=== PATIENT | female | born 1955 | race Caucasian/White ===

== ENCOUNTER 2016-04-06 07:33 | Inpatient (IN) | payer OTHER ==
[~2016-04-06] VITALS: Ht 162.6 cm; Wt 82.1 kg
[~2016-04-06 07:33] MED LIST: ALBUAER2 INH; BENZ100C7 PO; HYCUDL5 PO; PRD10 PO; ZNTT/150 PO; ZTHM250 PO; [UNRECOGNIZED DRUG - CODE] PO
--- NOTE | 2016-04-06 08:04 | EMERGENCY ROOM VISIT NOTE ---
History First contact with patient: 07:54 Chief Complaint: SHORTNESS OF BREATH Stated Complaint: SHORTNESS OF BREATH Nursing Triage Summary: Pt arrives via ALS litter from home for eval of worsening sob that began today and prod cough of brown sputum worse over the past couple weeks. 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 Pt given 125mg Solumedrol and Albuterol neb en route. Per medic, pt was sat 91% RA on their arrival. Pt sat 98% upon arrival to the ED. Pt denies pain. Hx of COPD. History of Present Illness The patient is a 60 year old female who presents to the Emergency Room with complaints of difficulty breathing. She has a history of lung disease, she was not a smoker but reports she has COPD which has been difficult to control over the last year. She reports over the last week she has had a cough, productive of brown sputum. She reports it got acutely worse tonight and she felt she couldn't breathe at all this morning. She was brought by ALS and had received an Albuterol nebulizer and 125mg IV Solumedrol. Her saturations on arrival were 91% and currently are 94% on room air. She reports chest tightness but no pain. She reports she has taken Clindamycin TID the last 3-4 days for sinusitis diagnosed by Dr Vidales. Review of Systems See HPI for pertinent positives & negatives. A total of 10 systems reviewed and were otherwise negative. Past Medical/Surgical History Medical Problems: (1) Age related osteoporosis (2) Asthma (3) Asthma exacerbation (4) Depression (5) Elevated troponin (6) Epilepsy (7) EDWIN (generalized anxiety disorder) (8) GERD (gastroesophageal reflux disease) (9) IBS (irritable bowel syndrome) Surgical Problems: (1) H/O colonoscopy (2) H/O esophagogastroduodenoscopy (3) H/O sinus surgery (4) H/O: hysterectomy (5) History of ear surgery (6) Hx of breast biopsy Family History Diabetes mellitus MOTHER FH: lung cancer AUNT Hypertension FATHER Social History Smoking Status: Never Smoker Alcohol Use: none Marital Status: single Housing Status: lives alone Occupation Status: unemployed Current/Historical Medications Scheduled Aspirin (Aspirin EC Low Dose), 1 TAB PO QAM Budesonide/Formoterol Fumarate (Symbicort 160/4.5 Inhaler ), 2 PUFFS INH BID Citalopram (Citalopram Hydrobromide), 40 MG PO QAM Cyanocobalamin (Vitamin B-12 1000 Mcg), 1 TAB PO QAM Fluticasone Propionate (Nasal) (Flonase Allergy Relief), 1 SPRAY JOSE CARLOS DAILY AFTERNOON Folic Acid (Folvite), 1 MG PO QAM Levothyroxine Sodium (Levothyroxine Sodium), 100 MCG PO QPM Montelukast Sodium (Singulair), 10 MG PO QPM Pantoprazole (Protonix), 40 MG PO QAM Phenobarbital (Phenobarbital), 97.2 MG PO HS Phenytoin Sodium (Dilantin), 200 MG PO BID Ranitidine (Zantac), 150 MG PO HS Scheduled PRN Albuterol Hfa (Ventolin Hfa), 2 PUFFS INH Q4H PRN for SOB/Wheezing Hydrocodone/Homatropine (Hydromet 5-1.5 mg/5Ml), 5 ML PO Q4 PRN for Cough Ipratropium-Albuterol (Duoneb), 1 TREATMENT INH Q4H PRN for SOB/Wheezing Allergies Coded Allergies: Clemastine (Verified Allergy, Unknown, ITCHING, 04/06/16) Sulfa Antibiotics (Verified Allergy, Unknown, RASH AND ITCHY, 04/06/16) [place] (Verified Allergy, Unknown, UKRAINIAN WALNUT ALLERGY, + ALLERGY TEST , 04/06/16) Physical Exam Vital Signs Date Time Temp Pulse Resp B/P Pulse Ox O2 Delivery O2 Flow Rate FiO2 04/06/16 08:59 73 18 127/66 99 Nebulizer 04/06/16 07:55 98 Room Air 04/06/16 07:50 37.2 90 22 128/95 98 Room Air 04/06/16 07:44 78 04/06/16 07:40 98 Room Air Physical Exam GENERAL: Awake, alert, well-appearing, in mild distress HENT: Normocephalic, atraumatic. Oropharynx unremarkable. EYES: Normal conjunctiva. Sclera non-icteric. NECK: Supple. No nuchal rigidity. FROM. No JVD. RESPIRATORY: Expiratory wheeze in Right base. Clear to auscultation in other nicolas. CARDIAC: Regular rate, normal rhythm. Extremities warm and well perfused. Pulses equal. ABDOMEN: Soft, non-distended. No tenderness to palpation. No rebound or guarding. No masses. RECTAL: Deferred. MUSCULOSKELETAL: Chest examination reveals no tenderness. The back is symmetrical on inspection without obvious abnormality. There is no CVA tenderness to palpation. No joint edema. LOWER EXTREMITIES: Calves are equal size bilaterally and non-tender. No edema. No discoloration. NEURO: Normal sensorium. No sensory or motor deficits noted. SKIN: No rash or jaundice noted. Medical Decision & Procedures Laboratory Results 04/06/16 06:58 Red Blood Count 4.63, Mean Corpuscular Volume 92.9, Mean Corpuscular Hemoglobin 32.4, Mean Corpuscular Hemoglobin Concent 34.9, Mean Platelet Volume 9.5, Neutrophils (%) (Auto) 28.8, Lymphocytes (%) (Auto) 41.7, Monocytes (%) (Auto) 13.1, Eosinophils (%) (Auto) 15.1, Basophils (%) (Auto) 1.1, Neutrophils # (Auto ) 1.57, Lymphocytes # (Auto) 2.27, Monocytes # (Auto) 0.71, Eosinophils # (Auto ) 0.82, Basophils # (Auto) 0.06 04/06/16 06:58 Test 04/06/16 06:58 04/06/16 09:10 04/06/16 10:10 White Blood Count 5.44 K/uL (4.8-10.8) Red Blood Count 4.63 M/uL (4.2-5.4) Hemoglobin 15.0 g/dL (12.0-16.0) Hematocrit 43.0 % (37-47) Mean Corpuscular Volume 92.9 fL (80-100) Mean Corpuscular Hemoglobin 32.4 pg (25-34) Mean Corpuscular Hemoglobin Concent 34.9 g/dl (32-36) Platelet Count 272 K/uL (130-400) Mean Platelet Volume 9.5 fL (7.4-10.4) Neutrophils (%) (Auto) 28.8 % Lymphocytes (%) (Auto) 41.7 % Monocytes (%) (Auto) 13.1 % Eosinophils (%) (Auto) 15.1 % Basophils (%) (Auto) 1.1 % Neutrophils # (Auto) 1.57 K/uL (1.4-6.5) Lymphocytes # (Auto) 2.27 K/uL (1.2-3.4) Monocytes # (Auto) 0.71 K/uL (0.11-0.59) Eosinophils # (Auto) 0.82 K/uL (0-0.5) Basophils # (Auto) 0.06 K/uL (0-0.2) RDW Standard Deviation 46.0 fL (36.4-46.3) RDW Coefficient of Variation 13.6 % (11.5-14.5) Immature Granulocyte % (Auto) 0.2 % Immature Granulocyte # (Auto) 0.01 K/uL (0.00-0.02) Anion Gap 10.0 mmol/L (3-11) Est Creatinine Clear Calc Drug Dose 90.1 ml/min Estimated GFR () 109.7 Estimated GFR (Non- 94.7 BUN/Creatinine Ratio 12.0 (10-20) Calcium Level 8.9 mg/dl (8.5-10.1) Total Bilirubin 0.3 mg/dl (0.2-1) Aspartate Amino Transf (AST/SGOT) 18 U/L (15-37) Alanine Aminotransferase (ALT/SGPT) 25 U/L (12-78) Alkaline Phosphatase 123 U/L (45-117) Total Creatine Kinase 149 U/L (26-192) Creatine Kinase MB 4.1 ng/ml (0.5-3.6) Creatine Kinase MB Ratio 2.8 (0-3.0) Troponin I < 0.015 ng/ml (0-0.045) Total Protein 7.7 gm/dl (6.4-8.2) Albumin 4.1 gm/dl (3.4-5.0) Globulin 3.6 gm/dl (2.5-4.0) Albumin/Globulin Ratio 1.1 (0.9-2) Arterial Blood pH 7.53 (7.35-7.45) Arterial Blood Partial Pressure CO2 31 mmHg (35-46) Arterial Blood Partial Pressure O2 74 mm/Hg (80-95) Arterial Blood HCO3 25 mmol/L (19-24) Arterial Blood Oxygen Saturation 95.8 % (90-95) Arterial Blood Base Excess 3.0 mEq/L (-9-1.8) Arterial Blood Gas Delivery ROOM AIR Agustín Test POS (POS) Medications Administered Medications (Trade) Dose Ordered Sig/Matt Route Start Time Stop Time Status Last Admin Dose Admin Albuterol/ Ipratropium (Duoneb) 3 ml QIDR ONCE INH 04/06/16 08:15 04/06/16 08:16 DC 04/06/16 08:58 3 ML ECG Indication: SOB/dyspnea Rhythm: normal sinus Findings: LBBB (Similar to 10/08/15 EKG) ED Course 8:00: The patient was evaluated in room B7. A complete history and physical were performed. I ordered a CBC, CMP, 2 view CXR, and Duoneb. She had already received a dose of steroids so this was not repeated. 9:30: I spoke with Dr. Zapata about the patient. He recommended getting cardiac enzymes and an ABG. 1000: I followed up with the patient. She feels her breathing has improved. 10:15: I could hear her coughing from the hallway, I went to check on her and she was tachycardic. 10:30: I discussed the case with Liz Lu of the [facility]. They will accept the patient to the hospital. Medical Decision 60 yo F with mixed lung disease (COPD/Asthma/Chronic aspiration) who had recent exacerbation with symptoms worsening after prednisone taper ended - differential includes pneumonia, influenza, other viral URI, NSTEMI, iatrogenic. She had an IV placed and labs drawn. She was given an albuterol nebulizer which helped her symptoms intermittently. Her CXR showed a linear clip in her esophagus and she reports this is from her recent EGD with a TOLBERT placement. She was continuously coughing and felt her breathing get better then worse while in the ED. After discussing her case with Dr Zapata, who is in the hospital this week, I ordered an ABG, which showed respiratory alkalosis, which was concerning. She is also intermittently tachycardic, and her saturations continued to drop during and after coughing spells. She will be admitted to the hospital for further evaluation. Impression Primary Impression: Shortness of breath Additional Impression: Tachycardia Departure Information Dispostion Being Evaluated By Hospitalist Referrals Asa Villavicencio D.O. (PCP) Patient Instructions My [facility] Resident Tracking Resident Involvement: Resident Care Provided Care Provided: Adult ED Problem Qualifiers
[2016-04-06 08:09] LABS: BASO % 1.1 %; BASO ABS # 0.06 K/uL (0-0.2); COMPLETE YES; EOS % 15.1 %; IG% 0.2 %; LYMPH % 41.7 %; LYMPH ABS # 2.27 K/uL (1.2-3.4); MEAN CELL VOLUME 92.9 fL (80-100); MEAN CORPUSCULAR HEMOGLOBIN 32.4 pg (25-34); MEAN CORPUSCULAR HGB CONC 34.9 g/dl (32-36); MEAN PLATELET VOLUME 9.5 fL (7.4-10.4); MONO % 13.1 %; NEUT % 28.8 %; PLATELET COUNT 272 K/uL (130-400); RED BLOOD COUNT 4.63 M/uL (4.2-5.4); WHITE BLOOD COUNT 5.44 K/uL (4.8-10.8)
[2016-04-06] MEDS ORDERED: ALBUT/IPRATROP 3MG/0.5MG NEB 3 ML VIAL INH ONE (08:15)
[2016-04-06 08:34] LABS: CALCIUM 8.9 mg/dl (8.5-10.1); CREATININE 0.66 mg/dl (0.60-1.20); POTASSIUM 3.7 mmol/L (3.5-5.1)
[2016-04-06 08:36] LABS: ALB/GLOB RATIO 1.1 (0.9-2)
--- NOTE | 2016-04-06 08:42 | DIAGNOSTIC IMAGING REPORT ---
CHEST 2 VIEWS ROUTINE CLINICAL HISTORY: Productive cough. COMPARISON STUDY: Chest radiograph February 28, 2016. FINDINGS: The patient is rotated. No pneumothorax or pleural effusion is present. The lung volumes are normal. No consolidation is identified. There is no evidence of pulmonary edema. Cardiomediastinal silhouette is normal. A subtle linear radiodensity projecting over the mid mediastinum may reflect an endoscopic clip. Mild bibasilar opacities favor atelectasis. IMPRESSION: 1. No acute cardiopulmonary findings. 2. Mild bibasilar opacities suggestive of atelectasis. Electronically signed by: Brenton Urrutia M.D. 04/06/2016 8:41 AM Dictated Date/Time: 04/06/2016 8:39 AM
--- NOTE | 2016-04-06 09:48 | EMERGENCY ROOM VISIT NOTE ---
ED Visit Note First contact with patient: 07:54 Resident Physician Supervision Note: I interviewed and examined the patient. Discussed with Dr. Lynne and agree with findings and plan as documented in the note. Any exceptions or clarifications are listed here: [None] Documented By: Jimi Malone
[2016-04-06 10:10] LABS: CKMB/CK RATIO 2.8 (0-3.0)
[2016-04-06 10:19] LABS: ALLEN TEST POS (POS); ARTERIAL BLD GAS O2 SATURATION 95.8 % (90-95); ARTERIAL BLOOD GAS HCO3 25 mmol/L (19-24); ARTERIAL BLOOD GAS PO2 74 mm/Hg (80-95); O2 ADMINISTRATION ROOM AIR
[2016-04-06 10:24] LABS: ARTERIAL BLOOD GAS pH 7.53 (7.35-7.45)
[2016-04-06] MEDS ORDERED: ONDANSETRON INJ 2 MG/ML 2 ML VIAL IV PRN (11:30)
[2016-04-06] MEDS ORDERED: ACETAMINOPHEN 325 MG TAB PO PRN (11:30)
[2016-04-06] MEDS ORDERED: CLIN150C15 PO (11:31)
[2016-04-06] MEDS ORDERED: SALI0.6510 NAE (11:33)
[2016-04-06 12:24] LABS: INR 1.1 (0.9-1.1); PROTHROMBIN TIME (PATIENT) 11.8 SECONDS (9.0-12.0)
[2016-04-06] MEDS ORDERED: ALBUT/IPRATROP 3MG/0.5MG NEB 3 ML VIAL INH PRN (13:00)
[2016-04-06 13:35] LABS: INFLUENZA A PCR Neg for Influ A (NEG); INFLUENZA B PCR Neg for Influ B (NEG)
[2016-04-06] MEDS ORDERED: LEVOFLOXACIN / D5W 500 MG in PREMIXED IN D5W 100 ML IV SCH (14:00)
[2016-04-06 14:10] VITALS: BP 127/74; PULSE 77; TEMP 36.9; O2SAT 93
--- NOTE | 2016-04-06 14:25 | History and Physical ---
History & Physical Date & Time of Service: Apr 06, 2016 at 11:34 Chief Complaint: Shortness Of Breath Primary Care Physician: Asa Villavicencio D.O. History of Present Illness Source: patient, clinic records, hospital records This is a 60 y/o female with PMH of asthma, GERD, seizures, hypothyroidism, who presents to the ED with productive cough and SOB. Pt follows with Dr. Zapata for pulmonology. She was recently hospitalized at [facility] from Feb 27- for asthmatic bronchitis exacerbation. She was treated with ceftriaxone and steroids and discharged with azithromycin and prednisone taper. Pt states after going home she felt better but her breathing never returned to baseline. Then over past 2 weeks she has cough productive of brown sputum. She reports worsening SOB and wheezing over past few days with constant chest tightness similar to prior asthma exacerbations. She is MACHUCA walking across a room and occasionally SOB at rest. She chronically sleeps upright in a recliner. She was using Duoneb at home which relieved symptoms for less than 4 hours. She was brought to ER by ambulance today and received 125 mg IV Solu-Medrol and albuterol neb en route. She states breathing is improved currently. She has associated fatigue and frontal QUICK which she attributes to coughing. She reports feeling hot and cold, but did not measure her temperature. She reports chronic post nasal drip. She recently had sinus endoscopy by Dr. Vidales. Culture grew MSSA and strep pseudopneumoniae. Pt was prescribed clindamycin for which she was taking for approx 5 days. Pt reports chronic occasional swallowing difficulty which she states is unchanged from time of speech therapy evaluation in 06/2015. Regular diet with aspiration precautions was recommended. She had upper endoscopy which showed small hiatal hernia on 12/04/2015. She reports a lot of burping but not experiencing reflux. She also reports burning in back of her mouth. She has chronic cramping of the legs. Denies rhinorrhea, increased nasal congestion, palpitations, abdominal pain, reflux, nausea, vomiting, diarrhea, urinary changes. Denies sick contacts. Past Medical/Surgical History Medical Problems: (1) Age related osteoporosis Status: Chronic (2) Asthma Status: Chronic (3) Depression Status: Chronic (4) Epilepsy Permanent Comment: General, convulsive Status: Chronic (5) EDWIN (generalized anxiety disorder) Status: Chronic (6) GERD (gastroesophageal reflux disease) Status: Chronic (7) IBS (irritable bowel syndrome) Status: Chronic Surgical Problems: (1) H/O colonoscopy Status: Chronic (2) H/O esophagogastroduodenoscopy Status: Chronic (3) H/O sinus surgery Status: Chronic (4) H/O: hysterectomy Status: Chronic (5) History of ear surgery Status: Chronic (6) Hx of breast biopsy Status: Chronic Family History Diabetes mellitus MOTHER FH: lung cancer AUNT Hypertension FATHER Social History Smoking Status: Never Smoker Marital Status: single Housing status: other (lives with her elderly mother) Occupational Status: unemployed Immunizations History of Influenza Vaccine: No History of Tetanus Vaccine?: UTD History of Pneumococcal: No History of Hepatitis B Vaccine: Unknown Multi-Drug Resistant Organisms History of MDRO: No Allergies Coded Allergies: Clemastine (Verified Allergy, Unknown, ITCHING, 04/06/16) Sulfa Antibiotics (Verified Allergy, Unknown, RASH AND ITCHY, 04/06/16) [place] (Verified Allergy, Unknown, GAMBIAN WALNUT ALLERGY, + ALLERGY TEST , 04/06/16) Home Medications Scheduled Aspirin (Aspirin EC Low Dose), 1 TAB PO QAM Budesonide/Formoterol Fumarate (Symbicort 160/4.5 Inhaler ), 2 PUFFS INH BID Citalopram (Citalopram Hydrobromide), 40 MG PO QAM Clindamycin Hcl (Clindamycin Hcl), 150 MG PO TID Cyanocobalamin (Vitamin B-12 1000 Mcg), 1 TAB PO QAM Fluticasone Propionate (Nasal) (Flonase Allergy Relief), 1 SPRAY JOSE CARLOS BID Folic Acid (Folvite), 1 MG PO QAM Levothyroxine Sodium (Levothyroxine Sodium), 100 MCG PO DAILY Montelukast Sodium (Singulair), 10 MG PO QPM Pantoprazole (Protonix), 40 MG PO QAM Phenobarbital (Phenobarbital), 97.2 MG PO HS Phenytoin Sodium (Dilantin), 200 MG PO BID Ranitidine (Zantac), 150 MG PO DAILY Saline (Nambe Nasal [place]), 1 SPRAY JOSE CARLOS DAILY Scheduled PRN Albuterol Hfa (Ventolin Hfa), 2 PUFFS INH Q4H PRN for SOB/Wheezing Ipratropium-Albuterol (Duoneb), 1 TREATMENT INH Q4H PRN for SOB/Wheezing Review of Systems Ten point review of systems performed with pertinent positives and negatives noted in HPI. Physical Exam Vital Signs Date Time Temp Pulse Resp B/P Pulse Ox O2 Delivery O2 Flow Rate FiO2 04/06/16 11:17 103 24 157/76 95 Room Air 04/06/16 08:59 73 18 127/66 99 Nebulizer 04/06/16 07:55 98 Room Air 04/06/16 07:50 37.2 90 22 128/95 98 Room Air 04/06/16 07:44 78 04/06/16 07:40 98 Room Air General Appearance: WD/WN, no apparent distress, + pertinent finding (alert 60 year old female, sitting up in bed, no distress) Head: normocephalic, atraumatic Eyes: normal inspection, PERRL, EOMI ENT: hearing grossly normal, TMs normal (no erythema or bulging), + pertinent finding (white patches on tongue and oropharynx. no sinus tenderness to palpation. ) Neck: supple, no JVD Respiratory/Chest: no respiratory distress, no accessory muscle use, + pertinent finding (expiratory wheezing heard throughout) Cardiovascular: regular rate, rhythm, no murmur Abdomen/GI: normal bowel sounds, non tender, soft Extremities/Musculoskelatal: no calf tenderness, normal capillary refill, + pertinent finding (trace edema bilateral ankles) Neurologic/Psych: alert, normal mood/affect, oriented x 3 Skin: normal color, warm/dry Diagnostics Laboratory Results Results Past 24 Hours Test 04/06/16 06:58 04/06/16 09:10 04/06/16 10:10 04/06/16 11:26 Range/Units White Blood Count 5.44 4.8-10.8 K/uL Red Blood Count 4.63 4.2-5.4 M/uL Hemoglobin 15.0 12.0-16.0 g/dL Hematocrit 43.0 37-47 % Mean Corpuscular Volume 92.9 80-100 fL Mean Corpuscular Hemoglobin 32.4 25-34 pg Mean Corpuscular Hemoglobin Concent 34.9 32-36 g/dl Platelet Count 272 130-400 K/uL Mean Platelet Volume 9.5 7.4-10.4 fL Neutrophils (%) (Auto) 28.8 % Lymphocytes (%) (Auto) 41.7 % Monocytes (%) (Auto) 13.1 % Eosinophils (%) (Auto) 15.1 % Basophils (%) (Auto) 1.1 % Neutrophils # (Auto) 1.57 1.4-6.5 K/uL Lymphocytes # (Auto) 2.27 1.2-3.4 K/uL Monocytes # (Auto) 0.71 0.11-0.59 K/uL Eosinophils # (Auto) 0.82 0-0.5 K/uL Basophils # (Auto) 0.06 0-0.2 K/uL RDW Standard Deviation 46.0 36.4-46.3 fL RDW Coefficient of Variation 13.6 11.5-14.5 % Immature Granulocyte % (Auto) 0.2 % Immature Granulocyte # (Auto) 0.01 0.00-0.02 K/uL Sodium Level 141 136-145 mmol/L Potassium Level 3.7 3.5-5.1 mmol/L Chloride Level 104 98-107 mmol/L Carbon Dioxide Level 27 21-32 mmol/L Anion Gap 10.0 3-11 mmol/L Blood Urea Nitrogen 8 7-18 mg/dl Creatinine 0.66 0.60-1.20 mg/dl Est Creatinine Clear Calc Drug Dose 90.1 ml/min Estimated GFR () 109.7 Estimated GFR (Non- 94.7 BUN/Creatinine Ratio 12.0 10-20 Random Glucose 84 70-99 mg/dl Calcium Level 8.9 8.5-10.1 mg/dl Total Bilirubin 0.3 0.2-1 mg/dl Aspartate Amino Transf (AST/SGOT) 18 15-37 U/L Alanine Aminotransferase (ALT/SGPT) 25 12-78 U/L Alkaline Phosphatase 123 45-117 U/L Total Creatine Kinase 149 26-192 U/L Creatine Kinase MB 4.1 0.5-3.6 ng/ml Creatine Kinase MB Ratio 2.8 0-3.0 Troponin I < 0.015 0-0.045 ng/ml Total Protein 7.7 6.4-8.2 gm/dl Albumin 4.1 3.4-5.0 gm/dl Globulin 3.6 2.5-4.0 gm/dl Albumin/Globulin Ratio 1.1 0.9-2 Influenza Type A Antigen Neg for Influ A NEG Influenza Type B Antigen Neg for Influ B NEG Arterial Blood pH 7.53 7.35-7.45 Arterial Blood Partial Pressure CO2 31 35-46 mmHg Arterial Blood Partial Pressure O2 74 80-95 mm/Hg Arterial Blood HCO3 25 19-24 mmol/L Arterial Blood Oxygen Saturation 95.8 90-95 % Arterial Blood Base Excess 3.0 -9-1.8 mEq/L Arterial Blood Gas Delivery ROOM AIR Agustín Test POS POS Diagnostic Radiology CHEST 2 VIEWS ROUTINE CLINICAL HISTORY: Productive cough. COMPARISON STUDY: Chest radiograph February 28, 2016. FINDINGS: The patient is rotated. No pneumothorax or pleural effusion is present. The lung volumes are normal. No consolidation is identified. There is no evidence of pulmonary edema. Cardiomediastinal silhouette is normal. A subtle linear radiodensity projecting over the mid mediastinum may reflect an endoscopic clip. Mild bibasilar opacities favor atelectasis. IMPRESSION: 1. No acute cardiopulmonary findings. 2. Mild bibasilar opacities suggestive of atelectasis. EKG NSR, 73 bpm, LBBB- also present on previous EKG October 08 2015 Impression Assessment and Plan SHORTNESS OF BREATH Likely due to asthma exacerbation from acute bronchitis CXR- Mild bibasilar opacities suggestive of atelectasis Influenza antigen and PCR negative Received IV Solu-Medrol 125 mg en route Solu-Medrol 40 mg TID Duoneb q6h and PRN Empiric antibiotic coverage with Levaquin Check sputum culture Contiue inhaled steroid and Singulair Incentive spirometry Supplemental oxygen per protocol Consult pulmonology- Dr. Zapata CHRONIC SINUSITIS S/p recent sinus endoscopy by Dr. Vidales 03/25/16- cx grew few MSSA and few strep pseudopneumoniae; was started on 10 day course of clindamycin (took approx 5 days?) Will continue the 10 day course of clindamycin through 04/10/16 SWALLOWING DIFFICULTY Reports occasional swallowing difficulty unchanged from time of speech evaluation in 06/2015. Regular diet with aspiration precautions was recommended. EGD 12/04/15 showed small hiatal hernia on 12/04/2015 Continue aspiration precautions GERD Controlled as per patient Continue Protonix and ranitidine THRUSH Started on Mycelex troches SEIZURE DISORDER Stable; no recent seizure Continue phenobarbital and Dilantin HYPOTHYROIDISM Continue levothyroxine DEPRESSION/ ANXIETY Continue citalopram DVT PROPHYLAXIS Lovenox SQ CODE STATUS Full code per my discussion with the patient. Patient seen in collaboration with Dr. Bradley. Please see his addendum. Agree with above h and P. Briefly 60Y F with hx of asthma presents with worsemning sob and cough with browinsh sputum. denies fevers. Also has sinus infection for which she is on clindamycin. Says her chest feels tight whlile she is ob. SOb comes and goes. Having recurrent flares. Always coughing since last few months. 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 a/p Asthma exacerbation recurrent iv steroids, nebs and abx and oxygen pulmonary consult. Sinus infection complete clindamycin course VTE Prophylaxis VTE Risk Assessment Done? Y/N: Yes Risk Level: Moderate
[2016-04-06 14:30] VITALS: O2SAT 96; Ht 162.6 cm; Wt 82.1 kg
[2016-04-06] MEDS: METHYLPREDNISOLONE IV 40 MG in SYRINGE 0 ML IV SCH ×2 (14:51→20:01)
[2016-04-06] MEDS: CLINDAMYCIN HCL 150 MG CAP PO SCH ×2 (14:54→20:02)
[2016-04-06] MEDS ORDERED: NURSING VERBAL MED ORDER ONE (15:00)
[2016-04-06] MEDS: CLOTRIMAZOLE 10 MG TROCHE MT SCH ×4 (15:00→23:27)
[2016-04-06] MEDS ORDERED: COUGH DROP (SUGAR FREE) LOZ 24 LOZ/1 BOX ONE (15:01)
[2016-04-06] MEDS ORDERED: PNEUMOCOCCAL ADMINISTRATION CHARGE ONE (15:15)
[2016-04-06] MEDS ORDERED: PNEUMOCOCCAL POLYSACCHARIDES 25 MCG/0.5 ML VIAL/SYR IM. ONE (15:15)
[2016-04-06] MEDS: COUGH DROP (SUGAR FREE) LOZ 24 LOZ/1 BOX PO PRN (15:17)
[2016-04-06 15:25] VITALS: BP 129/72; PULSE 77; TEMP 37; O2SAT 94
[2016-04-06 16:11] LABS: INFLUENZA A PCR Neg for Influ A (NEG); INFLUENZA B PCR Neg for Influ B (NEG)
[2016-04-06] MEDS: ENOXAPARIN 40 MG/0.4 ML SYR SC SCH (16:37)
--- NOTE | 2016-04-06 18:01 | Pulmonary Consultation ---
History General Date of Service: Apr 06, 2016. Stated Complaint: Asthma Exacerbation, Sob HPI The patient is a 60 year old female who presents to [facility] with complaints of Asthma Exacerbation, Sob. The patient's primary care provider is Asa Villavicencio D.O.. 60-year-old female being admitted for chronic cough with acute on chronic shortness of breath. Patient is well-known to me and has a past medical history significant for: Asthmatic bronchitis, chronic sinusitis, severe GERD and coronary artery disease with non-STEMI. She was recently hospitalized at the [facility] from February 17 to the for asthmatic bronchitis and at that time treated with antibiotics and prednisone with minimal relief. She recently underwent endoscopy by Dr. Patricio Calvillo of the ENT department and culture grew out MSSA and strep pseudopneumoniae which she received clindamycin for 5 days. Patient has had continued brown sputum production the last 1-2 months and progressive dyspnea on exertion and paroxysmal coughing with associated sore throat over that period of time. This time she denies: Pleurisy, cardiac chest pain, fever, chills Workup: WBC: 5.4 (mildly elevated total eosinophil count of 0.82) AB.53/31/74/25--room air-------- AA gradient: 14 INR: 1.1 Troponin I: <0.015 CK-MB: 4.1 Alkaline phosphatase 1.23 Influenza A+B antigen/PCR: Negative Chest x-ray 02/03/2017: Lateral film suggesting basilar atelectasis, esophageal Endo Clip Treatment: #1 ranitidine 150 mg by mouth daily #2 Symbicort 160/4.52 puffs twice a day #3 Singulair 10 mg daily #4 DuoNeb 4 times per day #5 clindamycin 150 mg by mouth 3 times a day #6 Chlortrimazole troches 5 times per day #7 Solu-Medrol 40 mg IV every 8 hours #8 levofloxacin 500 mg IV daily Previous WorK-Up: Gastroenterology: Dr. [facility] GI: unremarkable EGD 11/20/2015: EGD with TOLBERT capsule placement Complications: Retained Endo-clip 12/04/2015 EGD o Small Endoclip was found in the esophagus o Small hiatus hernia Attempted 24 pH monitor but patient could not tolerate ENT: chronic otitis and mastoiditis, quinolone resistant Pseudomonas Cardiac: Echocardiogram: 11/07/2015 LV: 60-64% RV: Function within normal limits TAPSE >1.7cm Reduce left ventricular dysfunction stress-induced Pulmonary: Bronchoscopy 09/12/2015 consistent with chronic aspiration/no significant growth off BAL Pulmonary function test 06/05/2015: Spirometry FEV1/FVC: 61 FEV1: 1.73/72 % ( significant reversibility) FVC 2.86/94 % CVID: 03/23/2016 Ig-WNL IgA: 136-WNL IgM: 50-WNL Radiology: Barium swallow 11/20/2015: No extraluminal contrast indicated full thickness esophageal tear, pH probe endoscopic clips within the esophagus Chest x-ray 09/12/2015: No noted abnormalities Bronchoscopy 06/28/15 MSSA Bronchoscopy 09/04/15 no notable growth Right ear drainage 02/05/2013: Pseudomonas, coag-negative staph, Propionibacterium Review of Systems Constitutional: reports: weakness Eyes: reports: no symptoms ENT: reports: no symptoms Cardiovascular: reports: chest tightness Respiratory: reports: MACHUCA, cough, shortness of breath Gastrointestinal: reports: no symptoms Genitourinary - Female: reports: no symptoms Musculoskeletal: reports: myalgias Integumentary: reports: no symptoms Neurologic: reports: no symptoms Psychiatric: reports: anxiety Endocrine: no symptoms Hematologic / Lymphatic: no symptoms Allergic / Immunologic: no symptoms Past Medical History Past Medical History: 1. Acute bronchitis 2. Acute sinusitis 3. Allergic rhinitis 4. Asthma 5. Blurry vision 6. Bronchiectasis 7. Carpal tunnel syndrome 8. Chronic laryngitis 9. Chronic otitis media / pseudomonal 10. Chronic sinusitis 11. Cough 12. Depression 13. Earache 14. Esophageal pain 15. Gastric reflux 16. Generalized anxiety disorder 17. Generalized convulsive seizure 18. Hearing loss 19. Hiatal hernia 20. Hypothyroidism 21. Jaw pain 22. Laryngopharyngeal reflux 23. [facility] current use of systemic steroids 24. Mastoiditis, chronic 25. 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 Mucoid impaction of bronchi 28. Oral thrush 29. Oral thrush 30. Osteoporosis 31. Shortness of breath at rest 32. Staphylococcus aureus infection 33. Tympanic membrane perforation 34. Vertigo 35. Vitamin D deficiency 36. NSTEMI Past Surgical History: 1. History of Colonoscopy (Fiberoptic) 2. History of Ear Surgery 3. History of Endoscopic Ultrasound Upper Gastrointestinal Esophageal 4. History of Sinus Surgery 5. History of Total Abdominal Hysterectomy 6. History of Tympanoplasty 7. History of Tympanoplasty Revision Family History Diabetes mellitus MOTHER FH: lung cancer AUNT Hypertension FATHER Thyroid disease Social History Tobacco: Never smoker Occupation: Retired Alcohol: Social use no history of abuse Hx Tobacco Use In Past Year?: No Smoking Status: Never Smoker Marital status: single Housing status: other (lives with her elderly mother) Occupational Status: unemployed Immunizations History of Influenza Vaccine: No History of Tetanus Vaccine?: UTD History of Pneumococcal: No History of Hepatitis B Vaccine: Unknown History of MDRO History of MDRO: No Allergies Coded Allergies: Clemastine (Verified Allergy, Unknown, ITCHING, 04/06/16) Sulfa Antibiotics (Verified Allergy, Unknown, RASH AND ITCHY, 04/06/16) [place] (Verified Allergy, Unknown, W[place] ALLERGY, + ALLERGY TEST , 04/06/16) Current Medications Reported Home Medications Medications Dose Route/Sig Max Daily Dose Days Date Category [place] Nasal [place] (Saline) 0.65 % Spr 1 [place] JOSE CARLOS DAILY 04/06/16 Reported Clindamycin Hcl 150 Mg Cap 150 Mg PO TID 04/06/16 Reported Ventolin Hfa (Albuterol) 200 Puffs/02733 Mcg Aers 2 Puffs INH Q4H PRN 04/06/16 Reported Symbicort 160/4.5 Inhaler (Budesonide/Formoterol Fumarate) Aero 2 Puffs INH BID 12/03/15 Reported Aspirin EC Low Dose (Aspirin) 81 Mg Ectab 1 Tab PO QAM 10/08/15 Reported Singulair (Montelukast Sodium) 10 Mg Tab 10 Mg PO QPM 10/08/15 Reported Vitamin B-12 1000 Mcg (Cyanocobalamin) 1,000 Mcg Tab 1 Tab PO QAM 10/08/15 Reported Duoneb (Ipratropium-Albuterol) 3 Ml Nebu 1 Treatment INH Q4H PRN 10/08/15 Reported Zantac (Ranitidine HCl) 150 Mg Tab 150 Mg PO DAILY 10/08/15 Reported Flonase Allergy Relief (Fluticasone Propionate (Nasal)) 50 Mcg/Act Spr 1 [place] JOSE CARLOS BID 09/17/15 Reported Folvite (Folic Acid) 1 Mg Tab 1 Mg PO QAM 09/17/15 Reported Citalopram Hydrobromide (Citalopram) 40 Mg Tab 40 Mg PO QAM 09/17/15 Reported Levothyroxine Sodium 100 Mcg Tab 100 Mcg PO DAILY 09/17/15 Reported Protonix (Pantoprazole Sodium) 40 Mg Tab 40 Mg PO QAM 09/17/15 Reported Dilantin (Phenytoin Sodium) 100 Mg Cap 200 Mg PO BID 09/17/15 Reported Phenobarbital 100 Mg Tab 97.2 Mg PO HS 09/17/15 Reported Physical Physical Exam Vital Signs: Date Time Temp Pulse Resp B/P Pulse Ox O2 Delivery O2 Flow Rate FiO2 04/06/16 15:25 37.0 77 20 129/72 94 04/06/16 14:30 96 Room Air 04/06/16 14:10 36.9 77 18 127/74 93 Room Air 04/06/16 13:25 82 20 128/70 96 04/06/16 11:17 103 24 157/76 95 Room Air 04/06/16 08:59 73 18 127/66 99 Nebulizer 04/06/16 07:55 98 Room Air 04/06/16 07:50 37.2 90 22 128/95 98 Room Air 04/06/16 07:44 78 04/06/16 07:40 98 Room Air General Appearance: mild distress Head: NORMOCEPHALIC, ATRAUMATIC Eyes: EOMI, SCLERAE NORMAL ENT: NORMAL EAR EXAM, NORMAL NASAL EXAM, NORMAL MOUTH EXAM, NORMAL THROAT EXAM Neck: NORMAL RANGE OF MOTION, NO TENDERNESS, TRACHEA MIDLINE, NO STRIDOR Respiratory: wheezing Cardiovasular: REGULAR RATE/RHYTHM, NORMAL S1S2, NO M/G/R, NO MURMUR, NO GALLOP Abdomen: NON TENDER, NORMAL BOWEL SOUNDS, NO REBOUND, NO MASSES, NO GUARDING, NO ORGANOMEGALY Genitourinary - Female: EXTERNAL GENITALIA NORMAL Back: NORMAL INSPECTION, NO MIDLINE TENDERNESS, NO CVA TENDERNESS, NO PARAVERTEBRAL TTP Upper Extremities: NO EDEMA, NO DEFORMITY, NORMAL ROM Lower Extremities: NO EDEMA, NO DEFORMITY, NORMAL ROM Pulses: carotid (R) (2+), carotid (L) (2+), dorsalis pedis (R) (2+), dorsalis pedis (L) (2+) Neuro: ALERT, ORIENTED x 3, NORMAL MOTOR EXAM, NORMAL SENSATION, NORMAL CEREBELLAR EXAM, NORMAL SPEECH, NORMAL GAIT Reflexes: biceps (R) (2+), bicpes (L) (2+), patellar (R) (2+), patellar (L) (2+ ) Babinski Testing: right (downgoing), left (downgoing) Psychiatric: NORMAL AFFECT, NO SUICIDAL IDEATION Diagnostics Labs Results Past 24 Hours Test 04/06/16 00:00 04/06/16 06:58 04/06/16 09:10 04/06/16 10:10 Range/Units Influenza Type A (RT-PCR) Neg for Influ A Neg for Influ A NEG Influenza Type B (RT-PCR) Neg for Influ B Neg for Influ B NEG White Blood Count 5.44 4.8-10.8 K/uL Red Blood Count 4.63 4.2-5.4 M/uL Hemoglobin 15.0 12.0-16.0 g/dL Hematocrit 43.0 37-47 % Mean Corpuscular Volume 92.9 80-100 fL Mean Corpuscular Hemoglobin 32.4 25-34 pg Mean Corpuscular Hemoglobin Concent 34.9 32-36 g/dl Platelet Count 272 130-400 K/uL Mean Platelet Volume 9.5 7.4-10.4 fL Neutrophils (%) (Auto) 28.8 % Lymphocytes (%) (Auto) 41.7 % Monocytes (%) (Auto) 13.1 % Eosinophils (%) (Auto) 15.1 % Basophils (%) (Auto) 1.1 % Neutrophils # (Auto) 1.57 1.4-6.5 K/uL Lymphocytes # (Auto) 2.27 1.2-3.4 K/uL Monocytes # (Auto) 0.71 0.11-0.59 K/uL Eosinophils # (Auto) 0.82 0-0.5 K/uL Basophils # (Auto) 0.06 0-0.2 K/uL RDW Standard Deviation 46.0 36.4-46.3 fL RDW Coefficient of Variation 13.6 11.5-14.5 % Immature Granulocyte % (Auto) 0.2 % Immature Granulocyte # (Auto) 0.01 0.00-0.02 K/uL Sodium Level 141 136-145 mmol/L Potassium Level 3.7 3.5-5.1 mmol/L Chloride Level 104 98-107 mmol/L Carbon Dioxide Level 27 21-32 mmol/L Anion Gap 10.0 3-11 mmol/L Blood Urea Nitrogen 8 7-18 mg/dl Creatinine 0.66 0.60-1.20 mg/dl Est Creatinine Clear Calc Drug Dose 90.1 ml/min Estimated GFR () 109.7 Estimated GFR (Non- 94.7 BUN/Creatinine Ratio 12.0 10-20 Random Glucose 84 70-99 mg/dl Calcium Level 8.9 8.5-10.1 mg/dl Total Bilirubin 0.3 0.2-1 mg/dl Aspartate Amino Transf (AST/SGOT) 18 15-37 U/L Alanine Aminotransferase (ALT/SGPT) 25 12-78 U/L Alkaline Phosphatase 123 45-117 U/L Total Creatine Kinase 149 26-192 U/L Creatine Kinase MB 4.1 0.5-3.6 ng/ml Creatine Kinase MB Ratio 2.8 0-3.0 Troponin I < 0.015 0-0.045 ng/ml Total Protein 7.7 6.4-8.2 gm/dl Albumin 4.1 3.4-5.0 gm/dl Globulin 3.6 2.5-4.0 gm/dl Albumin/Globulin Ratio 1.1 0.9-2 Influenza Type A Antigen Neg for Influ A NEG Influenza Type B Antigen Neg for Influ B NEG Arterial Blood pH 7.53 7.35-7.45 Arterial Blood Partial Pressure CO2 31 35-46 mmHg Arterial Blood Partial Pressure O2 74 80-95 mm/Hg Arterial Blood HCO3 25 19-24 mmol/L Arterial Blood Oxygen Saturation 95.8 90-95 % Arterial Blood Base Excess 3.0 -9-1.8 mEq/L Arterial Blood Gas Delivery ROOM AIR Agustín Test POS POS Test 04/06/16 12:00 Range/Units Prothrombin Time 11.8 9.0-12.0 SECONDS Prothromb Time International Ratio 1.1 0.9-1.1 Activated Partial Thromboplast Time 26.7 21.0-31.0 SECONDS Partial Thromboplastin Ratio 1.0 Diagnostic Radiology Chest x-ray 02/03/2017: Lateral film suggesting basilar atelectasis, esophageal Endo Clip EKG Normal sinus rhythm with left bundle branch block notable change from February in which there is no signs of left bundle branch block at that time. Impression Assessment and Plan 60-year-old female with acute on chronic shortness of breath and paroxysmal cough: #1 Cough/acute care: Etiology of chronic cough most likely multifactorial with chronic sinus/ear infections, severe GERD and ACOS. At this time I agree with current medical regimen but will increase her ranitidine to 150 mg twice daily as well as increase her levofloxacin to 750 mg IV daily for better atypical coverage chest is mycobacterial and/or pertussis. We'll also initiate patient on guaifenesin/before meals at this time for symptomatic relief. #2 chronic cough/workup: This patient is never been worked up for pulmonary emboli/chronic pulmonary emboli for etiology of chronic cough. This time we'll perform CT angiogram if negative will follow-up with V/Q scan for possible CTEPH.
[2016-04-06] MEDS ORDERED: OPTIRAY 320 IV PRN (18:45)
[2016-04-06] MEDS ORDERED: GUAIFENESIN/CODEINE 100MG/10MG 5ML UDC PO PRN (19:00)
[2016-04-06 19:04] VITALS: BP 134/76; PULSE 80; TEMP 36.9; O2SAT 96
--- NOTE | 2016-04-06 19:13 | DIAGNOSTIC IMAGING REPORT ---
CHEST CTA for PULMONARY ARTERIES CT DOSE: 248.57 mGy.cm HISTORY: Chest pain rule out pulmonary embolism TECHNIQUE: Multiaxial CT images of the chest were performed following the intravenous administration of contrast to evaluate the pulmonary arteries. Maximal intensity projection images were also obtained. COMPARISON STUDY: 10/08/2015 FINDINGS: The thoracic aorta is normal in course and caliber. No evidence for aneurysm or dissection. Pulmonary vasculature enhances appropriately. Lungs in general are clear. There is slight peribronchial prominence. There is mild mucous plugging of the lower lobe peripheral bronchial tree bilaterally. IMPRESSION: 1. Study is negative for pulmonary embolus. 2. Mild bibasilar mucous plugging of the bronchi. 3. Mild bibasilar plate like atelectasis. 4. Mild peribronchial thickening throughout both hemithoraces Electronically signed by: Haider Frankel M.D. 04/06/2016 7:11 PM Dictated Date/Time: 04/06/2016 7:02 PM
[2016-04-06] MEDS: RANITIDINE HCL 150 MG TAB PO SCH (20:01)
[2016-04-06] MEDS: FLUTICASONE PROPIONATE NA SPR 16 GM BTL NAE SCH (20:01)
[2016-04-06] MEDS: BUDESONIDE/FORMOTEROL FUMARATE 160/4.5 60 PUFFS/INHALER INH SCH (20:02)
[2016-04-06] MEDS: MONTELUKAST SOD 10 MG TAB PO SCH (20:03)
[2016-04-06] MEDS: PHENYTOIN SODIUM ER 100 MG CAP PO SCH (20:03)
[2016-04-06] MEDS: BENZONATATE 100MG CAP PO PRN (20:08)
[2016-04-06] MEDS: PHENOBARBITAL 32.4 MG TAB PO SCH (20:13)
[2016-04-06 23:50] VITALS: BP 123/65; PULSE 80; TEMP 36.5; O2SAT 92
[2016-04-07] VITALS (10 sets, daily range): BP systolic 104–128; BP diastolic 56–68; PULSE 74–99; TEMP 36.5–36.7; O2SAT 92–98
[2016-04-07] MEDS: METHYLPREDNISOLONE IV 40 MG in SYRINGE 0 ML IV SCH ×3 (06:09→21:49)
[2016-04-07] MEDS: LEVOTHYROXINE 100 MCG TAB PO SCH (06:09)
[2016-04-07] MEDS: CLOTRIMAZOLE 10 MG TROCHE MT SCH ×5 (06:10→22:54)
[2016-04-07 06:48] LABS: HEMATOCRIT 39.1 % (37-47); MEAN CELL VOLUME 93.1 fL (80-100); MEAN CORPUSCULAR HEMOGLOBIN 31.9 pg (25-34); MEAN CORPUSCULAR HGB CONC 34.3 g/dl (32-36); MEAN PLATELET VOLUME 9.3 fL (7.4-10.4); PLATELET COUNT 262 K/uL (130-400)
[2016-04-07 07:25] LABS: BUN/CREATININE RATIO 12.5 (10-20); CALCIUM 8.6 mg/dl (8.5-10.1); CREATININE 0.76 mg/dl (0.60-1.20); MAGNESIUM 2.1 mg/dl (1.8-2.4); POTASSIUM 3.3 mmol/L (3.5-5.1)
[2016-04-07] MEDS: ALBUT/IPRATROP 3MG/0.5MG NEB 3 ML VIAL INH SCH ×4 (08:00→19:07)
[2016-04-07] MEDS: PANTOprazole SOD 40 MG TAB PO SCH (08:06)
[2016-04-07] MEDS: RANITIDINE HCL 150 MG TAB PO SCH ×2 (08:07→19:25)
[2016-04-07] MEDS: CLINDAMYCIN HCL 150 MG CAP PO SCH ×3 (08:08→19:27)
[2016-04-07] MEDS: LACTOBACILLUS ACIDOPHILUS (FLORANEX) TAB PO SCH ×3 (08:09→16:43)
[2016-04-07] MEDS: FLUTICASONE PROPIONATE NA SPR 16 GM BTL NAE SCH ×3 (08:10→19:28)
[2016-04-07] MEDS: BUDESONIDE/FORMOTEROL FUMARATE 160/4.5 60 PUFFS/INHALER INH SCH ×2 (08:10→19:28)
[2016-04-07] MEDS: ASPIRIN 81 MG ECTAB PO SCH (08:11)
[2016-04-07] MEDS: CITALOPRAM 40 MG TAB PO SCH (08:11)
[2016-04-07] MEDS: CYANOCOBALAMIN 500 MCG TAB (VIT B-12) PO SCH (08:11)
[2016-04-07] MEDS: PHENYTOIN SODIUM ER 100 MG CAP PO SCH ×2 (08:12→19:27)
[2016-04-07] MEDS ORDERED: RANITIDINE HCL 150 MG TAB PO SCH (09:00)
[2016-04-07] MEDS ORDERED: POTASSIUM CHLORIDE 20 MEQ TABCR PO ONE (09:00)
--- NOTE | 2016-04-07 11:25 | Progress Note ---
Internal Med Progress Note Date of Service: Apr 07, 2016. Provider Documentation: SUBJECTIVE: Patient c/o cough with intermittent sputum production, SOB with activity, post nasal drip. Has had these symptoms for years with few hospitalizations for asthmatic bronchitis. No fever, chills, chest pain, leg swelling, nausea, vomiting, abdominal pain. Not on oxygen OBJECTIVE: Vital Signs-as noted below EXAM : General Appearance: WD/WN, no apparent distress, + pertinent finding (alert 60 year old female, sitting up in bed, no distress) ENT: Hard of hearing; TMs normal (no erythema or bulging), + pertinent finding (white patches on tongue and oropharynx. no sinus tenderness to palpation. ) Neck: supple, no JVD Respiratory/Chest: no respiratory distress, no accessory muscle use, + pertinent finding (expiratory wheezing heard throughout) Cardiovascular: regular rate, rhythm, no murmur Extremities/Musculoskelatal: no calf tenderness, + pertinent finding (trace edema bilateral ankles) Lab data as noted below. Diagnostic Radiology CHEST 2 VIEWS ROUTINE CLINICAL HISTORY: Productive cough. COMPARISON STUDY: Chest radiograph February 28, 2016. FINDINGS: The patient is rotated. No pneumothorax or pleural effusion is present. The lung volumes are normal. No consolidation is identified. There is no evidence of pulmonary edema. Cardiomediastinal silhouette is normal. A subtle linear radiodensity projecting over the mid mediastinum may reflect an endoscopic clip. Mild bibasilar opacities favor atelectasis. IMPRESSION: 1. No acute cardiopulmonary findings. 2. Mild bibasilar opacities suggestive of atelectasis. EKG NSR, 73 bpm, LBBB- also present on previous EKG October 08 2015 ASSESSMENT & PLAN: Assessment and Plan : 60-year-old female with acute on chronic shortness of breath and paroxysmal cough, recent hospitalization mid February for asthmatic bronchitis. ACUTE ON CHRONIC COUGH/SOB: Has had issues with chronic cough/SOB on exertion for years, progressively worsening, follows up with Dr Zapata outpatient, Dr Vidales (ENT) PAST WORK UP: ENT- Sinus endoscopy recent- MSSA/Strep pseudopneumonia (rxed with clindamycin x 5 days), Chronic Sinus/Ear infections- mastoiditis with quinolone resistant pseudomonas. GI- EGD 11/2015- Normal but endo clip retained , removed on after a week, Barium swallow 11/20/2015: No extraluminal contrast indicated full thickness esophageal tear, pH probe endoscopic clips within the esophagus; PULMONARY- Bronchoscopy 06/28/15 MSSA; Bronchoscopy 09/04/15 no notable growth/chronic aspiration; Right ear drainage 02/05/2013: Pseudomonas, coag-negative staph, Propionibacterium; IG levels 03/23/16- normal; CARDIAC- Echo- 10/31 no sig abnormalities -Likely Multifactorial : Chronic sinus/Ear infections, severe GERD, ACOS per pulmonary. Being rxed with prednisone, not sure if it is true asthma bronchitis as symptoms started around age of 56 years -Per pulmonary, increase ranitidine to 150 mg BID -Continue with tapering steroids, Increase levofloxacin to 750 mg for better atypical coverage, guaifenesin before meals for symptomatic relief -Work up- CXR- Atelectasis, no acute finds, CTA- no PE, atelectasis, no acute findings. VQ scan ordered to rule out chronic thromboembolic disease per pulm recommendations, PCR- negative for flu -Appreciate pulmonary inputs. Discussed case with Dr Zapata CHRONIC SINUSITIS -S/p recent sinus endoscopy by Dr. Vidales 03/25/16- cx grew few MSSA and few strep pseudopneumoniae; was started on 10 day course of clindamycin (took approx 5 days?) -Will continue the 10 day course of clindamycin through 04/10/16 SWALLOWING DIFFICULTY -Reports occasional swallowing difficulty unchanged from time of speech evaluation in 06/2015. Regular diet with aspiration precautions was recommended. -EGD 12/04/15 showed small hiatal hernia on 12/04/2015 -Continue aspiration precautions GERD -Controlled as per patient -Continue Protonix and ranitidine (increased to 150 mg BID today per pulm recommendations) THRUSH -Started on Mycelex troches SEIZURE DISORDER Stable; no recent seizure -Continue phenobarbital and Dilantin HYPOTHYROIDISM -Continue levothyroxine DEPRESSION/ ANXIETY -Continue citalopram DVT PROPHYLAXIS -Lovenox SQ CODE STATUS -Full code per my discussion with the patient. DISPOSITION Medical mx in progress Vital Signs: Date Time Temp Pulse Resp B/P Pulse Ox O2 Delivery O2 Flow Rate FiO2 04/07/16 11:00 36.5 82 18 112/63 96 Room Air 04/07/16 08:44 88 20 94 Room Air 04/07/16 08:00 Room Air 04/07/16 07:26 36.7 75 18 104/68 96 Room Air 04/07/16 04:00 Room Air 04/07/16 03:38 36.6 82 18 127/64 92 Room Air 04/07/16 00:01 Room Air 04/06/16 23:50 36.5 80 18 123/65 92 Room Air 04/06/16 20:03 Room Air 04/06/16 19:04 36.9 80 20 134/76 96 Room Air 04/06/16 15:25 37.0 77 20 129/72 94 04/06/16 14:30 96 Room Air 04/06/16 14:10 36.9 77 18 127/74 93 Room Air 04/06/16 13:25 82 20 128/70 96 04/06/16 11:17 103 24 157/76 95 Room Air Lab Results: Results Past 24 Hours Test 04/06/16 12:00 04/06/16 19:06 04/07/16 06:25 Range/Units Prothrombin Time 11.8 9.0-12.0 SECONDS Prothromb Time International Ratio 1.1 0.9-1.1 Activated Partial Thromboplast Time 26.7 21.0-31.0 SECONDS Partial Thromboplastin Ratio 1.0 Procalcitonin < 0.05 0-0.5 ng/mL White Blood Count 6.60 4.8-10.8 K/uL Red Blood Count 4.20 4.2-5.4 M/uL Hemoglobin 13.4 12.0-16.0 g/dL Hematocrit 39.1 37-47 % Mean Corpuscular Volume 93.1 80-100 fL Mean Corpuscular Hemoglobin 31.9 25-34 pg Mean Corpuscular Hemoglobin Concent 34.3 32-36 g/dl RDW Standard Deviation 46.5 36.4-46.3 fL RDW Coefficient of Variation 13.6 11.5-14.5 % Platelet Count 262 130-400 K/uL Mean Platelet Volume 9.3 7.4-10.4 fL Sodium Level 139 136-145 mmol/L Potassium Level 3.3 3.5-5.1 mmol/L Chloride Level 104 98-107 mmol/L Carbon Dioxide Level 25 21-32 mmol/L Anion Gap 10.0 3-11 mmol/L Blood Urea Nitrogen 9 7-18 mg/dl Creatinine 0.76 0.60-1.20 mg/dl Est Creatinine Clear Calc Drug Dose 79.8 ml/min Estimated GFR () 97.4 Estimated GFR (Non- 84.1 BUN/Creatinine Ratio 12.5 10-20 Random Glucose 92 70-99 mg/dl Calcium Level 8.6 8.5-10.1 mg/dl Magnesium Level 2.1 1.8-2.4 mg/dl
[2016-04-07] MEDS: SODIUM CHLORIDE 0.65% NA SOLN 45 ML (OCEAN) NAE SCH (11:43)
[2016-04-07] MEDS: LEVOFLOXACIN / D5W 750 MG in PREMIXED IN D5W 150 ML IV SCH (12:43)
--- NOTE | 2016-04-07 13:51 | DIAGNOSTIC IMAGING REPORT ---
NUCLEAR MEDICINE VENTILATION/PERFUSION SCAN CLINICAL HISTORY: Shortness of breath. Asthma exacerbation. COMPARISON: Chest radiograph and chest CT April 06, 2016. TECHNIQUE: For the ventilation portion of this exam, 33 mCi of DTPA was inhaled at 11:30 AM on April 07, 2016. Immediately following inhalation, imaging of the chest was carried out in the anterior, posterior, left lateral, right lateral, LPO, RPO, BRAZILIAN and ARSHAD projections. For the perfusion portion of exam, 5.6 mCi of technetium 99m MAA was injected IV at 12:20 PM on April 07, 2016. Immediately following injection, imaging of the chest was carried out in the same projections. FINDINGS: No mismatched defects are identified on this examination. There is minimal central radiotracer deposition on the ventilation portion of this exam. This study is considered low probability for pulmonary embolus. IMPRESSION: Low probability for pulmonary embolus. Electronically signed by: Brenton Urrutia M.D. 04/07/2016 1:49 PM Dictated Date/Time: 04/07/2016 1:47 PM
--- NOTE | 2016-04-07 16:36 | Pulmonology Progress Note ---
Pulmonary Progress Note Date of Service Apr 07, 2016. Subjective Continues to report cough productive of sputum. Symptoms alleviated with nebulizer but relief is short-lived lasting only 1-2 hours before cough returns. Repots bilateral rib soreness associated with cough. No pleuritic pain. No chest pain or peripheral edema. Some mild dyspnea with ambulation throughout the room. Good spirits. Reports dysphagia with solid foods such as broccoli. Objective 60-yo female admitted to [facility] 04/06/16 with symptoms of dyspnea and cough productive of brown sputum. She is well known to the pulmonary practice followed for h/o bronchitic asthma and recent admission 02/28/16-03/01/16 with exacerbation of bronchitic asthma. W/U has been notable for h/o aspiration addressed by speech therapy 06/2015, severe reflux disease (has seen GI with EGD 11/2015 x 2 with endoclip retention noted), bronchoscopy 09/12/15 with lavage of bilateral mucous plug, ENT/sinusitis (recent endoscopy 03/25/16: + MSSA and strept pseudom on clindamycin - and h/o pseudomonas culture from ear - Dr. Vidales). Allergy skin testing: negative. She is a life-long non-smoker. Patient presented through the [facility] ER 04/06/16 with cough productive of brown sputum and dyspnea. ABG consistent with partially compensated respiratory alkalosis (7.53/31/25. CXR noted bibasilar opacities likely atelectatic. CTA: no pulmonary emboli but did not bibasilar mucous plugging. CBC was without leukocytosis but notable for mild elevation in peripheral eosinophils. VQ scan : negative. She was treated with IV steroid, 750mg levaquin, continued clindamycin (for ENT pathology), escalated anti-reflux regimen, and bronchodilators. Today: - O2: 93-98% RA, hemodynamically stable - Day #2 Levofloxacin Physical Exam: Constitutional: Well developed, well nourished elderly female sitting upright with legs at bedside. No acute distress Head: + facial symmetry Eyes: EOMi, PERRLA, no injection Respiratory: Bibasilar rales and wheeze. Non-labored respirations. Intermittent cough on exam. No conversational dyspnea CV: RRR, no MRG. Warm and perfused peripherally MSK/Extremities: moving and developed symmetrically. Trace non-pitting peripheral edema. Neurologic: Alert, oriented. Appropriate affect with excellent data recall. Assessment & Plan 1. H/O dysphagia worse with solid foods with h/o retained clip: barium swallow 2. Asthma with continued wheeze and mucous plugging - Continue antibiotic Levaquin and clindamycin - Continue bronchodilators and IV steroid through today - Escalate pulmonary toilet: Flutter, VEST, ambulation, expectorant and trial x 1 of % saline with albuterol prior to VEST treatment tomorrow - Check IgE once off steroid as outpatient Patient discussed and agree with plan above Data Medications: Current Inpatient Medications Medications (Trade) Dose Ordered Sig/Matt Route Start Time Stop Time Status Last Admin Dose Admin Enoxaparin Sodium (Lovenox Inj) 40 mg Q24H SC 04/06/16 16:00 05/06/16 15:59 04/06/16 16:37 40 MG Acetaminophen (Tylenol Tab) 650 mg Q4H PRN PO 04/06/16 11:30 05/06/16 11:29 04/06/16 20:07 650 MG Ondansetron HCl 4 mg 4 mg Q6H PRN IV 04/06/16 11:30 05/06/16 11:29 Methylprednisolone Sodium Succinate/ Syringe (Solu-Medrol IV/ Syringe) 0.64 ml @ 1.5 mls/min Q8H IV 04/06/16 14:00 05/06/16 13:59 04/07/16 14:40 1.5 MLS/MIN Albuterol/ Ipratropium (Duoneb) 3 ml QIDR INH 04/06/16 16:00 05/06/16 15:59 04/07/16 15:27 3 ML Clotrimazole (Mycelex 10MG Zohaib) 1 zohaib 5XDQ4H MT 04/06/16 15:00 04/13/16 14:59 04/07/16 12:46 1 ZOHAIB Aspirin (Ecotrin Tab) 81 mg QAM PO 04/07/16 09:00 05/07/16 08:59 04/07/16 08:11 81 MG Budesonide/ Formoterol Fumarate (Symbicort 160/ 4.5 Inh) 2 puffs BID INH 04/06/16 21:00 05/06/16 20:59 04/07/16 08:10 2 PUFFS Citalopram Hydrobromide (celeXA TAB) 40 mg QAM PO 04/07/16 09:00 05/07/16 08:59 04/07/16 08:11 40 MG Cyanocobalamin (Vitamin B-12 Tab) 1,000 mcg QAM PO 04/07/16 09:00 05/07/16 08:59 04/07/16 08:11 1,000 MCG Fluticasone Propionate (Flonase Nasal [place]) 1 sprays BID JOSE CARLOS 04/06/16 21:00 05/06/16 20:59 Folic Acid (Folvite Tab) 1 mg QAM PO 04/07/16 09:00 05/07/16 08:59 04/07/16 08:08 1 MG Levothyroxine Sodium (Synthroid Tab) 100 mcg DAILYBB PO 04/07/16 06:00 05/07/16 05:59 04/07/16 06:09 100 MCG Montelukast Sodium (Singulair Tab) 10 mg QPM PO 04/06/16 21:00 05/06/16 20:59 04/06/16 20:03 10 MG Pantoprazole Sodium (Protonix Tab) 40 mg QAM PO 04/07/16 09:00 05/07/16 08:59 04/07/16 08:06 40 MG Phenytoin Sodium (Dilantin Er Cap) 200 mg BID PO 04/06/16 21:00 05/06/16 20:59 04/07/16 08:12 200 MG Sodium Chloride ([place] Nasal [place]) 1 sprays DAILY JOSE CARLOS 04/07/16 09:00 05/07/16 08:59 04/07/16 11:43 1 SPRAYS Phenobarbital (Phenobarbital Tab) 97.2 mg HS PO 04/06/16 21:00 05/06/16 20:59 04/06/16 20:13 97.2 MG Albuterol/ Ipratropium (Duoneb) 3 ml Q4R PRN INH 04/06/16 13:00 05/06/16 12:59 Clindamycin HCl (Cleocin Cap) 150 mg TID PO 04/06/16 15:00 04/16/16 14:59 04/07/16 14:40 150 MG Benzonatate (Tessalon Perles Cap) 100 mg TID PRN PO 04/06/16 15:00 05/06/16 14:59 04/06/16 20:08 100 MG Menthol 1 casey 1 casey PRN PRN PO 04/06/16 15:15 05/06/16 15:14 04/06/16 15:17 1 CASEY Levofloxacin/Prmx (Levaquin / D5W/ Premixed D5W) 150 ml @ 100 mls/hr Q24H IV 04/07/16 14:00 04/14/16 13:59 04/07/16 12:43 100 MLS/HR Ranitidine HCl (zANTac TAB) 150 mg BID PO 04/06/16 21:00 05/06/16 20:59 04/06/16 20:01 150 MG Ioversol (Optiray 320) 111 ml UD PRN IV 04/06/16 18:45 04/10/16 18:44 Codeine Phosphate/ Guaifenesin (Robitussin-AC Sugar Free Syrup) 5 ml Q6H PRN PO 04/06/16 19:00 05/06/16 18:59 04/06/16 20:07 5 ML Lactobacillus Acidophilus (Floranex Tab) 4 tab TIDM PO 04/07/16 07:30 05/07/16 07:29 04/07/16 12:45 4 TAB I & O: 24-Hour Column 04/07/16 07:59 Intake Total 611 ml Balance 611 ml Vital Signs: Date Time Temp Pulse Resp B/P Pulse Ox O2 Delivery O2 Flow Rate FiO2 04/07/16 15:27 79 20 98 Room Air 04/07/16 15:26 36.6 80 18 116/62 93 Room Air 04/07/16 12:00 Room Air 04/07/16 11:00 36.5 82 18 112/63 96 Room Air 04/07/16 10:50 99 20 98 Room Air 04/07/16 08:44 88 20 94 Room Air 04/07/16 08:00 Room Air 04/07/16 07:26 36.7 75 18 104/68 96 Room Air 04/07/16 04:00 Room Air 04/07/16 03:38 36.6 82 18 127/64 92 Room Air 04/07/16 00:01 Room Air 04/06/16 23:50 36.5 80 18 123/65 92 Room Air 04/06/16 20:03 Room Air 04/06/16 19:04 36.9 80 20 134/76 96 Room Air Laboratory Results: Last 24 Hours Test 04/06/16 19:06 04/07/16 06:25 Procalcitonin < 0.05 ng/mL White Blood Count 6.60 K/uL Red Blood Count 4.20 M/uL Hemoglobin 13.4 g/dL Hematocrit 39.1 % Mean Corpuscular Volume 93.1 fL Mean Corpuscular Hemoglobin 31.9 pg Mean Corpuscular Hemoglobin Concent 34.3 g/dl RDW Standard Deviation 46.5 fL RDW Coefficient of Variation 13.6 % Platelet Count 262 K/uL Mean Platelet Volume 9.3 fL Sodium Level 139 mmol/L Potassium Level 3.3 mmol/L Chloride Level 104 mmol/L Carbon Dioxide Level 25 mmol/L Anion Gap 10.0 mmol/L Blood Urea Nitrogen 9 mg/dl Creatinine 0.76 mg/dl Est Creatinine Clear Calc Drug Dose 79.8 ml/min Estimated GFR () 97.4 Estimated GFR (Non- 84.1 BUN/Creatinine Ratio 12.5 Random Glucose 92 mg/dl Calcium Level 8.6 mg/dl Magnesium Level 2.1 mg/dl
[2016-04-07] MEDS: ENOXAPARIN 40 MG/0.4 ML SYR SC SCH (16:43)
[2016-04-07] MEDS: MONTELUKAST SOD 10 MG TAB PO SCH (19:25)
[2016-04-07] MEDS: BENZONATATE 100MG CAP PO PRN (19:27)
[2016-04-07] MEDS: PHENOBARBITAL 32.4 MG TAB PO SCH (21:48)
[2016-04-07] MEDS: GUAIFENESIN 600 MG TABCR PO SCH (21:48)
[2016-04-08] VITALS (10 sets, daily range): BP systolic 109–129; BP diastolic 60–73; PULSE 71–102; TEMP 36.5–36.8; O2SAT 92–98
[2016-04-08] MEDS: COUGH DROP (SUGAR FREE) LOZ 24 LOZ/1 BOX PO PRN (03:58)
[2016-04-08] MEDS: BENZONATATE 100MG CAP PO PRN ×2 (04:08→12:55)
[2016-04-08] MEDS: ALBUT/IPRATROP 3MG/0.5MG NEB 3 ML VIAL INH SCH ×3 (05:42→15:43)
[2016-04-08] MEDS: LEVOTHYROXINE 100 MCG TAB PO SCH (06:00)
[2016-04-08] MEDS: METHYLPREDNISOLONE IV 40 MG in SYRINGE 0 ML IV SCH (06:32)
[2016-04-08 07:22] LABS: MEAN CELL VOLUME 91.4 fL (80-100); MEAN CORPUSCULAR HEMOGLOBIN 31.7 pg (25-34); MEAN CORPUSCULAR HGB CONC 34.7 g/dl (32-36); MEAN PLATELET VOLUME 9.3 fL (7.4-10.4); PLATELET COUNT 242 K/uL (130-400); RED BLOOD COUNT 3.94 M/uL (4.2-5.4); WHITE BLOOD COUNT 5.71 K/uL (4.8-10.8)
[2016-04-08] MEDS: CLOTRIMAZOLE 10 MG TROCHE MT SCH ×3 (07:22→14:04)
[2016-04-08 07:54] LABS: BUN/CREATININE RATIO 14.8 (10-20); CALCIUM 8.5 mg/dl (8.5-10.1); CREATININE 0.63 mg/dl (0.60-1.20); POTASSIUM 3.6 mmol/L (3.5-5.1)
--- NOTE | 2016-04-08 08:24 | DIAGNOSTIC IMAGING REPORT ---
(BARIUM SWALLOW) ESOPHAGUS CLINICAL HISTORY: Dysphagia COMPARISON STUDY: Barium swallow November 20, 2015. FLUOROSCOPY TIME: 1.6 minutes. FINDINGS: 26 fluoroscopic images were obtained. There was mild esophageal dysmotility. No esophageal mass or stricture was identified. No hiatal hernia was identified. An endoscopic clip within the distal esophagus was again noted. This is unchanged in position. Moderate reflux was noted. No contrast extravasation was identified. A 13 mm barium tablet passed into the stomach. IMPRESSION: 1. Mild esophageal dysmotility and moderate gastroesophageal reflux. 2. No esophageal mass or stricture. Electronically signed by: Brenton Urrutia M.D. 04/08/2016 8:22 AM Dictated Date/Time: 04/08/2016 8:21 AM
[2016-04-08] MEDS: SODIUM CHLORIDE 0.65% NA SOLN 45 ML (OCEAN) NAE SCH (09:00)
[2016-04-08] MEDS: CYANOCOBALAMIN 500 MCG TAB (VIT B-12) PO SCH (09:41)
[2016-04-08] MEDS: CITALOPRAM 40 MG TAB PO SCH (09:41)
[2016-04-08] MEDS: GUAIFENESIN 600 MG TABCR PO SCH (09:41)
[2016-04-08] MEDS: RANITIDINE HCL 150 MG TAB PO SCH (09:41)
[2016-04-08] MEDS: LACTOBACILLUS ACIDOPHILUS (FLORANEX) TAB PO SCH ×2 (09:41→11:42)
[2016-04-08] MEDS: ASPIRIN 81 MG ECTAB PO SCH (09:42)
[2016-04-08] MEDS: CLINDAMYCIN HCL 150 MG CAP PO SCH ×2 (09:42→14:03)
[2016-04-08] MEDS: PANTOprazole SOD 40 MG TAB PO SCH (09:42)
[2016-04-08] MEDS: PHENYTOIN SODIUM ER 100 MG CAP PO SCH (09:43)
[2016-04-08] MEDS: FLUTICASONE PROPIONATE NA SPR 16 GM BTL NAE SCH (09:44)
[2016-04-08] MEDS: BUDESONIDE/FORMOTEROL FUMARATE 160/4.5 60 PUFFS/INHALER INH SCH (09:44)
[2016-04-08] MEDS ORDERED: SODIUM CHLORIDE 7% 4 ML NEB INH ONE (10:00)
--- NOTE | 2016-04-08 10:00 | Pulmonology Progress Note ---
Pulmonary Progress Note Date of Service Apr 08, 2016. Attending Dr. Zapata Subjective Continues to report cough today - unchanged. Mild dyspnea on exertion. Hungry post barium swallow evaluation this AM. Objective 60-yo female hospital day #3 admitted with dyspnea and cough of brown sputum. History notable for severe esophageal reflux disease, aspiration, bronchial mucous plugging and acute sinusitis. W/U consistent with partially compensated respiratory alkalosis and bibasilar mucous plugging. Influenza and Pct: negative. CTA/VQ scan negative for thromboembolic disease. Barium swallow continues to be suggestive of reflux disease with mild esophageal dysmotility. She was treated with IV steroid, anit -reflux regimen, continued clindamycin (began IMMERSION METALCLEANER for sinus per ENT) and levofloxacin 750mg. Today: - Day #3/5 levofloxacin - Barium swallow: mild esophageal dysmotility with moderate esophageal reflux - 92-95% RA, HD stable Physical Exam: Constitutional: Well developed, well nourished elderly female sitting at bedside edge. No acute distress Head: + facial symmetry Eyes: EOMi, PERRLA, no injection Respiratory: Non-labored respirations. Slightly diminished at bases - no wheeze or rales appreciated on today's exam. CV: RRR, no MRG. Warm and perfused peripherally MSK/Extremities: moving and developed symmetrically. Trace non-pitting peripheral edema. Neurologic: Alert, oriented. Appropriate affect with excellent data recall. Assessment & Plan Asthma with chronic bronchitis and mucous plugging on prior bronchoscopies and CT Chest - Continue aggressive pulmonary toilet: VEST with 7% saline neb today, expectorant, daily flutter valve: today - Continue IMMERSION METALCLEANER antibiotic course for sinus per ENT, complete 5-day course 750mg levofloxacin (day #3/5) - Transition to PO prednisone today: 50mg then decrease by 5mg daily Q2-days until off - Will need repeat CBC with differential 6-weeks off steroids as outpatient - Follow-up with pulmonary in 2-3 weeks post discharge - Recommend f/u with GI Dr. [facility] - discussed with Dr. Zapata Patient sen and reviewed and I agree with the plan. Data Medications: Current Inpatient Medications Medications (Trade) Dose Ordered Sig/Matt Route Start Time Stop Time Status Last Admin Dose Admin Enoxaparin Sodium (Lovenox Inj) 40 mg Q24H SC 04/06/16 16:00 05/06/16 15:59 04/07/16 16:43 40 MG Acetaminophen (Tylenol Tab) 650 mg Q4H PRN PO 04/06/16 11:30 05/06/16 11:29 04/06/16 20:07 650 MG Ondansetron HCl (Zofran Inj) 4 mg Q6H PRN IV 04/06/16 11:30 05/06/16 11:29 Albuterol/ Ipratropium (Duoneb) 3 ml QIDR INH 04/06/16 16:00 05/06/16 15:59 04/08/16 05:42 3 ML Clotrimazole (Mycelex 10MG Zohaib) 1 zohaib 5XDQ4H MT 04/06/16 15:00 04/13/16 14:59 04/08/16 07:22 1 ZOHAIB Aspirin (Ecotrin Tab) 81 mg QAM PO 04/07/16 09:00 05/07/16 08:59 04/08/16 09:42 81 MG Budesonide/ Formoterol Fumarate (Symbicort 160/ 4.5 Inh) 2 puffs BID INH 04/06/16 21:00 05/06/16 20:59 04/08/16 09:44 2 PUFFS Citalopram Hydrobromide (celeXA TAB) 40 mg QAM PO 04/07/16 09:00 05/07/16 08:59 04/08/16 09:41 40 MG Cyanocobalamin (Vitamin B-12 Tab) 1,000 mcg QAM PO 04/07/16 09:00 05/07/16 08:59 04/08/16 09:41 1,000 MCG Fluticasone Propionate (Flonase Nasal [place]) 1 sprays BID JOSE CARLOS 04/06/16 21:00 05/06/16 20:59 04/08/16 09:44 1 SPRAYS Folic Acid (Folvite Tab) 1 mg QAM PO 04/07/16 09:00 05/07/16 08:59 04/08/16 09:42 1 MG Levothyroxine Sodium (Synthroid Tab) 100 mcg DAILYBB PO 04/07/16 06:00 05/07/16 05:59 04/07/16 06:09 100 MCG Montelukast Sodium (Singulair Tab) 10 mg QPM PO 04/06/16 21:00 05/06/16 20:59 04/07/16 19:25 10 MG Pantoprazole Sodium (Protonix Tab) 40 mg QAM PO 04/07/16 09:00 05/07/16 08:59 04/08/16 09:42 40 MG Phenytoin Sodium (Dilantin Er Cap) 200 mg BID PO 04/06/16 21:00 05/06/16 20:59 04/08/16 09:43 200 MG Sodium Chloride ([place] Nasal [place]) 1 sprays DAILY JOSE CARLOS 04/07/16 09:00 05/07/16 08:59 04/07/16 11:43 1 SPRAYS Phenobarbital (Phenobarbital Tab) 97.2 mg HS PO 04/06/16 21:00 05/06/16 20:59 04/07/16 21:48 97.2 MG Albuterol/ Ipratropium (Duoneb) 3 ml Q4R PRN INH 04/06/16 13:00 05/06/16 12:59 Clindamycin HCl (Cleocin Cap) 150 mg TID PO 04/06/16 15:00 04/16/16 14:59 04/08/16 09:42 150 MG Benzonatate (Tessalon Perles Cap) 100 mg TID PRN PO 04/06/16 15:00 05/06/16 14:59 04/08/16 04:08 100 MG Menthol 1 casey 1 casey PRN PRN PO 04/06/16 15:15 05/06/16 15:14 04/08/16 03:58 1 CASEY Levofloxacin/Prmx (Levaquin / D5W/ Premixed D5W) 150 ml @ 100 mls/hr Q24H IV 04/07/16 14:00 04/14/16 13:59 04/07/16 12:43 100 MLS/HR Ranitidine HCl (zANTac TAB) 150 mg BID PO 04/06/16 21:00 05/06/16 20:59 04/08/16 09:41 150 MG Ioversol (Optiray 320) 111 ml UD PRN IV 04/06/16 18:45 04/10/16 18:44 Codeine Phosphate/ Guaifenesin (Robitussin-AC Sugar Free Syrup) 5 ml Q6H PRN PO 04/06/16 19:00 05/06/16 18:59 Future Hold 04/06/16 20:07 5 ML Lactobacillus Acidophilus (Floranex Tab) 4 tab TIDM PO 04/07/16 07:30 05/07/16 07:29 04/08/16 09:41 4 TAB Guaifenesin (Mucinex Contr Rel Tab) 1,200 mg Q12 PO 04/07/16 21:00 05/07/16 20:59 04/08/16 09:41 1,200 MG Sodium Chloride (Sodium Chloride 7% Neb Solution) 4 ml ONE ONCE INH 04/08/16 10:00 04/08/16 10:01 Prednisone (PredniSONE TAB) 50 mg DAILY PO 04/08/16 12:00 05/08/16 11:59 UNV I & O: 24-Hour Column 04/08/16 08:00 Intake Total 932 ml Balance 932 ml Vital Signs: Date Time Temp Pulse Resp B/P Pulse Ox O2 Delivery O2 Flow Rate FiO2 04/08/16 08:49 95 Room Air 04/08/16 08:33 36.5 74 22 129/73 95 Room Air 04/08/16 07:58 Room Air 04/08/16 05:42 71 20 92 Room Air 04/08/16 04:00 Room Air 04/08/16 03:52 36.8 73 20 125/69 95 Room Air 04/08/16 00:01 Room Air 04/07/16 23:51 36.5 74 18 128/60 95 Room Air 04/07/16 20:00 Room Air 04/07/16 19:16 36.7 80 16 125/56 93 Room Air 04/07/16 19:07 84 20 96 Room Air 04/07/16 16:00 Room Air 04/07/16 15:27 79 20 98 Room Air 04/07/16 15:26 36.6 80 18 116/62 93 Room Air 04/07/16 12:00 Room Air 04/07/16 11:00 36.5 82 18 112/63 96 Room Air 04/07/16 10:50 99 20 98 Room Air Laboratory Results: Last 24 Hours Test 04/08/16 06:12 White Blood Count 5.71 K/uL Red Blood Count 3.94 M/uL Hemoglobin 12.5 g/dL Hematocrit 36.0 % Mean Corpuscular Volume 91.4 fL Mean Corpuscular Hemoglobin 31.7 pg Mean Corpuscular Hemoglobin Concent 34.7 g/dl RDW Standard Deviation 44.9 fL RDW Coefficient of Variation 13.5 % Platelet Count 242 K/uL Mean Platelet Volume 9.3 fL Sodium Level 142 mmol/L Potassium Level 3.6 mmol/L Chloride Level 106 mmol/L Carbon Dioxide Level 26 mmol/L Anion Gap 10.0 mmol/L Blood Urea Nitrogen 9 mg/dl Creatinine 0.63 mg/dl Est Creatinine Clear Calc Drug Dose 96.0 ml/min Estimated GFR () 111.4 Estimated GFR (Non- 96.1 BUN/Creatinine Ratio 14.8 Random Glucose 99 mg/dl Calcium Level 8.5 mg/dl
--- NOTE | 2016-04-08 10:29 | Progress Note ---
Internal Med Progress Note Date of Service: Apr 08, 2016. Provider Documentation: SUBJECTIVE: Patient c/o cough with intermittent sputum production, SOB with activity, post nasal drip. Marginal improvement of her symptoms. Has had these symptoms for years with few hospitalizations for asthmatic bronchitis. No fever, chills, chest pain, leg swelling, nausea, vomiting, abdominal pain. Not on oxygen OBJECTIVE: Vital Signs-as noted below EXAM : General Appearance: WD/WN, no apparent distress, + pertinent finding (alert 60 year old female, sitting up in bed, no distress) ENT: Hard of hearing; TMs normal (no erythema or bulging), + pertinent finding (white patches on tongue and oropharynx. no sinus tenderness to palpation. ) Neck: supple, no JVD Respiratory/Chest: no respiratory distress, no accessory muscle use, + pertinent finding (expiratory wheezing) Cardiovascular: regular rate, rhythm, no murmur Extremities/Musculoskelatal: no calf tenderness, + pertinent finding (trace edema bilateral ankles) Lab data as noted below. Diagnostic Radiology CHEST 2 VIEWS ROUTINE CLINICAL HISTORY: Productive cough. COMPARISON STUDY: Chest radiograph February 28, 2016. FINDINGS: The patient is rotated. No pneumothorax or pleural effusion is present. The lung volumes are normal. No consolidation is identified. There is no evidence of pulmonary edema. Cardiomediastinal silhouette is normal. A subtle linear radiodensity projecting over the mid mediastinum may reflect an endoscopic clip. Mild bibasilar opacities favor atelectasis. IMPRESSION: 1. No acute cardiopulmonary findings. 2. Mild bibasilar opacities suggestive of atelectasis. EKG NSR, 73 bpm, LBBB- also present on previous EKG October 08 2015 ASSESSMENT & PLAN: Assessment and Plan : 60-year-old female with acute on chronic shortness of breath and paroxysmal cough, recent hospitalization mid February for asthmatic bronchitis. ACUTE ON CHRONIC COUGH/SOB: Marginal improvement, but most of the symptoms are chronic Has had issues with chronic cough/SOB on exertion for years, progressively worsening, follows up with Dr Zapata outpatient, Dr Vidales (ENT) PAST WORK UP: ENT- Sinus endoscopy recent- MSSA/Strep pseudopneumonia (rxed with clindamycin x 5 days), Chronic Sinus/Ear infections- mastoiditis with quinolone resistant pseudomonas. GI- EGD 11/2015- Normal but endo clip retained , removed on after a week, Barium swallow 11/20/2015: No extraluminal contrast indicated full thickness esophageal tear, pH probe endoscopic clips within the esophagus; PULMONARY- Bronchoscopy 06/28/15 MSSA; Bronchoscopy 09/04/15 no notable growth/chronic aspiration; Right ear drainage 02/05/2013: Pseudomonas, coag-negative staph, Propionibacterium; IG levels 03/23/16- normal; CARDIAC- Echo- 10/31 no sig abnormalities -Likely Multifactorial : Chronic sinus/Ear infections, severe GERD, ACOS per pulmonary. Being rxed with prednisone, not sure if it is true asthma bronchitis as symptoms started around age of 56 years -Per pulmonary, increased ranitidine to 150 mg BID -Continue with tapering steroids, Increased levofloxacin to 750 mg for better atypical coverage, guaifenesin before meals for symptomatic relief -Work up- CXR- Atelectasis, no acute finds, CTA- no PE, atelectasis, no acute findings. VQ scan ordered to rule out chronic thromboembolic disease per pulm recommendations, PCR- negative for flu -Appreciate pulmonary inputs. Discussed case with Dr Zapata- cleared for discharge OUTPATIENT PLAN: Patient does have chronic symptoms and continues to have them. Plan is for second opinion with Dr Mikey Yen (Pulmonary) at [facility] per Dr Zapata. Part of symptoms could also be secondary to GERD. Need to look into possibility of Stan fundo plication ?? in future CHRONIC SINUSITIS -S/p recent sinus endoscopy by Dr. Vidales 03/25/16- cx grew few MSSA and few strep pseudopneumoniae; was started on 10 day course of clindamycin (took approx 5 days?) -Will continue the 10 day course of clindamycin through 04/10/16 CHRONIC ASPIRATION Video fluroscopy test ordered today- pending results. -Reports occasional swallowing difficulty unchanged from time of speech evaluation in 06/2015. Regular diet with aspiration precautions was recommended. -EGD 12/04/15 showed small hiatal hernia on 12/04/2015 -Continue aspiration precautions GERD -Controlled as per patient . -Continue Protonix and ranitidine (increased to 150 mg BID today per pulm recommendations) -Part of symptoms (CHRONIC COUGH) could also be secondary to GERD. Need to look into possibility of Stan fundo plication ?? in future per d/w Pulmonary Dr Jodi CANCINO -Started on Mycelex troches SEIZURE DISORDER Stable; no recent seizure -Continue phenobarbital and Dilantin HYPOTHYROIDISM -Continue levothyroxine DEPRESSION/ ANXIETY -Continue citalopram DVT PROPHYLAXIS -Lovenox SQ CODE STATUS -Full code per my discussion with the patient. DISPOSITION Cleared by pulmonary for discharge. Probable discharge today evening after video swallow test and speech evaluation for recommendations for chronic aspiration Vital Signs: Date Time Temp Pulse Resp B/P Pulse Ox O2 Delivery O2 Flow Rate FiO2 04/08/16 08:49 95 Room Air 04/08/16 08:33 36.5 74 22 129/73 95 Room Air 04/08/16 07:58 Room Air 04/08/16 05:42 71 20 92 Room Air 04/08/16 04:00 Room Air 04/08/16 03:52 36.8 73 20 125/69 95 Room Air 04/08/16 00:01 Room Air 04/07/16 23:51 36.5 74 18 128/60 95 Room Air 04/07/16 20:00 Room Air 04/07/16 19:16 36.7 80 16 125/56 93 Room Air 04/07/16 19:07 84 20 96 Room Air 04/07/16 16:00 Room Air 04/07/16 15:27 79 20 98 Room Air 04/07/16 15:26 36.6 80 18 116/62 93 Room Air 04/07/16 12:00 Room Air 04/07/16 11:00 36.5 82 18 112/63 96 Room Air 04/07/16 10:50 99 20 98 Room Air Lab Results: Results Past 24 Hours Test 04/08/16 06:12 Range/Units White Blood Count 5.71 4.8-10.8 K/uL Red Blood Count 3.94 4.2-5.4 M/uL Hemoglobin 12.5 12.0-16.0 g/dL Hematocrit 36.0 37-47 % Mean Corpuscular Volume 91.4 80-100 fL Mean Corpuscular Hemoglobin 31.7 25-34 pg Mean Corpuscular Hemoglobin Concent 34.7 32-36 g/dl RDW Standard Deviation 44.9 36.4-46.3 fL RDW Coefficient of Variation 13.5 11.5-14.5 % Platelet Count 242 130-400 K/uL Mean Platelet Volume 9.3 7.4-10.4 fL Sodium Level 142 136-145 mmol/L Potassium Level 3.6 3.5-5.1 mmol/L Chloride Level 106 98-107 mmol/L Carbon Dioxide Level 26 21-32 mmol/L Anion Gap 10.0 3-11 mmol/L Blood Urea Nitrogen 9 7-18 mg/dl Creatinine 0.63 0.60-1.20 mg/dl Est Creatinine Clear Calc Drug Dose 96.0 ml/min Estimated GFR () 111.4 Estimated GFR (Non- 96.1 BUN/Creatinine Ratio 14.8 10-20 Random Glucose 99 70-99 mg/dl Calcium Level 8.5 8.5-10.1 mg/dl
[2016-04-08] MEDS: LEVOFLOXACIN / D5W 750 MG in PREMIXED IN D5W 150 ML IV SCH (14:03)
[2016-04-08] MEDS ORDERED: GUAISYP4 PO (14:44)
[2016-04-08] MEDS ORDERED: LEVO-18 PO (14:44)
[2016-04-08] MEDS ORDERED: ZNTT/150 PO (14:44)
[2016-04-08] MEDS ORDERED: PRED10TA PO (14:44)
--- NOTE | 2016-04-08 14:48 | Discharge Instructions ---
Discharge Instructions Admission Reason for Admission: Asthma Exacerbation, Sob Discharge Discharge Diagnosis / Problem: 1. Asthma with chronic bronchitis 2. GERD Discharge Goals Goal(s): Improve function, Improve disease control, Diagnostic testing, Therapeutic intervention, Prevent Disease Progression Activity Recommendations Activity Limitations: resume your previous activity (as tolerated prior to admission) . Instructions / Follow-Up Instructions / Follow-Up MEDICATION CHANGES: 1. Prednisone as follows- 50 mg daily tomorrow f/b reduce it by 5 mg every 2 days 2. Levofloxacin 750 mg daily x 2 more days to complete course of 5 days of antibiotics 3. Increased ranitidine from 150 mg daily to BID 4. Continue with clindamycin 150 mg TID till 04/10/16 5. Probiotics over the counter recommended while on antibiotics FOLLOW UP 1. Dr Villavicencio 04/14/16 at 1:[address] Zapata (Pulmonary) in 2-3 weeks 3. Recommend follow up with Dr Hunt at [facility] as per pulmonary recommendations Current Hospital Diet Patient's current hospital diet: Regular Diet Discharge Diet Recommended Diet: AHA Diet (Heart Healthy) Pending Studies Studies pending at discharge: no Medical Emergencies . Who to Call and When: Medical Emergencies: If at any time you feel your situation is an emergency, please call 911 immediately. . Non-Emergent Contact Non-Emergency issues call your: Primary Care Provider . . "Provider Documentation" section prepared by Catherine Solis. VTE Core Measure Inpt VTE Proph given/why not?: Kaleb Bobo, SCD's
--- NOTE | 2016-04-08 14:49 | Discharge Summary ---
Discharge Summary Date of Service Apr 08, 2016. Discharge Summary Admission Date: Apr 06, 2016 at 11:20 Discharge Date: Apr 08, 2016 Discharge Disposition: Home Principal Diagnosis: 1. Asthma with chronic bronchitis 2. Chronic sinusitis 3. GERD 4. Chronic cough Secondary Diagnoses/Problems: 1. Seizure disorder 2. Hypothyroidism 3. Depression/Anxiety Procedures: CXR VQ Scan CT Scan lung Barium swallow Steroids Nebs Antibiotics Consultations: Pulmonary Pending Studies/Follow-Up: Instructions / Follow-Up MEDICATION CHANGES: 1. Prednisone as follows- 50 mg daily tomorrow f/b reduce it by 5 mg every 2 days 2. Levofloxacin 750 mg daily x 2 more days to complete course of 5 days of antibiotics 3. Increased ranitidine from 150 mg daily to BID FOLLOW UP 1. Dr Villavicencio 04/14/16 at 1:[address] Zapata (Pulmonary) in 2-3 weeks 3. Recommend follow up with Dr Hunt at [facility] [place] [place] as per pulmonary recommendations Medication Reconciliation New Medications: Levofloxacin (Levaquin) 750 Mg Tab 750 MG PO DAILY for 2 Days, #2 TAB Prednisone Tab (Prednisone) 10 Mg Tab 10 MG PO UD, #60 TAB Guaifenesin/Codeine (Robitussin-Ac Syrup) Syrp 5 ML PO Q6H PRN for Cough for 10 Days Changed Medications: Ranitidine (Zantac) 150 Mg Tab 150 MG PO BID for 30 Days, #60 TAB (Changed from: DAILY) Continued Medications: Albuterol Hfa (Ventolin Hfa) 200 Puffs/79691 Mcg Aers 2 PUFFS INH Q4H PRN for SOB/Wheezing, #1 INHALER Aspirin (Aspirin EC Low Dose) 81 Mg Ectab 1 TAB PO QAM Budesonide/Formoterol Fumarate (Symbicort 160/4.5 Inhaler ) Aero 2 PUFFS INH BID Citalopram (Citalopram Hydrobromide) 40 Mg Tab 40 MG PO QAM, TAB Clindamycin Hcl (Clindamycin Hcl) 150 Mg Cap 150 MG PO TID Cyanocobalamin (Vitamin B-12 1000 Mcg) 1,000 Mcg Tab 1 TAB PO QAM, TAB Fluticasone Propionate (Nasal) (Flonase Allergy Relief) 50 Mcg/Act Spr 1 SPRAY JOSE CARLOS BID Folic Acid (Folvite) 1 Mg Tab 1 MG PO QAM, TAB Ipratropium-Albuterol (Duoneb) 3 Ml Nebu 1 TREATMENT INH Q4H PRN for SOB/Wheezing, INHA Levothyroxine Sodium (Levothyroxine Sodium) 100 Mcg Tab 100 MCG PO DAILY Montelukast Sodium (Singulair) 10 Mg Tab 10 MG PO QPM, TAB Pantoprazole (Protonix) 40 Mg Tab 40 MG PO QAM, TAB Phenobarbital (Phenobarbital) 100 Mg Tab 97.2 MG PO HS Phenytoin Sodium (Dilantin) 100 Mg Cap 200 MG PO BID Saline ([place] Nasal [place]) 0.65 % Spr 1 SPRAY JOSE CARLOS DAILY Admission Information HPI (per Admitting provider): This is a 60 y/o female with PMH of asthma, GERD, seizures, hypothyroidism, who presents to the ED with productive cough and SOB. Pt follows with Dr. Zapata for pulmonology. She was recently hospitalized at [facility] from Feb 27- for asthmatic bronchitis exacerbation. She was treated with ceftriaxone and steroids and discharged with azithromycin and prednisone taper. Pt states after going home she felt better but her breathing never returned to baseline. Then over past 2 weeks she has cough productive of brown sputum. She reports worsening SOB and wheezing over past few days with constant chest tightness similar to prior asthma exacerbations. She is MACHUCA walking across a room and occasionally SOB at rest. She chronically sleeps upright in a recliner. She was using Duoneb at home which relieved symptoms for less than 4 hours. She was brought to ER by ambulance today and received 125 mg IV Solu-Medrol and albuterol neb en route. She states breathing is improved currently. She has associated fatigue and frontal QUICK which she attributes to coughing. She reports feeling hot and cold, but did not measure her temperature. She reports chronic post nasal drip. She recently had sinus endoscopy by Dr. Vidales. Culture grew MSSA and strep pseudopneumoniae. Pt was prescribed clindamycin for which she was taking for approx 5 days. Pt reports chronic occasional swallowing difficulty which she states is unchanged from time of speech therapy evaluation in 06/2015. Regular diet with aspiration precautions was recommended. She had upper endoscopy which showed small hiatal hernia on 12/04/2015. She reports a lot of burping but not experiencing reflux. She also reports burning in back of her mouth. She has chronic cramping of the legs. Denies rhinorrhea, increased nasal congestion, palpitations, abdominal pain, reflux, nausea, vomiting, diarrhea, urinary changes. Denies sick contacts. Physical Exam (per Admitting): General Appearance: WD/WN, no apparent distress, + pertinent finding (alert 60 year old female, sitting up in bed, no distress) Head: normocephalic, atraumatic Eyes: normal inspection, PERRL, EOMI ENT: hearing grossly normal, TMs normal (no erythema or bulging), + pertinent finding (white patches on tongue and oropharynx. no sinus tenderness to palpation. ) Neck: supple, no JVD Respiratory/Chest: no respiratory distress, no accessory muscle use, + pertinent finding (expiratory wheezing heard throughout) Cardiovascular: regular rate, rhythm, no murmur Abdomen/GI: normal bowel sounds, non tender, soft Extremities/Musculoskelatal: no calf tenderness, normal capillary refill, + pertinent finding (trace edema bilateral ankles) Neurologic/Psych: alert, normal mood/affect, oriented x 3 Skin: normal color, warm/dry Hospital Course Assessment and Plan : 60-year-old female with acute on chronic shortness of breath and paroxysmal cough, recent hospitalization mid February for asthmatic bronchitis. ACUTE ON CHRONIC COUGH/SOB: Marginal improvement, but most of the symptoms are chronic Has had issues with chronic cough/SOB on exertion for years, progressively worsening, follows up with Dr Zapata outpatient, Dr Vidales (ENT) PAST WORK UP: ENT- Sinus endoscopy recent- MSSA/Strep pseudopneumonia (rxed with clindamycin x 5 days), Chronic Sinus/Ear infections- mastoiditis with quinolone resistant pseudomonas. GI- EGD 11/2015- Normal but endo clip retained , removed on after a week, Barium swallow 11/20/2015: No extraluminal contrast indicated full thickness esophageal tear, pH probe endoscopic clips within the esophagus; PULMONARY- Bronchoscopy 06/28/15 MSSA; Bronchoscopy 09/04/15 no notable growth/chronic aspiration; Right ear drainage 02/05/2013: Pseudomonas, coag-negative staph, Propionibacterium; IG levels 03/23/16- normal; CARDIAC- Echo- 10/31 no sig abnormalities -Likely Multifactorial : Asthma with chronic bronchitis/mucus plugging, Chronic sinus/Ear infections, severe GERD, ACOS per pulmonary. Being rxed with prednisone, not sure if it is true asthma bronchitis as symptoms started around age of 56 years -Per pulmonary, increased ranitidine to 150 mg BID as GERD could be contributing to symptoms -Continue with tapering steroids, Increased levofloxacin to 750 mg for better atypical coverage, guaifenesin before meals for symptomatic relief -Work up- CXR- Atelectasis, no acute finds, CTA- no PE, atelectasis, no acute findings. VQ scan ordered to rule out chronic thromboembolic disease per pulm recommendations, PCR- negative for flu -Appreciate pulmonary inputs. Discussed case with Dr Zapata- cleared for discharge OUTPATIENT PLAN: Patient does have chronic symptoms and continues to have them. Plan is for second opinion with Dr Mikey Hunt at [facility] per Dr Zapata. Part of symptoms could also be secondary to GERD. Need to look into possibility of Stan fundo plication ?? in future. -Per pulm, complete course of 5 days of antibiotics, Prednisone 50 mg - taper by 5 mg q 2 days, complete clindamycin course prescribed by ENT till 04/10/16 CHRONIC SINUSITIS -S/p recent sinus endoscopy by Dr. Vidales 03/25/16- cx grew few MSSA and few strep pseudopneumoniae; was started on 10 day course of clindamycin (took approx 5 days?) -Will continue the 10 day course of clindamycin through 04/10/16 CHRONIC ASPIRATION -Reports occasional swallowing difficulty unchanged from time of speech evaluation in 06/2015. Regular diet with aspiration precautions was recommended. -Barium swallow ordered by Pulmonary- Esophageal dysmotility- she is known to have this. Speech therapy- no recommendations -EGD 12/04/15 showed small hiatal hernia on 12/04/2015 -Continue aspiration precautions GERD -Controlled as per patient . -Continue Protonix and ranitidine (increased to 150 mg BID per pulm recommendations) -Part of symptoms (CHRONIC COUGH) could also be secondary to GERD. Need to look into possibility of need for Stan fundo plication ?? in future per d/w Pulmonary Dr Jodi CANCINO - Ollie alcocer SEIZURE DISORDER Stable; no recent seizure -Continue phenobarbital and Dilantin HYPOTHYROIDISM -Continue levothyroxine DEPRESSION/ ANXIETY -Continue citalopram DVT PROPHYLAXIS -Lovenox SQ CODE STATUS -Full code per my discussion with the patient. DISPOSITION Cleared by pulmonary for discharge. Ok to discharge home today with follow up with pulmonary , Dr Zapata/PCP and need to arrange for f/up with Dr Hunt at [place] per pulmonary Total time spent on discharge = This includes examination of the patient, discharge planning, medication reconciliation, and communication with other providers. Discharge Instructions Activity Recommendations Activity Limitations: resume your previous activity (as tolerated prior to admission) . Instructions / Follow-Up Instructions / Follow-Up MEDICATION CHANGES: 1. Prednisone as follows- 50 mg daily tomorrow f/b reduce it by 5 mg every 2 days 2. Levofloxacin 750 mg daily x 2 more days to complete course of 5 days of antibiotics 3. Increased ranitidine from 150 mg daily to BID FOLLOW UP 1. Dr Villavicencio 04/14/16 at 1:[address] Zapata (Pulmonary) in 2-3 weeks 3. Recommend follow up with Dr Hunt at [facility] as per pulmonary recommendations Current Hospital Diet Patient's current hospital diet: Regular Diet Discharge Diet Recommended Diet: AHA Diet (Heart Healthy) Pending Studies Studies pending at discharge: no Medical Emergencies . Who to Call and When: Medical Emergencies: If at any time you feel your situation is an emergency, please call 911 immediately. . Non-Emergent Contact Non-Emergency issues call your: Primary Care Provider . . "Provider Documentation" section prepared by Catherine Solis. VTE Core Measure Inpt VTE Proph given/why not?: Kaleb Bobo, JODY's
[2016-05-17] MEDS ORDERED: VNTHFA/IN INH (07:57)
[2016-05-17] MEDS ORDERED: FLUT0.15 NAE (08:01)
[2016-05-17] MEDS ORDERED: LEVO100T7 PO (08:01)
[2016-05-17] MEDS ORDERED: CITA40TA4 PO (08:01)
[2016-05-17] MEDS ORDERED: PANT40TA PO (08:01)
[2016-05-17] MEDS ORDERED: DLN100 PO (08:01)
[2016-05-17] MEDS ORDERED: FOLI1TAB7 PO (08:01)
[2016-05-17] MEDS ORDERED: SYMIN160 INH (10:40)
[2016-05-17] MEDS ORDERED: CYAN10004 PO (13:03)
[2016-05-17] MEDS ORDERED: MONT1TAB3 PO (13:03)
[2016-05-17] MEDS ORDERED: ASPEC81 PO (13:03)
[2016-05-17] MEDS ORDERED: IPRASOL4 INH (13:03)
[2016-05-21] MEDS ORDERED: PRED20TA PO (14:10)
[2016-05-21] MEDS ORDERED: DXY100 PO (14:10)
[2016-05-21] MEDS ORDERED: PRED10TA PO (14:10)
[2016-05-21] MEDS ORDERED: PRED20TA2 PO (14:10)
[2016-08-12] MEDS ORDERED: DXY100 PO (13:48)
[2016-08-12] MEDS ORDERED: PRD20 PO (13:48)
[2016-10-18] MEDS ORDERED: OXGN (11:17)
[2016-10-18] MEDS ORDERED: GUAISYP4 PO (11:17)
[2016-10-18] MEDS ORDERED: PRED10TA PO (11:17)
[2016-10-18] MEDS ORDERED: SPRIN INH (11:17)
[2016-10-18] MEDS ORDERED: RANITAB6 PO (11:24)
== END 2016-04-08 18:23 | disposition home or self-care (01) | DRG 202 ==
LOC: ENRESERVDT → ENRESERVTM → EDBD 07:33 → C.EDB 07:34 → C.2T 11:20
PROVIDERS: ADMIT Internal Medicine; ATTEND Internal Medicine
DX: J45.901 Unspecified asthma with (acute) exacerbation (principal); J98.11 Atelectasis; B37.0 Candidal stomatitis; X58.XXXA Exposure to other specified factors, initial encounter; T17.990A Other foreign object in respiratory tract, part unspecified in causing asphyxiation, initial encounter; R05 Cough; J44.9 Chronic obstructive pulmonary disease, unspecified; K21.9 Gastro-esophageal reflux disease without esophagitis; J32.9 Chronic sinusitis, unspecified; B95.61 Methicillin susceptible Staphylococcus aureus infection as the cause of diseases classified elsewhere; B95.3 Streptococcus pneumoniae as the cause of diseases classified elsewhere; G40.909 Epilepsy, unspecified, not intractable, without status epilepticus; E03.9 Hypothyroidism, unspecified; F32.9 Major depressive disorder, single episode, unspecified; F41.9 Anxiety disorder, unspecified; H66.90 Otitis media, unspecified, unspecified ear; R13.10 Dysphagia, unspecified; K44.9 Diaphragmatic hernia without obstruction or gangrene; Z79.82 Long term (current) use of aspirin; Z79.51 Long term (current) use of inhaled steroids; Z79.899 Other long term (current) drug therapy; Z79.891 Long term (current) use of opiate analgesic

== ENCOUNTER → 2016-04-30 | Outpatient (CLI) | payer OTHER ==
[~2016-04-30] MED LIST changes: -ALBUAER2 INH; +ASPEC81 PO; +AZIT250T PO; +AZIT500T26 PO; -BENZ100C7 PO; +CITA40TA4 PO; +CLIN150C15 PO; +CYAN10004 PO; +DLN100 PO; +DXY100 PO; +FLUT0.15; +FLUT0.15 NAE; +FLUT1INH7 INH; +FOLI1TAB7 PO; +FURO-85 PO; +GUAISYP4 PO; -HYCUDL5 PO; +IPRASOL4 INH; +LEVO100T7 PO; +LEVO1TAB35 PO; +MONT1TAB3 PO; +OXGN; +PANT40TA PO; -PRD10 PO; +PRD20 PO; +PRED10TA PO; +PRED20TA PO; +PRED20TA2 PO; +PRED50TA PO; +RANI150T3 PO; +RANITAB6 PO; +SALI0.6510 NAE; +SPRIN INH; +SYMIN160 INH; +VNTHFA/IN INH; -ZTHM250 PO
[2016-04-30 15:56] LABS: BASO % 0.5 %; BASO ABS # 0.03 K/uL (0-0.2); COMPLETE YES; EOS % 8.4 %; HEMATOCRIT 40.9 % (37-47); IG% 0.2 %; LYMPH % 30.7 %; MEAN CELL VOLUME 92.7 fL (80-100); MEAN CORPUSCULAR HEMOGLOBIN 31.1 pg (25-34); MEAN CORPUSCULAR HGB CONC 33.5 g/dl (32-36); MEAN PLATELET VOLUME 9.1 fL (7.4-10.4); MONO % 11.2 %; PLATELET COUNT 267 K/uL (130-400); RED BLOOD COUNT 4.41 M/uL (4.2-5.4); WHITE BLOOD COUNT 6.18 K/uL (4.8-10.8)
[2016-04-30 16:22] LABS: IMMUNOGLOBULN M 53.8 mg/dL (40-230)
== END | disposition home or self-care (01) ==
LOC: C.LAB 14:55
PROVIDERS: ATTEND Internal Medicine Pulmonary Disease
DX: R05 Cough (principal); J37.0 Chronic laryngitis; J30.9 Allergic rhinitis, unspecified; H66.90 Otitis media, unspecified, unspecified ear; J47.9 Bronchiectasis, uncomplicated; J32.9 Chronic sinusitis, unspecified

== ENCOUNTER 2016-05-17 15:17 | Inpatient (IN) | payer OTHER ==
[~2016-05-17] VITALS: Ht 162.6 cm; Wt 79.5 kg
[~2016-05-17 15:17] MED LIST changes: -AZIT250T PO; -AZIT500T26 PO; -DXY100 PO; -FLUT0.15; -FLUT1INH7 INH; -FURO-85 PO; -LEVO1TAB35 PO; -OXGN; -PRD20 PO; -PRED20TA PO; -PRED20TA2 PO; -PRED50TA PO; -RANI150T3 PO; -RANITAB6 PO; -SPRIN INH
[2016-05-17] MEDS ORDERED: SODIUM CHLORIDE 0.9% 500ML 500 ML IV STA (15:29)
[2016-05-17] MEDS ORDERED: METHYLPREDNISOLONE 125 MG VIAL IV STA (15:29)
[2016-05-17] MEDS ORDERED: ALBUT/IPRATROP 3MG/0.5MG NEB 3 ML VIAL INH ONE (15:30)
[2016-05-17 15:42] VITALS: PULSE 74; O2SAT 97
--- NOTE | 2016-05-17 15:45 | EMERGENCY ROOM VISIT NOTE ---
History Report prepared by Litzy: Sho Jensen Under the Supervision of: Dr. Patricio Banks M.D. First contact with patient: 15:23 Chief Complaint: SHORTNESS OF BREATH Stated Complaint: SOB History of Present Illness The patient is a 61 year old female who presents to the Emergency Room with complaints of persistent shortness of breath that began prior to arrival. The patient states that she has had a persistent cough for the past few weeks that has continued to worsen. She has not seen her PCP for her symptoms, but states that her PCP called in a cough syrup with codeine in it for her. The patient states that she normally takes cough syrup to resolve the cough. She states that she has not taken the medication yet. The patient notes a history of COPD and asthma. She states she is not a smoker. She states that she has used nebulizers and her inhalers without relief of her symptoms. Source of History: patient Onset: prior to arrival Position: other (global) Quality: other (shortness of breath) Timing: other (persistent) Associated Symptoms: + cough Review of Systems See HPI for pertinent positives & negatives. A total of 10 systems reviewed and were otherwise negative. Past Medical & Surgical Medical Problems: (1) Age related osteoporosis (2) Asthma (3) Bronchitis (4) Depression (5) Epilepsy (6) EDWIN (generalized anxiety disorder) (7) GERD (gastroesophageal reflux disease) (8) IBS (irritable bowel syndrome) Surgical Problems: (1) H/O colonoscopy (2) H/O esophagogastroduodenoscopy (3) H/O sinus surgery (4) H/O: hysterectomy (5) History of ear surgery (6) Hx of breast biopsy Family History Diabetes mellitus MOTHER FH: lung cancer AUNT Hypertension FATHER Social History Smoking Status: Never Smoker Alcohol Use: none Marital Status: single Housing Status: lives alone Occupation Status: unemployed Current/Historical Medications Scheduled Aspirin (Aspirin EC Low Dose), 1 TAB PO QAM Budesonide/Formoterol Fumarate (Symbicort 160/4.5 Inhaler ), 2 PUFFS INH BID Citalopram (Citalopram Hydrobromide), 40 MG PO QAM Cyanocobalamin (Vitamin B-12 1000 Mcg), 1 TAB PO QAM Folic Acid (Folvite), 1 MG PO QAM Levothyroxine Sodium (Levothyroxine Sodium), 100 MCG PO DAILY Montelukast Sodium (Singulair), 10 MG PO QPM Pantoprazole (Protonix), 40 MG PO QAM Phenobarbital (Phenobarbital), 97.2 MG PO HS Phenytoin Sodium (Dilantin), 200 MG PO BID Ranitidine (Zantac), 150 MG PO BID Scheduled PRN Albuterol Hfa (Ventolin Hfa), 2 PUFFS INH Q4H PRN for SOB/Wheezing Fluticasone Propionate (Nasal) (Flonase Allergy Relief), 1 SPRAY JOSE CARLOS BID PRN for Nasal Congestion Guaifenesin/Codeine (Robitussin-Ac Syrup), 5 ML PO Q6H PRN for Cough Ipratropium-Albuterol (Duoneb), 1 TREATMENT INH Q4H PRN for SOB/Wheezing Saline ([place] Nasal [place]), 1 SPRAY JOSE CARLOS DAILY PRN for dryness Allergies Coded Allergies: Clemastine (Verified Allergy, Unknown, ITCHING, 04/06/16) Sulfa Antibiotics (Verified Allergy, Unknown, RASH AND ITCHY, 04/06/16) Lavon (Verified Allergy, Unknown, SERBIAN WALNUT ALLERGY, + ALLERGY TEST , 04/06/16) Physical Exam Vital Signs Date Time Temp Pulse Resp B/P Pulse Ox O2 Delivery O2 Flow Rate FiO2 05/17/16 17:01 84 18 118/70 98 Room Air 05/17/16 15:42 74 18 97 Room Air 05/17/16 15:33 78 05/17/16 15:20 36.5 72 20 120/68 99 Room Air 05/17/16 15:20 99 Room Air 05/17/16 15:20 99 Room Air Physical Exam GENERAL: Patient is a healthy-appearing well-nourished HEAD: Normocephalic atraumatic EYES: Ocular movements intact pupils equal and react to light OROPHARYNX mucous membranes are moist no exudates present no erythema or edema present NECK: Supple no nuchal rigidity CHEST: Good equal expansion LUNGS: Rales noted on exam. CARDIAC: Normal S1 and S2 ABDOMEN: Soft nontender no guarding BACK: No CVA tenderness EXTREMITIES: No pain upon palpation normal muscle strength in all groups no clubbing cyanosis or edema NEURO: Patient is following commands is answering questions appropriately. Alert and oriented x3 Cranial Nerves 2-12 grossly intact Medical Decision & Procedures ER Provider Diagnostic Interpretation: X-ray results as stated below per interpretation by me and the radiologist: CHEST ONE VIEW PORTABLE CLINICAL HISTORY: Shortness of breath COMPARISON STUDY: April 06, 2016 FINDINGS: The cardiac and mediastinal contours remain stable. There is mild interstitial thickening. There is mild basilar atelectasis. There is no overt failure. There is no focal pulmonary consolidation.[ IMPRESSION: Mild basilar interstitial thickening. This appears chronic. No acute findings. Electronically signed by: Ady Whitman M.D. 05/17/2016 4:00 PM Dictated Date/Time: 05/17/2016 3:59 PM Laboratory Results 05/17/16 15:54 Red Blood Count 4.26, Mean Corpuscular Volume 93.2, Mean Corpuscular Hemoglobin 32.2, Mean Corpuscular Hemoglobin Concent 34.5, Mean Platelet Volume 9.4, Neutrophils (%) (Auto) 39.2, Lymphocytes (%) (Auto) 30.1, Monocytes (%) (Auto) 14.0, Eosinophils (%) (Auto) 15.1, Basophils (%) (Auto) 1.6, Neutrophils # (Auto ) 1.76, Lymphocytes # (Auto) 1.35, Monocytes # (Auto) 0.63, Eosinophils # (Auto ) 0.68, Basophils # (Auto) 0.07 05/17/16 15:54 Test 05/17/16 15:52 05/17/16 15:54 05/17/16 17:45 Influenza Type A (RT-PCR) Neg for Influ A (NEG) Influenza Type A Antigen Neg for Influ A (NEG) Influenza Type B Antigen Neg for Influ B (NEG) Influenza Type B (RT-PCR) Neg for Influ B (NEG) White Blood Count 4.49 K/uL (4.8-10.8) Red Blood Count 4.26 M/uL (4.2-5.4) Hemoglobin 13.7 g/dL (12.0-16.0) Hematocrit 39.7 % (37-47) Mean Corpuscular Volume 93.2 fL (80-100) Mean Corpuscular Hemoglobin 32.2 pg (25-34) Mean Corpuscular Hemoglobin Concent 34.5 g/dl (32-36) Platelet Count 237 K/uL (130-400) Mean Platelet Volume 9.4 fL (7.4-10.4) Neutrophils (%) (Auto) 39.2 % Lymphocytes (%) (Auto) 30.1 % Monocytes (%) (Auto) 14.0 % Eosinophils (%) (Auto) 15.1 % Basophils (%) (Auto) 1.6 % Neutrophils # (Auto) 1.76 K/uL (1.4-6.5) Lymphocytes # (Auto) 1.35 K/uL (1.2-3.4) Monocytes # (Auto) 0.63 K/uL (0.11-0.59) Eosinophils # (Auto) 0.68 K/uL (0-0.5) Basophils # (Auto) 0.07 K/uL (0-0.2) RDW Standard Deviation 47.3 fL (36.4-46.3) RDW Coefficient of Variation 13.9 % (11.5-14.5) Immature Granulocyte % (Auto) 0.0 % Immature Granulocyte # (Auto) 0.00 K/uL (0.00-0.02) Prothrombin Time 11.9 SECONDS (9.0-12.0) Prothromb Time International Ratio 1.1 (0.9-1.1) Activated Partial Thromboplast Time 28.5 SECONDS (21.0-31.0) Partial Thromboplastin Ratio 1.1 D-Dimer 650 ug/L FEU (0-500) Anion Gap 8.0 mmol/L (3-11) Est Creatinine Clear Calc Drug Dose 91.6 ml/min Estimated GFR () 109.5 Estimated GFR (Non- 94.5 BUN/Creatinine Ratio 12.8 (10-20) Calcium Level 8.5 mg/dl (8.5-10.1) Total Bilirubin 0.3 mg/dl (0.2-1) Aspartate Amino Transf (AST/SGOT) 14 U/L (15-37) Alanine Aminotransferase (ALT/SGPT) 22 U/L (12-78) Alkaline Phosphatase 128 U/L (45-117) Total Creatine Kinase 93 U/L (26-192) Creatine Kinase MB 2.5 ng/ml (0.5-3.6) Creatine Kinase MB Ratio 2.7 (0-3.0) Troponin I < 0.015 ng/ml (0-0.045) Total Protein 7.1 gm/dl (6.4-8.2) Albumin 3.7 gm/dl (3.4-5.0) Globulin 3.4 gm/dl (2.5-4.0) Albumin/Globulin Ratio 1.1 (0.9-2) Urine Color YELLOW Urine Appearance CLEAR (CLEAR) Urine pH 8.0 (4.5-7.5) Urine Specific [place] 1.004 (1.000-1.030) Urine Protein NEG (NEG) Urine Glucose (UA) NEG (NEG) Urine Ketones NEG (NEG) Urine Occult Blood NEG (NEG) Urine Nitrite NEG (NEG) Urine Bilirubin NEG (NEG) Urine Urobilinogen NEG (NEG) Urine Leukocyte Esterase TRACE (NEG) Urine WBC (Auto) 1-5 /hpf (0-5) Urine RBC (Auto) 0-4 /hpf (0-4) Urine Hyaline Casts (Auto) 1-5 /lpf (0-5) Urine Epithelial Cells (Auto) 5-10 /lpf (0-5) Urine Bacteria (Auto) NEG (NEG) Labs reviewed by ED physician. Medications Administered Medications (Trade) Dose Ordered Sig/Matt Route Start Time Stop Time Status Last Admin Dose Admin Albuterol/ Ipratropium (Duoneb) 12 ml ONE ONCE INH 05/17/16 15:30 05/17/16 15:31 DC 05/17/16 15:42 12 ML Methylprednisolone Sodium Succinate 60 mg 60 mg NOW STAT IV 05/17/16 15:29 05/17/16 15:31 DC 05/17/16 15:48 60 MG Sodium Chloride (Nss 500ml) 500 ml @ 999 mls/hr Q31M STAT IV 05/17/16 15:29 05/17/16 15:59 DC 05/17/16 15:49 999 MLS/HR Azithromycin (Zithromax Tab) 500 mg NOW STAT PO 05/17/16 16:33 05/17/16 16:34 DC 05/17/16 17:00 500 MG Magnesium Sulfate (Magnesium Sulfate) 2 gm NOW STAT IV 05/17/16 17:24 05/17/16 17:25 DC 05/17/16 18:41 2 GM Codeine Phosphate/ Guaifenesin (Robitussin-AC Sugar Free Syrup) 5 ml Q6H PRN PO 05/17/16 18:00 06/16/16 17:59 05/17/16 21:00 5 ML ECG Indication: SOB/dyspnea Rate (beats per minute): 70 Rhythm: normal sinus Findings: LBBB, no acute ischemic change, no ectopy Comparison ECG Date: 04/06/2016 Change: no significant change ED Course 1525: Past medical records reviewed. The patient was evaluated in room B4B. A complete history and physical examination was performed. 1529: Ordered NSS 500 ml @ 999 mls/hr IV, Solu-Medrol IV 60 mg IV. 1530: Ordered Duoneb 12 ml INH. 1631: I reevaluated the patient she is resting comfortably. 1633: Ordered Azithromycin 500 mg PO. 1708: I reassessed the patient and she is resting comfortably. I discussed the exam findings with her and discussed the treatment plan. She verbalized complete understanding and agreement. She will be evaluated for further treatment. 1723: I discussed the patient's case with Eboni Cartagena PA-C. She is going to evaluate the patient for further treatment. 1724: Ordered Magnesium Sulfate 2 gm IV. Medical Decision Differential diagnosis: Etiologies such as infections, reactive airway disease, pneumonia, pneumothorax , COPD, CHF, cardiac ischemia, pulmonary embolism, musculoskeletal, gastrointestinal, as well as others were entertained. This is a 61-year-old female who presents emergency department complaining of asthma exacerbation. An IV was established, patient given a breathing treatment , magnesium, Solu-Medrol. The patient has no evidence of pneumonia on chest x- ray. The patient feels that she is not well enough to be discharged home and has been admitted multiple times for her asthma. Discuss the case with the hospitalist service who agreed to admit the patient. Consults Time Called: 1710 Consulting Physician: Mame Carlin Returned Call: 1723 I discussed the patient's case with Eboni Cartagena PA-C. She is going to evaluate the patient for further treatment. Impression Primary Impression: Asthma with exacerbation Scribe Attestation The scribe's documentation has been prepared under my direction and personally reviewed by me in its entirety. I confirm that the note above accurately reflects all work, treatment, procedures, and medical decision making performed by me. Departure Information Dispostion Being Evaluated By Hospitalist Referrals Asa Villavicencio D.O. (PCP) Patient Instructions My [facility] Problem Qualifiers Primary Impression: Asthma with exacerbation Asthma severity: moderate persistent Qualified Codes: J45.41 - Moderate persistent asthma with (acute) exacerbation
--- NOTE | 2016-05-17 16:01 | DIAGNOSTIC IMAGING REPORT ---
CHEST ONE VIEW PORTABLE CLINICAL HISTORY: Shortness of breath COMPARISON STUDY: April 06, 2016 FINDINGS: The cardiac and mediastinal contours remain stable. There is mild interstitial thickening. There is mild basilar atelectasis. There is no overt failure. There is no focal pulmonary consolidation.[ IMPRESSION: Mild basilar interstitial thickening. This appears chronic. No acute findings. Electronically signed by: Ady Whitman M.D. 05/17/2016 4:00 PM Dictated Date/Time: 05/17/2016 3:59 PM
[2016-05-17 16:09] LABS: BASO % 1.6 %; BASO ABS # 0.07 K/uL (0-0.2); COMPLETE YES; EOS % 15.1 %; HEMATOCRIT 39.7 % (37-47); LYMPH % 30.1 %; LYMPH ABS # 1.35 K/uL (1.2-3.4); MEAN CELL VOLUME 93.2 fL (80-100); MEAN CORPUSCULAR HEMOGLOBIN 32.2 pg (25-34); MEAN CORPUSCULAR HGB CONC 34.5 g/dl (32-36); MEAN PLATELET VOLUME 9.4 fL (7.4-10.4); NEUT % 39.2 %; PLATELET COUNT 237 K/uL (130-400); RED BLOOD COUNT 4.26 M/uL (4.2-5.4); WHITE BLOOD COUNT 4.49 K/uL (4.8-10.8)
[2016-05-17 16:26] LABS: ALT/SGPT 22 U/L (12-78); AST/SGOT 14 U/L (15-37); BLOOD UREA NITROGEN 8 mg/dl (7-18); BUN/CREATININE RATIO 12.8 (10-20); CALCIUM 8.5 mg/dl (8.5-10.1); CARBON DIOXIDE 30 mmol/L (21-32); CHLORIDE 105 mmol/L (98-107); CREATININE 0.65 mg/dl (0.60-1.20); GLUCOSE 74 mg/dl (70-99); POTASSIUM 3.7 mmol/L (3.5-5.1); SODIUM 143 mmol/L (136-145)
[2016-05-17 16:31] LABS: ALB/GLOB RATIO 1.1 (0.9-2); ALKALINE PHOSPHATASE 128 U/L (45-117); CKMB/CK RATIO 2.7 (0-3.0)
[2016-05-17] MEDS ORDERED: AZITHROMYCIN 250 MG TAB PO STA (16:33)
[2016-05-17] MEDS ORDERED: MAGNESIUM SULFATE 1GM / D5W 1 GM BAG IV STA (17:24)
[2016-05-17 17:49] LABS: INFLUENZA A PCR Neg for Influ A (NEG); INFLUENZA B PCR Neg for Influ B (NEG)
[2016-05-17 17:59] LABS: URINE APPEARANCE CLEAR (CLEAR); URINE BILIRUBIN NEG (NEG); URINE COLOR YELLOW; URINE NITRITE NEG (NEG); URINE SPECIFIC GRAVITY 1.004 (1.000-1.030); UROBILINOGEN NEG (NEG)
[2016-05-17 18:00] LABS: MANUAL MICROSCOPIC REQUIRED? NO; REVIEW REQ? NO
[2016-05-17] MEDS ORDERED: FLUTICASONE PROPIONATE NA SPR 16 GM BTL NAE PRN (18:00)
[2016-05-17] MEDS ORDERED: ACETAMINOPHEN 325 MG TAB PO PRN (18:00)
[2016-05-17] MEDS ORDERED: ONDANSETRON INJ 2 MG/ML 2 ML VIAL IV PRN (18:00)
[2016-05-17] MEDS ORDERED: SODIUM CHLORIDE 0.65% NA SOLN 45 ML (OCEAN) NAE PRN (18:00)
[2016-05-17] MEDS ORDERED: LEVALBUTEROL/IPRATROPIUM NEB INH SCH ×2 (18:45→19:15)
--- NOTE | 2016-05-17 18:46 | History and Physical ---
History & Physical Date & Time of Service: May 17, 2016 at 18:33 Chief Complaint: SOB Primary Care Physician: Asa Villavicencio D.O. History of Present Illness Source: patient This is a 61 y/o female with PMHx of Epilepsy, Asthma and other problems as outlined below who presents to the ED c/o worsening SOB x 1 week. Pt reports that 1 weeks ago she developed worsening SOB. Sxs are assoc with chest "tightness", wheezing and cough productive of thick, yellow sputum. Pt has been using her inhalers and nebulizer with only temporary relief. Pt did not seen her PCP for her sxs however Dr. Villavicencio called in a cough syrup with codeine which she has not picked up yet. Pt has a history of asthma. She has no history of tobacco use or COPD. Pt denies fever/chills, chest pain, palpitations, abd pain, N/V, bowel or bladder issues, LE edema ,calf pain, lightheadedness/ dizziness. In the ED, vitals are stable. Pt is afebrile with no leukocytosis. CXR is clear. Pt will be admitted for observation and further evaluation and treatment. Past Medical/Surgical History Medical Problems: (1) Age related osteoporosis Status: Chronic (2) Asthma Status: Chronic (3) Depression Status: Chronic (4) Epilepsy Permanent Comment: General, convulsive Status: Chronic (5) EDWIN (generalized anxiety disorder) Status: Chronic (6) GERD (gastroesophageal reflux disease) Status: Chronic (7) IBS (irritable bowel syndrome) Status: Chronic Surgical Problems: (1) H/O colonoscopy Status: Chronic (2) H/O esophagogastroduodenoscopy Status: Chronic (3) H/O sinus surgery Status: Chronic (4) H/O: hysterectomy Status: Chronic (5) History of ear surgery Status: Chronic (6) Hx of breast biopsy Status: Chronic Family History Diabetes mellitus MOTHER FH: lung cancer AUNT Hypertension FATHER Social History Smoking Status: Never Smoker Alcohol Use: none Drug Use: none Marital Status: single Housing status: lives with family (mother), other Occupational Status: unemployed Immunizations History of Influenza Vaccine: No History of Tetanus Vaccine?: UTD History of Pneumococcal: No History of Hepatitis B Vaccine: Unknown Multi-Drug Resistant Organisms History of MDRO: No Allergies Coded Allergies: Clemastine (Verified Allergy, Unknown, ITCHING, 2/20/17) Sulfa Antibiotics (Verified Allergy, Unknown, RASH AND ITCHY, 04/06/16) [place] (Verified Allergy, Unknown, [place] ALLERGY, + ALLERGY TEST , 04/06/16) Home Medications Scheduled Aspirin (Aspirin EC Low Dose), 1 TAB PO QAM Budesonide/Formoterol Fumarate (Symbicort 160/4.5 Inhaler ), 2 PUFFS INH BID Citalopram (Citalopram Hydrobromide), 40 MG PO QAM Cyanocobalamin (Vitamin B-12 1000 Mcg), 1 TAB PO QAM Folic Acid (Folvite), 1 MG PO QAM Levothyroxine Sodium (Levothyroxine Sodium), 100 MCG PO DAILY Montelukast Sodium (Singulair), 10 MG PO QPM Pantoprazole (Protonix), 40 MG PO QAM Phenobarbital (Phenobarbital), 97.2 MG PO HS Phenytoin Sodium (Dilantin), 200 MG PO BID Ranitidine (Zantac), 150 MG PO BID Scheduled PRN Albuterol Hfa (Ventolin Hfa), 2 PUFFS INH Q4H PRN for SOB/Wheezing Fluticasone Propionate (Nasal) (Flonase Allergy Relief), 1 SPRAY JOSE CARLOS BID PRN for Nasal Congestion Guaifenesin/Codeine (Robitussin-Ac Syrup), 5 ML PO Q6H PRN for Cough Ipratropium-Albuterol (Duoneb), 1 TREATMENT INH Q4H PRN for SOB/Wheezing Saline ([place] Nasal [place]), 1 SPRAY JOSE CARLOS DAILY PRN for dryness Review of Systems Constitutional: No chills, No fatigue, No fever, No sweats, No weakness Eyes: No worsening of vision ENT: No hearing loss Respiratory: + cough, + shortness of breath, + sputum, + wheezing Cardiovascular: No chest pain, No claudication, No edema Abdomen: No constipation, No diarrhea, No nausea, No pain, No vomiting Musculoskeletal: No calf pain, No swelling Genitourinary - Female: No dysuria Neurologic: No weakness Psychiatric: No depression symptoms Endocrine: No fatigue Hematologic / Lymphatic: No abnormal bleeding/bruising Integumentary: No new/changing skin lesions Physical Exam Vital Signs Date Time Temp Pulse Resp B/P Pulse Ox O2 Delivery O2 Flow Rate FiO2 05/17/16 17:01 84 18 118/70 98 Room Air 05/17/16 15:42 74 18 97 Room Air 05/17/16 15:33 78 05/17/16 15:20 36.5 72 20 120/68 99 Room Air 05/17/16 15:20 99 Room Air 05/17/16 15:20 99 Room Air General Appearance: WD/WN, no apparent distress, + pertinent finding (Pt is sitting up in bed ) Head: normocephalic, atraumatic Eyes: normal inspection ENT: hearing grossly normal Neck: supple Respiratory/Chest: chest non-tender, lungs clear, normal breath sounds, no respiratory distress, + pertinent finding (no wheezing or crackles ) Cardiovascular: regular rate, rhythm, no edema, no murmur Abdomen/GI: normal bowel sounds, non tender, soft Back: normal inspection Extremities/Musculoskelatal: normal inspection, no calf tenderness, no pedal edema Neurologic/Psych: alert, normal mood/affect, oriented x 3 Skin: normal color, warm/dry Diagnostics Laboratory Results Results Past 24 Hours Test 05/17/16 15:52 05/17/16 15:54 05/17/16 17:45 Range/Units Influenza Type A (RT-PCR) Neg for Influ A NEG Influenza Type A Antigen Neg for Influ A NEG Influenza Type B Antigen Neg for Influ B NEG Influenza Type B (RT-PCR) Neg for Influ B NEG White Blood Count 4.49 4.8-10.8 K/uL Red Blood Count 4.26 4.2-5.4 M/uL Hemoglobin 13.7 12.0-16.0 g/dL Hematocrit 39.7 37-47 % Mean Corpuscular Volume 93.2 80-100 fL Mean Corpuscular Hemoglobin 32.2 25-34 pg Mean Corpuscular Hemoglobin Concent 34.5 32-36 g/dl Platelet Count 237 130-400 K/uL Mean Platelet Volume 9.4 7.4-10.4 fL Neutrophils (%) (Auto) 39.2 % Lymphocytes (%) (Auto) 30.1 % Monocytes (%) (Auto) 14.0 % Eosinophils (%) (Auto) 15.1 % Basophils (%) (Auto) 1.6 % Neutrophils # (Auto) 1.76 1.4-6.5 K/uL Lymphocytes # (Auto) 1.35 1.2-3.4 K/uL Monocytes # (Auto) 0.63 0.11-0.59 K/uL Eosinophils # (Auto) 0.68 0-0.5 K/uL Basophils # (Auto) 0.07 0-0.2 K/uL RDW Standard Deviation 47.3 36.4-46.3 fL RDW Coefficient of Variation 13.9 11.5-14.5 % Immature Granulocyte % (Auto) 0.0 % Immature Granulocyte # (Auto) 0.00 0.00-0.02 K/uL Sodium Level 143 136-145 mmol/L Potassium Level 3.7 3.5-5.1 mmol/L Chloride Level 105 98-107 mmol/L Carbon Dioxide Level 30 21-32 mmol/L Anion Gap 8.0 3-11 mmol/L Blood Urea Nitrogen 8 7-18 mg/dl Creatinine 0.65 0.60-1.20 mg/dl Est Creatinine Clear Calc Drug Dose 91.6 ml/min Estimated GFR () 109.5 Estimated GFR (Non- 94.5 BUN/Creatinine Ratio 12.8 10-20 Random Glucose 74 70-99 mg/dl Calcium Level 8.5 8.5-10.1 mg/dl Total Bilirubin 0.3 0.2-1 mg/dl Aspartate Amino Transf (AST/SGOT) 14 15-37 U/L Alanine Aminotransferase (ALT/SGPT) 22 12-78 U/L Alkaline Phosphatase 128 45-117 U/L Total Creatine Kinase 93 26-192 U/L Creatine Kinase MB 2.5 0.5-3.6 ng/ml Creatine Kinase MB Ratio 2.7 0-3.0 Troponin I < 0.015 0-0.045 ng/ml Total Protein 7.1 6.4-8.2 gm/dl Albumin 3.7 3.4-5.0 gm/dl Globulin 3.4 2.5-4.0 gm/dl Albumin/Globulin Ratio 1.1 0.9-2 Urine Color YELLOW Urine Appearance CLEAR CLEAR Urine pH 8.0 4.5-7.5 Urine Specific [place] 1.004 1.000-1.030 Urine Protein NEG NEG Urine Glucose (UA) NEG NEG Urine Ketones NEG NEG Urine Occult Blood NEG NEG Urine Nitrite NEG NEG Urine Bilirubin NEG NEG Urine Urobilinogen NEG NEG Urine Leukocyte Esterase TRACE NEG Urine WBC (Auto) 1-5 0-5 /hpf Urine RBC (Auto) 0-4 0-4 /hpf Urine Hyaline Casts (Auto) 1-5 0-5 /lpf Urine Epithelial Cells (Auto) 5-10 0-5 /lpf Urine Bacteria (Auto) NEG NEG Diagnostic Radiology CXR IMPRESSION: Mild basilar interstitial thickening. This appears chronic. No acute findings. EKG EKG: NSR at 70 bpm with LBBB; no change when compared to EKG from Mar 2016 Impression Assessment and Plan SOB SECONDARY TO ACUTE ASTHMATIC BRONCHITIS pt presented with worsening SOB, cough and wheezing; h/o asthma -admit observation status to med/surg -Likely due to asthma exacerbation from acute bronchitis -pt is afebrile with no leukocytosis; saturating well on room air -CXR no consolidation -Influenza antigen and PCR negative -start IV Solu-Medrol, abx (Doxy and Clinda) and duonebs -start Tessalon Perles and codeine cough syrup PRN -monitor EPILEPSY -h/o grand-mal seizures; last seizure "years ago" -cont Dilantin and Phenobarbital -follows with neuro, Dr. Shine DEPRESSION -stable -cont Celexa GERD -cont PPI HYPOTHYROIDISM -cont levothyroxine DVT PROPHYLAXIS -subq Lovenox CODE STATUS -FULL CODE status per discussion with patient upon admission DISPO Observation status until further workup is complete. Pt seen in collaboration with Dr. Moreno. Please see her addendum for further details. Thanks! -Of note: patient will be followed by Dr. Mathis starting tomorrow AM ATTENDING ADDENDUM care coordinated with JOSEY Tyler please refer to her notes for full details, I agree with her notes patient seen and examined, records reviewed by myself as well on exam, patient seen sitting up in bed, speaks in sentences with some effort, coughing in between states shortness of breath is slightly better but still with persistent cough has been having productive cough, nasal congestion, some chills no chest pain, palpitations, dizziness, nausea no other symptoms VS noted and reviewed oriented x e, not in distress, speaks in sentences with mild effort no accessory muscle use tachycardic 110s, regular rhythm, no murmurs (+) scattered expiratory wheezing bilaterally, no crackles non distended, soft, nontender mild bipedal edema, erythema, warmth no neuro deficits WBC 4.4 Crea 0.65 CXR: no signs of pneumonia ASSESSMENT/PLAN> 61 year old female with history of asthmatic bronchitis, chronic sinusitis, GERD with aspiration, presenting with increased cough and shortness of breath x few days. ACUTE ASTHMA EXACERBATION - likely from acute bronchitis also has history of chronic rhinitis, GERD, Aspiration - history of MSSA, Strep in the past - ff up sputum cultures - empiric Clindamycin and Doxycycline IV for now (QTc 475) Nebs Solumedrol 40mg q8h - follows with Dr. Zapata will consult Pulm SEIZURE DISORDER continue usual Dilantin and Phenobarbital other diagnoses and plan of care as per JOSEY Tyler's notes Owen Moreno MD VTE Prophylaxis VTE Risk Assessment Done? Y/N: Yes Risk Level: Moderate
[2016-05-17] MEDS ORDERED: LEVALBUTEROL/IPRATROPIUM NEB INH PRN (19:15)
[2016-05-17 19:18] VITALS: PULSE 96; O2SAT 95
[2016-05-17] MEDS: LEVALBUTEROL 1.25MG/0.5ML NEB INH SCH ×2 (19:18→23:01)
[2016-05-17] MEDS: IPRATROPIUM BROMIDE NEB SOLN 0.02% 2.5 ML VIAL INH SCH ×2 (19:18→23:01)
[2016-05-17 19:48] VITALS: BP 132/69; PULSE 93; TEMP 36.7; O2SAT 93; Ht 162.6 cm; Wt 79.5 kg
[2016-05-17] MEDS ORDERED: ALBUT/IPRATROP 3MG/0.5MG NEB 3 ML VIAL INH SCH (20:00)
[2016-05-17 20:38] LABS: INR 1.1 (0.9-1.1); PARTIAL THROMBOPLASTIN RATIO 1.1; PROTHROMBIN TIME (PATIENT) 11.9 SECONDS (9.0-12.0)
[2016-05-17] MEDS: RANITIDINE HCL 150 MG TAB PO SCH (20:53)
[2016-05-17] MEDS: BENZONATATE 100MG CAP PO SCH (20:53)
[2016-05-17] MEDS: MONTELUKAST SOD 10 MG TAB PO SCH (20:53)
[2016-05-17] MEDS: GUAIFENESIN/CODEINE 200MG/20MG 10ML UDC PO PRN (21:00)
[2016-05-17] MEDS: DOXYCYCLINE IV 100 MG in DEXTROSE 5% 100ML 100 ML IV SCH (21:19)
[2016-05-17] MEDS: PHENYTOIN SODIUM ER 100 MG CAP PO SCH (21:20)
[2016-05-17] MEDS: ENOXAPARIN 40 MG/0.4 ML SYR SQ SCH (21:35)
[2016-05-17] MEDS: PHENOBARBITAL 32.4 MG TAB PO SCH (21:36)
[2016-05-17] MEDS ORDERED: IV FLUIDS COMPLETED PRN (21:45)
[2016-05-17 23:01] VITALS: PULSE 88; O2SAT 95
[2016-05-17] MEDS: CLINDAMYCIN IV 600 MG in DEXTROSE 5% ADD-VANTAGE 50ML 50 ML IV SCH (23:45)
[2016-05-17] MEDS: METHYLPREDNISOLONE IV 40 MG in SYRINGE 0 ML IV SCH (23:47)
[2016-05-17 23:51] VITALS: BP 118/70; PULSE 74; TEMP 36.7; O2SAT 99
[2016-05-18] VITALS (11 sets, daily range): BP systolic 95–102; BP diastolic 48–57; PULSE 74–86; TEMP 36.6–36.7; O2SAT 94–97
[2016-05-18] MEDS: IPRATROPIUM BROMIDE NEB SOLN 0.02% 2.5 ML VIAL INH SCH ×6 (03:53→23:28)
[2016-05-18] MEDS: LEVALBUTEROL 1.25MG/0.5ML NEB INH SCH ×6 (03:53→23:28)
[2016-05-18] MEDS: LEVOTHYROXINE 100 MCG TAB PO SCH (05:44)
[2016-05-18] MEDS: CLINDAMYCIN IV 600 MG in DEXTROSE 5% ADD-VANTAGE 50ML 50 ML IV SCH ×3 (05:44→21:48)
[2016-05-18] MEDS: GUAIFENESIN/CODEINE 200MG/20MG 10ML UDC PO PRN (05:51)
--- NOTE | 2016-05-18 06:31 | DIAGNOSTIC IMAGING REPORT ---
BILATERAL LOWER EXTREMITY VENOUS DOPPLER HISTORY: Pain. Edema. r/o dv COMPARISON STUDY: None. FINDINGS: There is normal compressibility, flow, and augmentation within the bilateral lower extremity deep venous systems. IMPRESSION: No DVT within the right or left lower extremity. Electronically signed by: Haider Frankel M.D. 05/18/2016 6:30 AM Dictated Date/Time: 05/18/2016 6:29 AM
[2016-05-18 07:20] LABS: MEAN CORPUSCULAR HEMOGLOBIN 31.8 pg (25-34); MEAN CORPUSCULAR HGB CONC 34.2 g/dl (32-36); MEAN PLATELET VOLUME 9.5 fL (7.4-10.4); PLATELET COUNT 218 K/uL (130-400); RED BLOOD COUNT 3.87 M/uL (4.2-5.4); WHITE BLOOD COUNT 4.43 K/uL (4.8-10.8)
[2016-05-18 07:54] LABS: CALCIUM 8.3 mg/dl (8.5-10.1); CREATININE 0.62 mg/dl (0.60-1.20)
[2016-05-18] MEDS: DOXYCYCLINE IV 100 MG in DEXTROSE 5% 100ML 100 ML IV SCH ×2 (07:54→20:06)
[2016-05-18] MEDS: METHYLPREDNISOLONE IV 40 MG in SYRINGE 0 ML IV SCH ×3 (07:54→23:44)
[2016-05-18] MEDS: RANITIDINE HCL 150 MG TAB PO SCH ×2 (07:55→20:12)
[2016-05-18] MEDS: PHENYTOIN SODIUM ER 100 MG CAP PO SCH ×2 (07:55→20:11)
[2016-05-18] MEDS: PANTOprazole SOD 40 MG TAB PO SCH (07:55)
[2016-05-18] MEDS: CYANOCOBALAMIN 500 MCG TAB (VIT B-12) PO SCH (07:56)
[2016-05-18] MEDS: BENZONATATE 100MG CAP PO SCH ×3 (07:56→20:12)
[2016-05-18] MEDS: CITALOPRAM 40 MG TAB PO SCH (07:56)
[2016-05-18] MEDS: ASPIRIN 81 MG ECTAB PO SCH (07:56)
[2016-05-18] MEDS ORDERED: AZITHROMYCIN IV 500 MG in DEXTROSE 5% 250ML 250 ML IV SCH (09:00)
--- NOTE | 2016-05-18 15:39 | Progress Note ---
Internal Med Progress Note Date of Service: May 18, 2016. Provider Documentation: SUBJECTIVE: Patient is seen and examined at bedside. States having cough with yellowish expectoration. Sob and wheezing improving. Denies any chest pain. Offers no other complaints. OBJECTIVE: Vital Signs-as noted below Physical Exam: General Appearance:Moderately built and nourished, no apparent distress Head: normocephalic, Atraumatic Eyes: normal inspection, EOMI, PERRLA Neck: supple, Trachea midline Respiratory/Chest: Decreased breath sounds, expiratory wheezes Cardiovascular: S1, S2, No murmur Abdomen/GI:Soft, Non tender, Bowel sounds present Extremities/Musculoskelatal:normal inspection, no edema Neurologic/Psych:AAOX3, grossly no focal neurological deficits Skin: normal color, warm Lab data as noted below. ASSESSMENT & PLAN: ACUTE ASTHMA EXACERBATION Likely secondary to acute bronchitis H/O chronic rhinitis, GERD, Aspiration, MSSA Continue IV Clindamycin and Doxycycline Continue bronchodilators, glucocorticoids Follow up sputum cultures Oxygen support per protocol Currently no tachycardia, saturating well on room air Elevated d-dimer: Venous duplex: negative for DVT Consider CTA for PE if any necessary Consider Pulm consult: patient known to SEIZURE DISORDER continue Dilantin and Phenobarbital Stable Follows with Dr. Shine DEPRESSION stable continue Celexa GERD continue PPI HYPOTHYROIDISM continue levothyroxine DVT PX: SQ Lovenox CODE STATUS FULL CODE DISPOSITION: Continue to monitor Vital Signs: Date Time Temp Pulse Resp B/P Pulse Ox O2 Delivery O2 Flow Rate FiO2 05/18/16 16:32 36.7 76 16 98/57 95 Room Air 05/18/16 16:00 95 Room Air 05/18/16 15:28 74 16 97 Room Air 05/18/16 11:25 86 16 97 Room Air 05/18/16 10:12 95 Room Air 05/18/16 07:49 76 16 94 Room Air 05/18/16 07:42 36.6 86 16 102/51 94 Room Air 95/48 05/18/16 03:53 84 16 94 Room Air 05/18/16 00:00 95 Room Air 05/17/16 23:51 36.7 74 18 118/70 99 Room Air 05/17/16 23:01 88 16 95 Room Air 05/17/16 19:48 36.7 93 18 132/69 93 Room Air 05/17/16 19:18 96 16 95 Room Air 05/17/16 18:36 98 18 122/61 94 Room Air Lab Results: Results Past 24 Hours Test 05/18/16 06:34 Range/Units White Blood Count 4.43 4.8-10.8 K/uL Red Blood Count 3.87 4.2-5.4 M/uL Hemoglobin 12.3 12.0-16.0 g/dL Hematocrit 36.0 37-47 % Mean Corpuscular Volume 93.0 80-100 fL Mean Corpuscular Hemoglobin 31.8 25-34 pg Mean Corpuscular Hemoglobin Concent 34.2 32-36 g/dl RDW Standard Deviation 47.9 36.4-46.3 fL RDW Coefficient of Variation 14.0 11.5-14.5 % Platelet Count 218 130-400 K/uL Mean Platelet Volume 9.5 7.4-10.4 fL Sodium Level 141 136-145 mmol/L Potassium Level 4.0 3.5-5.1 mmol/L Chloride Level 106 98-107 mmol/L Carbon Dioxide Level 28 21-32 mmol/L Anion Gap 7.0 3-11 mmol/L Blood Urea Nitrogen 8 7-18 mg/dl Creatinine 0.62 0.60-1.20 mg/dl Est Creatinine Clear Calc Drug Dose 94.8 ml/min Estimated GFR () 111.2 Estimated GFR (Non- 96.0 BUN/Creatinine Ratio 13.0 10-20 Random Glucose 115 70-99 mg/dl Calcium Level 8.3 8.5-10.1 mg/dl
[2016-05-18] MEDS: MONTELUKAST SOD 10 MG TAB PO SCH (20:12)
[2016-05-18] MEDS: ENOXAPARIN 40 MG/0.4 ML SYR SQ SCH (20:13)
[2016-05-18] MEDS: PHENOBARBITAL 32.4 MG TAB PO SCH (21:48)
[2016-05-19] VITALS (9 sets, daily range): BP systolic 101–122; BP diastolic 58–64; PULSE 72–88; TEMP 36.5–36.8; O2SAT 94–97
[2016-05-19] MEDS: IPRATROPIUM BROMIDE NEB SOLN 0.02% 2.5 ML VIAL INH SCH ×6 (03:44→22:59)
[2016-05-19] MEDS: LEVALBUTEROL 1.25MG/0.5ML NEB INH SCH ×6 (03:44→22:59)
[2016-05-19] MEDS: CLINDAMYCIN IV 600 MG in DEXTROSE 5% ADD-VANTAGE 50ML 50 ML IV SCH ×2 (05:40→14:03)
[2016-05-19] MEDS: LEVOTHYROXINE 100 MCG TAB PO SCH (05:41)
[2016-05-19] MEDS: ASPIRIN 81 MG ECTAB PO SCH (08:26)
[2016-05-19] MEDS: CYANOCOBALAMIN 500 MCG TAB (VIT B-12) PO SCH (08:27)
[2016-05-19] MEDS: CITALOPRAM 40 MG TAB PO SCH (08:27)
[2016-05-19] MEDS: RANITIDINE HCL 150 MG TAB PO SCH ×2 (08:27→20:25)
[2016-05-19] MEDS: PHENYTOIN SODIUM ER 100 MG CAP PO SCH ×2 (08:27→20:26)
[2016-05-19] MEDS: BENZONATATE 100MG CAP PO SCH ×3 (08:28→20:25)
[2016-05-19] MEDS: PANTOprazole SOD 40 MG TAB PO SCH (08:28)
[2016-05-19] MEDS: DOXYCYCLINE IV 100 MG in DEXTROSE 5% 100ML 100 ML IV SCH ×2 (08:34→11:00)
[2016-05-19] MEDS: METHYLPREDNISOLONE IV 40 MG in SYRINGE 0 ML IV SCH ×3 (08:34→23:33)
[2016-05-19 08:55] LABS: BUN/CREATININE RATIO 17.1 (10-20); CALCIUM 8.6 mg/dl (8.5-10.1); CREATININE 0.65 mg/dl (0.60-1.20); POTASSIUM 3.8 mmol/L (3.5-5.1)
--- NOTE | 2016-05-19 18:11 | Progress Note ---
Internal Med Progress Note Date of Service: May 19, 2016. Provider Documentation: SUBJECTIVE: Patient is sitting in the bed in no apparent distress. Breathing much better. Intermittent dry cough. Remains afebrile. No other new change or complaint. OBJECTIVE: Vital Signs-as noted below Examination: General Appearance:Moderately built and nourished, no apparent distress Head: normocephalic, Atraumatic Eyes: normal inspection, EOMI, PERRLA Neck: supple, Trachea midline Respiratory/Chest: Decreased breath sounds, expiratory wheezes Cardiovascular: S1, S2, No murmur Abdomen/GI:Soft, Non tender, Bowel sounds present Extremities/Musculoskeletal:normal inspection, no edema Neurologic/Psych:AAOX3, grossly no focal neurological deficits Skin: normal color, warm Lab data as noted below. ASSESSMENT & PLAN: Acute Exacerbation of Asthma: Likely due to acute bronchitis. Has H/O chronic rhinitis, GERD, Aspiration, MSSA Clinically improving,. -Continue Doxycycline -Continue bronchodilators, glucocorticoids -Follow up sputum cultures -Oxygen support per protocol -Elevated d-dimer: Venous duplex: negative for DVT History Seizure Disorder: Stable. -Continue Dilantin and Phenobarbital -Follows with Dr. Shine Depression: Stable. Continue Celexa GERD: Stable. Continue PPI Hypothyroidism: Stable.Continue levothyroxine DVT Prophylaxis:SQ Lovenox Code Status: FULL CODE Disposition: Discharge home in 1-2 days. Vital Signs: Date Time Temp Pulse Resp B/P Pulse Ox O2 Delivery O2 Flow Rate FiO2 05/20/16 07:12 69 16 98 Room Air 05/20/16 07:09 36.8 74 20 106/58 94 Room Air 05/20/16 01:38 84 16 96 Room Air 05/19/16 23:40 Room Air 05/19/16 23:04 36.7 80 17 101/60 96 Room Air 05/19/16 21:21 84 16 97 Room Air 05/19/16 20:30 Room Air 05/19/16 16:07 36.6 77 16 113/58 94 Room Air 05/19/16 16:01 81 16 97 Room Air 05/19/16 16:00 Room Air 05/19/16 11:47 79 16 97 Room Air 05/19/16 09:43 Room Air Lab Results: Results Past 24 Hours Test 05/20/16 07:05 Range/Units White Blood Count 5.75 4.8-10.8 K/uL Red Blood Count 4.17 4.2-5.4 M/uL Hemoglobin 13.2 12.0-16.0 g/dL Hematocrit 38.7 37-47 % Mean Corpuscular Volume 92.8 80-100 fL Mean Corpuscular Hemoglobin 31.7 25-34 pg Mean Corpuscular Hemoglobin Concent 34.1 32-36 g/dl RDW Standard Deviation 47.1 36.4-46.3 fL RDW Coefficient of Variation 13.9 11.5-14.5 % Platelet Count 236 130-400 K/uL Mean Platelet Volume 9.3 7.4-10.4 fL Creatinine 0.78 0.60-1.20 mg/dl Est Creatinine Clear Calc Drug Dose 75.3 ml/min Estimated GFR () 93.8 Estimated GFR (Non- 80.9
[2016-05-19] MEDS: DOXYCYCLINE HYCLATE 100 MG CAP PO SCH (20:24)
[2016-05-19] MEDS: MONTELUKAST SOD 10 MG TAB PO SCH (20:25)
[2016-05-19] MEDS: ENOXAPARIN 40 MG/0.4 ML SYR SQ SCH (20:28)
[2016-05-19] MEDS: PHENOBARBITAL 32.4 MG TAB PO SCH (22:15)
[2016-05-20] VITALS (7 sets, daily range): BP systolic 106–116; BP diastolic 58–69; PULSE 69–84; TEMP 36.7–36.8; O2SAT 93–98
[2016-05-20] MEDS: LEVALBUTEROL 1.25MG/0.5ML NEB INH SCH ×5 (01:37→19:54)
[2016-05-20] MEDS: IPRATROPIUM BROMIDE NEB SOLN 0.02% 2.5 ML VIAL INH SCH ×5 (01:37→19:54)
[2016-05-20] MEDS: LEVOTHYROXINE 100 MCG TAB PO SCH (05:56)
[2016-05-20 07:27] LABS: HEMATOCRIT 38.7 % (37-47); MEAN CELL VOLUME 92.8 fL (80-100); MEAN CORPUSCULAR HEMOGLOBIN 31.7 pg (25-34); MEAN CORPUSCULAR HGB CONC 34.1 g/dl (32-36); MEAN PLATELET VOLUME 9.3 fL (7.4-10.4); PLATELET COUNT 236 K/uL (130-400); RED BLOOD COUNT 4.17 M/uL (4.2-5.4); WHITE BLOOD COUNT 5.75 K/uL (4.8-10.8)
[2016-05-20 07:57] LABS: CREATININE 0.78 mg/dl (0.60-1.20)
[2016-05-20] MEDS: CITALOPRAM 40 MG TAB PO SCH (09:25)
[2016-05-20] MEDS: ASPIRIN 81 MG ECTAB PO SCH (09:26)
[2016-05-20] MEDS: PHENYTOIN SODIUM ER 100 MG CAP PO SCH ×2 (09:26→20:33)
[2016-05-20] MEDS: BENZONATATE 100MG CAP PO SCH ×3 (09:27→20:32)
[2016-05-20] MEDS: PANTOprazole SOD 40 MG TAB PO SCH (09:27)
[2016-05-20] MEDS: CYANOCOBALAMIN 500 MCG TAB (VIT B-12) PO SCH (09:28)
[2016-05-20] MEDS: GUAIFENESIN/CODEINE 200MG/20MG 10ML UDC PO PRN ×2 (09:28→23:31)
[2016-05-20] MEDS: DOXYCYCLINE HYCLATE 100 MG CAP PO SCH ×2 (09:28→20:32)
[2016-05-20] MEDS: RANITIDINE HCL 150 MG TAB PO SCH ×2 (09:28→20:31)
[2016-05-20] MEDS: METHYLPREDNISOLONE IV 40 MG in SYRINGE 0 ML IV SCH (10:12)
--- NOTE | 2016-05-20 12:59 | Progress Note ---
Internal Med Progress Note Date of Service: May 20, 2016. Provider Documentation: SUBJECTIVE: Patient is sitting in the bed in no apparent distress. Breathing much better. Intermittent dry cough. Remains afebrile. has been able to ambulate in the hallway. No other new change or complaint. OBJECTIVE: Vital Signs-as noted below Examination: General Appearance:Moderately built and nourished, no apparent distress Head: normocephalic, Atraumatic Eyes: normal inspection, EOMI, PERRLA Neck: supple, Trachea midline Respiratory/Chest: Decreased breath sounds, expiratory wheezes Cardiovascular: S1, S2, No murmur Abdomen/GI:Soft, Non tender, Bowel sounds present Extremities/Musculoskeletal:normal inspection, no edema Neurologic/Psych:AAOX3, grossly no focal neurological deficits Skin: normal color, warm Lab data as noted below. ASSESSMENT & PLAN: Acute Exacerbation of Asthma: Likely due to acute bronchitis. Has H/O chronic rhinitis, GERD, Aspiration, MSSA Clinically improving,. -Continue Doxycycline -Continue bronchodilators, glucocorticoids. Changed to oral Prednisone. -Follow up sputum cultures -Oxygen support per protocol -Elevated d-dimer: Venous duplex: negative for DVT History Seizure Disorder: Stable. -Continue Dilantin and Phenobarbital -Follows with Dr. Shine Depression: Stable. Continue Celexa GERD: Stable. Continue PPI Hypothyroidism: Stable.Continue levothyroxine DVT Prophylaxis:SQ Lovenox Code Status: FULL CODE Disposition: Discharge home in 1-2 days. Vital Signs: Date Time Temp Pulse Resp B/P Pulse Ox O2 Delivery O2 Flow Rate FiO2 05/20/16 10:22 73 16 97 Room Air 05/20/16 09:51 Room Air 05/20/16 07:12 69 16 98 Room Air 05/20/16 07:09 36.8 74 20 106/58 94 Room Air 05/20/16 01:38 84 16 96 Room Air 05/19/16 23:40 Room Air 05/19/16 23:04 36.7 80 17 101/60 96 Room Air 05/19/16 21:21 84 16 97 Room Air 05/19/16 20:30 Room Air 05/19/16 16:07 36.6 77 16 113/58 94 Room Air 05/19/16 16:01 81 16 97 Room Air 05/19/16 16:00 Room Air Lab Results: Results Past 24 Hours Test 05/20/16 07:05 Range/Units White Blood Count 5.75 4.8-10.8 K/uL Red Blood Count 4.17 4.2-5.4 M/uL Hemoglobin 13.2 12.0-16.0 g/dL Hematocrit 38.7 37-47 % Mean Corpuscular Volume 92.8 80-100 fL Mean Corpuscular Hemoglobin 31.7 25-34 pg Mean Corpuscular Hemoglobin Concent 34.1 32-36 g/dl RDW Standard Deviation 47.1 36.4-46.3 fL RDW Coefficient of Variation 13.9 11.5-14.5 % Platelet Count 236 130-400 K/uL Mean Platelet Volume 9.3 7.4-10.4 fL Creatinine 0.78 0.60-1.20 mg/dl Est Creatinine Clear Calc Drug Dose 75.3 ml/min Estimated GFR () 93.8 Estimated GFR (Non- 80.9
[2016-05-20] MEDS: MONTELUKAST SOD 10 MG TAB PO SCH (20:31)
[2016-05-20] MEDS: ENOXAPARIN 40 MG/0.4 ML SYR SQ SCH (20:33)
[2016-05-20] MEDS: PHENOBARBITAL 32.4 MG TAB PO SCH (22:11)
[2016-05-21] VITALS: BP 100/62; PULSE 78; TEMP 36.4; O2SAT 95
[2016-05-21] MEDS: LEVOTHYROXINE 100 MCG TAB PO SCH (06:21)
[2016-05-21 07:03] VITALS: BP 113/63; PULSE 71; TEMP 36.7; O2SAT 97
[2016-05-21] MEDS: IPRATROPIUM BROMIDE NEB SOLN 0.02% 2.5 ML VIAL INH SCH (07:37)
[2016-05-21] MEDS: LEVALBUTEROL 1.25MG/0.5ML NEB INH SCH (07:38)
[2016-05-21 07:39] VITALS: PULSE 70; O2SAT 95
[2016-05-21] MEDS: PHENYTOIN SODIUM ER 100 MG CAP PO SCH (08:18)
[2016-05-21] MEDS: CITALOPRAM 40 MG TAB PO SCH (08:18)
[2016-05-21] MEDS: ASPIRIN 81 MG ECTAB PO SCH (08:18)
[2016-05-21] MEDS: DOXYCYCLINE HYCLATE 100 MG CAP PO SCH (08:20)
[2016-05-21] MEDS: BENZONATATE 100MG CAP PO SCH ×2 (08:20→13:55)
[2016-05-21] MEDS: PANTOprazole SOD 40 MG TAB PO SCH (08:20)
[2016-05-21] MEDS: CYANOCOBALAMIN 500 MCG TAB (VIT B-12) PO SCH (08:20)
[2016-05-21] MEDS: RANITIDINE HCL 150 MG TAB PO SCH (08:21)
[2016-05-21 08:47] VITALS: O2SAT 97
--- NOTE | 2016-05-21 14:07 | Progress Note ---
Internal Med Progress Note Date of Service: May 21, 2016. Provider Documentation: SUBJECTIVE: Patient is found walking in the hallway in no apparent distress. Breathing much better. Intermittent dry cough. Remains afebrile.She has been able to ambulate in the hallway frequently. No other new change or complaint. OBJECTIVE: Vital Signs-as noted below Examination: General Appearance:Moderately built and nourished, no apparent distress Head: normocephalic, Atraumatic Eyes: normal inspection, EOMI, PERRLA Neck: supple, Trachea midline Respiratory/Chest: Decreased breath sounds, expiratory wheezes Cardiovascular: S1, S2, No murmur Abdomen/GI:Soft, Non tender, Bowel sounds present Extremities/Musculoskeletal:normal inspection, no edema Neurologic/Psych:AAOX3, grossly no focal neurological deficits Skin: normal color, warm Lab data as noted below. ASSESSMENT & PLAN: Acute Exacerbation of Asthma: Likely due to acute bronchitis. Has H/O chronic rhinitis, GERD, Aspiration, MSSA Clinically improving,. -Continue Doxycycline -Continue bronchodilators, glucocorticoids. Changed to oral Prednisone. -Follow up sputum cultures -Oxygen support per protocol -Elevated d-dimer: Venous duplex: negative for DVT History Seizure Disorder: Stable. -Continue Dilantin and Phenobarbital -Follows with Dr. Shine Depression: Stable. Continue Celexa GERD: Stable. Continue PPI Hypothyroidism: Stable.Continue levothyroxine DVT Prophylaxis:SQ Lovenox Code Status: FULL CODE Disposition: Discharge home later today. Follow up with PCP on 05/28/2016 @ 10.45 AM. Follow up with Pulmonary Medicine in 1-2 weeks. Vital Signs: Date Time Temp Pulse Resp B/P Pulse Ox O2 Delivery O2 Flow Rate FiO2 05/21/16 08:47 97 Room Air 05/21/16 07:39 70 16 95 Room Air 05/21/16 07:03 36.7 71 18 113/63 97 Room Air 05/21/16 00:00 36.4 78 20 100/62 95 Room Air 05/21/16 00:00 Room Air 05/20/16 20:00 Room Air 05/20/16 19:54 72 16 97 Room Air 05/20/16 16:05 Room Air 05/20/16 15:49 36.7 74 18 116/69 93 Room Air 05/20/16 14:22 80 16 96 Room Air
[2016-05-21] MEDS ORDERED: PRED10TA PO (14:10)
[2016-05-21] MEDS ORDERED: PRED20TA2 PO (14:10)
[2016-05-21] MEDS ORDERED: PRED20TA PO (14:10)
[2016-05-21] MEDS ORDERED: DXY100 PO (14:10)
--- NOTE | 2016-05-21 14:12 | Discharge Instructions ---
Discharge Instructions Date of Service May 21, 2016. Admission Reason for Admission: Bronchitis Discharge Discharge Diagnosis / Problem: Exacerbation of Bronchial Asthma Discharge Goals Goal(s): Decrease discomfort, Improve function, Increase independence, Improve disease control, Improve nutritional status, Learn about illness, Diagnostic testing, Therapeutic intervention Activity Recommendations Activity Limitations: resume your previous activity (As Tolerated.) Lifting Limitations: gradually increase as tolerated Exercise/Sports Limitations: as tolerated Shower/Bathe: no limitations Driving or Machine Use: resume 3 days after discharge . Instructions / Follow-Up Instructions / Follow-Up Continue all the medications as directed. Follow Prednisone as per tapering instructions. Do not use Nebulizer treatment s more than 4 times a day and use only as needed. Use Symbicort regularly and rinse your mouth after using it. Follow up with PCP on 05/28/2016 @ 10.45 AM. Follow up with Pulmonary Medicine in 1-2 weeks. Current Hospital Diet Patient's current hospital diet: Regular Diet Discharge Diet Recommended Diet: Regular Diet Pending Studies Studies pending at discharge: no Medical Emergencies . Who to Call and When: Medical Emergencies: If at any time you feel your situation is an emergency, please call 911 immediately. . Non-Emergent Contact Non-Emergency issues call your: Primary Care Provider . . "Provider Documentation" section prepared by Marcel Kay. VTE Core Measure Inpt VTE Proph given/why not?: Enoxaparin (Lovenox)SQ
--- NOTE | 2016-05-21 14:14 | Discharge Summary ---
Discharge Summary Date of Service May 21, 2016. Discharge Summary Admission Date: May 20, 2016 at 12:55 Discharge Date: May 21, 2016 Discharge Disposition: Home Principal Diagnosis: Acute Exacerbation of Bronchial Asthma Acute Bronchitis Secondary Diagnoses/Problems: Seizure Disorder GERD Depression Hypothyroidism Procedures: NONE Vaccinations: NONE Consultations: NONE Pending Studies/Follow-Up: NONE Medication Reconciliation New Medications: Prednisone (Prednisone) 20 Mg Tab 2 TAB PO DAILY, #6 TAB Prednisone (Prednisone Tab) 20 Mg Tab 20 MG PO QDB, #3 TAB Prednisone (Prednisone) 10 Mg Tab 10 MG PO QDB, #4 TAB Doxycycline Hyclate (Doxycycline Hyclate) 100 Mg Cap 100 MG PO BID, #12 CAP Continued Medications: Albuterol Hfa (Ventolin Hfa) 200 Puffs/30745 Mcg Aers 2 PUFFS INH Q4H PRN for SOB/Wheezing, #1 INHALER Aspirin (Aspirin EC Low Dose) 81 Mg Ectab 1 TAB PO QAM Budesonide/Formoterol Fumarate (Symbicort 160/4.5 Inhaler ) Aero 2 PUFFS INH BID Citalopram (Citalopram Hydrobromide) 40 Mg Tab 40 MG PO QAM, TAB Cyanocobalamin (Vitamin B-12 1000 Mcg) 1,000 Mcg Tab 1 TAB PO QAM, TAB Fluticasone Propionate (Nasal) (Flonase Allergy Relief) 50 Mcg/Act Spr 1 SPRAY JOSE CARLOS BID PRN for Nasal Congestion Folic Acid (Folvite) 1 Mg Tab 1 MG PO QAM, TAB Guaifenesin/Codeine (Robitussin-Ac Syrup) Syrp 5 ML PO Q6H PRN for Cough for 10 Days Ipratropium-Albuterol (Duoneb) 3 Ml Nebu 1 TREATMENT INH Q4H PRN for SOB/Wheezing, INHA Levothyroxine Sodium (Levothyroxine Sodium) 100 Mcg Tab 100 MCG PO DAILY Montelukast Sodium (Singulair) 10 Mg Tab 10 MG PO QPM, TAB Pantoprazole (Protonix) 40 Mg Tab 40 MG PO QAM, TAB Phenobarbital (Phenobarbital) 100 Mg Tab 97.2 MG PO HS Phenytoin Sodium (Dilantin) 100 Mg Cap 200 MG PO BID Ranitidine (Zantac) 150 Mg Tab 150 MG PO BID for 30 Days, #60 TAB Saline ([place] Nasal [place]) 0.65 % Spr 1 SPRAY JOSE CARLOS DAILY PRN for dryness Admission Information HPI (per Admitting provider): This is a 61 y/o female with PMHx of Epilepsy, Asthma and other problems as outlined below who presents to the ED c/o worsening SOB x 1 week. Pt reports that 1 weeks ago she developed worsening SOB. Sxs are assoc with chest "tightness", wheezing and cough productive of thick, yellow sputum. Pt has been using her inhalers and nebulizer with only temporary relief. Pt did not seen her PCP for her sxs however Dr. Villavicencio called in a cough syrup with codeine which she has not picked up yet. Pt has a history of asthma. She has no history of tobacco use or COPD. Pt denies fever/chills, chest pain, palpitations, abd pain, N/V, bowel or bladder issues, LE edema ,calf pain, lightheadedness/ dizziness. In the ED, vitals are stable. Pt is afebrile with no leukocytosis. CXR is clear. Pt will be admitted for observation and further evaluation and treatment. Physical Exam (per Admitting): General Appearance: WD/WN, no apparent distress, + pertinent finding (Pt is sitting up in bed ) Head: normocephalic, atraumatic Eyes: normal inspection ENT: hearing grossly normal Neck: supple Respiratory/Chest: chest non-tender, lungs clear, normal breath sounds, no respiratory distress, + pertinent finding (no wheezing or crackles ) Cardiovascular: regular rate, rhythm, no edema, no murmur Abdomen/GI: normal bowel sounds, non tender, soft Back: normal inspection Extremities/Musculoskelatal: normal inspection, no calf tenderness, no pedal edema Neurologic/Psych: alert, normal mood/affect, oriented x 3 Skin: normal color, warm/dry Hospital Course Acute Exacerbation of Asthma: Likely due to acute bronchitis. Has H/O chronic rhinitis, GERD, Aspiration, MSSA Clinically improving,. -Continue Doxycycline -Continue bronchodilators, glucocorticoids. Changed to oral Prednisone. -Follow up sputum cultures -Oxygen support per protocol -Elevated d-dimer: Venous duplex: negative for DVT History Seizure Disorder: Stable. -Continue Dilantin and Phenobarbital -Follows with Dr. Shine Depression: Stable. Continue Celexa GERD: Stable. Continue PPI Hypothyroidism: Stable.Continue levothyroxine DVT Prophylaxis:SQ Lovenox Code Status: FULL CODE Disposition: Discharge home later today. Follow up with PCP on 05/28/2016 @ 10.45 AM. Follow up with Pulmonary Medicine in 1-2 weeks. Total time spent on discharge = 40 minutes. This includes examination of the patient, discharge planning, medication reconciliation, and communication with other providers. Discharge Instructions Discharge Goals Goal(s): Decrease discomfort, Improve function, Increase independence, Improve disease control, Improve nutritional status, Learn about illness, Diagnostic testing, Therapeutic intervention Activity Recommendations Activity Limitations: resume your previous activity (As Tolerated.) Lifting Limitations: gradually increase as tolerated Exercise/Sports Limitations: as tolerated Shower/Bathe: no limitations Driving or Machine Use: resume 3 days after discharge . Instructions / Follow-Up Instructions / Follow-Up Continue all the medications as directed. Follow Prednisone as per tapering instructions. Do not use Nebulizer treatment s more than 4 times a day and use only as needed. Use Symbicort regularly and rinse your mouth after using it. Follow up with PCP on 05/28/2016 @ 10.45 AM. Follow up with Pulmonary Medicine in 1-2 weeks. Current Hospital Diet Patient's current hospital diet: Regular Diet Additional Copies To Asa Villavicencio D.O.
[2016-05-21 14:25] VITALS: BP 113/63; PULSE 70; TEMP 36.7; O2SAT 97
[2016-08-12] MEDS ORDERED: PRD20 PO (13:48)
[2016-08-12] MEDS ORDERED: DXY100 PO (13:48)
[2016-10-18] MEDS ORDERED: PRED10TA PO (11:17)
[2016-10-18] MEDS ORDERED: OXGN (11:17)
[2016-10-18] MEDS ORDERED: GUAISYP4 PO (11:17)
[2016-10-18] MEDS ORDERED: SPRIN INH (11:17)
[2016-10-18] MEDS ORDERED: RANITAB6 PO (11:24)
[2016-11-30] MEDS ORDERED: FLUT0.15 NAE (07:49)
[2016-11-30] MEDS ORDERED: CYAN100020 PO (07:49)
[2016-11-30] MEDS ORDERED: SYMIN160 INH (07:49)
[2016-11-30] MEDS ORDERED: nasal saline (07:49)
[2016-11-30] MEDS ORDERED: LEVO-17 PO (07:49)
[2016-11-30] MEDS ORDERED: POTA20TA16 PO (08:54)
[2016-12-20] MEDS ORDERED: AMOX875T PO (13:24)
== END 2016-05-21 15:34 | disposition home or self-care (01) | DRG 203 ==
LOC: ENRESERVTM → ENRESERVDT → EDBD 15:17 → C.EDB 15:20 → C.MS4W 18:33 → OBSVTOIN 05-20 12:55
PROVIDERS: ADMIT Internal Medicine; ATTEND Emergency Medicine
DX: J45.901 Unspecified asthma with (acute) exacerbation (principal); J20.9 Acute bronchitis, unspecified; J31.0 Chronic rhinitis; J32.9 Chronic sinusitis, unspecified; G40.909 Epilepsy, unspecified, not intractable, without status epilepticus; K21.9 Gastro-esophageal reflux disease without esophagitis; F32.9 Major depressive disorder, single episode, unspecified; E03.9 Hypothyroidism, unspecified; Z79.82 Long term (current) use of aspirin; Z79.51 Long term (current) use of inhaled steroids; Z79.899 Other long term (current) drug therapy

== ENCOUNTER → 2016-06-02 | Outpatient (CLI) | payer OTHER ==
[~2016-06-02] MED LIST changes: +AMOX875T PO; +AZIT250T PO; +AZIT500T26 PO; -CLIN150C15 PO; +CYAN100020 PO; +DXY100 PO; +FLUT0.15; +FLUT1INH7 INH; +FURO-85 PO; +LEVO-17 PO; +LEVO1TAB35 PO; +OXGN; +POTA20TA16 PO; +PRD20 PO; +PRED20TA PO; +PRED20TA2 PO; +PRED50TA PO; +RANI150T3 PO; +RANITAB6 PO; +SPRIN INH; +nasal saline
[2016-06-02 17:10] LABS: BASO % 0.5 %; BASO ABS # 0.03 K/uL (0-0.2); COMPLETE YES; EOS % 10.2 %; HEMATOCRIT 38.7 % (37-47); IG% 0.2 %; LYMPH % 30.4 %; LYMPH ABS # 1.73 K/uL (1.2-3.4); MEAN CELL VOLUME 94.6 fL (80-100); MEAN CORPUSCULAR HEMOGLOBIN 31.8 pg (25-34); MEAN CORPUSCULAR HGB CONC 33.6 g/dl (32-36); MEAN PLATELET VOLUME 9.2 fL (7.4-10.4); MONO % 11.8 %; NEUT % 46.9 %; PLATELET COUNT 246 K/uL (130-400); RED BLOOD COUNT 4.09 M/uL (4.2-5.4); WHITE BLOOD COUNT 5.69 K/uL (4.8-10.8)
[2016-06-02 17:19] LABS: INR 1.1 (0.9-1.1); PROTHROMBIN TIME (PATIENT) 11.5 SECONDS (9.0-12.0)
[2016-06-02 17:42] LABS: BLOOD UREA NITROGEN 13 mg/dl (7-18); BUN/CREATININE RATIO 24.8 (10-20); CALCIUM 8.5 mg/dl (8.5-10.1); CARBON DIOXIDE 30 mmol/L (21-32); CHLORIDE 106 mmol/L (98-107); CREATININE 0.54 mg/dl (0.60-1.20); GLUCOSE 84 mg/dl (70-99); SODIUM 140 mmol/L (136-145)
--- NOTE | 2016-06-22 07:06 | CODING QUERY NO DIAGNOSIS ---
TREATMENT RENDERED WITHOUT A DIAGNOSIS To promote full compliance with coding requirements relating to patient care, physician participation is requested in all cases of swiss type screw machine operator uncertainty. Please assist us with providing a diagnosis/symptom for the test(s) below: A diagnosis/symptom was not documented on your Order. A valid diagnosis/symptom is required to bill all insurances. Please remember that we are unable to code a diagnosis of rule out, probable, possible, questionable, or suspected. Tests that require a diagnosis: * APTT DIAGNOSIS: Provider Signature: Date: Thank you Gabby Brady [facility] Management Once completed, please kindly fax back to [phone] For questions please call [phone]
--- NOTE | 2016-06-22 07:25 | CODING QUERY MEDICAL NECESSITY ---
SUPPORTING DIAGNOSIS NEEDED A supporting diagnosis is required for the test/procedure performed on this patient in order for us to be reimbursed by the patient's insurance. Please provide a supporting diagnosis for the following test/procedure listed below next to the test name along with your signature. *If there is no additional diagnosis for this patient that would support the following test/procedure please document that below next to the test/procedure. Test(s)/Procedure(s) that require a supporting diagnosis: * APTT DIAGNOSIS: Provider Signature: Date: Thank you Gabby Brady [facility] Once completed, please kindly fax back to [phone] For questions please call [phone]
== END ==
LOC: C.LAB 16:20
PROVIDERS: ATTEND Internal Medicine
DX: J47.9 Bronchiectasis, uncomplicated (principal); J45.909 Unspecified asthma, uncomplicated

== ENCOUNTER 2016-06-03 01:58 | Emergency (ER) | payer OTHER ==
[~2016-06-03] VITALS: Ht 162.6 cm; Wt 86.7 kg
[~2016-06-03 01:58] MED LIST changes: -AMOX875T PO; -AZIT250T PO; -AZIT500T26 PO; -CYAN100020 PO; -FLUT0.15; -FLUT1INH7 INH; -FURO-85 PO; -LEVO-17 PO; -LEVO1TAB35 PO; -OXGN; -POTA20TA16 PO; -PRD20 PO; -PRED50TA PO; -RANI150T3 PO; -RANITAB6 PO; -SPRIN INH; -nasal saline
[2016-06-03 02:02] VITALS: TEMP 36.7; Ht 162.6 cm; Wt 86.7 kg
[2016-06-03 02:06] VITALS: O2SAT 100
[2016-06-03 02:33] LABS: BASO % 0.5 %; BASO ABS # 0.03 K/uL (0-0.2); COMPLETE YES; EOS % 9.8 %; HEMATOCRIT 37.7 % (37-47); LYMPH % 35.8 %; LYMPH ABS # 2.16 K/uL (1.2-3.4); MEAN CELL VOLUME 94.3 fL (80-100); MEAN PLATELET VOLUME 9.1 fL (7.4-10.4); MONO % 11.6 %; NEUT % 42.3 %; PLATELET COUNT 234 K/uL (130-400); WHITE BLOOD COUNT 6.04 K/uL (4.8-10.8)
[2016-06-03] MEDS ORDERED: FURO-85 PO (02:37)
[2016-06-03 02:43] LABS: INR 1.1 (0.9-1.1); PROTHROMBIN TIME (PATIENT) 11.3 SECONDS (9.0-12.0)
[2016-06-03 02:54] LABS: ALT/SGPT 31 U/L (12-78); AST/SGOT 15 U/L (15-37); BLOOD UREA NITROGEN 13 mg/dl (7-18); BUN/CREATININE RATIO 19.5 (10-20); CALCIUM 8.4 mg/dl (8.5-10.1); CARBON DIOXIDE 30 mmol/L (21-32); CHLORIDE 107 mmol/L (98-107); CREATININE 0.65 mg/dl (0.60-1.20); GLUCOSE 86 mg/dl (70-99); MAGNESIUM 2.2 mg/dl (1.8-2.4); POTASSIUM 3.9 mmol/L (3.5-5.1); SODIUM 143 mmol/L (136-145)
[2016-06-03 02:59] LABS: ALKALINE PHOSPHATASE 92 U/L (45-117); CKMB/CK RATIO 2.7 (0-3.0)
[2016-06-03] MEDS ORDERED: FUROSEMIDE 40 MG/4 ML VIAL IV STA (03:37)
[2016-06-03] MEDS ORDERED: OPTIRAY 320 IV PRN (03:45)
--- NOTE | 2016-06-03 04:06 | EMERGENCY ROOM VISIT NOTE ---
History Report prepared by Litzy: Clemente Ac Under the Supervision of: Dr. Annalisa Bhatt M.D. First contact with patient: 02:10 Chief Complaint: SHORTNESS OF BREATH Stated Complaint: SHORT OF BREATH Nursing Triage Summary: Pt brought in by EMS. Pt woke up 1 am with SOB. Pt has history of asthma. Pt used her nebulizer without relief. History of Present Illness The patient is a 61 year old female who presents to the Emergency Room with complaints of worsening shortness of breath that the patient has been experiencing for the past two weeks. She has a history of chronic obstructive pulmonary disease and believes that her exacerbations are becoming more frequent. She awoke from sleep this morning at 0030 experiencing shortness of breath. She used her Duoneb treatment without any relief. She felt like she was going to pass out and states that "everything getting dark." She did not lose consciousness and did not fall. This episode lasted 20 minutes before the patient started to feel better. She commonly uses a Duoneb treatment every 4 hours. She also has a productive cough, nasal congestion. She denies fevers, chills, chest pain or vomiting. 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 A total of 10 systems reviewed and were otherwise negative. Past Medical & Surgical Medical Problems: (1) Age related osteoporosis (2) Asthma (3) Bronchitis (4) Depression (5) Epilepsy (6) EDWIN (generalized anxiety disorder) (7) GERD (gastroesophageal reflux disease) (8) IBS (irritable bowel syndrome) Surgical Problems: (1) H/O colonoscopy (2) H/O esophagogastroduodenoscopy (3) H/O sinus surgery (4) H/O: hysterectomy (5) History of ear surgery (6) Hx of breast biopsy Family History Diabetes mellitus MOTHER FH: lung cancer AUNT Hypertension FATHER Social History Smoking Status: Never Smoker Alcohol Use: none Drug Use: none Marital Status: single Housing Status: lives alone Occupation Status: unemployed Current/Historical Medications Scheduled Aspirin (Aspirin EC Low Dose), 1 TAB PO QAM Budesonide/Formoterol Fumarate (Symbicort 160/4.5 Inhaler ), 2 PUFFS INH BID Citalopram (Citalopram Hydrobromide), 40 MG PO QAM Cyanocobalamin (Vitamin B-12 1000 Mcg), 1 TAB PO QAM Folic Acid (Folvite), 1 MG PO QAM Furosemide (Lasix), 10 MG PO DAILY Levothyroxine Sodium (Levothyroxine Sodium), 100 MCG PO DAILY Montelukast Sodium (Singulair), 10 MG PO QPM Pantoprazole (Protonix), 40 MG PO QAM Phenobarbital (Phenobarbital), 100 MG PO HS Phenytoin Sodium (Dilantin), 200 MG PO BID Ranitidine (Zantac), 150 MG PO BID Scheduled PRN Albuterol Hfa (Ventolin Hfa), 2 PUFFS INH Q4H PRN for SOB/Wheezing Fluticasone Propionate (Nasal) (Flonase Allergy Relief), 1 SPRAY JOSE CARLOS BID PRN for Nasal Congestion Ipratropium-Albuterol (Duoneb), 1 TREATMENT INH Q4H PRN for SOB/Wheezing Saline ([place] Nasal [place]), 1 SPRAY JOSE CARLOS DAILY PRN for dryness Allergies Coded Allergies: Clemastine (Verified Allergy, Unknown, ITCHING, 06/03/16) Sulfa Antibiotics (Verified Allergy, Unknown, RASH AND ITCHY, 06/03/16) [place] (Verified Allergy, Unknown, BULGARIAN WALNUT ALLERGY, + ALLERGY TEST , 06/03/16) Physical Exam Vital Signs Date Time Temp Pulse Resp B/P Pulse Ox O2 Delivery O2 Flow Rate FiO2 06/03/16 05:50 72 20 106/68 94 Room Air 06/03/16 04:25 68 20 122/68 Room Air 06/03/16 03:28 76 20 117/62 99 06/03/16 02:06 100 Room Air 06/03/16 02:05 74 06/03/16 02:03 100 Room Air 06/03/16 02:02 36.7 70 20 152/78 100 Room Air Physical Exam Vital signs reviewed. General: Well-appearing female, in no significant distress. HEENT: No scleral icterus, PERRLA, neck supple. Atraumatic. Cardiovascular: Regular rate and rhythm, no extra sounds. Pulmonary: Clear to auscultation bilaterally, normal work of breathing. Abdomen: Soft, nontender, nondistended, positive bowel sounds. Musculoskeletal: Atraumatic, pitting edema to bilateral lower extremities. . Neurologic: Patient awake alert and oriented x 3, full strength in all 4 extremities. Cranial nerves 2 through 12 grossly intact. Skin: Warm, dry, no rash Medical Decision & Procedures ER Provider Diagnostic Interpretation: Radiology results as stated below per my review and radiologist interpretation: CTA CHEST: Comparison: CT of the chest dated 04/06/2016 No evidence of pulmonary embolus. No thoracic aortic dissection or aneurysm Bibasilar atelectasis and/or scarring. Mild bronchiectasis. No pleural effusion or pneumothorax. High-density material seen within the mid esophagus, which is nonspecific (3-50) . Correlate with clinical history is advised. Trace pericardial effusion. No acute osseous abnormality. The visualized upper abdomen is unremarkable. Radiologist: Kumar Merchant MD Study ready at 04:09 and initial results transmitted at 04:22. CHEST X-RAY: Interstitial thickening right greater than left, mild cardiomegaly, no focal lung consolidation, no significant edema. Laboratory Results 06/03/16 02:25 Red Blood Count 4.00, Mean Corpuscular Volume 94.3, Mean Corpuscular Hemoglobin 32.0, Mean Corpuscular Hemoglobin Concent 34.0, Mean Platelet Volume 9.1, Neutrophils (%) (Auto) 42.3, Lymphocytes (%) (Auto) 35.8, Monocytes (%) (Auto) 11.6, Eosinophils (%) (Auto) 9.8, Basophils (%) (Auto) 0.5, Neutrophils # (Auto ) 2.56, Lymphocytes # (Auto) 2.16, Monocytes # (Auto) 0.70, Eosinophils # (Auto ) 0.59, Basophils # (Auto) 0.03 06/03/16 02:25 Test 06/03/16 02:25 06/03/16 02:27 White Blood Count 6.04 K/uL (4.8-10.8) Red Blood Count 4.00 M/uL (4.2-5.4) Hemoglobin 12.8 g/dL (12.0-16.0) Hematocrit 37.7 % (37-47) Mean Corpuscular Volume 94.3 fL (80-100) Mean Corpuscular Hemoglobin 32.0 pg (25-34) Mean Corpuscular Hemoglobin Concent 34.0 g/dl (32-36) Platelet Count 234 K/uL (130-400) Mean Platelet Volume 9.1 fL (7.4-10.4) Neutrophils (%) (Auto) 42.3 % Lymphocytes (%) (Auto) 35.8 % Monocytes (%) (Auto) 11.6 % Eosinophils (%) (Auto) 9.8 % Basophils (%) (Auto) 0.5 % Neutrophils # (Auto) 2.56 K/uL (1.4-6.5) Lymphocytes # (Auto) 2.16 K/uL (1.2-3.4) Monocytes # (Auto) 0.70 K/uL (0.11-0.59) Eosinophils # (Auto) 0.59 K/uL (0-0.5) Basophils # (Auto) 0.03 K/uL (0-0.2) RDW Standard Deviation 48.8 fL (36.4-46.3) RDW Coefficient of Variation 14.1 % (11.5-14.5) Immature Granulocyte % (Auto) 0.0 % Immature Granulocyte # (Auto) 0.00 K/uL (0.00-0.02) Prothrombin Time 11.3 SECONDS (9.0-12.0) Prothromb Time International Ratio 1.1 (0.9-1.1) Activated Partial Thromboplast Time 26.3 SECONDS (21.0-31.0) Partial Thromboplastin Ratio 1.0 D-Dimer 830 ug/L FEU (0-500) Anion Gap 6.0 mmol/L (3-11) Est Creatinine Clear Calc Drug Dose 94.4 ml/min Estimated GFR () 109.5 Estimated GFR (Non- 94.5 BUN/Creatinine Ratio 19.5 (10-20) Calcium Level 8.4 mg/dl (8.5-10.1) Magnesium Level 2.2 mg/dl (1.8-2.4) Total Bilirubin 0.2 mg/dl (0.2-1) Direct Bilirubin < 0.1 mg/dl (0-0.2) Aspartate Amino Transf (AST/SGOT) 15 U/L (15-37) Alanine Aminotransferase (ALT/SGPT) 31 U/L (12-78) Alkaline Phosphatase 92 U/L (45-117) Total Creatine Kinase 77 U/L (26-192) Creatine Kinase MB 2.1 ng/ml (0.5-3.6) Creatine Kinase MB Ratio 2.7 (0-3.0) Total Protein 6.7 gm/dl (6.4-8.2) Albumin 3.5 gm/dl (3.4-5.0) Bedside Troponin I 0.000 ng/ml (0-0.045) Laboratory results per my review. Medications Administered Medications (Trade) Dose Ordered Sig/Matt Route Start Time Stop Time Status Last Admin Dose Admin Furosemide (Lasix Inj) 40 mg NOW STAT IV 06/03/16 03:37 06/03/16 03:39 DC 06/03/16 04:23 40 MG ECG Indication: SOB/dyspnea Rate (beats per minute): 69 Rhythm: normal sinus Findings: LBBB, no acute ischemic change, no ectopy Comparison ECG Date: 05/17/2016 Change: no significant change ED Course 0251: Past medical records reviewed. The patient was evaluated in room A10. A complete history and physical examination was performed. 0337: Ordered Lasix 40 mg IV. 0541: Upon reevaluation, the patient appeared to have improvement of her symptoms. I discussed findings with her. She verbalized agreement of the treatment plan. The patient was discharged home. Medical Decision Differential diagnosis: Etiologies such as infections, reactive airway disease, pneumonia, pneumothorax , COPD, CHF, cardiac ischemia, pulmonary embolism, musculoskeletal, gastrointestinal, as well as others were entertained. This patient was evaluated and appeared to be in no significant distress. IV access was obtained and laboratory work was drawn. The patient had no audible wheezing work significant work of breathing on exam. Chest x-ray was obtained and to my interpretation reveals chronic interstitial change, possibly some congestion. There is no focal lung consolidation to suggest pneumonia. Patient 's d-dimer is elevated, cardiac enzymes are negative. EKG reveals no evidence of acute ischemia. Chest CT was performed and reveals no evidence of pulmonary embolus. Additional findings as above. Patient was informed of the findings. She was given 40 mg of Lasix IV. She was advised to wear support stockings and elevate the leg as much as possible. I suspect she has some dependent edema possibly related to her cardiomyopathy. She will follow-up with her primary care physician and return to the ER for worsening of symptoms or any medical concerns. Impression Primary Impression: Shortness of breath Additional Impression: Dependent edema Scribe Attestation The scribe's documentation has been prepared under my direction and personally reviewed by me in its entirety. I confirm that the note above accurately reflects all work, treatment, procedures, and medical decision making performed by me. Departure Information Dispostion Home / Self-Care Referrals Asa Villavicencio D.O. (PCP) Forms HOME CARE DOCUMENTATION FORM, IMPORTANT VISIT INFORMATION Patient Instructions My [facility] Additional Instructions Diagnosis: Shortness of breath, dependent edema Continue Lasix as prescribed. Wear support stockings while out of bed help with the edema. Continue nebulizer treatments as prescribed. Follow-up with your physician this week for reevaluation. Return to the ER for worsening of symptoms or any medical concerns. Problem Qualifiers
[2016-06-03 05:50] VITALS: BP 106/68; PULSE 72; O2SAT 94
--- NOTE | 2016-06-03 06:56 | DIAGNOSTIC IMAGING REPORT ---
CHEST ONE VIEW PORTABLE CLINICAL HISTORY: SOB ASTHMA COMPARISON STUDY: 05/17/2016 FINDINGS: The cardiac and mediastinal contours remain stable. There is no overt failure. There are developing bibasilar opacities, atelectatic versus inflammatory. Clinical radiographic follow-up is recommended. No pleural effusions are visualized.[ IMPRESSION: Developing bibasilar opacities (atelectatic versus inflammatory). Clinical and radiographic follow-up is recommended Electronically signed by: Ady Whitman M.D. 06/03/2016 6:54 AM Dictated Date/Time: 06/03/2016 6:53 AM
--- NOTE | 2016-06-03 07:06 | DIAGNOSTIC IMAGING REPORT ---
CT ANGIOGRAM OF THE CHEST CLINICAL HISTORY: Shortness of breath, cough, elevated d-dimer COMPARISON STUDY: 04/06/2016, chest x-ray dated 06/03/1969 TECHNIQUE: Following the IV administration of 91 mL of Optiray-320, CT angiogram of the thorax was performed from the thoracic inlet to the lung bases utilizing the pulmonary embolus protocol. Images are reviewed in the axial, sagittal, and coronal planes. IV contrast was administered without complication. MIP imaging was performed. CT DOSE: 221.17 mGy.cm FINDINGS: No pathologically enlarged axillary mediastinal or hilar lymph nodes were visualized. There was no evidence of thoracic aortic dilatation. There were no pulmonary artery filling defects to indicate acute pulmonary embolism. No pleural effusions are visualized. There are dependent bibasilar opacities, likely atelectatic. There are minimal bronchiectatic changes. There is nonspecific high density material within the midesophagus. There is an old superior endplate T11 compression deformity. IMPRESSION: 1. No CT evidence of acute pulmonary embolism 2. Minimal bronchiectatic changes 3. Bibasilar opacities, likely atelectatic. 4. Nonspecific high density material within the mid esophagus Electronically signed by: Ady Whitman M.D. 06/03/2016 7:04 AM Dictated Date/Time: 06/03/2016 6:59 AM
[2016-08-12] MEDS ORDERED: PRD20 PO (13:48)
[2016-08-12] MEDS ORDERED: DXY100 PO (13:48)
[2016-10-18] MEDS ORDERED: SPRIN INH (11:17)
[2016-10-18] MEDS ORDERED: OXGN (11:17)
[2016-10-18] MEDS ORDERED: PRED10TA PO (11:17)
[2016-10-18] MEDS ORDERED: GUAISYP4 PO (11:17)
[2016-10-18] MEDS ORDERED: RANITAB6 PO (11:24)
[2016-11-30] MEDS ORDERED: LEVO-17 PO (07:49)
[2016-11-30] MEDS ORDERED: CYAN100020 PO (07:49)
[2016-11-30] MEDS ORDERED: nasal saline (07:49)
[2016-11-30] MEDS ORDERED: SYMIN160 INH (07:49)
[2016-11-30] MEDS ORDERED: FLUT0.15 NAE (07:49)
[2016-11-30] MEDS ORDERED: POTA20TA16 PO (08:54)
[2016-12-20] MEDS ORDERED: AMOX875T PO (13:24)
== END 2016-06-03 06:28 | disposition home or self-care (01) ==
LOC: EDBD 01:58 → C.EDA 02:01
DX: R06.02 Shortness of breath (principal); R60.9 Edema, unspecified; I44.7 Left bundle-branch block, unspecified; J44.9 Chronic obstructive pulmonary disease, unspecified; R05 Cough; F32.9 Major depressive disorder, single episode, unspecified; G40.909 Epilepsy, unspecified, not intractable, without status epilepticus; K21.9 Gastro-esophageal reflux disease without esophagitis; K58.9 Irritable bowel syndrome, unspecified; Z79.82 Long term (current) use of aspirin; Z79.899 Other long term (current) drug therapy; Z82.49 Family history of ischemic heart disease and other diseases of the circulatory system; Z83.3 Family history of diabetes mellitus; Z83.6 Family history of other diseases of the respiratory system

== ENCOUNTER 2016-06-11 08:38 | Day surgery (SDC) | payer OTHER ==
--- NOTE | 2016-06-09 14:53 | HISTORY & PHYSICAL EXAMINATION ---
DATE OF ADMISSION: 06/11/2016 PRIMARY CARE PHYSICIAN: Asa Villavicencio DO HISTORY OF PRESENT ILLNESS: The patient is followed in the outpatient office following admission for exacerbation of asthma with a history of chronic recurrent purulent cough. Relevant past medical history does include history of allergies, asthma, reflux esophagitis, hypothyroid, vitamin D deficiency, bronchiectasis, GERD, stress-induced cardiomyopathy and chronic sinusitis. The patient has been followed by the pulmonary office in the past and prescribed multiple inhalers including Dulera and Symbicort. Unfortunately, she has had difficulty tolerating these secondary to frequent complications of thrush. She was initially evaluated in the pulmonary [place] office 05/2015 with a 4-month history of cough refractory to multiple outpatient antibiotics. She was admitted 06/2015 with a bronchoscopy at that time notable for lavage of thick mucopurulent secretions. The patient improved post-procedure. As an outpatient, she was prescribed an escalation of pulmonary toilet, which included a Vest as well as nebulizer therapy for maximization of ability to expectorate. Bronchoscopy 08/2015 was repeated and notable for chronic inflammation of the posterior tracheal wall as well as lavage of the right lower lobe, mucus plugs that were large in size, diffuse erythema of the right middle lobe, lavage of diffuse large mucoid secretions from the left lower lobe and lingula. She was readmitted 03/2016 for recurrent exacerbation of her breathing and cough. Swallow evaluation at that time described esophageal dysmotility and reflux. CT angiogram 03/2016 was notable for bilateral mucus plugging with peribronchial thickening. CBC described a slight predominance of eosinophils. Symptoms persisted despite aggressive pulmonary toilet. 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 She has been evaluated by GI and ENT in the past as well. The patient was last seen in the outpatient office post recent admission 05/20/2016-05/21/2016 with acute exacerbation of asthma and 1 week history of increased chest tightness and cough productive of yellow sputum. D-dimer and lower extremity Doppler as previous workup were negative. She was treated and discharged on doxycycline and prednisone taper. However, despite this, she continued to report symptoms of productive cough and chest tightness. She denied any chest pressure, just chest tightness. Denies any fevers or chills. No GI symptoms. She reported bilateral clogging of the ears. She denies any pharyngitis of vocal hoarseness. No rashes. She did report bilateral edema of the ankles, left greater than right. She had been using her nebulizer q. 4 hours with only temporary relief. She had been referred for a second opinion in [place], which was scheduled for June 2016. PAST MEDICAL HISTORY: 1. Bronchitis. 2. Sinusitis. 3. Allergic rhinitis. 4. Asthma. 5. Bronchiectasis. 6. Laryngitis. 7. Carpal tunnel. 8. Chronic otitis media. 9. Chronic cough. 10. Depression. 11. Otalgia. 12. Esophageal pain. 13. Gastric reflux. 14. Generalized anxiety disorder. 15. Generalized convulsive seizure. 16. Hiatal hernia. 17. Hypothyroid. 18. Laryngeal esophageal reflux disease. 19. Chronic penitentiary use of systemic steroids. 20. Mastoiditis. 21. Meniere's disease. 22. Mucoid impaction of the bronchi. 23. Oral thrush. 24. Osteoporosis. 25. Staphylococcus aureus infection. 26. Tympanic membrane perforation. 27. Vertigo. 28. Vitamin D deficiency. 29. Irritable bowel syndrome. 30. History of Pseudomonas aeruginosa of the mastoid. PAST SURGICAL HISTORY: 1. Colonoscopy. 2. Ear surgery. 3. Endoscopic ultrasound of the upper esophagus. 4. Sinus surgery. 5. Abdominal hysterectomy. 6. Tympanoplasty. FAMILY HISTORY: Thyroid disease. SOCIAL HISTORY: 1. Never smoker. 2. Retired. 3. Social alcohol use. CURRENT MEDICATIONS: 1. Mucinex 600 mg oral tablet extended release: Take one tablet every 12 hours as needed for congestion. 2. Montelukast sodium 10 mg oral tablet: Take 1 tablet daily. 3. Symbicort 160/4.5 mg per ACT inhalation aerosol: Inhale 2 puffs twice daily and rinse mouth after use. 4. Ipratropium/albuterol 0.5/2.53 mg per 3 mL inhalation solution: Use 1 unit dose in nebulizer every 4 hours as needed. 5. Guaifenesin AC 100/10 mg per 5 mL oral syrup: Take 5 mL every 4 hours as needed. 6. Ranitidine hydrochloride 300 mg oral capsule: Take 1 capsule at bedtime. 7. Ventolin HFA 108 mg per ACT inhalation aerosol solution: Inhale 2 puffs every 4 hours as needed. 8. Aspirin 81 mg oral tablet delayed release: Take 1 tablet daily. 9. Cheratussin AC 100/10 mg per 5 mL oral syrup: Take 5 mL every 4 hours as needed. 10. Citalopram hydrobromide 40 mg oral tablet: Take 1 tablet daily. 11. Dilantin 100 mg oral capsule: Take 2 capsules twice daily. 12. Doxycycline 10 mg oral capsule: Take 1 capsule every 12 hours. 13. Flonase 50 mcg/ACT suspension: Use 2 sprays each nostril daily. 14. Pantoprazole sodium 40 mg oral tablet delayed release: Take 1 tablet 30 minutes before breakfast daily. 15. Phenobarbital 97.2 mg oral tablet: Take 1 tablet at bedtime. 16. Prednisone 20 mg oral tablet: Take 1 tablet daily. 17. Probiotic oral capsule: Use as directed. 18. Synthroid 100 mcg oral tablet: Take 1 tablet daily. 19. Vitamin B12 ER 1000 mcg oral tablet extended release: Take 1 tablet daily as directed. ALLERGIES: 1. CLEMASTINE. 2. SULFA. 3. NUTS. 4. PEANUTS. PHYSICAL EXAMINATION: VITAL SIGNS: Height 5 feet 3 inches, weight 195 pounds, heart rate 93 beats per minute, oxygen saturation 95% on room air, temperature 98.1 degrees Fahrenheit oral, respiratory rate 18 respirations per minute, and blood pressure 122/64 left upper extremity sitting. CONSTITUTIONAL: Well-developed and well-nourished female. No acute distress. HEAD: Positive facial symmetry. EYES: EOMI, PERRLA, no conjunctival injection. MOUTH: Moist mucous membranes. White patches on her palate. No erythema, exudate, or postnasal drip. NECK: Trachea is midline without adenopathy or masses. RESPIRATORY: Nonlabored respirations. Intermittent crackles. No wheeze. CARDIOVASCULAR: Regular rate and rhythm. No murmurs, rubs or gallops. +2 radial pulses bilaterally with 1 second capillary refill distally. INTEGUMENTARY: No rashes or ecchymosis. MUSCULOSKELETAL AND EXTREMITIES: Moving and developed symmetrically. Bilateral edema affecting the feet and ankles, left greater than right. NEUROLOGIC: Alert and oriented. Data recall is intact. Appropriate affect. REVIEW OF SYSTEMS: GENERAL: Positive for feeling poorly without any fevers or chills. EYES: Negative. ENT: Positive for ear ache and nasal discharge. Denies pharyngitis or vocal hoarseness. CARDIOVASCULAR: Positive for lower extremity edema as noted in HPI. Denies chest pain or palpitations. RESPIRATORY: Positive for cough and dyspnea on exertion. Denies dyspnea at rest. Denies wheeze. GASTROINTESTINAL: Negative. INTEGUMENTARY: Negative. HEMATOLOGIC/LYMPHATICS: Negative. ASSESSMENT AND PLAN: A 61-year-old female with history of bronchiectasis and continued productive cough and dyspnea with reliance on bronchodilators despite inpatient treatment: 1. CBC with differential and IgE: These were positive post her outpatient appointment and she has been referred for Xolair consideration. 2. Antireflux regimen: Continue. 3. Bronchoscopy with a history of diffuse mucus plugging and prior post-procedural relief. 4. The patient is to keep her appointment for a second opinion in [place]. PIERO
[~2016-06-11] VITALS: Ht 162.6 cm; Wt 81.7 kg
[2016-06-11] VITALS (16 sets, daily range): BP systolic 102–129; BP diastolic 52–76; PULSE 74–93; TEMP 36.6–36.8; O2SAT 95–99; Ht 162.6 cm; Wt 81.7 kg
[~2016-06-11 08:38] MED LIST changes: -DXY100 PO; +FURO-85 PO; -GUAISYP4 PO; -PRED10TA PO; -PRED20TA PO; -PRED20TA2 PO
[2016-06-11] MEDS ORDERED: MIDAZOLAM HCL 5 MG/ML 1 ML VIAL IV ONE (08:39)
[2016-06-11] MEDS ORDERED: FENTANYL CITRATE 100 MCG 2 ML CARP IV ONE (08:39)
[2016-06-11] MEDS ORDERED: FLUT1INH7 INH (09:13)
--- NOTE | 2016-06-11 09:40 | Procedure Note ---
Pre-Mod Sedation Assessment General Date of Moderate Sedation: Jun 11, 2016. Vital Signs: Vital Signs Past 12 Hours Date Time Temp Pulse Resp B/P Pulse Ox O2 Delivery O2 Flow Rate FiO2 06/11/16 09:20 36.8 90 22 129/56 96 Room Air Review Cardiovascular: regular rate, rhythm, no edema, no gallop, no JVD, no murmur, normal peripheral pulses Abdomen: normal bowel sounds, non tender, soft, no organomegaly, no pulsatile mass, normal rectal exam, occult blood negative Lungs: chest non-tender, + wheezing (left > right ) Pre-Sedation Airway Assessment Oral Cavity: WNL Short Thick Neck: No Hx of Sleep Apnea: No Smoking Status: Never Smoker Notes The planned sedation has been discussed with the patient and consent obtained. I have identified the patient, determined the appropriateness of sedation and have assessed the patient immediately prior to the procedure. All medicine(s) and interventions are by my order.
--- NOTE | 2016-06-11 09:40 | History & Physical Bridge Note ---
H&P Re-Evaluation Bridge Note: I have examined the patient, reviewed the History & Physical and in the interval since the performance of the History & Physical I have noted the following changes of clinical significance: No changes noted
[2016-06-11] MEDS ORDERED: NURSING VERBAL MED ORDER ONE ×2 (09:45→10:30)
--- NOTE | 2016-06-11 10:32 | Procedure Note ---
Pre-Mod Sedation Assessment General Date of Moderate Sedation: Jun 11, 2016. Vital Signs: Vital Signs Past 12 Hours Date Time Temp Pulse Resp B/P Pulse Ox O2 Delivery O2 Flow Rate FiO2 06/11/16 10:25 84 22 113/76 99 Mask 8.0 06/11/16 10:20 83 22 116/63 99 Mask 8.0 06/11/16 10:15 87 22 105/63 99 Mask 8.0 06/11/16 10:10 89 24 112/68 98 Mask 8.0 06/11/16 10:05 86 20 122/68 98 Mask 8.0 06/11/16 10:00 93 22 118/66 98 Mask 8.0 06/11/16 09:44 88 22 128/69 97 Room Air 06/11/16 09:20 36.8 90 22 129/56 96 Room Air Review Cardiovascular: regular rate, rhythm, no edema, no gallop, no JVD, no murmur, normal peripheral pulses Abdomen: normal bowel sounds, non tender, soft, no organomegaly, no pulsatile mass, normal rectal exam, occult blood negative Lungs: chest non-tender, + wheezing (left > right ) Pre-Sedation Airway Assessment Oral Cavity: WNL Able to Visualize Vocal Cords: Yes Short Thick Neck: No Hx of Sleep Apnea: No Smoking Status: Never Smoker Mallampati Classification: Class III Procedure Planning Contraindications-for Mod Sed: None Yes Notes The planned sedation has been discussed with the patient and consent obtained. I have identified the patient, determined the appropriateness of sedation and have assessed the patient immediately prior to the procedure. All medicine(s) and interventions are by my order.
--- NOTE | 2016-06-11 10:32 | Procedure Note ---
Post-Moderate Sedation Plan General Date of Moderate Sedation Jun 11, 2016. Vital Signs: Vital Signs Past 12 Hours Date Time Temp Pulse Resp B/P Pulse Ox O2 Delivery O2 Flow Rate FiO2 06/11/16 10:25 84 22 113/76 99 Mask 8.0 06/11/16 10:20 83 22 116/63 99 Mask 8.0 06/11/16 10:15 87 22 105/63 99 Mask 8.0 06/11/16 10:10 89 24 112/68 98 Mask 8.0 06/11/16 10:05 86 20 122/68 98 Mask 8.0 06/11/16 10:00 93 22 118/66 98 Mask 8.0 06/11/16 09:44 88 22 128/69 97 Room Air 06/11/16 09:20 36.8 90 22 129/56 96 Room Air Review - Discharge Plan Post Moderate Sedation Plan: On clinical assessment, the patient appears to have tolerated the conscious sedation without complications. Patient is recovering as anticipated. Patient will continue to be monitored by nursing and may be discharged when conscious sedation discharge criteria are met.
--- NOTE | 2016-06-11 10:37 | Bronchoscopy Procedure Note ---
Bronchoscopy Procedure Note Procedure: Bronchoscopy, conscious sedation, bronchial washing of the RLL Consent: Obtained through the patient placed into the chart Preprocedural diagnosis: Chronic Cough Postprocedural diagnosis: Chronic Cough Start time: 1001 End time: 1022 Total time: 21 mins Analgesia: 2% liquid lidocaine: Via nebulizer 4% gel lidocaine: Via right naris 2% liquid lidocaine: Via bronchoscopy Sedation: Versed IV: 5mg Fentanyl IV: 125g Procedure: The Olympus video bronchoscope was used for this procedure Right naris: Erythema with mild ulceration of the anterior medial septum Posterior naris: Anatomically within normal limits Posterior oropharynx: notable redundancy Glottis: Anatomically within normal limits Vocal cords: Proper abduction and abduction, anatomically within normal limits Subglottis/trachea/Lu: Anatomically within normal limits Right bronchial tree: Right mainstem bronchus: Anatomically within normal limits Right upper lobe: Anatomically within normal limits Bronchus intermedius: Anatomically within normal limits Right middle lobe: Anatomically within normal limits Right lower lobe: Anatomically within normal limits Findings: mild mucus secretions notable from the RLL Left bronchial tree: Left mainstem bronchus: Anatomically within normal limits Left upper lobe: Anatomically within normal limits Lingula: Anatomically within normal limits Left lower lobe: Anatomically within normal limits Findings: mild mucus secretions notable from the RAJWINDER Bronchial WashinCC RLL with 25cc returned Complications: None Follow-up: [facility] in the next 7-10 days
--- NOTE | 2016-06-11 10:43 | Discharge Instructions ---
Discharge Instructions Date of Service Jun 11, 2016. Admission Reason for Admission: Bronchitis Discharge Discharge Diagnosis / Problem: Chronic Cough Discharge Goals Goal(s): Improve function, Diagnostic testing Activity Recommendations Activity Limitations: resume your previous activity . Instructions / Follow-Up Instructions / Follow-Up Follow-Up in the [facility] over the next 7-10 days Current Hospital Diet Patient's current hospital diet: Discharge Diet Recommended Diet: Regular Diet Procedures Procedures Performed: Bronchoscopy, Bronchial Washing right lower lobe, Consious Sedation Pending Studies Studies pending at discharge: yes List of pending studies: bacterial and fungal studies Medical Emergencies . Who to Call and When: Medical Emergencies: If at any time you feel your situation is an emergency, please call 911 immediately. . Non-Emergent Contact Non-Emergency issues call your: Claims Investigator Call Non-Emergent contact if: temperature is above 101.5 . . "Provider Documentation" section prepared by Vu Zapata. . VTE Core Measure Inpt VTE Proph given/why not?: Treatment not indicated
[2016-06-11] MEDS ORDERED: FENTANYL CITRATE INJ 50 MCG/1 ML 2 ML VIAL IV SCH (13:00)
[2016-06-11] MEDS ORDERED: MIDAZOLAM HCL 5 MG/ML 1 ML VIAL IV SCH (13:00)
[2016-06-11] MEDS ORDERED: DEXTROSE 5% 1000ML 1,000 ML IV SCH (13:00)
[2016-08-12] MEDS ORDERED: PRD20 PO (13:48)
[2016-08-12] MEDS ORDERED: DXY100 PO (13:48)
[2016-10-18] MEDS ORDERED: SPRIN INH (11:17)
[2016-10-18] MEDS ORDERED: PRED10TA PO (11:17)
[2016-10-18] MEDS ORDERED: OXGN (11:17)
[2016-10-18] MEDS ORDERED: GUAISYP4 PO (11:17)
[2016-10-18] MEDS ORDERED: RANITAB6 PO (11:24)
[2016-11-30] MEDS ORDERED: SYMIN160 INH (07:49)
[2016-11-30] MEDS ORDERED: CYAN100020 PO (07:49)
[2016-11-30] MEDS ORDERED: FLUT0.15 NAE (07:49)
[2016-11-30] MEDS ORDERED: nasal saline (07:49)
[2016-11-30] MEDS ORDERED: LEVO-17 PO (07:49)
[2016-11-30] MEDS ORDERED: POTA20TA16 PO (08:54)
[2016-12-20] MEDS ORDERED: AMOX875T PO (13:24)
== END 2016-06-11 13:16 | disposition home or self-care (01) ==
LOC: C.ACU 08:38
PROVIDERS: ATTEND Internal Medicine Critical Care Medicine
DX: R05 Cough (principal); J45.909 Unspecified asthma, uncomplicated; E03.9 Hypothyroidism, unspecified; K21.9 Gastro-esophageal reflux disease without esophagitis; Z79.82 Long term (current) use of aspirin; Z79.899 Other long term (current) drug therapy; Z88.2 Allergy status to sulfonamides; Z91.010 Allergy to peanuts; Z91.018 Allergy to other foods

== ENCOUNTER → 2016-07-02 | Outpatient (CLI) | payer OTHER ==
[~2016-07-02] MED LIST changes: +AMOX875T PO; +AZIT250T PO; +AZIT500T26 PO; +CYAN100020 PO; +DXY100 PO; +FLUT0.15; +FLUT1INH7 INH; +GUAISYP4 PO; +LEVO-17 PO; +LEVO1TAB35 PO; +OXGN; +POTA20TA16 PO; +PRD20 PO; +PRED10TA PO; +PRED50TA PO; +RANI150T3 PO; +RANITAB6 PO; +SPRIN INH; +nasal saline
--- NOTE | 2016-07-02 18:42 | DIAGNOSTIC IMAGING REPORT ---
CHEST 2 VIEWS ROUTINE CLINICAL HISTORY: R05 [id number] Shortness of breath dyspnea COMPARISON STUDY: 06/03/2016 FINDINGS: Minimal platelike atelectasis lung bases. Lungs otherwise are clear. No evidence for cardiac enlargement. IMPRESSION: Minimal basilar platelike atelectasis. Otherwise negative study Electronically signed by: Haider Frankel M.D. 07/02/2016 6:40 PM Dictated Date/Time: 07/02/2016 6:40 PM
== END | disposition home or self-care (01) ==
LOC: C.RAD 18:24
PROVIDERS: ATTEND Physician Assistant
DX: R05 Cough (principal)

== ENCOUNTER 2016-08-10 06:27 | Observation (INO) | payer OTHER ==
[2016-08-10] VITALS (7 sets, daily range): BP systolic 123–137; BP diastolic 61–68; PULSE 65–74; TEMP 36.5–36.9; O2SAT 95–100; Ht 160 cm; Wt 82.4 kg
[~2016-08-10] VITALS: Ht 160 cm; Wt 82.4 kg
[~2016-08-10 06:27] MED LIST changes: -AMOX875T PO; -AZIT250T PO; -AZIT500T26 PO; -CYAN100020 PO; -DXY100 PO; -FLUT0.15; -GUAISYP4 PO; -LEVO-17 PO; -LEVO1TAB35 PO; -OXGN; -POTA20TA16 PO; -PRD20 PO; -PRED10TA PO; -PRED50TA PO; -RANI150T3 PO; -RANITAB6 PO; -SPRIN INH; -nasal saline
[2016-08-10] MEDS ORDERED: ACETAMINOPHEN 500 MG TAB PO STA (06:38)
--- NOTE | 2016-08-10 06:48 | EMERGENCY ROOM VISIT NOTE ---
History Report prepared by Litzy: Emiliana Dsouza Under the Supervision of: Dr. Solis Jiménez D.O. First contact with patient: 06:31 Chief Complaint: CHEST PAIN Stated Complaint: CHEST PAIN History of Present Illness The patient is a 61 year old female who presents to the Emergency Room with complaints of constant shortness of breath that began this morning. The patient states that she woke up and experienced trouble breathing. She notes that she has had this before and was told it is due to Asthma and COPD. She notes that her breathing worsens when she lays flat. The patient is also experiencing chest tightness, a headache, a cough with yellow and brown sputum, and swelling to the lower extremities. The patient was given a breathing treatment while en route that has improved her symptoms but she is still experiences shortness of breath. She denies a history of CHF, fevers, abdominal pain or new medication. The patient has a history of cardiomyopathy. Source of History: patient Onset: this morning Position: other (global) Quality: other (shortness of breath) Timing: constant Modifying Factors (Worsening): other (laying flat) Associated Symptoms: + headache, + cough, + chest pain, No fevers, No abdominal pain Review of Systems See HPI for pertinent positives & negatives. A total of 10 systems reviewed and were otherwise negative. Past Medical & Surgical Medical Problems: (1) Age related osteoporosis (2) Asthma (3) Depression (4) Epilepsy (5) EDWIN (generalized anxiety disorder) (6) GERD (gastroesophageal reflux disease) (7) IBS (irritable bowel syndrome) (8) Stress-induced cardiomyopathy Surgical Problems: (1) H/O sinus surgery (2) H/O: hysterectomy (3) History of ear surgery (4) Hx of breast biopsy Family History Diabetes mellitus MOTHER FH: lung cancer AUNT Hypertension FATHER Social History Smoking Status: Never Smoker Alcohol Use: none Drug Use: none Marital Status: single Housing Status: lives alone Occupation Status: unemployed Current/Historical Medications Scheduled Aspirin (Aspirin EC Low Dose), 81 MG PO DAILY Budesonide/Formoterol Fumarate (Symbicort 160/4.5 Inhaler ), 2 PUFFS INH BID Citalopram (Citalopram Hydrobromide), 40 MG PO QAM Cyanocobalamin (Vitamin B-12 1000 Mcg), 1 TAB PO QAM Fluticasone Propionate (Nasal) (Flonase Allergy Relief), 1 SPRAY NA BID Folic Acid (Folvite), 1 MG PO QAM Levothyroxine Sodium (Levothyroxine Sodium), 100 MCG PO DAILY Montelukast Sodium (Singulair), 10 MG PO QPM Pantoprazole (Protonix), 40 MG PO QAM Phenobarbital (Phenobarbital), 97.2 MG PO HS Phenytoin Sodium (Dilantin), 200 MG PO BID Ranitidine Hcl (Zantac), 150 MG PO DAILY Scheduled PRN Albuterol Hfa (Ventolin Hfa), 2 PUFFS INH Q4H PRN for SOB/Wheezing Furosemide (Lasix), 20 MG PO DAILY PRN for edema Ipratropium-Albuterol (Duoneb), 1 TREATMENT INH Q4H PRN for SOB/Wheezing Allergies Coded Allergies: Clemastine (Verified Allergy, Unknown, ITCHING, 08/10/16) Sulfa Antibiotics (Verified Allergy, Unknown, RASH AND ITCHY, 08/10/16) [place] (Verified Allergy, Unknown, [employer] [place] W[place]NUT ALLERGY, + ALLERGY TEST , 08/10/16) Physical Exam Vital Signs Date Time Temp Pulse Resp B/P (MAP) Pulse Ox O2 Delivery O2 Flow Rate FiO2 08/10/16 11:14 67 08/10/16 10:41 73 16 119/65 100 Room Air 08/10/16 10:41 100 Nasal Cannula 2.0 08/10/16 09:09 71 18 124/68 97 Room Air 08/10/16 08:47 73 16 116/65 99 Room Air 08/10/16 07:01 72 16 103/68 99 Room Air 08/10/16 06:40 98 Room Air 08/10/16 06:40 98 Room Air 08/10/16 06:37 74 08/10/16 06:37 97 Room Air 08/10/16 06:32 36.6 75 18 137/81 97 Room Air Physical Exam GENERAL: Patient is awake, alert, and in no acute distress. Patient is resting comfortably and showing no signs of anxiety EYES: The conjunctivae are clear. The pupils are round and reactive. EARS, NOSE, MOUTH AND THROAT: The nose is without any evidence of any deformity. Mucous membranes are moist tongue is midline NECK: The neck is nontender and supple. RESPIRATORY: Lung sounds diminished throughout. Rales at both bases. Expiratory wheezing in both upper lung nicolas. No conversational dyspnea. CARDIOVASCULAR: Regular rate and rhythm noted there no murmurs rubs or gallops normal S1 normal S2 GASTROINTESTINAL: The abdomen is soft. Bowel sounds are present in all quadrants. Abdomen is nontender MUSCULOSKELETAL/EXTREMITIES: There is no evidence of gross deformity full range of motion is noted in the hips and shoulders SKIN: Pitting edema bilaterally. There is no obvious evidence of any rash. There are no petechiae, pallor or cyanosis noted. NEUROLOGIC: Patient is awake alert and oriented x3 Medical Decision & Procedures ER Provider Diagnostic Interpretation: X-ray results as stated below per interpretation by me and the radiologist. CHEST ONE VIEW PORTABLE CLINICAL HISTORY: Respiratory distress. Dyspnea. COMPARISON STUDY: Chest radiograph July 02, 2016. FINDINGS: The patient is mildly rotated. There is no pneumothorax or pleural effusion. There is no evidence of pulmonary edema. There is pulmonary vascular congestion. Linear bibasilar opacities favor atelectasis. Cardiomediastinal silhouette is stable. IMPRESSION: 1. Pulmonary vascular congestion without overt pulmonary edema. 2. Linear bibasilar opacities suggestive of atelectasis. Electronically signed by: Brenton Urrutia M.D. 08/10/2016 7:00 AM Dictated Date/Time: 08/10/2016 6:59 AM Laboratory Results Test 08/10/16 06:08 08/10/16 09:16 08/10/16 09:20 08/10/16 11:20 RDW Standard Deviation 46.5 fL (36.4-46.3) RDW Coefficient of Variation 13.5 % (11.5-14.5) White Blood Count 5.51 K/uL (4.8-10.8) Red Blood Count 4.42 M/uL (4.2-5.4) Hemoglobin 13.9 g/dL (12.0-16.0) Hematocrit 41.4 % (37-47) Mean Corpuscular Volume 93.7 fL (80-100) Mean Corpuscular Hemoglobin 31.4 pg (25-34) Mean Corpuscular Hemoglobin Concent 33.6 g/dl (32-36) Platelet Count 233 K/uL (130-400) Mean Platelet Volume 9.3 fL (7.4-10.4) Neutrophils (%) (Auto) 35.5 % Lymphocytes (%) (Auto) 38.1 % Monocytes (%) (Auto) 13.2 % Eosinophils (%) (Auto) 12.3 % Basophils (%) (Auto) 0.7 % Neutrophils # (Auto) 1.95 K/uL (1.4-6.5) Lymphocytes # (Auto) 2.10 K/uL (1.2-3.4) Monocytes # (Auto) 0.73 K/uL (0.11-0.59) Eosinophils # (Auto) 0.68 K/uL (0-0.5) Basophils # (Auto) 0.04 K/uL (0-0.2) Immature Granulocyte % (Auto) 0.2 % Immature Granulocyte # (Auto) 0.01 K/uL (0.00-0.02) Prothrombin Time 11.8 SECONDS (9.0-12.0) Prothromb Time International Ratio 1.1 (0.9-1.1) Activated Partial Thromboplast Time 27.3 SECONDS (21.0-31.0) Partial Thromboplastin Ratio 1.1 Est Creatinine Clear Calc Drug Dose 85.0 ml/min Estimated Average Glucose 105 mg/dl Hemoglobin A1c 5.3 % (4.5-5.6) Total Bilirubin 0.3 mg/dl (0.2-1) Aspartate Amino Transf (AST/SGOT) 16 U/L (15-37) Alanine Aminotransferase (ALT/SGPT) 26 U/L (12-78) Alkaline Phosphatase 116 U/L (45-117) Pro-B-Type Natriuretic Peptide 63 pg/ml (0-900) Total Protein 7.6 gm/dl (6.4-8.2) Albumin 4.0 gm/dl (3.4-5.0) Globulin 3.6 gm/dl (2.5-4.0) Albumin/Globulin Ratio 1.1 (0.9-2) Phenytoin (Dilantin) Level 16.8 mcg/mL (10-20) Phenobarbital Level 12.7 mcg/mL (15.0-40.0) Bedside Troponin I 0.030 ng/ml (0-0.045) Urine Color YELLOW Urine Appearance CLEAR (CLEAR) Urine pH 7.0 (4.5-7.5) Urine Specific [place] 1.007 (1.000-1.030) Urine Protein NEG (NEG) Urine Glucose (UA) NEG (NEG) Urine Ketones NEG (NEG) Urine Occult Blood NEG (NEG) Urine Nitrite NEG (NEG) Urine Bilirubin NEG (NEG) Urine Urobilinogen NEG (NEG) Urine Leukocyte Esterase TRACE (NEG) Urine WBC (Auto) 1-5 /hpf (0-5) Urine RBC (Auto) 0-4 /hpf (0-4) Urine Hyaline Casts (Auto) 0 /lpf (0-5) Urine Epithelial Cells (Auto) 0-5 /lpf (0-5) Urine Bacteria (Auto) NEG (NEG) D-Dimer 800 ug/L FEU (0-500) Laboratory results per my review. Medications Administered Medications (Trade) Dose Ordered Sig/Matt Route Start Time Stop Time Status Last Admin Dose Admin Acetaminophen (Tylenol Tab) 1,000 mg NOW STAT PO 08/10/16 06:38 08/10/16 06:39 DC 08/10/16 06:48 1,000 MG ECG Indication: SOB/dyspnea Rate (beats per minute): 77 Rhythm: normal sinus Findings: LBBB (pattern noted), PVC (none) Change: no significant change (from June 03, 2016) Change: 2nd EKG: NSR, 71, no PVC, LBBB pattern noted, no change from June 03, 2016. 3rd ECG: NSR, 73, LBBB noted, no PVC, no change from earlier. ED Course 0633: The patient was evaluated in room B11. A complete history and physical examination were performed. 0638: Tylenol Tab 1,000 mg PO. 0753: I reevaluated the patient and she is sleeping comfortably. Another Troponin and ECG will be done around 9am. 1101: I discussed the patient's case with WEI Mena. The patient will be evaluated for further management. 1107: Upon reevaluation, the patient is hemodynamically stable. I discussed results and treatment plan with her. She verbalizes agreement and understanding. I spoke with WEI Mena. The patient will be evaluated for further management and care. Medical Decision Differential diagnosis: Etiologies such as infections, reactive airway disease, pneumonia, pneumothorax , COPD, CHF, cardiac ischemia, pulmonary embolism, musculoskeletal, gastrointestinal, as well as others were entertained. Medication Reconciliation: I attest that I have personally reviewed the patient' s current medications list. Blood pressure screening: Patient was found to have normal blood pressure on screening and does not require follow-up. The patient is a 61-year-old female who presented to the emergency department for an evaluation of chest pain. The patient describes a bandlike pressure around her chest. The patient has a left bundle branch block pattern at baseline in this appears to be unchanged on today's tracing. The patient's initial cardiac biomarkers were negative. The patient had repeat troponin which did show slight elevation from previous. The patient's repeat EKG did not show any acute changes. I discussed the patient's laboratory and radiographic studies with her. Because of her changes in her cardiac biomarkers I discussed her case with the on-call [facility] hospitalist. They've agreed to evaluate the patient in emergency department for further management and disposition. Consults Time Called: 1100 Consulting Physician: WEI Mena Returned Call: 1101 I discussed the patient's case with WEI Mena. The patient will be evaluated for further management. Impression Primary Impression: Chest pain Additional Impression: SOB (shortness of breath) Scribe Attestation The scribe's documentation has been prepared under my direction and personally reviewed by me in its entirety. I confirm that the note above accurately reflects all work, treatment, procedures, and medical decision making performed by me. Departure Information Dispostion Being Evaluated By Hospitalist Referrals Asa Villavicencio D.O. (PCP) Problem Qualifiers Primary Impression: Chest pain Chest pain type: unspecified Qualified Codes: R07.9 - Chest pain, unspecified
[2016-08-10 06:55] LABS: BASO % 0.7 %; BASO ABS # 0.04 K/uL (0-0.2); COMPLETE YES; EOS % 12.3 %; HEMATOCRIT 41.4 % (37-47); IG% 0.2 %; LYMPH % 38.1 %; MEAN CELL VOLUME 93.7 fL (80-100); MEAN CORPUSCULAR HEMOGLOBIN 31.4 pg (25-34); MEAN CORPUSCULAR HGB CONC 33.6 g/dl (32-36); MEAN PLATELET VOLUME 9.3 fL (7.4-10.4); MONO % 13.2 %; NEUT % 35.5 %; PLATELET COUNT 233 K/uL (130-400); RED BLOOD COUNT 4.42 M/uL (4.2-5.4); WHITE BLOOD COUNT 5.51 K/uL (4.8-10.8)
[2016-08-10] MEDS ORDERED: RANI150T3 PO (06:59)
--- NOTE | 2016-08-10 07:02 | DIAGNOSTIC IMAGING REPORT ---
CHEST ONE VIEW PORTABLE CLINICAL HISTORY: Respiratory distress. Dyspnea. COMPARISON STUDY: Chest radiograph July 02, 2016. FINDINGS: The patient is mildly rotated. There is no pneumothorax or pleural effusion. There is no evidence of pulmonary edema. There is pulmonary vascular congestion. Linear bibasilar opacities favor atelectasis. Cardiomediastinal silhouette is stable. IMPRESSION: 1. Pulmonary vascular congestion without overt pulmonary edema. 2. Linear bibasilar opacities suggestive of atelectasis. Electronically signed by: Bretnon Urrutia M.D. 08/10/2016 7:00 AM Dictated Date/Time: 08/10/2016 6:59 AM
[2016-08-10 07:05] LABS: INR 1.1 (0.9-1.1); PARTIAL THROMBOPLASTIN RATIO 1.1; PROTHROMBIN TIME (PATIENT) 11.8 SECONDS (9.0-12.0)
[2016-08-10 07:18] LABS: ALT/SGPT 26 U/L (12-78); BLOOD UREA NITROGEN 12 mg/dl (7-18); BUN/CREATININE RATIO 17.1 (10-20); CARBON DIOXIDE 30 mmol/L (21-32); CHLORIDE 102 mmol/L (98-107); GLUCOSE 83 mg/dl (70-99); POTASSIUM 3.6 mmol/L (3.5-5.1); SODIUM 139 mmol/L (136-145)
[2016-08-10 07:20] LABS: PHENOBARBITAL 12.7 mcg/mL (15.0-40.0)
[2016-08-10 07:23] LABS: ALB/GLOB RATIO 1.1 (0.9-2); ALKALINE PHOSPHATASE 116 U/L (45-117); AST/SGOT 16 U/L (15-37)
[2016-08-10 09:34] LABS: MANUAL MICROSCOPIC REQUIRED? NO; REVIEW REQ? NO; URINE APPEARANCE CLEAR (CLEAR); URINE BILIRUBIN NEG (NEG); URINE COLOR YELLOW; URINE EPITHELIAL CELL AUTO 0-5 /lpf (0-5); URINE NITRITE NEG (NEG); URINE SPECIFIC GRAVITY 1.007 (1.000-1.030); UROBILINOGEN NEG (NEG)
[2016-08-10] MEDS ORDERED: FLUT0.15 (11:59)
[2016-08-10] MEDS ORDERED: ASPEC81 PO (11:59)
[2016-08-10] MEDS ORDERED: ACETAMINOPHEN 325 MG TAB PO PRN (12:00)
[2016-08-10] MEDS: ALBUT/IPRATROP 3MG/0.5MG NEB 3 ML VIAL INH SCH ×3 (12:00→19:08)
[2016-08-10] MEDS ORDERED: NITROGLYCERIN 0.4 MG SL PER TAB CHARGE SL PRN (12:00)
[2016-08-10] MEDS ORDERED: ONDANSETRON INJ 2 MG/ML 2 ML VIAL IV PRN (12:00)
[2016-08-10] MEDS ORDERED: AZITHROMYCIN 250 MG TAB PO ONE (12:00)
[2016-08-10] MEDS ORDERED: PROMETHAZINE HCL INJ 12.5 MG in SODIUM CHLORIDE 0.9% 50ML 50 ML IV PRN (12:15)
[2016-08-10] MEDS ORDERED: ASPIRIN/ALUM/MAGNES/CAL CARB 325 MG TAB PO ONE (12:15)
[2016-08-10] MEDS ORDERED: AZITHROMYCIN 250 MG TAB ONE (12:16)
[2016-08-10 12:56] LABS: ESTIMATED AVERAGE GLUCOSE 105 mg/dl; HA1C FLAG Normal (Normal)
[2016-08-10] MEDS ORDERED: FUROSEMIDE INJ 20 MG in SYRINGE 0 ML IV ONE (14:00)
[2016-08-10] MEDS ORDERED: IV FLUIDS COMPLETED PRN (14:00)
[2016-08-10] MEDS: DOXYCYCLINE HYCLATE 100 MG CAP PO SCH ×2 (14:22→20:34)
--- NOTE | 2016-08-10 14:26 | History and Physical ---
History & Physical Date & Time of Service: Aug 10, 2016 ~ 11:30 Chief Complaint: Shortness of Breath Primary Care Physician: Asa Villavicencio D.O. History of Present Illness 61 year old female who presents to the ER with reports of shortness of breath. Patient reports increased shortness of breath for one week. She has history of asthma and reports to using her nebulizer 4-6 times per day and has not had any improvement. Shortness of breath occurs with exertion as well as with rest. When is feeling short of breath she also reports associated chest tightness. She denies chest pain, pressure, or palpitations. She reports a cough productive for yellow sputum. She denies fever and chills. She reports mild lightheadedness and dizziness with standing but denies any syncopal events or diaphoresis. She reports some occasional cramping in her legs as well. She denies abdominal pain, nausea, vomiting, or diarrhea. No urinary symptoms. In the ER, patient's initial troponin was < 0.015 and went up to 0.031 after 3 hours. EKG does not show any acute ST changes. Past Medical/Surgical History Medical Problems: (1) Age related osteoporosis Status: Chronic (2) Asthma Status: Chronic (3) Depression Status: Chronic (4) Epilepsy Permanent Comment: General, convulsive Status: Chronic (5) EDWIN (generalized anxiety disorder) Status: Chronic (6) GERD (gastroesophageal reflux disease) Status: Chronic (7) IBS (irritable bowel syndrome) Status: Chronic (8) Stress-induced cardiomyopathy Permanent Comment: hx of EF 45-50% that normalized on echo from 10/2015 Status: Chronic Surgical Problems: (1) H/O sinus surgery Status: Chronic (2) H/O: hysterectomy Status: Chronic (3) History of ear surgery Status: Chronic (4) Hx of breast biopsy Status: Chronic Family History Diabetes mellitus MOTHER FH: lung cancer AUNT Hypertension FATHER Social History Smoking Status: Never Smoker Alcohol Use: occasionally Housing status: other Occupational Status: unemployed Immunizations History of Influenza Vaccine: Yes Influenza Vaccine Date: Jan 14, 2016 History of Tetanus Vaccine?: Yes (UTD) Tetanus Immunization Date: Oct 06, 2007 Multi-Drug Resistant Organisms History of MDRO: No Allergies Coded Allergies: Clemastine (Verified Allergy, Unknown, ITCHING, 08/10/16) Sulfa Antibiotics (Verified Allergy, Unknown, RASH AND ITCHY, 08/10/16) [place] (Verified Allergy, Unknown, [place] WALNUT ALLERGY, + ALLERGY TEST , 08/10/16) Home Medications Scheduled Aspirin (Aspirin EC Low Dose), 81 MG PO DAILY Budesonide/Formoterol Fumarate (Symbicort 160/4.5 Inhaler ), 2 PUFFS INH BID Citalopram (Citalopram Hydrobromide), 40 MG PO QAM Cyanocobalamin (Vitamin B-12 1000 Mcg), 1 TAB PO QAM Fluticasone Propionate (Nasal) (Flonase Allergy Relief), 1 SPRAY NA BID Folic Acid (Folvite), 1 MG PO QAM Levothyroxine Sodium (Levothyroxine Sodium), 100 MCG PO DAILY Montelukast Sodium (Singulair), 10 MG PO QPM Pantoprazole (Protonix), 40 MG PO QAM Phenobarbital (Phenobarbital), 97.2 MG PO HS Phenytoin Sodium (Dilantin), 200 MG PO BID Ranitidine Hcl (Zantac), 150 MG PO DAILY Scheduled PRN Albuterol Hfa (Ventolin Hfa), 2 PUFFS INH Q4H PRN for SOB/Wheezing Furosemide (Lasix), 20 MG PO DAILY PRN for edema Ipratropium-Albuterol (Duoneb), 1 TREATMENT INH Q4H PRN for SOB/Wheezing Review of Systems ROS per HPI, all other systems reviewed and negative Physical Exam Vital Signs Date Time Temp Pulse Resp B/P (MAP) Pulse Ox O2 Delivery O2 Flow Rate FiO2 08/10/16 13:12 36.5 70 22 137/61 (86) 100 Nasal Cannula 4.0 08/10/16 12:35 67 16 119/65 100 08/10/16 12:15 100 Nasal Cannula 2.0 08/10/16 11:14 67 08/10/16 10:41 73 16 119/65 100 Room Air 08/10/16 10:41 100 Nasal Cannula 2.0 08/10/16 09:09 71 18 124/68 97 Room Air 08/10/16 08:47 73 16 116/65 99 Room Air 08/10/16 07:01 72 16 103/68 99 Room Air 08/10/16 06:40 98 Room Air 08/10/16 06:40 98 Room Air 08/10/16 06:37 74 08/10/16 06:37 97 Room Air 08/10/16 06:32 36.6 75 18 137/81 97 Room Air General Appearance: no apparent distress Head: normocephalic Eyes: normal inspection ENT: hearing grossly normal Neck: supple, no JVD Respiratory/Chest: + decreased breath sounds, + crackles (faint, BL bases ) Cardiovascular: regular rate, rhythm, + pertinent finding (+1-2 ankle edema L > R ) Abdomen/GI: normal bowel sounds, non tender, soft Extremities/Musculoskelatal: normal inspection, no calf tenderness Neurologic/Psych: no motor/sensory deficits, alert, normal mood/affect, oriented x 3 Skin: normal color, warm/dry Diagnostics Laboratory Results Results Past 24 Hours Test 08/10/16 06:08 08/10/16 09:16 08/10/16 09:20 08/10/16 09:35 Range/Units White Blood Count 5.51 4.8-10.8 K/uL Red Blood Count 4.42 4.2-5.4 M/uL Hemoglobin 13.9 12.0-16.0 g/dL Hematocrit 41.4 37-47 % Mean Corpuscular Volume 93.7 80-100 fL Mean Corpuscular Hemoglobin 31.4 25-34 pg Mean Corpuscular Hemoglobin Concent 33.6 32-36 g/dl Platelet Count 233 130-400 K/uL Mean Platelet Volume 9.3 7.4-10.4 fL Neutrophils (%) (Auto) 35.5 % Lymphocytes (%) (Auto) 38.1 % Monocytes (%) (Auto) 13.2 % Eosinophils (%) (Auto) 12.3 % Basophils (%) (Auto) 0.7 % Neutrophils # (Auto) 1.95 1.4-6.5 K/uL Lymphocytes # (Auto) 2.10 1.2-3.4 K/uL Monocytes # (Auto) 0.73 0.11-0.59 K/uL Eosinophils # (Auto) 0.68 0-0.5 K/uL Basophils # (Auto) 0.04 0-0.2 K/uL RDW Standard Deviation 46.5 36.4-46.3 fL RDW Coefficient of Variation 13.5 11.5-14.5 % Immature Granulocyte % (Auto) 0.2 % Immature Granulocyte # (Auto) 0.01 0.00-0.02 K/uL Prothrombin Time 11.8 9.0-12.0 SECONDS Prothromb Time International Ratio 1.1 0.9-1.1 Activated Partial Thromboplast Time 27.3 21.0-31.0 SECONDS Partial Thromboplastin Ratio 1.1 Sodium Level 139 136-145 mmol/L Potassium Level 3.6 3.5-5.1 mmol/L Chloride Level 102 98-107 mmol/L Carbon Dioxide Level 30 21-32 mmol/L Anion Gap 7.0 3-11 mmol/L Blood Urea Nitrogen 12 7-18 mg/dl Creatinine 0.70 0.60-1.20 mg/dl Est Creatinine Clear Calc Drug Dose 85.0 ml/min Estimated GFR () 106.9 Estimated GFR (Non- 92.2 BUN/Creatinine Ratio 17.1 10-20 Random Glucose 83 70-99 mg/dl Estimated Average Glucose 105 mg/dl Hemoglobin A1c 5.3 4.5-5.6 % Calcium Level 9.0 8.5-10.1 mg/dl Total Bilirubin 0.3 0.2-1 mg/dl Aspartate Amino Transf (AST/SGOT) 16 15-37 U/L Alanine Aminotransferase (ALT/SGPT) 26 12-78 U/L Alkaline Phosphatase 116 45-117 U/L Troponin I < 0.015 0.031 0-0.045 ng/ml Pro-B-Type Natriuretic Peptide 63 0-900 pg/ml Total Protein 7.6 6.4-8.2 gm/dl Albumin 4.0 3.4-5.0 gm/dl Globulin 3.6 2.5-4.0 gm/dl Albumin/Globulin Ratio 1.1 0.9-2 Phenytoin (Dilantin) Level 16.8 10-20 mcg/mL Phenobarbital Level 12.7 15.0-40.0 mcg/mL Bedside Troponin I 0.030 0-0.045 ng/ml Urine Color YELLOW Urine Appearance CLEAR CLEAR Urine pH 7.0 4.5-7.5 Urine Specific [place] 1.007 1.000-1.030 Urine Protein NEG NEG Urine Glucose (UA) NEG NEG Urine Ketones NEG NEG Urine Occult Blood NEG NEG Urine Nitrite NEG NEG Urine Bilirubin NEG NEG Urine Urobilinogen NEG NEG Urine Leukocyte Esterase TRACE NEG Urine WBC (Auto) 1-5 0-5 /hpf Urine RBC (Auto) 0-4 0-4 /hpf Urine Hyaline Casts (Auto) 0 0-5 /lpf Urine Epithelial Cells (Auto) 0-5 0-5 /lpf Urine Bacteria (Auto) NEG NEG Test 08/10/16 11:20 Range/Units D-Dimer 800 0-500 ug/L FEU Diagnostic Radiology CXR IMPRESSION: 1. Pulmonary vascular congestion without overt pulmonary edema. 2. Linear bibasilar opacities suggestive of atelectasis. Impression Assessment and Plan SHORTNESS OF BREATH, CHEST TIGHTNESS - admit to tele - patient presenting with increasing shortness of breath x 1 week with associated chest tightness and productive cough; also noted to have increased ankle edema - hx of stress induced cardiomyopathy with normalization of EF on echo from 2015 - symptoms likely multifactorial due to asthma exacerbation and mild volume overload - D. Dimer positive - CTA pending to r/o PE - saturating well on room air - will start around the clock nebs, Prednisone 40mg PO x 5 days, empiric doxy ( used due to prolonged QTC) due to productive cough - Lasix 20mg IV x 1, dose further diuresis per patient response - initial troponin < 0.015 -> 0.031, will continue to cycle; EKG demonstrates a LBBB which is old - s/p full dose ASA with EMS, will continue with 81mg daily - check resting echo QTC PROLONGATION - check EKG daily - avoid QTC prolonging agents when able EPILEPSY - controlled, continue phenobarbital and Dilantin HYPOTHYROIDISM - continue levothyroxine GERD - continue PPI and H2 nimisha DEPRESSION, ANXIETY - continue home meds DVT PROPHYLAXIS - SQ Lovenox DISPO - The patient will be placed as observation status for now until further work up is complete. Attending Note: Patient is a 61 yr old female presents with history of worsening shortness of breath, Cough with yellowish expectoration, chest tightness and ankle edema Admits to drinking lot of water and doesn't restrict salt Physical Exam: General Appearance:Moderately built and nourished, no apparent distress Head: normocephalic, Atraumatic Eyes: normal inspection, EOMI, PERRL Neck: supple, Trachea midline Respiratory/Chest: Decreased breath sounds, +Expiratory wheezes, No accessory muscle use Cardiovascular: S1, S2, No murmur Abdomen/GI:Soft, Non tender, Bowel sounds present Extremities/Musculoskelatal:normal inspection, Trace edema Neurologic/Psych:AAOX3, grossly no focal neurological deficits Skin:normal color,warm Assessment and Plan: SOB, productive yellowish cough: Likely Asthma/COPD exacerbation H/O Asthma with chronic bronchitis and mucous plugging on prior bronchoscopies and CT Chest H/O stress induced cardiomyopathy with normalization of EF in Oct 2015 CTA: negative for PE Venous Doppler: Negative for DVT Continue IV Abx, bronchodilators and glucocorticoids Saturating well on room air Clinically doesn't seem to be volume overloaded, BNP:WNL Update ECHO May benefit from starting Spiriva upon discharge Advised to restrict salt in diet. Takes Lasix PRN for edema I personally reviewed the record. Patient is interviewed and examined at bedside. Patient's care is coordinated with Angelica Dumont SOLAR DESIGNER/INSTALLER. Please refer to the documentation above for details of patient's presentation and for discussion of other issues. Advanced Directives Existing Living Will: No Existing Power of Director Wholesale: No VTE Prophylaxis VTE Risk Assessment Done? Y/N: Yes Risk Level: Moderate
--- NOTE | 2016-08-10 15:36 | DIAGNOSTIC IMAGING REPORT ---
BILATERAL LOWER EXTREMITY VENOUS DOPPLER HISTORY: Pain edema, pain COMPARISON STUDY: None. FINDINGS: There is normal compressibility, flow, and augmentation within the bilateral lower extremity deep venous systems. IMPRESSION: No DVT within the right or left lower extremity. Electronically signed by: Haider Frankel M.D. 08/10/2016 3:35 PM Dictated Date/Time: 08/10/2016 3:35 PM
--- NOTE | 2016-08-10 15:43 | DIAGNOSTIC IMAGING REPORT ---
CHEST CTA for PULMONARY ARTERIES CT DOSE: 207.52 mGy.cm HISTORY: Chest pain dyspnea TECHNIQUE: Multiaxial CT images of the chest were performed following the intravenous administration of contrast to evaluate the pulmonary arteries. Maximal intensity projection images were also obtained. COMPARISON STUDY: None. FINDINGS: There is a normal caliber thoracic aorta with no evidence for dissection. There is no evidence for pulmonary embolus. No pleural effusions. No pneumothorax. The liver spleen are unremarkable. No mediastinal or hilar lymphadenopathy. The central airways are patent. The lungs are clear. Slight peribronchial prominence bilaterally. IMPRESSION: 1. Study is negative for pulmonary embolus. 2 . Slight peribronchial thickening. 3. Mild esophageal wall thickening. Electronically signed by: Haider Frankel M.D. 08/10/2016 3:41 PM Dictated Date/Time: 08/10/2016 3:38 PM
[2016-08-10] MEDS ORDERED: OPTIRAY 320 IV PRN (15:45)
[2016-08-10] MEDS: BUDESONIDE/FORMOTEROL FUMARATE 160/4.5 60 PUFFS/INHALER INH SCH (20:25)
[2016-08-10] MEDS: FLUTICASONE PROPIONATE NA SPR 16 GM BTL SCH (20:25)
[2016-08-10] MEDS: ENOXAPARIN 40 MG/0.4 ML SYR SC SCH (20:27)
[2016-08-10] MEDS: MONTELUKAST SOD 10 MG TAB PO SCH (20:27)
[2016-08-10] MEDS: PHENYTOIN SODIUM ER 100 MG CAP PO SCH (20:33)
[2016-08-10] MEDS: PHENOBARBITAL 32.4 MG TAB PO SCH (20:34)
[2016-08-11] VITALS (11 sets, daily range): BP systolic 96–155; BP diastolic 47–61; PULSE 71–84; TEMP 36.5–36.6; O2SAT 94–98
[2016-08-11] MEDS: LEVOTHYROXINE 100 MCG TAB PO SCH (05:39)
[2016-08-11 06:22] LABS: HEMATOCRIT 39.2 % (37-47); MEAN CELL VOLUME 93.3 fL (80-100); MEAN CORPUSCULAR HEMOGLOBIN 30.7 pg (25-34); MEAN CORPUSCULAR HGB CONC 32.9 g/dl (32-36); MEAN PLATELET VOLUME 9.2 fL (7.4-10.4); PLATELET COUNT 211 K/uL (130-400); WHITE BLOOD COUNT 4.94 K/uL (4.8-10.8)
[2016-08-11 06:51] LABS: BUN/CREATININE RATIO 17.2 (10-20); CREATININE 0.58 mg/dl (0.60-1.20); POTASSIUM 3.4 mmol/L (3.5-5.1)
[2016-08-11 06:53] LABS: CHOLESTEROL/HDL RATIO 1.7
[2016-08-11] MEDS: ALBUT/IPRATROP 3MG/0.5MG NEB 3 ML VIAL INH SCH ×4 (07:07→19:45)
[2016-08-11] MEDS: FLUTICASONE PROPIONATE NA SPR 16 GM BTL SCH ×2 (08:41→20:10)
[2016-08-11] MEDS: BUDESONIDE/FORMOTEROL FUMARATE 160/4.5 60 PUFFS/INHALER INH SCH ×2 (08:41→20:10)
[2016-08-11] MEDS: CITALOPRAM 40 MG TAB PO SCH (08:42)
[2016-08-11] MEDS: PHENYTOIN SODIUM ER 100 MG CAP PO SCH ×2 (08:43→20:06)
[2016-08-11] MEDS: ASPIRIN 81 MG ECTAB PO SCH (08:44)
[2016-08-11] MEDS: CYANOCOBALAMIN 500 MCG TAB (VIT B-12) PO SCH (08:45)
[2016-08-11] MEDS: PANTOprazole SOD 40 MG TAB PO SCH (08:45)
[2016-08-11] MEDS: DOXYCYCLINE HYCLATE 100 MG CAP PO SCH ×2 (08:46→20:06)
[2016-08-11] MEDS: RANITIDINE HCL 150 MG TAB PO SCH (08:47)
[2016-08-11] MEDS ORDERED: AZITHROMYCIN 250 MG TAB PO SCH (09:00)
[2016-08-11] MEDS ORDERED: POTASSIUM CHLORIDE 10 MEQ TABCR PO STA (10:34)
--- NOTE | 2016-08-11 11:36 | Progress Note ---
Internal Med Progress Note Date of Service: Aug 11, 2016. Provider Documentation: SUBJECTIVE: The patient was seen and examined Feels a little better today SOB and Wheezing on exertion No Cough or palpitation OBJECTIVE: Vital Signs-as noted below Exam: General-No distress at rest Eyes-normal ENT-normal Neck-Supple Lungs-Minimally decreased breath sound bilaterally Minimal to no wheezing Heart-Regular,no murmur Abdomen-Benign,no masses,bowel sound present Extremities-No edema Neuro-AAOx3 Lab data as noted below. ASSESSMENT & PLAN: Exacerbation of Asthma Presented with SOB and Chest tightness and productive cough Started on Nebs,Steroid and oral Doxycycline - D. Dimer positive - CTA pending to r/o PE - Lasix 20mg IV x 1, dose further diuresis per patient response - initial troponin < 0.015 -> 0.031, will continue to cycle; EKG demonstrates a LBBB which is old - s/p full dose ASA with EMS, will continue with 81mg daily -clinically better -continue current treatment H/O stress induced cardiomyopathy with normalization of EF on echo from 10/2015 -SOB may be complicated by fluid overload -received a dose of Laxis -check resting echo QTC PROLONGATION - check EKG daily - avoid QTC prolonging agents when able -has been on Doxycycline EPILEPSY - controlled, continue phenobarbital and Dilantin -Dilantin level in therapeutic and Phenobar level in borderline low HYPOTHYROIDISM - continue levothyroxine GERD - continue PPI and H2 nimisha DEPRESSION, ANXIETY - continue home meds DVT PROPHYLAXIS - SQ Lovenox DISPO - The patient will be placed as observation status for now until further work up is complete. -Clinically better Vital Signs: Date Time Temp Pulse Resp B/P (MAP) Pulse Ox O2 Delivery O2 Flow Rate FiO2 08/11/16 08:06 36.6 71 20 96/59 (71) 96 Room Air 08/11/16 07:08 84 16 97 Room Air 08/11/16 04:00 94 Room Air 08/11/16 02:44 36.5 73 20 109/61 (77) 94 Room Air 08/11/16 00:31 36.6 73 18 113/60 (77) 94 Room Air 08/11/16 00:01 94 Room Air 08/10/16 20:00 98 Nasal Cannula 2.0 08/10/16 19:08 68 14 98 Nasal Cannula 2.0 08/10/16 18:44 36.9 65 20 131/68 (89) 97 Room Air 08/10/16 16:00 36.7 67 18 123/61 (81) 95 Room Air 08/10/16 16:00 Room Air 08/10/16 13:52 74 12 97 Room Air 08/10/16 13:12 36.5 70 22 137/61 (86) 100 Nasal Cannula 4.0 08/10/16 12:35 67 16 119/65 100 08/10/16 12:15 100 Nasal Cannula 2.0 Lab Results: Results Past 24 Hours Test 08/10/16 15:00 08/10/16 16:08 08/10/16 21:00 08/10/16 21:30 Range/Units Creatine Kinase MB Ratio 0-3.0 Creatine Kinase MB 3.3 2.7 0.5-3.6 ng/ml Troponin I < 0.015 < 0.015 0-0.045 ng/ml Test 08/11/16 05:55 Range/Units White Blood Count 4.94 4.8-10.8 K/uL Red Blood Count 4.20 4.2-5.4 M/uL Hemoglobin 12.9 12.0-16.0 g/dL Hematocrit 39.2 37-47 % Mean Corpuscular Volume 93.3 80-100 fL Mean Corpuscular Hemoglobin 30.7 25-34 pg Mean Corpuscular Hemoglobin Concent 32.9 32-36 g/dl RDW Standard Deviation 46.9 36.4-46.3 fL RDW Coefficient of Variation 13.7 11.5-14.5 % Platelet Count 211 130-400 K/uL Mean Platelet Volume 9.2 7.4-10.4 fL Sodium Level 142 136-145 mmol/L Potassium Level 3.4 3.5-5.1 mmol/L Chloride Level 106 98-107 mmol/L Carbon Dioxide Level 27 21-32 mmol/L Anion Gap 9.0 3-11 mmol/L Blood Urea Nitrogen 10 7-18 mg/dl Creatinine 0.58 0.60-1.20 mg/dl Est Creatinine Clear Calc Drug Dose 102.5 ml/min Estimated GFR () 113.7 Estimated GFR (Non- 98.1 BUN/Creatinine Ratio 17.2 10-20 Random Glucose 80 70-99 mg/dl Triglycerides Level 43 0-150 mg/dl Cholesterol Level 227 0-200 mg/dl HDL Cholesterol 137 mg/dl LDL Cholesterol, Calculated 81 mg/dl VLDL Cholesterol, Calculated 9 mg/dl Cholesterol/HDL Ratio 1.7
[2016-08-11 13:12] LABS: CALCIUM 8.5 mg/dl (8.5-10.1)
--- NOTE | 2016-08-11 15:06 | ECHOCARDIOGRAM REPORT ---
*NOTICE TO RECEIVING LIBERTARIAN AGENCY This information is strictly Confidential and protected under [place] law. [place] law prohibits you from making any further disclosure of this information unless further disclosure is expressly permitted by the written consent of the person to whom it pertains or is authorized by law. A general authorization for the release of medical or other information is not sufficient for this purpose. Hospital accepts no responsibility if the information is made available to any other person, INCLUDING THE PATIENT. Interpretation Summary * Name: SARITA KENNEY Study Date: 08/11/2016 10:33 AM BP: 119/65 mmHg * Patient Location: C.2T\S\S230\S\1 HR: 67 * : 1955 (M/d/yyyy) Gender: Female Height: 63 in * Age: 61 yrs Ethnicity: CA Weight: 187 lb * Ordering Physician: Angelica Dumont * Referring Physician: Self, Referred * Performed By: Edmar Aviles RCS * * Reason For Study: Chest pain * BSA: 1.9 m2 * -- Conclusions -- * Compared to previous study of 10/08/15: inferior wall hypokinesis is now present, anterior wall motion has normalized. * Normal LV chamber size and wall thickness. * Normal LV systolic function, EF 55-60%. * Moderate hypokinesis of the inferior and inferolateral conley, otherwise, normal wall motion. * Grade II diastolic dysfunction. * Aortic valve sclerosis mild, without significant aortic valvular stenosis. Procedure Details * Left Ventricle The left ventricle is normal in size. There is normal left ventricular wall thickness. Ejection Fraction = 55-60%. Moderate hypokinesis of the inferior and inferolateral conley, otherwise, normal wall motion. * Right Ventricle The right ventricular cavity size is normal (basal dimension <4.2 cm in right ventricular apical 4-chamber view). The right ventricular systolic function is normal as assessed by tricuspid annular plane systolic excursion (TAPSE) (normal >1.5 cm). * Atria The left atrial size is normal. Right atrial size is normal. No ASD detected; PFO is not assessed. * Mitral Valve The mitral valve is normal in structure and function. * Tricuspid Valve The tricuspid valve is normal in structure and function. * Aortic Valve The aortic valve is trileaflet. Aortic valve sclerosis mild, without significant aortic valvular stenosis. There is no significant aortic regurgitation. * Pulmonic Valve The pulmonary valve is not well seen, but the Doppler examination is normal without significant regurgitation or stenosis. * Great Vessels The aortic root is not well visualized. * Pericardium/Pleural There is no pericardial effusion. * Left Ventricular Diastolic Function Diastolic dysfunction, Grade II (pseudonormalization pattern). * * MMode 2D Measurements and Calculations * IVSd 0.99 cm * * LVIDd 4.8 cm * LVIDs 3.8 cm * LVPWd 0.85 cm * * IVS/LVPW 1.2 * FS 21.5 % * EDV(Teich) 108.9 ml * ESV(Teich) 61.6 ml * EF(Teich) 43.4 % * * EDV(cubed) 112.4 ml * ESV(cubed) 54.5 ml * EF(cubed) 51.6 % * * LV mass(C)d 153.9 grams * LV mass(C)dI 81.9 grams/m\S\2 * * SV(Teich) 47.3 ml * SI(Teich) 25.2 ml/m\S\2 * SV(cubed) 58.0 ml * SI(cubed) 30.8 ml/m\S\2 * * LVAd ap4 29.2 cm\S\2 * LVLd ap4 8.7 cm * EDV(MOD-sp4) 77.7 ml * EDV(sp4-el) 83.2 ml * LVAs ap4 18.1 cm\S\2 * LVLs ap4 7.5 cm * ESV(MOD-sp4) 36.0 ml * ESV(sp4-el) 37.0 ml * EF(MOD-sp4) 53.7 % * EF(sp4-el) 55.6 % * * LVAd ap2 34.4 cm\S\2 * LVLd ap2 9.0 cm * EDV(MOD-sp2) 106.6 ml * EDV(sp2-el) 111.6 ml * LVAs ap2 16.4 cm\S\2 * LVLs ap2 7.2 cm * ESV(MOD-sp2) 31.5 ml * ESV(sp2-el) 31.8 ml * EF(MOD-sp2) 70.4 % * EF(sp2-el) 71.5 % * * LVLd %diff 3.3 % * EDV(MOD-bp) 91.9 ml * LVLs %diff -5.51 % * ESV(MOD-bp) 34.5 ml * EF(MOD-bp) 62.4 % * * SV(MOD-sp4) 41.7 ml * SI(MOD-sp4) 22.2 ml/m\S\2 * * SV(MOD-sp2) 75.1 ml * SI(MOD-sp2) 39.9 ml/m\S\2 * * SV(MOD-bp) 57.4 ml * SI(MOD-bp) 30.5 ml/m\S\2 * * SV(sp4-el) 46.3 ml * SI(sp4-el) 24.6 ml/m\S\2 * * SV(sp2-el) 79.7 ml * SI(sp2-el) 42.4 ml/m\S\2 * * * * * Doppler Measurements and Calculations * MV E max octavia 91.7 cm/sec * MV A max octavia 69.0 cm/sec * * MV E/A 1.3 * * MV dec time 0.19 sec * * Ao V2 max 206.7 cm/sec * Ao max PG 17.1 mmHg * Ao max PG (full) 10.2 mmHg * * LV V1 max PG 6.9 mmHg * LV V1 mean PG 3.6 mmHg * * LV V1 max 131.0 cm/sec * LV V1 mean 86.1 cm/sec * LV V1 VTI 31.7 cm * * TR max octavia 238.9 cm/sec * * *
--- NOTE | 2016-08-11 16:03 | Cardiology Consultation ---
Cardiology Consultation Date of Service Aug 11, 2016. Cardiology Consultation Full consult to be dictated (system currently down): Assessment: 1. sob and chest discomfort with exertion x 1 week 2. new inferior/inferolateral wall hypokinesis 3. hx of chronic LBBB 4. hx of takutsubo cardiomyopathy 5. asthma Plan: npo after midnight cardiac cath in AM unable to give BB due to relative hypotension and bradycardia will start nitro paste also gently IVF overnight for bp control no objective finding of active ischemia so no role for heparin at this point cont daily asa
[2016-08-11] MEDS: NITROGLYCERIN OINT 2% 1GM PACKET EXT SCH ×2 (18:00→23:58)
[2016-08-11] MEDS: MONTELUKAST SOD 10 MG TAB PO SCH (20:06)
[2016-08-11] MEDS: ENOXAPARIN 40 MG/0.4 ML SYR SC SCH (20:06)
[2016-08-11] MEDS: PHENOBARBITAL 32.4 MG TAB PO SCH (20:10)
[2016-08-12] VITALS (8 sets, daily range): BP systolic 94–109; BP diastolic 55–65; PULSE 74–82; TEMP 36.7–36.9; O2SAT 93–97
[2016-08-12] MEDS: LEVOTHYROXINE 100 MCG TAB PO SCH (05:37)
[2016-08-12] MEDS: NITROGLYCERIN OINT 2% 1GM PACKET EXT SCH (05:37)
[2016-08-12] MEDS: ALBUT/IPRATROP 3MG/0.5MG NEB 3 ML VIAL INH SCH ×3 (06:11→15:00)
[2016-08-12] MEDS: ASPIRIN 81 MG ECTAB PO SCH (07:59)
[2016-08-12] MEDS: PHENYTOIN SODIUM ER 100 MG CAP PO SCH (07:59)
[2016-08-12] MEDS: BUDESONIDE/FORMOTEROL FUMARATE 160/4.5 60 PUFFS/INHALER INH SCH (08:00)
[2016-08-12] MEDS: FLUTICASONE PROPIONATE NA SPR 16 GM BTL SCH (08:00)
[2016-08-12] MEDS ORDERED: NITROGLYCERIN/D5W 100MCG/ML 20ML SYR ONE (08:44)
[2016-08-12] MEDS ORDERED: MIDAZOLAM HCL 1 MG/ML 2ML VIAL ONE (08:44)
[2016-08-12] MEDS ORDERED: NiCARDipine HCL INJ 2.5 MG/ML 10 ML AMP ONE (08:44)
[2016-08-12] MEDS ORDERED: FENTANYL CITRATE INJ 50 MCG/1 ML 2 ML VIAL ONE (08:44)
[2016-08-12] MEDS ORDERED: HEPARIN SOD (PORCINE) 1000 UNIT/ML 10 ML VIAL ONE (08:44)
[2016-08-12] MEDS: CYANOCOBALAMIN 500 MCG TAB (VIT B-12) PO SCH ×2 (09:00→09:46)
[2016-08-12] MEDS ORDERED: SODIUM CHLORIDE 0.9% 1000ML 250 ML IV PRN (09:22)
[2016-08-12] MEDS ORDERED: SODIUM CHLORIDE 0.9% 1000ML 1,000 ML IV SCH ×2 (09:22)
[2016-08-12] MEDS ORDERED: ATROPINE SULFATE 0.1 MG/ML 5ML SYR IV PRN (09:30)
[2016-08-12] MEDS ORDERED: ONDANSETRON INJ 2 MG/ML 2 ML VIAL IV PRN (09:30)
[2016-08-12] MEDS ORDERED: DC ALL ANTICOAGULANTS ONE (09:30)
[2016-08-12] MEDS ORDERED: ACETAMINOPHEN 325 MG TAB PO PRN (09:30)
--- NOTE | 2016-08-12 09:31 | Cardiac Catheterization ---
Procedure Note Procedure Date Aug 12, 2016. Pre-Procedure Diagnosis Angina, Cardiomyopathy AUC Score 7 Post-Procedure Diagnosis Normal Coronary Arteries, Normal LV Systolic Function, Normal Intracardiac Pressures Procedure(s) Performed Coronary Angiography, Left Heart Cath, LV Angiography Orchestra Leader Dr. Sorensen Admissions Manager(s) None Estimated Blood Loss None Medication(s) Heparin, Versed, Lidocaine 1% Summary of Findings Normal Coronaries Hemodynamics Rest Ao: Final Ao: 126/64 LV: 124/17 Recommendations Medical therapy and/or Counseling Specimens None Radiation Exposure (mGy) 668 Contrast (mls) 96 Fluids (cc crystalloids) 34 Procedural Complication(s) None Disposition Concrete Paving Supervisor Holding/Recovery ACC Data Cardiac Status Clinical evaluation leading to the procedure CAD Presntation: Non STEMI Anginal Classification: CCS II Heart Failure: No Cardiogenic Shock w/in 24Hrs: No Cardiac Arrest w/in 24Hrs: No Imaging studies past 6 months: Yes Stress studies past 6 months: No Coronary Anatomy Dominant: Right Left Main (% Stenosis): Normal LAD (% Stenosis): Normal Circumflex (% Stenosis): Normal RCA (% Stenosis): Normal Left Ventricular Angiography EF (%): 60 Mitral Regurgitation: None Diagnostic Status: Urgent Closure Device Percutaneous Entry Location: Brachial Closure Device: Radial Band Recommendations: Medical therapy and/or Counseling
[2016-08-12] MEDS: RANITIDINE HCL 150 MG TAB PO SCH (09:46)
[2016-08-12] MEDS: PANTOprazole SOD 40 MG TAB PO SCH (09:46)
[2016-08-12] MEDS: DOXYCYCLINE HYCLATE 100 MG CAP PO SCH (09:47)
[2016-08-12] MEDS: CITALOPRAM 40 MG TAB PO SCH (09:47)
--- NOTE | 2016-08-12 09:53 | Cardiology Consultation ---
Cardiology Consultation Date of Service Aug 11, 2016. Cardiology Consultation HPI: 61 yo F presented with several days of exertional chest pain and sob. Worse when climbing stairs. resolved with rest. no radiations, diaphoresis, palpitations, lightheadedness dizziness or syncope. Similar to episode of 09/30. After admission, echocardiogram obtained showing new inferior/inferolateral hypokinesis. Pt seen and examined on 11/11/16. Past Medical/Surgical History Medical Problems: (1) Age related osteoporosis Status: Chronic (2) Asthma Status: Chronic (3) Depression Status: Chronic (4) Epilepsy Permanent Comment: General, convulsive Status: Chronic (5) EDWIN (generalized anxiety disorder) Status: Chronic (6) GERD (gastroesophageal reflux disease) Status: Chronic (7) IBS (irritable bowel syndrome) Status: Chronic (8) Stress-induced cardiomyopathy Permanent Comment: hx of EF 45-50% that normalized on echo from 10/2015 Status: Chronic Surgical Problems: (1) H/O sinus surgery Status: Chronic (2) H/O: hysterectomy Status: Chronic (3) History of ear surgery Status: Chronic (4) Hx of breast biopsy Status: Chronic Family History Diabetes mellitus MOTHER FH: lung cancer AUNT Hypertension FATHER Social History Smoking Status: Never Smoker Alcohol Use: occasionally Housing status: other Occupational Status: unemployed Immunizations History of Influenza Vaccine: Yes Influenza Vaccine Date: Jan 14, 2016 History of Tetanus Vaccine?: Yes (UTD) Tetanus Immunization Date: Oct 06, 2007 Multi-Drug Resistant Organisms History of MDRO: No Allergies Coded Allergies: Clemastine (Verified Allergy, Unknown, ITCHING, 08/10/16) Sulfa Antibiotics (Verified Allergy, Unknown, RASH AND ITCHY, 08/10/16) [place] (Verified Allergy, Unknown, EMIRATI [place] ALLERGY, + ALLERGY TEST , 08/10/16) Home Medications Scheduled Aspirin (Aspirin EC Low Dose), 81 MG PO DAILY Budesonide/Formoterol Fumarate (Symbicort 160/4.5 Inhaler ), 2 PUFFS INH BID Citalopram (Citalopram Hydrobromide), 40 MG PO QAM Cyanocobalamin (Vitamin B-12 1000 Mcg), 1 TAB PO QAM Fluticasone Propionate (Nasal) (Flonase Allergy Relief), 1 SPRAY NA BID Folic Acid (Folvite), 1 MG PO QAM Levothyroxine Sodium (Levothyroxine Sodium), 100 MCG PO DAILY Montelukast Sodium (Singulair), 10 MG PO QPM Pantoprazole (Protonix), 40 MG PO QAM Phenobarbital (Phenobarbital), 97.2 MG PO HS Phenytoin Sodium (Dilantin), 200 MG PO BID Ranitidine Hcl (Zantac), 150 MG PO DAILY Scheduled PRN Albuterol Hfa (Ventolin Hfa), 2 PUFFS INH Q4H PRN for SOB/Wheezing Furosemide (Lasix), 20 MG PO DAILY PRN for edema Ipratropium-Albuterol (Duoneb), 1 TREATMENT INH Q4H PRN for SOB/Wheezing Review of Systems ROS per HPI, all other systems reviewed and negative Physical Exam Vital Signs Date Time Temp Pulse Resp B/P (MAP) Pulse Ox O2 Delivery O2 Flow Rate FiO2 08/10/16 13:12 36.5 70 22 137/61 (86) 100 Nasal Cannula 4.0 08/10/16 12:35 67 16 119/65 100 08/10/16 12:15 100 Nasal Cannula 2.0 08/10/16 11:14 67 08/10/16 10:41 73 16 119/65 100 Room Air 08/10/16 10:41 100 Nasal Cannula 2.0 08/10/16 09:09 71 18 124/68 97 Room Air 08/10/16 08:47 73 16 116/65 99 Room Air 08/10/16 07:01 72 16 103/68 99 Room Air 08/10/16 06:40 98 Room Air 08/10/16 06:40 98 Room Air 08/10/16 06:37 74 08/10/16 06:37 97 Room Air 08/10/16 06:32 36.6 75 18 137/81 97 Room Air General Appearance: no apparent distress Head: normocephalic Eyes: normal inspection ENT: hearing grossly normal Neck: supple, no JVD Respiratory/Chest: + decreased breath sounds, + crackles (faint, BL bases ) Cardiovascular: regular rate, rhythm, + pertinent finding (+1-2 ankle edema L > R ) Abdomen/GI: normal bowel sounds, non tender, soft Extremities/Musculoskelatal: normal inspection, no calf tenderness Neurologic/Psych: no motor/sensory deficits, alert, normal mood/affect, oriented x 3 Skin: normal color, warm/dry Diagnostics Laboratory Results Results Past 24 Hours Test 08/10/16 06:08 08/10/16 09:16 08/10/16 09:20 08/10/16 09:35 Range/Units White Blood Count 5.51 4.8-10.8 K/uL Red Blood Count 4.42 4.2-5.4 M/uL Hemoglobin 13.9 12.0-16.0 g/dL Hematocrit 41.4 37-47 % Mean Corpuscular Volume 93.7 80-100 fL Mean Corpuscular Hemoglobin 31.4 25-34 pg Mean Corpuscular Hemoglobin Concent 33.6 32-36 g/dl Platelet Count 233 130-400 K/uL Mean Platelet Volume 9.3 7.4-10.4 fL Neutrophils (%) (Auto) 35.5 % Lymphocytes (%) (Auto) 38.1 % Monocytes (%) (Auto) 13.2 % Eosinophils (%) (Auto) 12.3 % Basophils (%) (Auto) 0.7 % Neutrophils # (Auto) 1.95 1.4-6.5 K/uL Lymphocytes # (Auto) 2.10 1.2-3.4 K/uL Monocytes # (Auto) 0.73 0.11-0.59 K/uL Eosinophils # (Auto) 0.68 0-0.5 K/uL Basophils # (Auto) 0.04 0-0.2 K/uL RDW Standard Deviation 46.5 36.4-46.3 fL RDW Coefficient of Variation 13.5 11.5-14.5 % Immature Granulocyte % (Auto) 0.2 % Immature Granulocyte # (Auto) 0.01 0.00-0.02 K/uL Prothrombin Time 11.8 9.0-12.0 SECONDS Prothromb Time International Ratio 1.1 0.9-1.1 Activated Partial Thromboplast Time 27.3 21.0-31.0 SECONDS Partial Thromboplastin Ratio 1.1 Sodium Level 139 136-145 mmol/L Potassium Level 3.6 3.5-5.1 mmol/L Chloride Level 102 98-107 mmol/L Carbon Dioxide Level 30 21-32 mmol/L Anion Gap 7.0 3-11 mmol/L Blood Urea Nitrogen 12 7-18 mg/dl Creatinine 0.70 0.60-1.20 mg/dl Est Creatinine Clear Calc Drug Dose 85.0 ml/min Estimated GFR () 106.9 Estimated GFR (Non- 92.2 BUN/Creatinine Ratio 17.1 10-20 Random Glucose 83 70-99 mg/dl Estimated Average Glucose 105 mg/dl Hemoglobin A1c 5.3 4.5-5.6 % Calcium Level 9.0 8.5-10.1 mg/dl Total Bilirubin 0.3 0.2-1 mg/dl Aspartate Amino Transf (AST/SGOT) 16 15-37 U/L Alanine Aminotransferase (ALT/SGPT) 26 12-78 U/L Alkaline Phosphatase 116 45-117 U/L Troponin I < 0.015 0.031 0-0.045 ng/ml Pro-B-Type Natriuretic Peptide 63 0-900 pg/ml Total Protein 7.6 6.4-8.2 gm/dl Albumin 4.0 3.4-5.0 gm/dl Globulin 3.6 2.5-4.0 gm/dl Albumin/Globulin Ratio 1.1 0.9-2 Phenytoin (Dilantin) Level 16.8 10-20 mcg/mL Phenobarbital Level 12.7 15.0-40.0 mcg/mL Bedside Troponin I 0.030 0-0.045 ng/ml Urine Color YELLOW Urine Appearance CLEAR CLEAR Urine pH 7.0 4.5-7.5 Urine Specific [place] 1.007 1.000-1.030 Urine Protein NEG NEG Urine Glucose (UA) NEG NEG Urine Ketones NEG NEG Urine Occult Blood NEG NEG Urine Nitrite NEG NEG Urine Bilirubin NEG NEG Urine Urobilinogen NEG NEG Urine Leukocyte Esterase TRACE NEG Urine WBC (Auto) 1-5 0-5 /hpf Urine RBC (Auto) 0-4 0-4 /hpf Urine Hyaline Casts (Auto) 0 0-5 /lpf Urine Epithelial Cells (Auto) 0-5 0-5 /lpf Urine Bacteria (Auto) NEG NEG Test 08/10/16 11:20 Range/Units D-Dimer 800 0-500 ug/L FEU Diagnostic Radiology CXR IMPRESSION: 1. Pulmonary vascular congestion without overt pulmonary edema. 2. Linear bibasilar opacities suggestive of atelectasis. Assessment: 1. sob and chest discomfort with exertion x 1 week 2. new inferior/inferolateral wall hypokinesis 3. hx of chronic LBBB 4. hx of takutsubo cardiomyopathy 5. asthma Plan: npo after midnight cardiac cath in AM unable to give BB due to relative hypotension and bradycardia will start nitro paste also gently IVF overnight for bp control no objective finding of active ischemia so no role for heparin at this point cont daily asa
[2016-08-12 11:03] LABS: BUN/CREATININE RATIO 19.1 (10-20); CREATININE 0.66 mg/dl (0.60-1.20); MAGNESIUM 1.9 mg/dl (1.8-2.4); POTASSIUM 3.8 mmol/L (3.5-5.1)
[2016-08-12 11:08] LABS: CALCIUM 8.5 mg/dl (8.5-10.1)
--- NOTE | 2016-08-12 13:27 | Cardiology Follow-Up ---
Subjective Subjective Date of Service: Aug 12, 2016. Pt evaluation today including: conversation w/ patient, physical exam, chart review, lab review, review of studies, review of inpatient medication list Additional Details: Pt seen and examined, s/p cath. States that she's feeling well. Denies cp, palpitations, lightheadedness or dizziness. SOB still not back to baseline. Tele reviewed: sinus rhythm without arrhythmia or significant ectopy. Problem List Medical Problems: (1) Acute bronchitis Status: Acute (2) Asthma with exacerbation Status: Acute (3) Dependent edema Status: Acute (4) Shortness of breath Status: Acute (5) Shortness of breath Status: Acute (6) SOB (shortness of breath) Status: Acute (7) Tachycardia Status: Acute Review of Systems Respiratory: + shortness of breath, No see HPI, No cough, No sputum, No wheezing, No dyspnea on exertion, No dyspnea at rest, No hemoptysis, No problem reported Cardiac: + chest pain, No see HPI, No orthopnea, No PND, No edema, No claudication, No palpitations, No problem reported Objective Vital Signs Last Vital Signs Documentation Date Time Temp Pulse Resp B/P (MAP) Pulse Ox O2 Delivery O2 Flow Rate FiO2 08/12/16 12:07 36.7 74 22 94/55 (68) 96 Room Air 08/10/16 20:00 2.0 Physical Exam: General Appearance: WD/WN, no apparent distress Eyes: bilateral eyes normal inspection, bilateral eyes PERRL, bilateral eyes EOMI ENT: normal ENT inspection, hearing grossly normal, pharynx normal Neck: supple, no adenopathy, thyroid normal, no JVD, no carotid bruits, trachea midline Respiratory/Chest: chest non-tender, normal breath sounds, no respiratory distress, no accessory muscle use Cardiovascular: regular rate, rhythm, no edema, no gallop, no JVD, no murmur Abdomen: normal bowel sounds, non tender, soft, no organomegaly Extremities: normal inspection, no pedal edema, no calf tenderness Neurologic/Psychiatric: 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 inferior wall motion abnormality on echo unclear etiology no significant coronary artery disease atypical presentation for stress induced cardiomyopathy, however, a possibility no room for BB cont ssri no further cardiac testing or intervention discussed the need for reducing stress in her daily life ok to d/c to home from cardiac standpoint
--- NOTE | 2016-08-12 13:43 | Progress Note ---
Internal Med Progress Note Date of Service: Aug 12, 2016. Provider Documentation: SUBJECTIVE: The patient was seen and examined Feels a little better today SOB and Wheezing on exertion No Cough or palpitation S/P Cardiac Cath today -no significant coronary disease OBJECTIVE: Vital Signs-as noted below Exam: General-No distress at rest Eyes-normal ENT-normal Neck-Supple Lungs-Minimally decreased breath sound bilaterally Minimal to no wheezing Heart-Regular,no murmur Abdomen-Benign,no masses,bowel sound present Extremities-No edema Neuro-AAOx3 Lab data as noted below. ASSESSMENT & PLAN: Exacerbation of Asthma Presented with SOB and Chest tightness and productive cough Started on Nebs,Steroid and oral Doxycycline - D. Dimer positive - CTA pending to r/o PE - Lasix 20mg IV x 1, dose further diuresis per patient response - initial troponin < 0.015 -> 0.031, will continue to cycle; EKG demonstrates a LBBB which is old - s/p full dose ASA with EMS, will continue with 81mg daily -clinically much better -continue current treatment H/O stress induced cardiomyopathy with normalization of EF on echo from 10/2015 -SOB may be complicated by fluid overload -received a dose of Laxis -check resting echo:::Compared to previous study of 10/08/15: inferior wall hypokinesis is now present, anterior wall motion has normalized. * Normal LV chamber size and wall thickness. * Normal LV systolic function, EF 55-60%. * Moderate hypokinesis of the inferior and inferolateral conley, otherwise, normal wall motion. * Grade II diastolic dysfunction. * Aortic valve sclerosis mild, without significant aortic valvular stenosis. S/P Cardiac Cath-No significant Coronary Artery Disease QTC PROLONGATION - check EKG daily - avoid QTC prolonging agents when able -has been on Doxycycline EPILEPSY - controlled, continue phenobarbital and Dilantin -Dilantin level in therapeutic and Phenobar level in borderline low HYPOTHYROIDISM - continue levothyroxine GERD - continue PPI and H2 nimisha DEPRESSION, ANXIETY - continue home meds DVT PROPHYLAXIS - SQ Lovenox DISPO - The patient will be placed as observation status for now until further work up is complete. -Clinically better-discharge today Vital Signs: Date Time Temp Pulse Resp B/P (MAP) Pulse Ox O2 Delivery O2 Flow Rate FiO2 08/12/16 12:07 36.7 74 22 94/55 (68) 96 Room Air 08/12/16 12:00 Room Air 08/12/16 11:04 82 16 94 Room Air 08/12/16 09:33 74 16 112/61 (78) 96 Room Air 08/12/16 09:28 76 16 123/56 (78) 96 Room Air 08/12/16 09:23 73 16 120/58 (78) 96 Room Air 08/12/16 09:18 74 16 120/56 (77) 98 Mask 08/12/16 08:00 Room Air 08/12/16 07:48 36.9 74 20 100/65 (77) 95 Room Air 08/12/16 06:11 74 16 96 Room Air 08/12/16 04:10 08/12/16 04:00 Room Air 08/12/16 03:52 36.7 79 18 109/64 (79) 93 Room Air 08/12/16 00:00 Room Air 08/11/16 23:50 36.6 72 18 111/57 (75) 96 Room Air 08/11/16 20:00 36.5 72 20 155/61 (92) 95 Room Air 08/11/16 20:00 Room Air 08/11/16 19:45 71 16 96 Room Air 08/11/16 16:09 36.5 71 20 96/47 (63) 98 Room Air 08/11/16 16:00 Room Air 08/11/16 15:34 81 16 97 Room Air Lab Results: Results Past 24 Hours Test 08/12/16 10:12 Range/Units Sodium Level 142 136-145 mmol/L Potassium Level 3.8 3.5-5.1 mmol/L Chloride Level 106 98-107 mmol/L Carbon Dioxide Level 30 21-32 mmol/L Anion Gap 6.0 3-11 mmol/L Blood Urea Nitrogen 13 7-18 mg/dl Creatinine 0.66 0.60-1.20 mg/dl Est Creatinine Clear Calc Drug Dose 88.7 ml/min Estimated GFR () 109.0 Estimated GFR (Non- 94.0 BUN/Creatinine Ratio 19.1 10-20 Random Glucose 85 70-99 mg/dl Calcium Level 8.5 8.5-10.1 mg/dl Magnesium Level 1.9 1.8-2.4 mg/dl
[2016-08-12] MEDS ORDERED: DXY100 PO (13:48)
[2016-08-12] MEDS ORDERED: PRD20 PO (13:48)
--- NOTE | 2016-08-12 13:51 | Discharge Instructions ---
Discharge Instructions Date of Service Aug 12, 2016. Admission Reason for Admission: SOB Discharge Discharge Diagnosis / Problem: Asthma Exacerbation,CHF Discharge Goals Goal(s): Prevent Disease Progression Activity Recommendations Activity Limitations: resume your previous activity . Instructions / Follow-Up Instructions / Follow-Up Dr Villavicencio on 08/20/16 at 10:45 AM Current Hospital Diet Patient's current hospital diet: AHA Diet (Heart Healthy) Discharge Diet Recommended Diet: AHA Diet (Heart Healthy), Low Sodium Diet (2gm Na) Fluid Restriction: 1500 ml (6 cups) Pending Studies Studies pending at discharge: no Laboratory Results Hemoglobin A1c Test 08/10/16 06:08 Range/Units Estimated Average Glucose 105 mg/dl Hemoglobin A1c 5.3 4.5-5.6 % Lipid Panel Test 08/11/16 05:55 Range/Units Triglycerides Level 43 0-150 mg/dl Cholesterol Level 227 H 0-200 mg/dl HDL Cholesterol 137 mg/dl Cholesterol/HDL Ratio 1.7 LDL Cholesterol, Calculated 81 mg/dl Medical Emergencies . Who to Call and When: Medical Emergencies: If at any time you feel your situation is an emergency, please call 911 immediately. . Non-Emergent Contact Non-Emergency issues call your: Primary Care Provider . Past History Medical & Surgical History: (1) Epilepsy (2) EDWIN (generalized anxiety disorder) (3) Depression (4) IBS (irritable bowel syndrome) (5) Asthma (6) Stress-induced cardiomyopathy (7) H/O: hysterectomy (8) Hx of breast biopsy (9) History of ear surgery (10) H/O sinus surgery . "Provider Documentation" section prepared by Jamaica Granda. . VTE Core Measure Inpt VTE Proph given/why not?: Enoxaparin (Lovenox)SQ
--- NOTE | 2016-08-13 07:12 | Discharge Summary ---
Discharge Summary Date of Service Aug 13, 2016. Discharge Summary Admission Date: Aug 10, 2016 at 11:48 Discharge Date: Aug 12, 2016 Discharge Disposition: Home Principal Diagnosis: Asthma Exacerbation,CHF Secondary Diagnoses/Problems: PLease see H&P and Hospital Progress note Consultations: Cardiology Medication Reconciliation New Medications: Doxycycline Hyclate (Doxycycline Hyclate) 100 Mg Cap 100 MG PO BID for 5 Days, #10 CAP Prednisone (Prednisone) 20 Mg Tab 20 MG PO UD for 10 Days, #12 TAB 2 po daily for 1 day,1 and a 1/2 po daily for 3 days,1 po daily for 3 days and then 1/2 po daily for 3 days Continued Medications: Albuterol Hfa (Ventolin Hfa) 200 Puffs/75085 Mcg Aers 2 PUFFS INH Q4H PRN for SOB/Wheezing Aspirin (Aspirin EC Low Dose) 81 Mg Ectab 81 MG PO DAILY Budesonide/Formoterol Fumarate (Symbicort 160/4.5 Inhaler ) Aero 2 PUFFS INH BID Citalopram (Citalopram Hydrobromide) 40 Mg Tab 40 MG PO QAM, TAB Cyanocobalamin (Vitamin B-12 1000 Mcg) 1,000 Mcg Tab 1 TAB PO QAM, TAB Fluticasone Propionate (Nasal) (Flonase Allergy Relief) 50 Mcg/Act Spr 1 SPRAY NA BID Folic Acid (Folvite) 1 Mg Tab 1 MG PO QAM, TAB Furosemide (Lasix) 20 Mg Tab 20 MG PO DAILY PRN for edema Ipratropium-Albuterol (Duoneb) 3 Ml Nebu 1 TREATMENT INH Q4H PRN for SOB/Wheezing, INHA Levothyroxine Sodium (Levothyroxine Sodium) 100 Mcg Tab 100 MCG PO DAILY Montelukast Sodium (Singulair) 10 Mg Tab 10 MG PO QPM, TAB Pantoprazole (Protonix) 40 Mg Tab 40 MG PO QAM, TAB Phenobarbital (Phenobarbital) 100 Mg Tab 97.2 MG PO HS Phenytoin Sodium (Dilantin) 100 Mg Cap 200 MG PO BID Ranitidine Hcl (Zantac) 150 Mg Tab 150 MG PO DAILY, TAB Admission Information HPI (per Admitting provider): 61 year old female who presents to the ER with reports of shortness of breath. Patient reports increased shortness of breath for one week. She has history of asthma and reports to using her nebulizer 4-6 times per day and has not had any improvement. Shortness of breath occurs with exertion as well as with rest. When is feeling short of breath she also reports associated chest tightness. She denies chest pain, pressure, or palpitations. She reports a cough productive for yellow sputum. She denies fever and chills. She reports mild lightheadedness and dizziness with standing but denies any syncopal events or diaphoresis. She reports some occasional cramping in her legs as well. She denies abdominal pain, nausea, vomiting, or diarrhea. No urinary symptoms. In the ER, patient's initial troponin was < 0.015 and went up to 0.031 after 3 hours. EKG does not show any acute ST changes. Past Medical/Surgical History Medical Problems: (1) Age related osteoporosis Status: Chronic (2) Asthma Status: Chronic (3) Depression Status: Chronic (4) Epilepsy Permanent Comment: General, convulsive Status: Chronic (5) EDWIN (generalized anxiety disorder) Status: Chronic (6) GERD (gastroesophageal reflux disease) Status: Chronic (7) IBS (irritable bowel syndrome) Status: Chronic (8) Stress-induced cardiomyopathy Permanent Comment: hx of EF 45-50% that normalized on echo from 10/2015 Status: Chronic Surgical Problems: (1) H/O sinus surgery Status: Chronic (2) H/O: hysterectomy Status: Chronic (3) History of ear surgery Status: Chronic (4) Hx of breast biopsy Status: Chronic Family History Diabetes mellitus MOTHER FH: lung cancer AUNT Hypertension FATHER Social History Smoking Status: Never Smoker Alcohol Use: occasionally Housing status: other Occupational Status: unemployed Immunizations History of Influenza Vaccine: Yes Influenza Vaccine Date: Jan 14, 2016 History of Tetanus Vaccine?: Yes (UTD) Tetanus Immunization Date: Oct 06, 2007 Multi-Drug Resistant Organisms History of MDRO: No Allergies Coded Allergies: Clemastine (Verified Allergy, Unknown, ITCHING, 08/10/16) Sulfa Antibiotics (Verified Allergy, Unknown, RASH AND ITCHY, 08/10/16) [place] (Verified Allergy, Unknown, [place] ALLERGY, + ALLERGY TEST , 08/10/16) Home Medications Scheduled Aspirin (Aspirin EC Low Dose), 81 MG PO DAILY Budesonide/Formoterol Fumarate (Symbicort 160/4.5 Inhaler ), 2 PUFFS INH BID Citalopram (Citalopram Hydrobromide), 40 MG PO QAM Cyanocobalamin (Vitamin B-12 1000 Mcg), 1 TAB PO QAM Fluticasone Propionate (Nasal) (Flonase Allergy Relief), 1 SPRAY NA BID Folic Acid (Folvite), 1 MG PO QAM Levothyroxine Sodium (Levothyroxine Sodium), 100 MCG PO DAILY Montelukast Sodium (Singulair), 10 MG PO QPM Pantoprazole (Protonix), 40 MG PO QAM Phenobarbital (Phenobarbital), 97.2 MG PO HS Phenytoin Sodium (Dilantin), 200 MG PO BID Ranitidine Hcl (Zantac), 150 MG PO DAILY Scheduled PRN Albuterol Hfa (Ventolin Hfa), 2 PUFFS INH Q4H PRN for SOB/Wheezing Furosemide (Lasix), 20 MG PO DAILY PRN for edema Ipratropium-Albuterol (Duoneb), 1 TREATMENT INH Q4H PRN for SOB/Wheezing Review of Systems ROS per HPI, all other systems reviewed and negative Physical Ex - H&P Physical Exam Vital Signs Date Time Temp Pulse Resp B/P (MAP) Pulse Ox O2 Delivery O2 Flow Rate FiO2 08/10/16 13:12 36.5 70 22 137/61 (86) 100 Nasal Cannula 4.0 08/10/16 12:35 67 16 119/65 100 08/10/16 12:15 100 Nasal Cannula 2.0 08/10/16 11:14 67 08/10/16 10:41 73 16 119/65 100 Room Air 08/10/16 10:41 100 Nasal Cannula 2.0 08/10/16 09:09 71 18 124/68 97 Room Air 08/10/16 08:47 73 16 116/65 99 Room Air 08/10/16 07:01 72 16 103/68 99 Room Air 08/10/16 06:40 98 Room Air 08/10/16 06:40 98 Room Air 08/10/16 06:37 74 08/10/16 06:37 97 Room Air 08/10/16 06:32 36.6 75 18 137/81 97 Room Air General Appearance: no apparent distress Head: normocephalic Eyes: normal inspection ENT: hearing grossly normal Neck: supple, no JVD Respiratory/Chest: + decreased breath sounds, + crackles (faint, BL bases ) Cardiovascular: regular rate, rhythm, + pertinent finding (+1-2 ankle edema L > R ) Abdomen/GI: normal bowel sounds, non tender, soft Extremities/Musculoskelatal: normal inspection, no calf tenderness Neurologic/Psych: no motor/sensory deficits, alert, normal mood/affect, oriented x 3 Skin: normal color, warm/dry Diagnostics - H&P Diagnostics Laboratory Results Results Past 24 Hours Test 08/10/16 06:08 08/10/16 09:16 08/10/16 09:20 08/10/16 09:35 Range/Units White Blood Count 5.51 4.8-10.8 K/uL Red Blood Count 4.42 4.2-5.4 M/uL Hemoglobin 13.9 12.0-16.0 g/dL Hematocrit 41.4 37-47 % Mean Corpuscular Volume 93.7 80-100 fL Mean Corpuscular Hemoglobin 31.4 25-34 pg Mean Corpuscular Hemoglobin Concent 33.6 32-36 g/dl Platelet Count 233 130-400 K/uL Mean Platelet Volume 9.3 7.4-10.4 fL Neutrophils (%) (Auto) 35.5 % Lymphocytes (%) (Auto) 38.1 % Monocytes (%) (Auto) 13.2 % Eosinophils (%) (Auto) 12.3 % Basophils (%) (Auto) 0.7 % Neutrophils # (Auto) 1.95 1.4-6.5 K/uL Lymphocytes # (Auto) 2.10 1.2-3.4 K/uL Monocytes # (Auto) 0.73 0.11-0.59 K/uL Eosinophils # (Auto) 0.68 0-0.5 K/uL Basophils # (Auto) 0.04 0-0.2 K/uL RDW Standard Deviation 46.5 36.4-46.3 fL RDW Coefficient of Variation 13.5 11.5-14.5 % Immature Granulocyte % (Auto) 0.2 % Immature Granulocyte # (Auto) 0.01 0.00-0.02 K/uL Prothrombin Time 11.8 9.0-12.0 SECONDS Prothromb Time International Ratio 1.1 0.9-1.1 Activated Partial Thromboplast Time 27.3 21.0-31.0 SECONDS Partial Thromboplastin Ratio 1.1 Sodium Level 139 136-145 mmol/L Potassium Level 3.6 3.5-5.1 mmol/L Chloride Level 102 98-107 mmol/L Carbon Dioxide Level 30 21-32 mmol/L Anion Gap 7.0 3-11 mmol/L Blood Urea Nitrogen 12 7-18 mg/dl Creatinine 0.70 0.60-1.20 mg/dl Est Creatinine Clear Calc Drug Dose 85.0 ml/min Estimated GFR () 106.9 Estimated GFR (Non- 92.2 BUN/Creatinine Ratio 17.1 10-20 Random Glucose 83 70-99 mg/dl Estimated Average Glucose 105 mg/dl Hemoglobin A1c 5.3 4.5-5.6 % Calcium Level 9.0 8.5-10.1 mg/dl Total Bilirubin 0.3 0.2-1 mg/dl Aspartate Amino Transf (AST/SGOT) 16 15-37 U/L Alanine Aminotransferase (ALT/SGPT) 26 12-78 U/L Alkaline Phosphatase 116 45-117 U/L Troponin I < 0.015 0.031 0-0.045 ng/ml Pro-B-Type Natriuretic Peptide 63 0-900 pg/ml Total Protein 7.6 6.4-8.2 gm/dl Albumin 4.0 3.4-5.0 gm/dl Globulin 3.6 2.5-4.0 gm/dl Albumin/Globulin Ratio 1.1 0.9-2 Phenytoin (Dilantin) Level 16.8 10-20 mcg/mL Phenobarbital Level 12.7 15.0-40.0 mcg/mL Bedside Troponin I 0.030 0-0.045 ng/ml Urine Color YELLOW Urine Appearance CLEAR CLEAR Urine pH 7.0 4.5-7.5 Urine Specific [place] 1.007 1.000-1.030 Urine Protein NEG NEG Urine Glucose (UA) NEG NEG Urine Ketones NEG NEG Urine Occult Blood NEG NEG Urine Nitrite NEG NEG Urine Bilirubin NEG NEG Urine Urobilinogen NEG NEG Urine Leukocyte Esterase TRACE NEG Urine WBC (Auto) 1-5 0-5 /hpf Urine RBC (Auto) 0-4 0-4 /hpf Urine Hyaline Casts (Auto) 0 0-5 /lpf Urine Epithelial Cells (Auto) 0-5 0-5 /lpf Urine Bacteria (Auto) NEG NEG Test 08/10/16 11:20 Range/Units D-Dimer 800 0-500 ug/L FEU Diagnostic Radiology CXR IMPRESSION: 1. Pulmonary vascular congestion without overt pulmonary edema. 2. Linear bibasilar opacities suggestive of atelectasis. Impression - H&P Impression Assessment and Plan SHORTNESS OF BREATH, CHEST TIGHTNESS - admit to tele - patient presenting with increasing shortness of breath x 1 week with associated chest tightness and productive cough; also noted to have increased ankle edema - hx of stress induced cardiomyopathy with normalization of EF on echo from 2015 - symptoms likely multifactorial due to asthma exacerbation and mild volume overload - D. Dimer positive - CTA pending to r/o PE - saturating well on room air - will start around the clock nebs, Prednisone 40mg PO x 5 days, empiric doxy ( used due to prolonged QTC) due to productive cough - Lasix 20mg IV x 1, dose further diuresis per patient response - initial troponin < 0.015 -> 0.031, will continue to cycle; EKG demonstrates a LBBB which is old - s/p full dose ASA with EMS, will continue with 81mg daily - check resting echo QTC PROLONGATION - check EKG daily - avoid QTC prolonging agents when able EPILEPSY - controlled, continue phenobarbital and Dilantin HYPOTHYROIDISM - continue levothyroxine GERD - continue PPI and H2 nimisha DEPRESSION, ANXIETY - continue home meds DVT PROPHYLAXIS - SQ Lovenox DISPO - The patient will be placed as observation status for now until further work up is complete. Attending Note: Patient is a 61 yr old female presents with history of worsening shortness of breath, Cough with yellowish expectoration, chest tightness and ankle edema Admits to drinking lot of water and doesn't restrict salt Physical Exam: General Appearance:Moderately built and nourished, no apparent distress Head: normocephalic, Atraumatic Eyes: normal inspection, EOMI, PERRL Neck: supple, Trachea midline Respiratory/Chest: Decreased breath sounds, +Expiratory wheezes, No accessory muscle use Cardiovascular: S1, S2, No murmur Abdomen/GI:Soft, Non tender, Bowel sounds present Extremities/Musculoskelatal:normal inspection, Trace edema Neurologic/Psych:AAOX3, grossly no focal neurological deficits Skin:normal color,warm Assessment and Plan: SOB, productive yellowish cough: Likely Asthma/COPD exacerbation H/O Asthma with chronic bronchitis and mucous plugging on prior bronchoscopies and CT Chest H/O stress induced cardiomyopathy with normalization of EF in Oct 2015 CTA: negative for PE Venous Doppler: Negative for DVT Continue IV Abx, bronchodilators and glucocorticoids Saturating well on room air Clinically doesn't seem to be volume overloaded, BNP:WNL Update ECHO May benefit from starting Spiriva upon discharge Advised to restrict salt in diet. Takes Lasix PRN for edema I personally reviewed the record. Patient is interviewed and examined at bedside. Patient's care is coordinated with Angelica Dumont HELICOPTER TECHNICIAN. Please refer to the documentation above for details of patient's presentation and for discussion of other issues. Advanced Directives Existing Living Will: No Existing Power of Gear Shaper Set Up Operator: No VTE Prophylaxis VTE Risk Assessment Done? Y/N: Yes Risk Level: Moderate Physical Exam (per Admitting): General Appearance: no apparent distress Head: normocephalic Eyes: normal inspection ENT: hearing grossly normal Neck: supple, no JVD Respiratory/Chest: + decreased breath sounds, + crackles (faint, BL bases ) Cardiovascular: regular rate, rhythm, + pertinent finding (+1-2 ankle edema L > R ) Abdomen/GI: normal bowel sounds, non tender, soft Extremities/Musculoskelatal: normal inspection, no calf tenderness Neurologic/Psych: no motor/sensory deficits, alert, normal mood/affect, oriented x 3 Skin: normal color, warm/dry Hospital Course Exacerbation of Asthma Presented with SOB and Chest tightness and productive cough Started on Nebs,Steroid and oral Doxycycline - D. Dimer positive - CTA pending to r/o PE - Lasix 20mg IV x 1, dose further diuresis per patient response - initial troponin < 0.015 -> 0.031, will continue to cycle; EKG demonstrates a LBBB which is old - s/p full dose ASA with EMS, will continue with 81mg daily -clinically much better -continue current treatment H/O stress induced cardiomyopathy with normalization of EF on echo from 10/2015 -SOB may be complicated by fluid overload -received a dose of [place] -check resting echo:::Compared to previous study of 10/08/15: inferior wall hypokinesis is now present, anterior wall motion has normalized. * Normal LV chamber size and wall thickness. * Normal LV systolic function, EF 55-60%. * Moderate hypokinesis of the inferior and inferolateral conley, otherwise, normal wall motion. * Grade II diastolic dysfunction. * Aortic valve sclerosis mild, without significant aortic valvular stenosis. S/P Cardiac Cath-No significant Coronary Artery Disease QTC PROLONGATION - check EKG daily - avoid QTC prolonging agents when able -has been on Doxycycline EPILEPSY - controlled, continue phenobarbital and Dilantin -Dilantin level in therapeutic and Phenobar level in borderline low HYPOTHYROIDISM - continue levothyroxine GERD - continue PPI and H2 nimisha DEPRESSION, ANXIETY - continue home meds DVT PROPHYLAXIS - SQ Lovenox DISPO - The patient will be placed as observation status for now until further work up is complete. -Clinically better-discharge today Total time spent on discharge = This includes examination of the patient, discharge planning, medication reconciliation, and communication with other providers. Discharge Instructions Date of Service Aug 12, 2016. Admission Reason for Admission: SOB Discharge Discharge Diagnosis / Problem: Asthma Exacerbation,CHF Discharge Goals Goal(s): Prevent Disease Progression Activity Recommendations Activity Limitations: resume your previous activity . Instructions / Follow-Up Instructions / Follow-Up Dr Villavicencio on 08/20/16 at 10:45 AM Current Hospital Diet Patient's current hospital diet: AHA Diet (Heart Healthy) Discharge Diet Recommended Diet: AHA Diet (Heart Healthy), Low Sodium Diet (2gm Na) Fluid Restriction: 1500 ml (6 cups) Pending Studies Studies pending at discharge: no Laboratory Results Hemoglobin A1c Test 08/10/16 06:08 Range/Units Estimated Average Glucose 105 mg/dl Hemoglobin A1c 5.3 4.5-5.6 % Lipid Panel Test 08/11/16 05:55 Range/Units Triglycerides Level 43 0-150 mg/dl Cholesterol Level 227 H 0-200 mg/dl HDL Cholesterol 137 mg/dl Cholesterol/HDL Ratio 1.7 LDL Cholesterol, Calculated 81 mg/dl Medical Emergencies . Who to Call and When: Medical Emergencies: If at any time you feel your situation is an emergency, please call 911 immediately. . Non-Emergent Contact Non-Emergency issues call your: Primary Care Provider . Past History Medical & Surgical History: (1) Epilepsy (2) EDWIN (generalized anxiety disorder) (3) Depression (4) IBS (irritable bowel syndrome) (5) Asthma (6) Stress-induced cardiomyopathy (7) H/O: hysterectomy (8) Hx of breast biopsy (9) History of ear surgery (10) H/O sinus surgery . "Provider Documentation" section prepared by Jamaica Granda. . VTE Core Measure Inpt VTE Proph given/why not?: Enoxaparin (Lovenox)SQ <Electronically signed by [place] Granda M.D.> Additional Copies To Asa Villavicencio D.O.
[2016-10-18] MEDS ORDERED: GUAISYP4 PO (11:17)
[2016-10-18] MEDS ORDERED: PRED10TA PO (11:17)
[2016-10-18] MEDS ORDERED: SPRIN INH (11:17)
[2016-10-18] MEDS ORDERED: OXGN (11:17)
[2016-10-18] MEDS ORDERED: RANITAB6 PO (11:24)
== END 2016-08-12 17:22 | disposition home or self-care (01) ==
LOC: EDBD 06:27 → C.EDB 06:28 → C.2T 11:48 → ENRESERV 12:13
PROVIDERS: ADMIT Internal Medicine; ATTEND Internal Medicine
DX: J44.1 Chronic obstructive pulmonary disease with (acute) exacerbation (principal); I50.9 Heart failure, unspecified; I51.81 Takotsubo syndrome; K21.9 Gastro-esophageal reflux disease without esophagitis; F41.1 Generalized anxiety disorder; F32.9 Major depressive disorder, single episode, unspecified; M81.0 Age-related osteoporosis without current pathological fracture; G40.909 Epilepsy, unspecified, not intractable, without status epilepticus; K58.9 Irritable bowel syndrome, unspecified; Z83.3 Family history of diabetes mellitus; Z82.49 Family history of ischemic heart disease and other diseases of the circulatory system; Z80.1 Family history of malignant neoplasm of trachea, bronchus and lung; Z79.82 Long term (current) use of aspirin; Z79.899 Other long term (current) drug therapy; E03.9 Hypothyroidism, unspecified; I44.7 Left bundle-branch block, unspecified

== ENCOUNTER 2016-10-08 09:14 | Emergency (ER) | payer OTHER ==
[~2016-10-08] VITALS: Ht 162.6 cm; Wt 85.0 kg
[~2016-10-08 09:14] MED LIST changes: +DXY100 PO; +FLUT0.15; -FLUT0.15 NAE; -FLUT1INH7 INH; +PRD20 PO; +RANI150T3 PO; -SALI0.6510 NAE; -ZNTT/150 PO
[2016-10-08 09:35] VITALS: TEMP 36.9; Ht 162.6 cm; Wt 85.0 kg
[2016-10-08 09:43] VITALS: O2SAT 95
[2016-10-08] MEDS ORDERED: ALBUT/IPRATROP 3MG/0.5MG NEB 3 ML VIAL INH SCH (09:45)
[2016-10-08] MEDS ORDERED: LEVAQUIN 750MG / 150ML D5W IV ONE (09:45)
[2016-10-08 10:10] LABS: BASO % 0.6 %; BASO ABS # 0.04 K/uL (0-0.2); COMPLETE YES; EOS % 10.9 %; HEMATOCRIT 39.2 % (37-47); IG% 0.2 %; LYMPH % 10.5 %; LYMPH ABS # 0.67 K/uL (1.2-3.4); MEAN CELL VOLUME 92.2 fL (80-100); MEAN CORPUSCULAR HEMOGLOBIN 32.2 pg (25-34); MEAN CORPUSCULAR HGB CONC 34.9 g/dl (32-36); MEAN PLATELET VOLUME 9.2 fL (7.4-10.4); MONO % 10.2 %; NEUT % 67.6 %; PLATELET COUNT 231 K/uL (130-400); RED BLOOD COUNT 4.25 M/uL (4.2-5.4)
--- NOTE | 2016-10-08 10:10 | DIAGNOSTIC IMAGING REPORT ---
CHEST 2 VIEWS ROUTINE HISTORY: 61 years-old Female EVALUATE RESPIRATORY DISTRESS. DYSPNEA COMPARISON: Portable chest radiograph 08/10/2016 TECHNIQUE: Frontal and lateral views of the chest. FINDINGS: Cardiac silhouette is within normal limits. There is improvement of the previously noted pulmonary vascular congestion. Minimal left basilar linear opacities suggest atelectasis without pneumothorax, pleural effusion or lobar airspace consolidation. Bones are grossly intact. IMPRESSION: 1. Improvement of the previously noted mild pulmonary vascular congestion. 2. Linear subsegmental retrocardiac left basilar opacity suggests atelectasis. The above report was generated using voice recognition software. It may contain grammatical, syntax or spelling errors. Electronically signed by: Chad Blanton M.D. 10/08/2016 10:08 AM Dictated Date/Time: 10/08/2016 10:07 AM
[2016-10-08 10:19] LABS: INR 1.1 (0.9-1.1); PARTIAL THROMBOPLASTIN RATIO 1.1; PROTHROMBIN TIME (PATIENT) 11.5 SECONDS (9.0-12.0)
[2016-10-08 10:32] LABS: ALT/SGPT 20 U/L (12-78); AST/SGOT 15 U/L (15-37); BLOOD UREA NITROGEN 9 mg/dl (7-18); BUN/CREATININE RATIO 14.2 (10-20); CALCIUM 8.4 mg/dl (8.5-10.1); CARBON DIOXIDE 28 mmol/L (21-32); CHLORIDE 104 mmol/L (98-107); CREATININE 0.64 mg/dl (0.60-1.20); GLUCOSE 105 mg/dl (70-99); POTASSIUM 3.3 mmol/L (3.5-5.1); SODIUM 139 mmol/L (136-145)
[2016-10-08 10:37] LABS: ALKALINE PHOSPHATASE 147 U/L (45-117)
[2016-10-08] MEDS ORDERED: AZIT250T PO (10:40)
[2016-10-08] MEDS ORDERED: ALBUTEROL 0.083% NEBU SOLN 3 ML VIAL INH STA (11:08)
[2016-10-08 11:43] LABS: URINE APPEARANCE CLEAR (CLEAR); URINE BILIRUBIN NEG (NEG); URINE COLOR YELLOW; URINE EPITHELIAL CELL AUTO 0-5 /lpf (0-5); URINE NITRITE NEG (NEG); URINE PH 6.5 (4.5-7.5); URINE SPECIFIC GRAVITY 1.009 (1.000-1.030); UROBILINOGEN NEG (NEG)
[2016-10-08 11:47] LABS: MANUAL MICROSCOPIC REQUIRED? NO; REVIEW REQ? NO
[2016-10-08] MEDS ORDERED: PRED50TA PO (12:41)
[2016-10-08] MEDS ORDERED: LEVO1TAB35 PO (12:41)
[2016-10-08] MEDS ORDERED: METHYLPREDNISOLONE 125 MG VIAL IV STA (12:42)
[2016-10-08 12:53] VITALS: BP 127/66; PULSE 87; O2SAT 95
--- NOTE | 2016-10-08 16:39 | EMERGENCY ROOM VISIT NOTE ---
History Report prepared by Litzy: Leida Mclaughlin Under the Supervision of: Irlanda HinesO. First contact with patient: 09:26 Stated Complaint: COUGH, CHEST DISCOMFORT History of Present Illness The patient is a 61 year old female who presents to the Emergency Room with complaints of a worsening cough for the past week. Last week she developed a sore throat, rhinorrhea, and productive cough with yellowish/brown sputum. She saw her PCP who prescribed azithromycin and prednisone but states that she does not like taking medications, so she did not take them. Last night the patient developed tightness/pinon pain in her chest. Pain is worsened with the coughing. She reports constant, stabbing chest pain that started last night. She denies any modifying factors. She is also complaining of shortness of breath which has been present since the cough started. The patient has a history of asthma and cardiomyopathy. She denies any fevers. Source of History: patient Onset: 1 week ago Position: chest (respiratory) Quality: stabbing, other (tightness) Timing: worsening Associated Symptoms: + chest pain, + SOB, No fevers Review of Systems See HPI for pertinent positives & negatives. A total of 10 systems reviewed and were otherwise negative. Past Medical & Surgical Medical Problems: (1) Age related osteoporosis (2) Asthma (3) Depression (4) Epilepsy (5) EDWIN (generalized anxiety disorder) (6) GERD (gastroesophageal reflux disease) (7) IBS (irritable bowel syndrome) (8) Stress-induced cardiomyopathy Surgical Problems: (1) H/O sinus surgery (2) H/O: hysterectomy (3) History of ear surgery (4) Hx of breast biopsy Family History Diabetes mellitus MOTHER FH: lung cancer AUNT Hypertension FATHER Social History Smoking Status: Never Smoker Alcohol Use: none Housing Status: lives alone Occupation Status: unemployed Current/Historical Medications Scheduled Aspirin (Aspirin EC Low Dose), 81 MG PO DAILY Azithromycin (Zithromax), 250 MG PO DAILY Budesonide/Formoterol Fumarate (Symbicort 160/4.5 Inhaler ), 2 PUFFS INH BID Citalopram (Citalopram Hydrobromide), 40 MG PO QAM Fluticasone Propionate (Nasal) (Flonase Allergy Relief), 1 SPRAY NA BID Folic Acid (Folvite), 1 MG PO QAM Levofloxacin (Levaquin), 750 MG PO QD@08 Levothyroxine Sodium (Levothyroxine Sodium), 100 MCG PO DAILY Montelukast Sodium (Singulair), 10 MG PO QPM Pantoprazole (Protonix), 40 MG PO QAM Phenobarbital (Phenobarbital), 97.2 MG PO HS Phenytoin Sodium (Dilantin), 200 MG PO BID Prednisone (Prednisone), 20 MG PO UD Prednisone (Prednisone), 50 MG PO DAILY Scheduled PRN Albuterol Hfa (Ventolin Hfa), 2 PUFFS INH Q4H PRN for SOB/Wheezing Furosemide (Lasix), 20 MG PO DAILY PRN for edema Ipratropium-Albuterol (Duoneb), 1 TREATMENT INH Q4H PRN for SOB/Wheezing Allergies Coded Allergies: Clemastine (Verified Allergy, Unknown, ITCHING, 08/10/16) Sulfa Antibiotics (Verified Allergy, Unknown, RASH AND ITCHY, 08/10/16) Loraine (Verified Allergy, Unknown, NIGERIEN [place] ALLERGY, + ALLERGY TEST , 08/10/16) Physical Exam Vital Signs Date Time Temp Pulse Resp B/P (MAP) Pulse Ox O2 Delivery O2 Flow Rate FiO2 10/08/16 12:53 87 23 127/66 95 Room Air 10/08/16 11:32 88 20 122/78 93 Room Air 10/08/16 11:07 93 Room Air 10/08/16 10:41 89 19 124/66 96 Room Air 10/08/16 10:07 79 27 127/72 100 Nebulizer 10/08/16 09:43 95 Room Air 10/08/16 09:43 95 Room Air 10/08/16 09:35 36.9 83 26 138/66 95 Room Air 10/08/16 09:35 95 Room Air 10/08/16 09:33 86 Physical Exam GENERAL: alert, sitting up in bed, disheveled appearing, well nourished, no distress, non-toxic, non-productive cough. EYE EXAM: normal conjunctiva OROPHARYNX: no exudate, no erythema, lips, buccal mucosa, and tongue normal and mucous membranes are moist NECK: supple, no nuchal rigidity, no adenopathy, non-tender LUNGS: Diffuse wheezing bilaterally. Normal chest wall mechanics HEART: Systolic ejection murmur, S1 normal and S2 normal CHEST: Reproducible chest tenderness along sternum. ABDOMEN: abdomen soft, non-tender, normo-active bowel sounds, no masses, no rebound or guarding. BACK: Back is symmetrical on inspection and there is no deformity, no midline tenderness, no CVA tenderness. SKIN: no rashes and no bruising UPPER EXTREMITIES: upper extremities are grossly normal. LOWER EXTREMITIES: No pitting edema. Calves equal bilaterally. NEURO EXAM: Normal sensorium, cranial nerves II-XII grossly intact, normal speech, no gross weakness of arms, no gross weakness of legs. Medical Decision & Procedures ER Provider Diagnostic Interpretation: Radiology results as stated below per my review and the radiologist's interpretation: CHEST 2 VIEWS ROUTINE HISTORY: 61 years-old Female EVALUATE RESPIRATORY DISTRESS. DYSPNEA COMPARISON: Portable chest radiograph 08/10/2016 TECHNIQUE: Frontal and lateral views of the chest. FINDINGS: Cardiac silhouette is within normal limits. There is improvement of the previously noted pulmonary vascular congestion. Minimal left basilar linear opacities suggest atelectasis without pneumothorax, pleural effusion or lobar airspace consolidation. Bones are grossly intact. IMPRESSION: 1. Improvement of the previously noted mild pulmonary vascular congestion. 2. Linear subsegmental retrocardiac left basilar opacity suggests atelectasis. The above report was generated using voice recognition software. It may contain grammatical, syntax or spelling errors. Electronically signed by: Chad Blanton M.D. 10/08/2016 10:08 AM Dictated Date/Time: 10/08/2016 10:07 AM Laboratory Results 10/08/16 09:52 Red Blood Count 4.25, Mean Corpuscular Volume 92.2, Mean Corpuscular Hemoglobin 32.2, Mean Corpuscular Hemoglobin Concent 34.9, Mean Platelet Volume 9.2, Neutrophils (%) (Auto) 67.6, Lymphocytes (%) (Auto) 10.5, Monocytes (%) (Auto) 10.2, Eosinophils (%) (Auto) 10.9, Basophils (%) (Auto) 0.6, Neutrophils # (Auto ) 4.33, Lymphocytes # (Auto) 0.67, Monocytes # (Auto) 0.65, Eosinophils # (Auto ) 0.70, Basophils # (Auto) 0.04 10/08/16 09:52 Test 10/08/16 09:52 10/08/16 11:10 White Blood Count 6.40 K/uL (4.8-10.8) Red Blood Count 4.25 M/uL (4.2-5.4) Hemoglobin 13.7 g/dL (12.0-16.0) Hematocrit 39.2 % (37-47) Mean Corpuscular Volume 92.2 fL (80-100) Mean Corpuscular Hemoglobin 32.2 pg (25-34) Mean Corpuscular Hemoglobin Concent 34.9 g/dl (32-36) Platelet Count 231 K/uL (130-400) Mean Platelet Volume 9.2 fL (7.4-10.4) Neutrophils (%) (Auto) 67.6 % Lymphocytes (%) (Auto) 10.5 % Monocytes (%) (Auto) 10.2 % Eosinophils (%) (Auto) 10.9 % Basophils (%) (Auto) 0.6 % Neutrophils # (Auto) 4.33 K/uL (1.4-6.5) Lymphocytes # (Auto) 0.67 K/uL (1.2-3.4) Monocytes # (Auto) 0.65 K/uL (0.11-0.59) Eosinophils # (Auto) 0.70 K/uL (0-0.5) Basophils # (Auto) 0.04 K/uL (0-0.2) RDW Standard Deviation 46.9 fL (36.4-46.3) RDW Coefficient of Variation 13.9 % (11.5-14.5) Immature Granulocyte % (Auto) 0.2 % Immature Granulocyte # (Auto) 0.01 K/uL (0.00-0.02) Prothrombin Time 11.5 SECONDS (9.0-12.0) Prothromb Time International Ratio 1.1 (0.9-1.1) Activated Partial Thromboplast Time 28.2 SECONDS (21.0-31.0) Partial Thromboplastin Ratio 1.1 Anion Gap 7.0 mmol/L (3-11) Est Creatinine Clear Calc Drug Dose 94.9 ml/min Estimated GFR () 110.1 Estimated GFR (Non- 95.0 BUN/Creatinine Ratio 14.2 (10-20) Calcium Level 8.4 mg/dl (8.5-10.1) Total Bilirubin 0.4 mg/dl (0.2-1) Aspartate Amino Transf (AST/SGOT) 15 U/L (15-37) Alanine Aminotransferase (ALT/SGPT) 20 U/L (12-78) Alkaline Phosphatase 147 U/L (45-117) Troponin I < 0.015 ng/ml (0-0.045) Total Protein 7.1 gm/dl (6.4-8.2) Albumin 3.5 gm/dl (3.4-5.0) Globulin 3.6 gm/dl (2.5-4.0) Albumin/Globulin Ratio 1.0 (0.9-2) Urine Color YELLOW Urine Appearance CLEAR (CLEAR) Urine pH 6.5 (4.5-7.5) Urine Specific [place] 1.009 (1.000-1.030) Urine Protein NEG (NEG) Urine Glucose (UA) NEG (NEG) Urine Ketones NEG (NEG) Urine Occult Blood 1+ (NEG) Urine Nitrite NEG (NEG) Urine Bilirubin NEG (NEG) Urine Urobilinogen NEG (NEG) Urine Leukocyte Esterase SMALL (NEG) Urine WBC (Auto) 1-5 /hpf (0-5) Urine RBC (Auto) 0-4 /hpf (0-4) Urine Hyaline Casts (Auto) 0 /lpf (0-5) Urine Epithelial Cells (Auto) 0-5 /lpf (0-5) Urine Bacteria (Auto) NEG (NEG) Laboratory results per my review. Medications Administered Medications (Trade) Dose Ordered Sig/Matt Route Start Time Stop Time Status Last Admin Dose Admin Albuterol/ Ipratropium (Duoneb) 3 ml NOW INH 10/08/16 09:45 10/08/16 14:57 DC 10/08/16 11:19 3 ML Levofloxacin (Levaquin / D5W) 750 mg NOW ONCE IV 10/08/16 09:45 10/08/16 09:46 DC 10/08/16 09:50 750 MG Albuterol Sulfate (Ventolin 0.083% 2.5MG/3ML Neb) 2.5 mg NOW STAT INH 10/08/16 11:08 10/08/16 11:09 DC 10/08/16 11:18 2.5 MG Methylprednisolone Sodium Succinate (Solu-Medrol IV) 125 mg NOW STAT IV 10/08/16 12:42 10/08/16 12:43 DC 10/08/16 12:51 125 MG ECG Indication: chest pain Rate (beats per minute): 84 Rhythm: normal sinus Findings: LBBB, left axis deviation Comparison ECG Date: 08/11/16 Change: no significant change ED Course ED COURSE: Vital signs were reviewed and showed normal vitals The patients medical record was reviewed The above diagnostic studies were performed and reviewed. ED treatments and interventions as stated above. 0926: The patient was evaluated in room A12B. A complete history and physical examination was performed. 0945: Levofloxacin 750 mg IV, Duoneb 3 ml INH 1108: Albuterol sulfate 2.5 mg INH 1230: I reassessed the patient and she feels significantly improved. 1242: Solu-Medrol 125 mg IV 1247: Upon reevaluation, the patient is resting comfortably her reproducible chest tenderness has significantly improved. I discussed my findings with the patient and she understands and agrees with the treatment plan. She will fill these antibiotics and steroids and discard the old ones. Based on the patients age, coexisting illnesses, exam and lab findings the decision to treat as an outpatient was made. The patient remained stable while under my care. The patient appeared well at the time of discharge. Medical Decision Differential diagnoses includes but is not limited to pneumonia, bronchitis, COPD/Asthma exacerbation, pneumothorax, pulmonary embolism, congestive heart failure, acute coronary syndrome. Patient is a 61-year-old female who presents the ER for sore throat, runny nose , and productive sputum which has been worsening over the past week. She saw her primary care doctor who gave her inhalers, steroids and azithromycin. She elected not to take the antibiotics that she does not like taking medications. Chest pain has been present for over 8 hours per troponin was negative. EKG showed a left bundle which upon review of her old EKGs is consistent with the past week with exception of the last 1 which showed a sinus rhythm. I do believe that this is more related. Her tightness improved with neb treatments. She notes she does feel better. She was given steroids and antibiotics as her chest x-ray supports a pneumonia. CBC along with BMP, LFTs, bilirubin was unremarkable. UA shows no infection. Patient was ambulated through the hallway and had no hypoxia. She is able to talk while walking. Her wheezing improved with the neb treatments. She is discharged following dose of Levaquin with steroids to continue her inhalers and nebulizers. Discussed with Pt concerning signs and symptoms to watch out for. Pt was instructed to follow up with their PCP and discussed with the patient their option to return to the ED at anytime for persistent or worsening symptoms. The appropriate anticipatory guidance and out-patient management, including indications for return to the emergency department, were explained at length to the patient and understood. Impression Primary Impression: Pneumonia Scribe Attestation The scribe's documentation has been prepared under my direction and personally reviewed by me in its entirety. I confirm that the note above accurately reflects all work, treatment, procedures, and medical decision making performed by me. Departure Information Dispostion Home / Self-Care Prescriptions Levofloxacin (Levaquin) 750 Mg Tab 750 MG PO QD@08, #9 TAB Prov: Kumar Ricks, DO 10/08/16 Prednisone (PREDNISONE) 50 Mg Tab 50 MG PO DAILY for 5 Days, #5 TAB Prov: Kumar Ricks, DO 10/08/16 Referrals Asa Villavicencio D.OTatyana (PCP) Forms HOME CARE DOCUMENTATION FORM, IMPORTANT VISIT INFORMATION Patient Instructions My [facility], Pneumonia (Bacterial) - [facility] Additional Instructions Please follow up with your primary care doctor or if you are a student, [facility] with in the next 24 hours. Any worsening of your symptoms, please return to the ED immediately. This includes any fevers greater than 100.4, worsening pain, chest pain, shortness breath, passing out, persistent nausea, vomiting, unable to eat or drink, or any other concerning signs or symptoms from your standpoint. Please use your inhalers as presleep prescribed at home. Please take steroids as prescribed here. Do not take any other steroids in combination with this. Please take antibiotics as prescribed. Problem Qualifiers Primary Impression: Pneumonia Pneumonia type: due to unspecified organism Laterality: left Lung location : lower lobe of lung Qualified Codes: J18.1 - Lobar pneumonia, unspecified organism
[2016-10-18] MEDS ORDERED: GUAISYP4 PO (11:17)
[2016-10-18] MEDS ORDERED: PRED10TA PO (11:17)
[2016-10-18] MEDS ORDERED: SPRIN INH (11:17)
[2016-10-18] MEDS ORDERED: OXGN (11:17)
[2016-10-18] MEDS ORDERED: RANITAB6 PO (11:24)
== END 2016-10-08 13:09 | disposition home or self-care (01) ==
LOC: EDBD 09:14 → C.EDA 09:15
DX: J18.1 Lobar pneumonia, unspecified organism (principal); J45.909 Unspecified asthma, uncomplicated; I42.9 Cardiomyopathy, unspecified; M81.0 Age-related osteoporosis without current pathological fracture; F32.9 Major depressive disorder, single episode, unspecified; G40.909 Epilepsy, unspecified, not intractable, without status epilepticus; F41.1 Generalized anxiety disorder; K21.9 Gastro-esophageal reflux disease without esophagitis; K58.9 Irritable bowel syndrome, unspecified; I51.81 Takotsubo syndrome; Z90.710 Acquired absence of both cervix and uterus; Z83.3 Family history of diabetes mellitus; Z82.49 Family history of ischemic heart disease and other diseases of the circulatory system; Z80.1 Family history of malignant neoplasm of trachea, bronchus and lung; Z79.82 Long term (current) use of aspirin; Z79.899 Other long term (current) drug therapy

== ENCOUNTER 2016-10-11 23:56 | Inpatient (IN) | payer OTHER ==
[~2016-10-11] VITALS: Ht 160 cm; Wt 80.8 kg
[~2016-10-11 23:56] MED LIST changes: +AZIT250T PO; -CYAN10004 PO; -DXY100 PO; +LEVO1TAB35 PO; +PRED50TA PO; -RANI150T3 PO
[2016-10-12] VITALS (12 sets, daily range): BP systolic 111–140; BP diastolic 50–77; PULSE 74–88; TEMP 36.5–37; O2SAT 94–99; Ht 160 cm; Wt 80.8 kg
--- NOTE | 2016-10-12 00:24 | EMERGENCY ROOM VISIT NOTE ---
History Report prepared by Litzy: Myles Page Under the Supervision of: Dr. Eleonora Villaseñor D.O. First contact with patient: 00:05 Chief Complaint: SHORTNESS OF BREATH Stated Complaint: SHORTNESS OF BREATH Nursing Triage Summary: Pt recently diagnosed with pneumonia 3-4 days ago. States she felt she was getting better with medications. Pt was sleeping in chair and woke up with increased shortness of breath. Pt said she got up and couldn't walk/weak and felt like she was going numb. Pt hyperventilating on arrival for EMS. RR of 48 wtih exp. wheezes, 2 duonebs given and solumedrol. History of Present Illness The patient is a 61 year old female who presents to the Emergency Room with complaints of generalized weakness that occurred this evening. She was diagnosed with pneumonia 4 days ago and was placed onto antibiotics. She notes that the medications were helping, however, today she began to feel globally weak with numbness in her extremities. She could not get up out of her chair, and began to have increased shortness of breath. She is also having a cough, sore throat, headache, neck pain, and photophobia. She denies any fevers, chest pain, or abdominal pain. She has a past medical history of Asthma and COPD. She notes that she had a Nebulizer treatment in the ambulance that helped her breathing slightly. Source of History: patient Onset: this evening Position: other (Global) Symptom Intensity: mild Quality: other (Weakness) Timing: constant Associated Symptoms: + headache, + sorethroat, + cough, + neck pain, + SOB, + numbness, No fevers, No chest pain, No abdominal pain Review of Systems See HPI for pertinent positives & negatives. A total of 10 systems reviewed and were otherwise negative. Past Medical & Surgical Medical Problems: (1) Age related osteoporosis (2) Asthma (3) COPD exacerbation (4) Depression (5) Epilepsy (6) EDWIN (generalized anxiety disorder) (7) GERD (gastroesophageal reflux disease) (8) IBS (irritable bowel syndrome) (9) Stress-induced cardiomyopathy Surgical Problems: (1) H/O sinus surgery (2) H/O: hysterectomy (3) History of ear surgery (4) Hx of breast biopsy Family History Diabetes mellitus MOTHER FH: lung cancer AUNT Hypertension FATHER Social History Smoking Status: Never Smoker Alcohol Use: none Housing Status: lives alone Occupation Status: unemployed Current/Historical Medications Scheduled Aspirin (Aspirin EC Low Dose), 81 MG PO DAILY Azithromycin (Zithromax), 250 MG PO DAILY Budesonide/Formoterol Fumarate (Symbicort 160/4.5 Inhaler ), 2 PUFFS INH BID Citalopram (Citalopram Hydrobromide), 40 MG PO QAM Fluticasone Propionate (Nasal) (Flonase Allergy Relief), 1 SPRAY NA BID Folic Acid (Folvite), 1 MG PO QAM Levofloxacin (Levaquin), 750 MG PO QD@08 Levothyroxine Sodium (Levothyroxine Sodium), 100 MCG PO DAILY Montelukast Sodium (Singulair), 10 MG PO QPM Pantoprazole (Protonix), 40 MG PO QAM Phenobarbital (Phenobarbital), 97.2 MG PO HS Phenytoin Sodium (Dilantin), 200 MG PO BID Prednisone (Prednisone), 20 MG PO UD Prednisone (Prednisone), 50 MG PO DAILY Scheduled PRN Albuterol Hfa (Ventolin Hfa), 2 PUFFS INH Q4H PRN for SOB/Wheezing Furosemide (Lasix), 20 MG PO DAILY PRN for edema Ipratropium-Albuterol (Duoneb), 1 TREATMENT INH Q4H PRN for SOB/Wheezing Allergies Coded Allergies: Clemastine (Verified Allergy, Unknown, ITCHING, 10/12/16) Sulfa Antibiotics (Verified Allergy, Unknown, RASH AND ITCHY, 10/12/16) [place] (Verified Allergy, Unknown, [place]ESE WALNUT ALLERGY, + ALLERGY TEST , 10/12/16) Physical Exam Vital Signs Date Time Temp Pulse Resp B/P (MAP) Pulse Ox O2 Delivery O2 Flow Rate FiO2 10/12/16 03:02 76 17 99 Nasal Cannula 3.0 10/12/16 03:01 126/63 10/12/16 02:32 80 16 97 10/12/16 02:02 79 19 93 10/12/16 02:02 80 95 Nasal Cannula 3.0 10/12/16 01:50 86 18 83 Room Air 10/12/16 01:27 90 18 120/56 98 Room Air 10/12/16 00:30 89 10/12/16 00:09 Room Air 10/12/16 00:06 97 Room Air 10/12/16 00:00 36.5 82 20 159/73 99 Room Air 10/12/16 00:00 99 Room Air Physical Exam HEENT: Head - normocephalic and atraumatic. Pupils are equal, round, and reactive to light. Extraocular eye muscles are intact and sclera are anicteric. Ears - bilaterally patent canals with noninjected tympanic membranes and no evidence of hemotympanum. Nose - moist nasal mucosa without discharge. Mouth - moist buccal mucosa. Oropharynx is nonerythematous and there is no tonsillar exudate or edema noted. Neck: Supple; no JVD, nuchal rigidity, cervical lymphadenopathy. Heart: Regular rate and rhythm. There is a normal S1 and S2 with no murmurs, clicks, or gallops appreciated. Lungs: Expiratory wheezing to both lung bases without rales or rhonchi. Abdomen: Soft, completely nontender, nondistended, with good bowel sounds. There are no palpable pulsatile masses or hepatosplenomegaly. There is no guarding, rigidity, or rebound noted. Extremities: No evidence of cyanosis, clubbing, or edema. There are easily palpable peripheral pulses. Neuro:The patient is awake and alert, oriented to day, time, and place. Muscle strength is 5/5 in all 4 extremities. The patient has equal import coordinator strength and equal pedal push and pull. There are no cerebellar signs. Medical Decision & Procedures ER Provider Diagnostic Interpretation: Radiology results as stated below per my review and the radiologist's interpretation: Chest X-Ray: Concern for LLL infiltrate, no cardiomegaly. Per me CT CHEST With Contrast: Comparison 08/10/16 CT of the chest Impression: Atelectasis noted in the lingual. No significant interval change compared to the prior study. Bibasilar atelectasis or scarring. No evidence for an acute infiltrate. No evidence for pleural effusion. No evidence for pericardial effusion. Small hiatal hernia. Left renal cyst. Radiologist: Gunner Carrera M.D. Laboratory Results 10/12/16 00:08 Red Blood Count 4.26, Mean Corpuscular Volume 89.9, Mean Corpuscular Hemoglobin 31.5, Mean Corpuscular Hemoglobin Concent 35.0, Mean Platelet Volume 9.1, Neutrophils (%) (Auto) 34.9, Lymphocytes (%) (Auto) 43.6, Monocytes (%) (Auto) 13.3, Eosinophils (%) (Auto) 7.5, Basophils (%) (Auto) 0.5, Neutrophils # (Auto ) 2.32, Lymphocytes # (Auto) 2.89, Monocytes # (Auto) 0.88, Eosinophils # (Auto ) 0.50, Basophils # (Auto) 0.03 10/12/16 00:08 Test 10/12/16 00:00 10/12/16 00:08 10/12/16 00:13 Urine Color YELLOW Urine Appearance CLEAR (CLEAR) Urine pH 6.5 (4.5-7.5) Urine Specific [place] 1.006 (1.000-1.030) Urine Protein NEG (NEG) Urine Glucose (UA) NEG (NEG) Urine Ketones NEG (NEG) Urine Occult Blood TRACE (NEG) Urine Nitrite NEG (NEG) Urine Bilirubin NEG (NEG) Urine Urobilinogen NEG (NEG) Urine Leukocyte Esterase SMALL (NEG) Urine WBC (Auto) /hpf (0-5) Urine RBC (Auto) /hpf (0-4) Urine Hyaline Casts (Auto) /lpf (0-5) Urine Epithelial Cells (Auto) /lpf (0-5) Urine Bacteria (Auto) (NEG) Urine RBC 0-4 /hpf (0-4) Urine WBC 1-5 /hpf (0-5) Urine Epithelial Cells 0-5 /lpf (0-5) Urine Bacteria NEG (NEG) White Blood Count 6.63 K/uL (4.8-10.8) Red Blood Count 4.26 M/uL (4.2-5.4) Hemoglobin 13.4 g/dL (12.0-16.0) Hematocrit 38.3 % (37-47) Mean Corpuscular Volume 89.9 fL (80-100) Mean Corpuscular Hemoglobin 31.5 pg (25-34) Mean Corpuscular Hemoglobin Concent 35.0 g/dl (32-36) Platelet Count 280 K/uL (130-400) Mean Platelet Volume 9.1 fL (7.4-10.4) Neutrophils (%) (Auto) 34.9 % Lymphocytes (%) (Auto) 43.6 % Monocytes (%) (Auto) 13.3 % Eosinophils (%) (Auto) 7.5 % Basophils (%) (Auto) 0.5 % Neutrophils # (Auto) 2.32 K/uL (1.4-6.5) Lymphocytes # (Auto) 2.89 K/uL (1.2-3.4) Monocytes # (Auto) 0.88 K/uL (0.11-0.59) Eosinophils # (Auto) 0.50 K/uL (0-0.5) Basophils # (Auto) 0.03 K/uL (0-0.2) RDW Standard Deviation 44.5 fL (36.4-46.3) RDW Coefficient of Variation 13.5 % (11.5-14.5) Immature Granulocyte % (Auto) 0.2 % Immature Granulocyte # (Auto) 0.01 K/uL (0.00-0.02) Prothrombin Time 11.4 SECONDS (9.0-12.0) Prothromb Time International Ratio 1.1 (0.9-1.1) Activated Partial Thromboplast Time 27.1 SECONDS (21.0-31.0) Partial Thromboplastin Ratio 1.0 Anion Gap 10.0 mmol/L (3-11) Est Creatinine Clear Calc Drug Dose 73.0 ml/min Estimated GFR () 85.7 Estimated GFR (Non- 74.0 BUN/Creatinine Ratio 12.0 (10-20) Calcium Level 8.3 mg/dl (8.5-10.1) Total Bilirubin 0.2 mg/dl (0.2-1) Aspartate Amino Transf (AST/SGOT) 26 U/L (15-37) Alanine Aminotransferase (ALT/SGPT) 27 U/L (12-78) Alkaline Phosphatase 142 U/L (45-117) Total Protein 7.5 gm/dl (6.4-8.2) Albumin 3.8 gm/dl (3.4-5.0) Globulin 3.7 gm/dl (2.5-4.0) Albumin/Globulin Ratio 1.0 (0.9-2) Chemistry Specimen Hemolysis Bedside Lactic Acid Venous 2.36 mmol/L (0.90-1.70) Laboratory results per my review. Medications Administered Medications (Trade) Dose Ordered Sig/Matt Route Start Time Stop Time Status Last Admin Dose Admin Ketorolac Tromethamine (Toradol Inj) 30 mg NOW STAT IV 10/12/16 00:54 10/12/16 00:55 DC 10/12/16 01:00 30 MG Procedure Toradol Inj 30 mg IV ECG Indication: SOB/dyspnea Rate (beats per minute): 81 Rhythm: normal sinus Findings: ST depression (Inferior), T-wave inversion (V3 and V4), other (LVH) Comparison ECG Date: 1 in September, 1 in July of this year Change: no significant change Change: Repeat ECG in the ED showed: NSR 80 with a LBBB. ED Course 0005: Past medical records reviewed. The patient was evaluated in room B7. A complete history and physical exam was performed. A septic protocol was performed. The patient had a chest x-ray as described above 0054: Ordered Toradol Inj 30 mg IV for the patient's headache. She went for CT scan of the chest as described above. 0150: The patient had 1 episode of hypoxia. Her O2 Sats went down to 83%. Her supplemental oxygen was increased. 0310: Upon reevaluation, I discussed findings and results with the patient. She verbalized agreement of the treatment plan. I spoke with Dr. Corona of the [facility]. The patient will be evaluated for further management and care. Medical Decision The patient is a 61 year old female who presents to the ED with generalized weakness. Differential diagnosis includes sepsis, pneumonia, meningitis, bronchitis, and empyema. Laboratory Results: No leukocytosis, normal H&H, lactic acid 2.36, normal renal function, glucose 103, normal LFTs, normal coagulation studies, urinalysis showed trace blood and small leukocyte esterase. The patient was recently diagnosed with pneumonia and started on oral Levaquin. She's states that she seemed to get better for approximate 1 day but then became much worse including extreme weakness. He describes increased shortness of breath tonight for which she called EMS. In route to the hospital, she was given IV site Medrol and nebulizer treatments which improved her symptoms. It seems that the patient is suffering from an acute exacerbation of her asthma/ COPD. CT scan of the chest shows no obvious pulmonary infiltrate. However, the patient did become hypoxic and required higher amount of supplemental oxygen here in the emergency department. Medication Reconcilliation Current Medication List: was personally reviewed by me Blood Pressure Screening Patient's blood pressure: Elevated blood pressure Blood pressure disposition: Elevated BP felt to be situational (secondary to SOB) Consults Time Called: [phone] Consulting Physician: Dr. Cj Lyn Hospitalist Returned Call: [phone] Discussed the patient's case. The patient will be evaluated for further management. Impression Primary Impression: Hypoxia Additional Impression: COPD exacerbation Scribe Attestation The scribe's documentation has been prepared under my direction and personally reviewed by me in its entirety. I confirm that the note above accurately reflects all work, treatment, procedures, and medical decision making performed by me. Departure Information Dispostion Being Evaluated By Hospitalist Referrals Asa Villavicencio D.O. (PCP) Patient Instructions [facility] Problem Qualifiers
[2016-10-12 00:43] LABS: BASO % 0.5 %; BASO ABS # 0.03 K/uL (0-0.2); COMPLETE YES; EOS % 7.5 %; HEMATOCRIT 38.3 % (37-47); IG% 0.2 %; LYMPH % 43.6 %; LYMPH ABS # 2.89 K/uL (1.2-3.4); MEAN CELL VOLUME 89.9 fL (80-100); MEAN CORPUSCULAR HEMOGLOBIN 31.5 pg (25-34); MEAN PLATELET VOLUME 9.1 fL (7.4-10.4); MONO % 13.3 %; NEUT % 34.9 %; PLATELET COUNT 280 K/uL (130-400); RED BLOOD COUNT 4.26 M/uL (4.2-5.4); WHITE BLOOD COUNT 6.63 K/uL (4.8-10.8)
[2016-10-12] MEDS ORDERED: OPTIRAY 320 IV PRN (00:45)
[2016-10-12 00:48] LABS: URINE APPEARANCE CLEAR (CLEAR); URINE BILIRUBIN NEG (NEG); URINE COLOR YELLOW; URINE NITRITE NEG (NEG); URINE PH 6.5 (4.5-7.5); URINE SPECIFIC GRAVITY 1.006 (1.000-1.030); UROBILINOGEN NEG (NEG); ZZUR CULT IF INDIC CLEAN CATCH NO
[2016-10-12 00:53] LABS: INR 1.1 (0.9-1.1); PROTHROMBIN TIME (PATIENT) 11.4 SECONDS (9.0-12.0)
[2016-10-12] MEDS ORDERED: KETOROLAC TROMETHAMINE 30 MG/ML VIAL IV STA (00:54)
[2016-10-12 01:08] LABS: CALCIUM 8.3 mg/dl (8.5-10.1); CREATININE 0.84 mg/dl (0.60-1.20); POTASSIUM 3.4 mmol/L (3.5-5.1)
[2016-10-12 01:10] LABS: MANUAL MICROSCOPIC REQUIRED? YES; REVIEW REQ? NO
[2016-10-12 01:31] LABS: URINE BACTERIA NEG (NEG); URINE RBC 0-4 /hpf (0-4)
[2016-10-12] MEDS ORDERED: POTASSIUM CHLORIDE 10 MEQ TABCR PO STA (05:24)
--- NOTE | 2016-10-12 05:27 | History and Physical ---
History & Physical Date & Time of Service: Oct 12, 2016 at 05:27 Chief Complaint: Copd Exacerbation Primary Care Physician: Asa Villavicencio D.O. History of Present Illness Source: patient this is a 61 Yo f with past medical hx of advanced COPD , HTN , presented to ED with COPD exacerbation . Has been coughing with productive cough for 2 weeks, had persisted wheeze , chills was seen in ED few days back was discharged home with Prednisone and Levaquin pt's symptom did not improve-unable to take deep breath , had severe weakness , fatigue , feels like her legs will give away while attempt to stand did not sustain any fall has chest tightness for persisted SOB Past Medical/Surgical History Medical Problems: (1) Age related osteoporosis Status: Chronic (2) Asthma Status: Chronic (3) Depression Status: Chronic (4) Epilepsy Permanent Comment: General, convulsive Status: Chronic (5) EDWIN (generalized anxiety disorder) Status: Chronic (6) GERD (gastroesophageal reflux disease) Status: Chronic (7) IBS (irritable bowel syndrome) Status: Chronic (8) Stress-induced cardiomyopathy Permanent Comment: hx of EF 45-50% that normalized on echo from 10/2015 Status: Chronic Surgical Problems: (1) H/O sinus surgery Status: Chronic (2) H/O: hysterectomy Status: Chronic (3) History of ear surgery Status: Chronic (4) Hx of breast biopsy Status: Chronic Family History Diabetes mellitus MOTHER FH: lung cancer AUNT Hypertension FATHER Social History Smoking Status: Never Smoker Housing status: other Occupational Status: unemployed Immunizations History of Influenza Vaccine: Yes Influenza Vaccine Date: Jan 14, 2016 History of Tetanus Vaccine?: Yes Tetanus Immunization Date: Oct 06, 2007 Multi-Drug Resistant Organisms History of MDRO: No Allergies Coded Allergies: Clemastine (Verified Allergy, Unknown, ITCHING, 10/12/16) Sulfa Antibiotics (Verified Allergy, Unknown, RASH AND ITCHY, 10/12/16) [place] (Verified Allergy, Unknown, NEPALI WALNUT ALLERGY, + ALLERGY TEST , 10/12/16) Home Medications Scheduled Aspirin (Aspirin EC Low Dose), 81 MG PO DAILY Azithromycin (Zithromax), 250 MG PO DAILY Budesonide/Formoterol Fumarate (Symbicort 160/4.5 Inhaler ), 2 PUFFS INH BID Citalopram (Citalopram Hydrobromide), 40 MG PO QAM Fluticasone Propionate (Nasal) (Flonase Allergy Relief), 1 SPRAY NA BID Folic Acid (Folvite), 1 MG PO QAM Levofloxacin (Levaquin), 750 MG PO QD@08 Levothyroxine Sodium (Levothyroxine Sodium), 100 MCG PO DAILY Montelukast Sodium (Singulair), 10 MG PO QPM Pantoprazole (Protonix), 40 MG PO QAM Phenobarbital (Phenobarbital), 97.2 MG PO HS Phenytoin Sodium (Dilantin), 200 MG PO BID Prednisone (Prednisone), 20 MG PO UD Prednisone (Prednisone), 50 MG PO DAILY Scheduled PRN Albuterol Hfa (Ventolin Hfa), 2 PUFFS INH Q4H PRN for SOB/Wheezing Furosemide (Lasix), 20 MG PO DAILY PRN for edema Ipratropium-Albuterol (Duoneb), 1 TREATMENT INH Q4H PRN for SOB/Wheezing Review of Systems ENT: + sore throat Respiratory: + cough, + sputum, + wheezing, + shortness of breath, + dyspnea on exertion Cardiovascular: + chest pain (with cough and SOB ) Abdomen: No pain, No nausea, No vomiting, No diarrhea, No constipation, No GI bleeding, No problem reported Genitourinary - Female: No dysuria, No urinary frequency, No urinary urgency, No urinary incontinence, No urinary retention, No hematuria, No dysmenorrhea, No menorrhagia, No metrorrhagia, No rash, No vaginal bleeding, No vaginal discharge, No vaginal itching, No vulvodynia, No , No problem reported Neurologic: + weakness, + vertigo, + balance problems Psychiatric: + anxiety Physical Exam Vital Signs Date Time Temp Pulse Resp B/P (MAP) Pulse Ox O2 Delivery O2 Flow Rate FiO2 10/12/16 04:22 83 16 140/77 97 Nasal Cannula 2.0 10/12/16 04:05 36.5 83 22 140/77 (98) 96 Nasal Cannula 2.0 10/12/16 03:49 36.5 78 17 109/56 99 10/12/16 03:02 76 17 99 Nasal Cannula 3.0 10/12/16 03:01 126/63 10/12/16 02:32 80 16 97 10/12/16 02:02 79 19 93 10/12/16 02:02 80 95 Nasal Cannula 3.0 10/12/16 01:50 86 18 83 Room Air 10/12/16 01:27 90 18 120/56 98 Room Air 10/12/16 00:30 89 10/12/16 00:09 Room Air 10/12/16 00:06 97 Room Air 10/12/16 00:00 36.5 82 20 159/73 99 Room Air 10/12/16 00:00 99 Room Air General Appearance: + pertinent finding (chronically ill appearing ) Head: normocephalic, atraumatic Eyes: normal inspection Neck: no JVD Respiratory/Chest: + respiratory distress, + decreased breath sounds, + wheezing Cardiovascular: regular rate, rhythm Abdomen/GI: normal bowel sounds, non tender, soft Extremities/Musculoskelatal: normal inspection, no calf tenderness, normal capillary refill, no pedal edema Neurologic/Psych: no motor/sensory deficits, alert, normal mood/affect, oriented x 3 Diagnostics Laboratory Results Results Past 24 Hours Test 10/12/16 00:00 10/12/16 00:08 10/12/16 00:13 10/12/16 05:24 Range/Units Urine Color YELLOW Urine Appearance CLEAR CLEAR Urine pH 6.5 4.5-7.5 Urine Specific [place] 1.006 1.000-1.030 Urine Protein NEG NEG Urine Glucose (UA) NEG NEG Urine Ketones NEG NEG Urine Occult Blood TRACE NEG Urine Nitrite NEG NEG Urine Bilirubin NEG NEG Urine Urobilinogen NEG NEG Urine Leukocyte Esterase SMALL NEG Urine WBC (Auto) 0-5 /hpf Urine RBC (Auto) 0-4 /hpf Urine Hyaline Casts (Auto) 0-5 /lpf Urine Epithelial Cells (Auto) 0-5 /lpf Urine Bacteria (Auto) NEG Urine RBC 0-4 0-4 /hpf Urine WBC 1-5 0-5 /hpf Urine Epithelial Cells 0-5 0-5 /lpf Urine Bacteria NEG NEG White Blood Count 6.63 4.8-10.8 K/uL Red Blood Count 4.26 4.2-5.4 M/uL Hemoglobin 13.4 12.0-16.0 g/dL Hematocrit 38.3 37-47 % Mean Corpuscular Volume 89.9 80-100 fL Mean Corpuscular Hemoglobin 31.5 25-34 pg Mean Corpuscular Hemoglobin Concent 35.0 32-36 g/dl Platelet Count 280 130-400 K/uL Mean Platelet Volume 9.1 7.4-10.4 fL Neutrophils (%) (Auto) 34.9 % Lymphocytes (%) (Auto) 43.6 % Monocytes (%) (Auto) 13.3 % Eosinophils (%) (Auto) 7.5 % Basophils (%) (Auto) 0.5 % Neutrophils # (Auto) 2.32 1.4-6.5 K/uL Lymphocytes # (Auto) 2.89 1.2-3.4 K/uL Monocytes # (Auto) 0.88 0.11-0.59 K/uL Eosinophils # (Auto) 0.50 0-0.5 K/uL Basophils # (Auto) 0.03 0-0.2 K/uL RDW Standard Deviation 44.5 36.4-46.3 fL RDW Coefficient of Variation 13.5 11.5-14.5 % Immature Granulocyte % (Auto) 0.2 % Immature Granulocyte # (Auto) 0.01 0.00-0.02 K/uL Prothrombin Time 11.4 9.0-12.0 SECONDS Prothromb Time International Ratio 1.1 0.9-1.1 Activated Partial Thromboplast Time 27.1 21.0-31.0 SECONDS Partial Thromboplastin Ratio 1.0 Sodium Level 135 136-145 mmol/L Potassium Level 3.4 3.5-5.1 mmol/L Chloride Level 100 98-107 mmol/L Carbon Dioxide Level 25 21-32 mmol/L Anion Gap 10.0 3-11 mmol/L Blood Urea Nitrogen 10 7-18 mg/dl Creatinine 0.84 0.60-1.20 mg/dl Est Creatinine Clear Calc Drug Dose 73.0 ml/min Estimated GFR () 85.7 Estimated GFR (Non- 74.0 BUN/Creatinine Ratio 12.0 10-20 Random Glucose 103 70-99 mg/dl Calcium Level 8.3 8.5-10.1 mg/dl Total Bilirubin 0.2 0.2-1 mg/dl Aspartate Amino Transf (AST/SGOT) 26 15-37 U/L Alanine Aminotransferase (ALT/SGPT) 27 12-78 U/L Alkaline Phosphatase 142 45-117 U/L Total Protein 7.5 6.4-8.2 gm/dl Albumin 3.8 3.4-5.0 gm/dl Globulin 3.7 2.5-4.0 gm/dl Albumin/Globulin Ratio 1.0 0.9-2 Chemistry Specimen Hemolysis Bedside Lactic Acid Venous 2.36 0.90-1.70 mmol/L Test 10/12/16 05:25 Range/Units Microbiology Results 10/12/16 Blood Culture, Received Pending 10/12/16 Blood Culture, Received Pending Diagnostic Radiology CHEST XRAY : hyperinflated lung field , no infiltrate or effusion noted Bibasilar linear densities likely represent subsegmental atelectasis. CT CHEST WITH CONTRAST : IMPRESSION: 1. Suspected extensive dependent atelectasis with minimal debris noted in multiple subsegmental bronchi in the bilateral lower lobes, most likely mucous plugging. Minimal consolidation in the lingula most likely also represents atelectasis, although infection is not excluded. 2. Main pulmonary artery enlargement. EKG Vent. rate 68 BPM VT interval 184 ms QRS duration 104 ms QT/QTc 410/435 ms P-R-T axes 66 16 -10 Normal sinus rhythm T wave abnormality, consider inferior ischemia T wave abnormality, consider anterior ischemia Abnormal ECG When compared with ECG of 12-OCT-2016 02:47, (unconfirmed) Left bundle branch block is no longer Present Impression Assessment and Plan COPD EXACERBATION : -advanced COPD at baseline , presented with Wheeze , SOB , MACHUCA , cough for 2 weeks -very poor air entry -CT chest shows possible mucous plugging -pt should be monitored in Tele -added Iv Solu -Medrol , cont Neb tx , INH , supplemental 02 -Pulmonology eval requested -may need Bronch for mucous plugging cont empiric abx with Levaquin ACUTE ON CHRONIC RESPIRATORY FAILURE : due to above CT chest suggestive of mucous plugging at base pulmonology eval requested -pt is known to Dr Zapata DEPRESSION ; cont Celexa LOW K /LOW NA : replaced , follow PRP HX OF SZ DISORDER : stable no recent Sz cont Dilantin ER 200 mg BID ordered for Dilantin level to be checked HYPOTHYROIDISM : cont Levothyroxine FULL CODE DVT PROPHYLAXIS : moderate risk Sub q heparin DISPOSITION ; PT/OT Eval requested -pt reports of significant functional deconditioning , legs giving away , weakness with attempt to walk Social service consulted for discharge planning Medicine Follow up with Dr Villavicencio Level of Care Telemetry Advanced Directives Existing Living Will: No Existing Power of Truck Mechanic: No VTE Prophylaxis VTE Risk Assessment Done? Y/N: Yes Risk Level: Moderate Given or contraindicated: Unfractionated heparin SQ Additional Copies To Vu Zapata MD Sulman, Scott A., D.O.
[2016-10-12] MEDS ORDERED: ALBUTEROL HFA 8 GM INHALER INH PRN (05:30)
[2016-10-12] MEDS ORDERED: ALUMINUM/MAGNESIUM/SIMETH (MAALOX MAX) 30 ML UDC PO PRN (05:30)
[2016-10-12] MEDS ORDERED: POLYETHYLENE (MIRALAX) 17 GM PACK PO PRN (05:30)
[2016-10-12] MEDS ORDERED: MAGNESIUM HYDROXIDE SUSP 30 ML UDC PO PRN (05:30)
[2016-10-12] MEDS ORDERED: SODIUM CHLORIDE 0.9% 1000ML 1,000 ML IV SCH (05:30)
[2016-10-12] MEDS ORDERED: ACETAMINOPHEN 325 MG TAB PO PRN (05:30)
[2016-10-12] MEDS ORDERED: FUROSEMIDE 20 MG TAB PO PRN (05:30)
[2016-10-12] MEDS ORDERED: ZOLPIDEM TARTRATE 5 MG TAB PO PRN (05:30)
[2016-10-12] MEDS: METHYLPREDNISOLONE IV 40 MG in SYRINGE 0 ML IV SCH ×3 (06:33→20:56)
[2016-10-12] MEDS: LEVOTHYROXINE 100 MCG TAB PO SCH (06:33)
[2016-10-12 06:59] LABS: BUN/CREATININE RATIO 13.4 (10-20); CALCIUM 8.2 mg/dl (8.5-10.1); CREATININE 0.65 mg/dl (0.60-1.20)
--- NOTE | 2016-10-12 07:05 | DIAGNOSTIC IMAGING REPORT ---
CHEST ONE VIEW PORTABLE HISTORY: Sepsis COMPARISON: Chest 10/08/2016. FINDINGS: Bibasilar linear densities. The heart remains mildly enlarged. No pleural effusions. No pneumothorax. Emphysema. IMPRESSION: Bibasilar linear densities likely represent subsegmental atelectasis. Electronically signed by: Paul Antonio M.D. 10/12/2016 7:04 AM Dictated Date/Time: 10/12/2016 7:03 AM
--- NOTE | 2016-10-12 07:14 | DIAGNOSTIC IMAGING REPORT ---
(CHEST) THORAX WITH CLINICAL HISTORY: 61 years-old Female presenting with eval for pneumonia/empyema, abnormal chest x-ray. TECHNIQUE: Multidetector CT imaging of the chest was performed after the administration of intravenous contrast. IV contrast: 92 mL of Optiray 320. A dose lowering technique was used consistent with the principles of ALARA (as low as reasonably achievable). COMPARISON: Chest x-ray from 10/08/2016 and 10/12/2016. CT DOSE (mGy.cm): The estimated cumulative dose is 241.61 mGy.cm. FINDINGS: Youth Officer topogram: Unremarkable. On soft tissue windows, heterogeneity of the thyroid gland with suggestion of small subcentimeter nodule in the right lobe. No axillary, supraclavicular, hilar, or mediastinal lymphadenopathy. Mild atherosclerosis of the aortic arch. Allowing for nongated technique, enlargement of the main pulmonary artery measuring 2.5 cm in maximal transverse dimension. Normal heart size. Aortic valve calcification. Trace pericardial effusion. No pleural effusion. Fat-containing left Bochdalek hernia. Vague hypodensity in the spleen, indeterminate but possibly hemangioma or hamartoma. Scarring noted at the upper pole the left kidney. On lung windows, bandlike opacities at the lung bases, possibly atelectasis or scarring. Minimal consolidation in the lingula, possibly also atelectasis. Minimal debris noted in multiple subsegmental bronchi in the bilateral lower lobes, most likely mucous plugging. On bone windows, degenerative changes of thoracic spine. IMPRESSION: 1. Suspected extensive dependent atelectasis with minimal debris noted in multiple subsegmental bronchi in the bilateral lower lobes, most likely mucous plugging. Minimal consolidation in the lingula most likely also represents atelectasis, although infection is not excluded. 2. Main pulmonary artery enlargement. Electronically signed by: Jerrod Rosenbaum M.D. 10/12/2016 7:13 AM Dictated Date/Time: 10/12/2016 7:06 AM
[2016-10-12 07:15] LABS: POTASSIUM 4.3 mmol/L (3.5-5.1)
[2016-10-12] MEDS: ALBUT/IPRATROP 3MG/0.5MG NEB 3 ML VIAL INH SCH ×5 (07:31→19:51)
[2016-10-12] MEDS: BUDESONIDE/FORMOTEROL FUMARATE 160/4.5 60 PUFFS/INHALER INH SCH ×3 (07:35→20:05)
[2016-10-12] MEDS: ASPIRIN 81 MG ECTAB PO SCH ×2 (07:35→08:37)
[2016-10-12] MEDS: LEVOFLOXACIN 750 MG TAB PO SCH (07:35)
[2016-10-12] MEDS: PANTOprazole SOD 40 MG TAB PO SCH ×2 (07:35→08:37)
[2016-10-12] MEDS: CITALOPRAM 40 MG TAB PO SCH ×2 (07:36→08:36)
[2016-10-12] MEDS: PHENYTOIN SODIUM ER 100 MG CAP PO SCH ×3 (07:36→20:04)
[2016-10-12] MEDS: FLUTICASONE PROPIONATE NA SPR 16 GM BTL SCH ×3 (07:37→20:04)
[2016-10-12] MEDS: HEPARIN SOD 5000 UNIT/0.5 ML CARP SQ SCH ×2 (07:39→20:10)
--- NOTE | 2016-10-12 13:41 | DIAGNOSTIC IMAGING REPORT ---
HEAD WITHOUT CONTRAST (CT) CLINICAL HISTORY: 61 years-old Female presenting with confusion. TECHNIQUE: Multidetector CT imaging of the head was performed without the use of intravenous contrast. IV contrast: None. A dose lowering technique was used consistent with the principles of ALARA (as low as reasonably achievable). COMPARISON: 03/17/2013. CT DOSE (mGy.cm): The estimated cumulative dose is 690.05 mGycm. FINDINGS: Medical Malpractice Paralegal topogram: Unremarkable. Ventricles and sulci normal in size. Brain parenchyma normal in appearance with preserved fay-white differentiation. No mass effect or midline shift. No hemorrhage or acute territorial infarct. No extra-axial fluid collection. Extensive mucosal thickening in the paranasal sinuses. Evidence of maxillary antrostomies and right mastoidectomy. External auditory canals are clear. Trace fluid in the right mastoid air cells. IMPRESSION: 1. No acute intracranial pathology. 2. Extensive changes of the paranasal sinuses and mastoid air cells as above. Electronically signed by: Jerrod Rosenbaum M.D. 10/12/2016 1:40 PM Dictated Date/Time: 10/12/2016 1:36 PM
--- NOTE | 2016-10-12 15:03 | Pulmonary Consultation ---
History General Date of Service: Oct 12, 2016. Stated Complaint: Copd Exacerbation HPI The patient is a 61 year old female who presents to [facility] with complaints of Copd Exacerbation. The patient's primary care provider is Asa Villavicencio D.O.. 61-year-old female with past medical history of chronic cough secondary to moderate persistent asthma, bronchiectasis, recurrent otitis media/mastoiditis, recurrent pseudomonal infections or sinus and bronchi, GERD with esophagitis, stress-induced cardiomyopathy, vitamin D deficiency and seizure disorder who presented to ER with complaints of worsening shortness of breath, productive cough with dark yellowish brownish sputum, wheezing and pleuritic chest pain for the last 2 weeks. She also complains of worsened dyspnea on exertion only able to walk a few feet. She also complains of lower extremity weakness associated with sensation of falling. She denies any fevers, chills or cardiac chest pain. She was recently seen in the ER on 10/08/2016 for a one-week history of chest tightness and chest pain associated with sore throat, rhinorrhea and productive cough. She had seen her PCP who prescribed azithromycin as well as prednisone taper. EKG at that time showed left bundle branch block, however 1 month ago was normal sinus rhythm. Troponins were negative. Chest x-ray was done and thought to be consistent with pneumonia and she was discharged with Levaquin and corticosteroids for 5 days. Vital signs in the ER her pulse 79, respiratory rate of 27 blood pressure 127/ 72 saturating between 95-100% on room air. Chest x-ray showed bibasilar linear densities most likely representing subsegmental atelectasis. CT chest showed his eccentric dependent atelectasis with minimal debris in multiple subsegmental bronchi in the bilateral lower lobes, likely mucus plugging. There was also minimal consolidation in the lingula representing atelectasis. EKG done in the ER showed normal sinus rhythm if interested ventricular rate of 68 with a T-wave abnormality, previous left bundle-branch block seen on 2016 no longer present.She was admitted for acute on chronic respiratory insufficiency. She's currently be seen by Dr. Zapata in the office from a pulmonary standpoint. Last visit was on 09/23/2016. she is also followed up at [facility] with Dr. Gilbert Jensen for second opinion. However no diagnosis or definitive plan was given. She is also being followed up by Dr. Maldonado, outreach rep, [facility] and Dr. Ibarra from ENT, who is performing nasal debridement twice a year. Her current medications include Symbicort 160 on the-4.5 inhalation of 2 puffs twice daily, ipratropium-albuterol via nebulizer for every 4 hours as needed, Ventolin HFA inhaler 2 puffs every 4 hours as needed Singulair 10 mg 1 tablet daily and BROVaNA nebulizer twice daily. She also takes aspirin 81 mg daily, citalopram 40 mg daily, Dilantin 100 mg 2 capsules twice, daily, Flonase 2 sprays initial nostril, phenobarbital 97.2 mg at bedtime, pantoprazole and ranitidine, Lasix 20 mg daily when necessary and Synthroid 100 g daily. Pulmonary history Bronchoscopy performed on 06/11/2016-bacterial culture grew pansensitive pseudomonas aeruginosa and fungal cultures grew [place] albicans, Bronchoscopy performed on 09/12/2015-bronchial wash bacterial culture showed scant normal ben; fungal culture grew penicillium species Bronchoscopy performed on 06/28/2015-bronchial wash bacterial culture grew Staphylococcus aureus PFT 07/15/2016 Spirometry: Moderate obstructive ventilatory disease FEV1 of 65% with borderline significant bronchodilator response in FEV1 Lung volumes: within normal limits Diffusion: Within normal limits Interpretation: Moderate obstructive ventilatory defect suggestive of asthma/ chronic bronchitis Serum studies Serum IgE: 7.6 (WNL) Penicillin notatum: (WNL) Aspergillus fumigatus: (WNL) Ig (WNL) IgM: 65 (WNL) Id IgA: 144 (WNL) Historian: patient Onset: last week Severity: moderate Complaint Status: persistent Review of Systems Eyes: reports: no symptoms ENT: reports: loss of hearing, nasal congestion, rhinorrhea Cardiovascular: reports: chest tightness Respiratory: reports: cough, shortness of breath, wheezing, sputum production, MACHUCA Gastrointestinal: reports: no symptoms, other (Gastric reflux), denies: appetite changes Genitourinary - Female: reports: no symptoms (leg weakness) Integumentary: reports: no symptoms Neurologic: reports: general weakness, denies: numbness, tingling Psychiatric: reports: no symptoms Endocrine: no symptoms Hematologic / Lymphatic: no symptoms Allergic / Immunologic: no symptoms Past Medical History Past Surgical History: 1. History of Colonoscopy (Fiberoptic) 2. History of Ear Surgery 3. History of Endoscopic Ultrasound Upper Gastrointestinal Esophageal 4. History of Sinus Surgery 5. History of Total Abdominal Hysterectomy 6. History of Tympanoplasty 7. History of Tympanoplasty Revision Family History Diabetes mellitus MOTHER FH: lung cancer AUNT Hypertension FATHER Family history of thyroid disease Social History Lifetime nonsmoker, denies alcohol use or illicit drug use. 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 Hx Tobacco Use In Past Year?: No Smoking Status: Never Smoker Housing status: other Occupational Status: unemployed Immunizations History of Influenza Vaccine: Yes Influenza Vaccine Date: Jan 14, 2016 History of Tetanus Vaccine?: Yes Tetanus Immunization Date: Oct 06, 2007 History of MDRO History of MDRO: No Allergies Coded Allergies: Clemastine (Verified Allergy, Unknown, ITCHING, 10/12/16) Sulfa Antibiotics (Verified Allergy, Unknown, RASH AND ITCHY, 10/12/16) [place] (Verified Allergy, Unknown, TAMAZIGHT [place]UT ALLERGY, + ALLERGY TEST , 10/12/16) Current Medications Reported Home Medications Medications Dose Route/Sig Max Daily Dose Days Date Category Dose Instructions Levaquin (Levofloxacin) 750 Mg Tab 750 Mg PO QD@08 10/08/16 Rx Prednisone 50 Mg Tab 50 Mg PO DAILY 5 10/08/16 Rx Zithromax (Azithromycin) 250 Mg Tab 250 Mg PO DAILY 10/08/16 Reported Z-MATT Prednisone 20 Mg Tab 20 Mg PO UD 10 08/12/16 Rx 2 po daily for 1 day,1 and a 1/2 po daily for 3 days,1 po daily for 3 days and then 1/2 po daily for 3 days Flonase Allergy Relief (Fluticasone Propionate (Nasal)) 50 Mcg/Act Spr 1 [place] NA BID 08/10/16 Reported Aspirin EC Low Dose (Aspirin) 81 Mg Ectab 81 Mg PO DAILY 08/10/16 Reported Lasix (Furosemide) 20 Mg Tab 20 Mg PO DAILY PRN 06/03/16 Reported Ventolin Hfa (Albuterol) 200 Puffs/83853 Mcg Aers 2 Puffs INH Q4H PRN 04/06/16 Reported Symbicort 160/4.5 Inhaler (Budesonide/Formoterol Fumarate) Aero 2 Puffs INH BID 12/03/15 Reported Singulair (Montelukast Sodium) 10 Mg Tab 10 Mg PO QPM 10/08/15 Reported Duoneb (Ipratropium-Albuterol) 3 Ml Nebu 1 Treatment INH Q4H PRN 10/08/15 Reported Folvite (Folic Acid) 1 Mg Tab 1 Mg PO QAM 09/17/15 Reported Citalopram Hydrobromide (Citalopram) 40 Mg Tab 40 Mg PO QAM 09/17/15 Reported Levothyroxine Sodium 100 Mcg Tab 100 Mcg PO DAILY 09/17/15 Reported Protonix (Pantoprazole Sodium) 40 Mg Tab 40 Mg PO QAM 09/17/15 Reported Dilantin (Phenytoin Sodium) 100 Mg Cap 200 Mg PO BID 09/17/15 Reported Phenobarbital 100 Mg Tab 97.2 Mg PO HS 09/17/15 Reported Physical Physical Exam Vital Signs: Date Time Temp Pulse Resp B/P (MAP) Pulse Ox O2 Delivery O2 Flow Rate FiO2 10/12/16 11:50 82 30 98 Nasal Cannula 2.0 10/12/16 11:20 36.6 77 20 133/50 (77) 99 Nasal Cannula 2.0 10/12/16 10:18 79 16 98 Nasal Cannula 3.0 10/12/16 08:30 Nasal Cannula 2.0 10/12/16 08:30 36.9 76 22 119/72 (88) 99 Nasal Cannula 2.0 10/12/16 07:34 74 16 98 Nasal Cannula 2.0 10/12/16 04:22 83 16 140/77 97 Nasal Cannula 2.0 10/12/16 04:05 36.5 83 22 140/77 (98) 96 Nasal Cannula 2.0 10/12/16 03:49 36.5 78 17 109/56 99 10/12/16 03:02 76 17 99 Nasal Cannula 3.0 10/12/16 03:01 126/63 10/12/16 02:32 80 16 97 10/12/16 02:02 79 19 93 10/12/16 02:02 80 95 Nasal Cannula 3.0 10/12/16 01:50 86 18 83 Room Air 10/12/16 01:27 90 18 120/56 98 Room Air 10/12/16 00:30 89 10/12/16 00:09 Room Air 10/12/16 00:06 97 Room Air 10/12/16 00:00 36.5 82 20 159/73 99 Room Air 10/12/16 00:00 99 Room Air General Appearance: WD/WN, mild distress Head: NORMOCEPHALIC, ATRAUMATIC Eyes: PERRLA, NO DISCHARGE, EOMI, SCLERAE NORMAL, CONJUNCTIVAE NORMAL ENT: other (decreased hearing bilaterally, oral thrush pharynx, [place] II) Neck: NORMAL RANGE OF MOTION, NO TENDERNESS, TRACHEA MIDLINE, NO STRIDOR, SUPPLE, NO LYMPHADENOPATHY Respiratory: wheezing (bilateral expiratory wheezes, prolonged expiratory phase ) Cardiovasular: REGULAR RATE/RHYTHM, NORMAL S1S2, NO M/G/R Abdomen: NON TENDER, NORMAL BOWEL SOUNDS Back: NORMAL INSPECTION, NO MIDLINE TENDERNESS Edema: Bilateral LE (1+) Pulses: dorsalis pedis (R) (2+) Neuro: ALERT, ORIENTED x 3, NORMAL MOTOR EXAM, NORMAL SENSATION, NORMAL SPEECH (hoarse voice) Psychiatric: NORMAL AFFECT, NO SUICIDAL IDEATION, CONTRACTS FOR SAFETY Diagnostics Labs Results Past 24 Hours Test 10/12/16 00:00 10/12/16 00:08 10/12/16 00:13 10/12/16 05:42 Range/Units Urine Color YELLOW Urine Appearance CLEAR CLEAR Urine pH 6.5 4.5-7.5 Urine Specific [place] 1.006 1.000-1.030 Urine Protein NEG NEG Urine Glucose (UA) NEG NEG Urine Ketones NEG NEG Urine Occult Blood TRACE NEG Urine Nitrite NEG NEG Urine Bilirubin NEG NEG Urine Urobilinogen NEG NEG Urine Leukocyte Esterase SMALL NEG Urine WBC (Auto) 0-5 /hpf Urine RBC (Auto) 0-4 /hpf Urine Hyaline Casts (Auto) 0-5 /lpf Urine Epithelial Cells (Auto) 0-5 /lpf Urine Bacteria (Auto) NEG Urine RBC 0-4 0-4 /hpf Urine WBC 1-5 0-5 /hpf Urine Epithelial Cells 0-5 0-5 /lpf Urine Bacteria NEG NEG White Blood Count 6.63 4.8-10.8 K/uL Red Blood Count 4.26 4.2-5.4 M/uL Hemoglobin 13.4 12.0-16.0 g/dL Hematocrit 38.3 37-47 % Mean Corpuscular Volume 89.9 80-100 fL Mean Corpuscular Hemoglobin 31.5 25-34 pg Mean Corpuscular Hemoglobin Concent 35.0 32-36 g/dl Platelet Count 280 130-400 K/uL Mean Platelet Volume 9.1 7.4-10.4 fL Neutrophils (%) (Auto) 34.9 % Lymphocytes (%) (Auto) 43.6 % Monocytes (%) (Auto) 13.3 % Eosinophils (%) (Auto) 7.5 % Basophils (%) (Auto) 0.5 % Neutrophils # (Auto) 2.32 1.4-6.5 K/uL Lymphocytes # (Auto) 2.89 1.2-3.4 K/uL Monocytes # (Auto) 0.88 0.11-0.59 K/uL Eosinophils # (Auto) 0.50 0-0.5 K/uL Basophils # (Auto) 0.03 0-0.2 K/uL RDW Standard Deviation 44.5 36.4-46.3 fL RDW Coefficient of Variation 13.5 11.5-14.5 % Immature Granulocyte % (Auto) 0.2 % Immature Granulocyte # (Auto) 0.01 0.00-0.02 K/uL Prothrombin Time 11.4 9.0-12.0 SECONDS Prothromb Time International Ratio 1.1 0.9-1.1 Activated Partial Thromboplast Time 27.1 21.0-31.0 SECONDS Partial Thromboplastin Ratio 1.0 Sodium Level 135 139 136-145 mmol/L Potassium Level 3.4 4.3 3.5-5.1 mmol/L Chloride Level 100 105 98-107 mmol/L Carbon Dioxide Level 25 29 21-32 mmol/L Anion Gap 10.0 5.0 3-11 mmol/L Blood Urea Nitrogen 10 9 7-18 mg/dl Creatinine 0.84 0.65 0.60-1.20 mg/dl Est Creatinine Clear Calc Drug Dose 73.0 89.7 ml/min Estimated GFR () 85.7 109.5 Estimated GFR (Non- 74.0 94.5 BUN/Creatinine Ratio 12.0 13.4 10-20 Random Glucose 103 136 70-99 mg/dl Calcium Level 8.3 8.2 8.5-10.1 mg/dl Total Bilirubin 0.2 0.2-1 mg/dl Aspartate Amino Transf (AST/SGOT) 26 15-37 U/L Alanine Aminotransferase (ALT/SGPT) 27 12-78 U/L Alkaline Phosphatase 142 45-117 U/L Total Protein 7.5 6.4-8.2 gm/dl Albumin 3.8 3.4-5.0 gm/dl Globulin 3.7 2.5-4.0 gm/dl Albumin/Globulin Ratio 1.0 0.9-2 Chemistry Specimen Hemolysis Bedside Lactic Acid Venous 2.36 0.90-1.70 mmol/L Lactic Acid Level 0.6 0.4-2.0 mmol/L Test 10/12/16 08:43 Range/Units Phenytoin (Dilantin) Level 12.0 10-20 mcg/mL Microbiology Results 10/12/16 Blood Culture, Received Pending 10/12/16 Blood Culture, Received Pending Diagnostic Radiology CT Chest 10/12/2016 IMPRESSION: 1. Suspected extensive dependent atelectasis with minimal debris noted in multiple subsegmental bronchi in the bilateral lower lobes, most likely mucous plugging. Minimal consolidation in the lingula most likely also represents atelectasis, although infection is not excluded. 2. Main pulmonary artery enlargement. CXR 10/12/2016 FINDINGS: Bibasilar linear densities. The heart remains mildly enlarged. No pleural effusions. No pneumothorax. Emphysema. IMPRESSION: Bibasilar linear densities likely represent subsegmental atelectasis. EKG EKG 10/12/2016 Normal sinus rhythm 68 bpm T wave abnormality, consider inferior ischemia T wave abnormality, consider anterior ischemia T wave abnormalities could also be due to prior LBBB Abnormal ECG Impression Assessment and Plan Chronic bronchiectasis with acute exacerbation Moderate persistent asthma Mucus plugging GERD Sinusitis Oral candidiasis Patient has chronic cough which is multifactorial in nature. Most likely secondary to chronic bronchiectasis. However patient does have history of chronic sinusitis as well as GERD which may be contributing to her symptoms. Her most recent PFTs do show moderate obstruction which can be seen in bronchiectasis but can also be seen with asthma (borderline bronchodilator response).She is actively wheezing on my examination. Most recent CT scan does confirm mucus plugging which appears to be chronic. However due to patient's history of previous pseudomonas, fungal and staph aureus bacterial bronchial infections and active symptoms of increased mucus production, wheezing and chest pain I would like to proceed with bronchoscopy to rule out active infection and to remove mucous plugs. In light of patient's dynamic EKG changes I would like to have a cardiology consult to rule out active ischemia prior to proceeding. I have kept patient nothing by mouth for possible procedure in the morning after cardiology's input. Continue with bronchodilators, systemic corticosteroids, antibiotics, and aggressive pulmonary toilet. Oxygen supplementation via nasal cannula when necessary, if hypoxic. In the meantime I will add dornase alpha, flutter valve and chest vest. Continue with pantoprazole for GERD and fluticasone for chronic sinusitis. I would suggest swish and swallow for oral candidiasis. I appreciate the consult and will continue to follow with you.
[2016-10-12] MEDS: DORNASE ALFA (2500U) 2.5MG/2.5ML INH SCH (19:52)
[2016-10-12] MEDS: MONTELUKAST SOD 10 MG TAB PO SCH (20:04)
[2016-10-12] MEDS: GUAIFENESIN/CODEINE 100MG/10MG 5ML UDC PO PRN (20:56)
[2016-10-12 22:21] LABS: CKMB/CK RATIO 3.2 (0-3.0)
--- NOTE | 2016-10-12 22:33 | Progress Note ---
Medicine Progress Note Date & Time of Visit: Oct 12, 2016 at 12:33. Subjective 61 yo F who underwent a cardiac catheterization in 2016 after she presented to the hospital with increased shortness of breath and found to have a new onset LBBB. She was found to have normal coronary arteries at that time and was diagnosed with a stress-induced cardiomyopathy with normalization of the cardiac function seen on echo 11/07/15. She states that since that time she has developed worsening shortness of breath on exertion. She has significant lung disease at baseline with bronchiectasis and frequent mucous plugging requiring three bronchoscopies in the past year, chronic cough secondary to moderate persistent asthma, recurrent otitis media/mastoiditis, recurrent pseudomonal infections, GERD with esophagitis. Although she is oxygenating well on room air , she feels very short of breath with chest imaging consistent with mucous plugging and atelectasis. She has been ill for the past 1-2 weeks with rhinorrhea, productive cough and sore throat. She was treated with abx and steroids with some improvement. She was seen in the ER 4 days ago and noted to have a return of her LBBB which has since resolved. Pulmonary was consulted and recommends continuing with bronchodilators, IV steroids, abx and pulmonary toilet with the addition of dornase alpha, flutter valve and chest vest. She did report some generalized weakness with difficulty finding her words for a few minutes. Although there was no focal findings and symptoms described did not ultimatlely sound like TIA, her history was very difficult to follow, so head CT was performed and negative. Neurologic exam was also normal aside from a chronic tremor in her hands. She does report chest pain that is band-like and chronic, initially thought secondary to her pulmonary disease. With dynamic EKG changes, cardiology will be consulted and with history of stress- induced cardiomyopathy in the past, will reorder TTE at this time. She initially reported seeing Dr. Sorensen in August this year, however, on review of the records, this was last year as above. Objective Last 8 Hrs Date Time Temp Pulse Resp B/P (MAP) Pulse Ox O2 Delivery O2 Flow Rate FiO2 10/12/16 11:50 82 30 98 Nasal Cannula 2.0 10/12/16 11:20 36.6 77 20 133/50 (77) 99 Nasal Cannula 2.0 10/12/16 10:18 79 16 98 Nasal Cannula 3.0 8/28/17 08:30 Nasal Cannula 2.0 10/12/16 08:30 36.9 76 22 119/72 (88) 99 Nasal Cannula 2.0 10/12/16 07:34 74 16 98 Nasal Cannula 2.0 Physical Exam: GEN: WNWD, in no acute distress, alert and appropriate, pressured speech, appears anxious, resting tremor noted in hands R>L HEENT: NC/AT, PERRL, normal sclerae, MMM, pharynx non-acute CARDIO: reg rate, S1/2 heard without m/g/r, no edema. LUNGS: diffuse wheezing in all lung nicolas. ABD: soft, non-tender, non-distended, no rebound or guarding, +BS EXTREMITY: RP and DP palpable 2+ bilat, no LE swelling or edema, extremities are warm and well-perfused NEURO: CN 2-12 intact, sensation intact throughout, coordination intact, no focal deficits. MUSC: 5/5 strength throughout, no focal deficits SKIN: warm and dry Laboratory Results: 10/12/16 00:08 Red Blood Count 4.26, Mean Corpuscular Volume 89.9, Mean Corpuscular Hemoglobin 31.5, Mean Corpuscular Hemoglobin Concent 35.0, Mean Platelet Volume 9.1, Neutrophils (%) (Auto) 34.9, Lymphocytes (%) (Auto) 43.6, Monocytes (%) (Auto) 13.3, Eosinophils (%) (Auto) 7.5, Basophils (%) (Auto) 0.5, Neutrophils # (Auto ) 2.32, Lymphocytes # (Auto) 2.89, Monocytes # (Auto) 0.88, Eosinophils # (Auto ) 0.50, Basophils # (Auto) 0.03 10/12/16 05:42 Test 10/12/16 00:00 10/12/16 00:08 10/12/16 00:13 10/12/16 05:42 Urine Color YELLOW Urine Appearance CLEAR (CLEAR) Urine pH 6.5 (4.5-7.5) Urine Specific [place] 1.006 (1.000-1.030) Urine Protein NEG (NEG) Urine Glucose (UA) NEG (NEG) Urine Ketones NEG (NEG) Urine Occult Blood TRACE (NEG) Urine Nitrite NEG (NEG) Urine Bilirubin NEG (NEG) Urine Urobilinogen NEG (NEG) Urine Leukocyte Esterase SMALL (NEG) Urine WBC (Auto) /hpf (0-5) Urine RBC (Auto) /hpf (0-4) Urine Hyaline Casts (Auto) /lpf (0-5) Urine Epithelial Cells (Auto) /lpf (0-5) Urine Bacteria (Auto) (NEG) Urine RBC 0-4 /hpf (0-4) Urine WBC 1-5 /hpf (0-5) Urine Epithelial Cells 0-5 /lpf (0-5) Urine Bacteria NEG (NEG) White Blood Count 6.63 K/uL (4.8-10.8) Red Blood Count 4.26 M/uL (4.2-5.4) Hemoglobin 13.4 g/dL (12.0-16.0) Hematocrit 38.3 % (37-47) Mean Corpuscular Volume 89.9 fL (80-100) Mean Corpuscular Hemoglobin 31.5 pg (25-34) Mean Corpuscular Hemoglobin Concent 35.0 g/dl (32-36) Platelet Count 280 K/uL (130-400) Mean Platelet Volume 9.1 fL (7.4-10.4) Neutrophils (%) (Auto) 34.9 % Lymphocytes (%) (Auto) 43.6 % Monocytes (%) (Auto) 13.3 % Eosinophils (%) (Auto) 7.5 % Basophils (%) (Auto) 0.5 % Neutrophils # (Auto) 2.32 K/uL (1.4-6.5) Lymphocytes # (Auto) 2.89 K/uL (1.2-3.4) Monocytes # (Auto) 0.88 K/uL (0.11-0.59) Eosinophils # (Auto) 0.50 K/uL (0-0.5) Basophils # (Auto) 0.03 K/uL (0-0.2) RDW Standard Deviation 44.5 fL (36.4-46.3) RDW Coefficient of Variation 13.5 % (11.5-14.5) Immature Granulocyte % (Auto) 0.2 % Immature Granulocyte # (Auto) 0.01 K/uL (0.00-0.02) Prothrombin Time 11.4 SECONDS (9.0-12.0) Prothromb Time International Ratio 1.1 (0.9-1.1) Activated Partial Thromboplast Time 27.1 SECONDS (21.0-31.0) Partial Thromboplastin Ratio 1.0 Total Bilirubin 0.2 mg/dl (0.2-1) Aspartate Amino Transf (AST/SGOT) 26 U/L (15-37) Alanine Aminotransferase (ALT/SGPT) 27 U/L (12-78) Alkaline Phosphatase 142 U/L (45-117) Total Protein 7.5 gm/dl (6.4-8.2) Albumin 3.8 gm/dl (3.4-5.0) Globulin 3.7 gm/dl (2.5-4.0) Albumin/Globulin Ratio 1.0 (0.9-2) Bedside Lactic Acid Venous 2.36 mmol/L (0.90-1.70) Anion Gap 5.0 mmol/L (3-11) Est Creatinine Clear Calc Drug Dose 89.7 ml/min Estimated GFR () 109.5 Estimated GFR (Non- 94.5 BUN/Creatinine Ratio 13.4 (10-20) Lactic Acid Level 0.6 mmol/L (0.4-2.0) Calcium Level 8.2 mg/dl (8.5-10.1) Chemistry Specimen Hemolysis Test 10/12/16 08:43 Phenytoin (Dilantin) Level 12.0 mcg/mL (10-20) Date/Time Source Procedure Growth Status 10/12/16 00:37 Blood Blood Culture Pending Received 10/12/16 00:00 Nasal MRSA DNA Surveillance Screen Pending Received Last 24 Hours Test 10/12/16 00:00 10/12/16 00:08 10/12/16 00:13 10/12/16 05:42 Urine Color YELLOW Urine Appearance CLEAR Urine pH 6.5 Urine Specific [place] 1.006 Urine Protein NEG Urine Glucose (UA) NEG Urine Ketones NEG Urine Occult Blood TRACE Urine Nitrite NEG Urine Bilirubin NEG Urine Urobilinogen NEG Urine Leukocyte Esterase SMALL Urine WBC (Auto) /hpf Urine RBC (Auto) /hpf Urine Hyaline Casts (Auto) /lpf Urine Epithelial Cells (Auto) /lpf Urine Bacteria (Auto) Urine RBC 0-4 /hpf Urine WBC 1-5 /hpf Urine Epithelial Cells 0-5 /lpf Urine Bacteria NEG White Blood Count 6.63 K/uL Red Blood Count 4.26 M/uL Hemoglobin 13.4 g/dL Hematocrit 38.3 % Mean Corpuscular Volume 89.9 fL Mean Corpuscular Hemoglobin 31.5 pg Mean Corpuscular Hemoglobin Concent 35.0 g/dl Platelet Count 280 K/uL Mean Platelet Volume 9.1 fL Neutrophils (%) (Auto) 34.9 % Lymphocytes (%) (Auto) 43.6 % Monocytes (%) (Auto) 13.3 % Eosinophils (%) (Auto) 7.5 % Basophils (%) (Auto) 0.5 % Neutrophils # (Auto) 2.32 K/uL Lymphocytes # (Auto) 2.89 K/uL Monocytes # (Auto) 0.88 K/uL Eosinophils # (Auto) 0.50 K/uL Basophils # (Auto) 0.03 K/uL RDW Standard Deviation 44.5 fL RDW Coefficient of Variation 13.5 % Immature Granulocyte % (Auto) 0.2 % Immature Granulocyte # (Auto) 0.01 K/uL Prothrombin Time 11.4 SECONDS Prothromb Time International Ratio 1.1 Activated Partial Thromboplast Time 27.1 SECONDS Partial Thromboplastin Ratio 1.0 Sodium Level 135 mmol/L 139 mmol/L Potassium Level 3.4 mmol/L 4.3 mmol/L Chloride Level 100 mmol/L 105 mmol/L Carbon Dioxide Level 25 mmol/L 29 mmol/L Anion Gap 10.0 mmol/L 5.0 mmol/L Blood Urea Nitrogen 10 mg/dl 9 mg/dl Creatinine 0.84 mg/dl 0.65 mg/dl Est Creatinine Clear Calc Drug Dose 73.0 ml/min 89.7 ml/min Estimated GFR () 85.7 109.5 Estimated GFR (Non- 74.0 94.5 BUN/Creatinine Ratio 12.0 13.4 Random Glucose 103 mg/dl 136 mg/dl Calcium Level 8.3 mg/dl 8.2 mg/dl Total Bilirubin 0.2 mg/dl Aspartate Amino Transf (AST/SGOT) 26 U/L Alanine Aminotransferase (ALT/SGPT) 27 U/L Alkaline Phosphatase 142 U/L Total Protein 7.5 gm/dl Albumin 3.8 gm/dl Globulin 3.7 gm/dl Albumin/Globulin Ratio 1.0 Chemistry Specimen Hemolysis Bedside Lactic Acid Venous 2.36 mmol/L Lactic Acid Level 0.6 mmol/L Test 10/12/16 08:43 Phenytoin (Dilantin) Level 12.0 mcg/mL Date/Time Source Procedure Growth Status 10/12/16 00:37 Blood Blood Culture Pending Received 10/12/16 00:08 Blood Blood Culture Pending Received Diagnostic Imaging: HEAD WITHOUT CONTRAST (CT) CLINICAL HISTORY: 61 years-old Female presenting with confusion. TECHNIQUE: Multidetector CT imaging of the head was performed without the use of intravenous contrast. IV contrast: None. A dose lowering technique was used consistent with the principles of ALARA (as low as reasonably achievable). COMPARISON: 03/17/2013. CT DOSE (mGy.cm): The estimated cumulative dose is 690.05 mGycm. FINDINGS: [employer] topogram: Unremarkable. Ventricles and sulci normal in size. Brain parenchyma normal in appearance with preserved fay-white differentiation. No mass effect or midline shift. No hemorrhage or acute territorial infarct. No extra-axial fluid collection. Extensive mucosal thickening in the paranasal sinuses. Evidence of maxillary antrostomies and right mastoidectomy. External auditory canals are clear. Trace fluid in the right mastoid air cells. IMPRESSION: 1. No acute intracranial pathology. 2. Extensive changes of the paranasal sinuses and mastoid air cells as above. Assessment & Plan 61 yo F with h/o bronchiectasis and stress-induced cardiomyopathy presents with worsening of SOB/MACHUCA after recent pulmonary/nasal infection. 1. SOB-likely related to chronic bronchiectasis with acute exacerbation in setting of ?pneumonia. Continuing Levaquin and no hypoxia noted. Pulm following and recommends continuing with bronchodilators, IV steroids, abx and pulmonary toilet with the addition of dornase alpha, flutter valve and chest vest. With dynamic EKG changes (LBB seen then resolved in last 5 days) and h/o stress-induced cardiomyoapthy last year, will trend enzymes, repeat TTE in am and appreciate Cardiology consultation. 2. Depression/Anxiety-cont Celexa 3. seizure disorder-stable on Dilantin, no seizures in over 15 years 4. Weakness-pt describes generalized lack of motivation to move from her chair this morning that concerned her. This is general and may have been caused by multiple things including fatigue, recent neb use, ?hypoxia. PT/OT consult ordered. DVT proph: heparin Full Code Dispo-cont tele monitoring for now. Tasha Mcgowan DO [facility] Hospitalist Consultants: Liane Boles Current Inpatient Medications: Current Inpatient Medications Medications (Trade) Dose Ordered Sig/Matt Route Start Time Stop Time Status Last Admin Dose Admin Ioversol (Optiray 320) 100 ml UD PRN IV 10/12/16 00:45 10/16/16 00:44 Albuterol (Ventolin Hfa Inhaler) 2 puffs Q4H PRN INH 10/12/16 05:30 11/11/16 05:29 Aspirin (Ecotrin Tab) 81 mg DAILY PO 10/12/16 08:00 11/11/16 07:59 10/12/16 07:35 81 MG Budesonide/ Formoterol Fumarate (Symbicort 160/ 4.5 Inh) 2 puffs BID INH 10/12/16 08:00 11/11/16 07:59 10/12/16 07:35 2 PUFFS Citalopram Hydrobromide (celeXA TAB) 40 mg QAM PO 10/12/16 08:00 11/11/16 07:59 10/12/16 07:36 40 MG Fluticasone Propionate (Flonase Nasal [place]) 1 sprays BID NA 10/12/16 08:00 11/11/16 07:59 10/12/16 07:37 1 SPRAYS Folic Acid (Folvite Tab) 1 mg QAM PO 10/12/16 08:00 11/11/16 07:59 10/12/16 07:35 1 MG Furosemide (Lasix Tab) 20 mg DAILY PRN PO 10/12/16 05:30 11/11/16 05:29 Levofloxacin (Levaquin Tab) 750 mg QD@08 PO 10/12/16 08:00 10/19/16 07:59 10/12/16 07:35 750 MG Levothyroxine Sodium (Synthroid Tab) 100 mcg DAILYBB PO 10/12/16 06:30 11/11/16 06:29 10/12/16 06:33 100 MCG Montelukast Sodium (Singulair Tab) 10 mg QPM PO 10/12/16 21:00 11/11/16 20:59 Pantoprazole Sodium (Protonix Tab) 40 mg QAM PO 10/12/16 08:00 11/11/16 07:59 10/12/16 07:35 40 MG Phenytoin Sodium (Dilantin Er Cap) 200 mg BID PO 10/12/16 08:00 11/11/16 07:59 10/12/16 07:36 200 MG Albuterol/ Ipratropium (Duoneb) 3 ml QIDR INH 10/12/16 08:00 11/11/16 07:59 10/12/16 11:47 3 ML Methylprednisolone Sodium Succinate 40 mg/Syringe 0.64 ml @ 1.5 mls/min Q8 IV 10/12/16 06:00 11/11/16 05:59 10/12/16 06:33 1.5 MLS/MIN Sodium Chloride 1,000 ml @ 80 mls/hr [id number] IV 10/12/16 05:30 10/12/16 17:59 10/12/16 05:59 80 MLS/HR Acetaminophen (Tylenol Tab) 650 mg Q4H PRN PO 10/12/16 05:30 11/11/16 05:29 Al Hydrox/Mg Hydrox/Simethicone (Maalox Max Susp) 15 ml Q4H PRN PO 10/12/16 05:30 11/11/16 05:29 Magnesium Hydroxide (Milk Of Magnesia Susp) 30 ml Q6H PRN PO 10/12/16 05:30 11/11/16 05:29 Polyethylene (Miralax Powder Packet) 17 gm DAILY PRN PO 10/12/16 05:30 11/11/16 05:29 Zolpidem Tartrate (Ambien Tab) 5 mg HSZ PRN PO 10/12/16 05:30 11/11/16 05:29 Ondansetron HCl (Zofran Inj) 4 mg Q6H PRN IV 10/12/16 05:30 11/11/16 05:29 Heparin Sodium (Porcine) (Heparin Sq 5000 Unit/0.5ml) 5,000 unit Q12H SQ 10/12/16 09:00 11/11/16 08:59 10/12/16 07:39 5,000 UNIT Codeine Phosphate/ Guaifenesin (Robitussin-AC Sugar Free Syrup) 5 ml Q6H PRN PO 10/12/16 05:30 11/11/16 05:29
[2016-10-13] VITALS (11 sets, daily range): BP systolic 112–137; BP diastolic 57–71; PULSE 68–89; TEMP 36.5–37; O2SAT 92–98
[2016-10-13 01:14] LABS: CKMB/CK RATIO 3.4 (0-3.0)
[2016-10-13] MEDS: METHYLPREDNISOLONE IV 40 MG in SYRINGE 0 ML IV SCH ×3 (05:35→21:37)
[2016-10-13] MEDS: LEVOTHYROXINE 100 MCG TAB PO SCH (05:36)
[2016-10-13 06:05] LABS: BUN/CREATININE RATIO 12.5 (10-20); CALCIUM 8.1 mg/dl (8.5-10.1); CREATININE 0.55 mg/dl (0.60-1.20); POTASSIUM 3.9 mmol/L (3.5-5.1)
[2016-10-13] MEDS: DORNASE ALFA (2500U) 2.5MG/2.5ML INH SCH ×2 (07:22→19:22)
[2016-10-13] MEDS: ALBUT/IPRATROP 3MG/0.5MG NEB 3 ML VIAL INH SCH ×4 (07:22→19:27)
--- NOTE | 2016-10-13 08:01 | ECHOCARDIOGRAM REPORT ---
*NOTICE TO RECEIVING DEMOCRAT AGENCY This information is strictly Confidential and protected under [place] law. [place] law prohibits you from making any further disclosure of this information unless further disclosure is expressly permitted by the written consent of the person to whom it pertains or is authorized by law. A general authorization for the release of medical or other information is not sufficient for this purpose. Hospital accepts no responsibility if the information is made available to any other person, INCLUDING THE PATIENT. Interpretation Summary * Name: SARITA KENNEY Study Date: 10/13/2016 06:56 AM BP: 112/65 mmHg * Patient Location: .MSICU\S\E112\S\1 HR: 77 * : 1955 (M/d/yyy) Gender: Female Height: 63 in * Age: 61 yrs Ethnicity: [place] Weight: 180 lb * Ordering Physician: Tasha Mcgowan * Referring Physician: Self, Referred * Performed By: Lottie Nayak RDCS * * Reason For Study: MACHUCA * BSA: 1.8 m2 * -- Conclusions -- * The left ventricle is normal in size. * There is mild concentric left ventricular hypertrophy. * Septal motion is consistent with conduction abnormality. * No regional wall motion abnormalities noted. * Ejection Fraction = 55-60%. * Diastolic dysfunction, Grade II (pseudonormalization pattern). * Aortic valve sclerosis mild, without significant aortic valvular stenosis. * There is trace tricuspid regurgitation. * Right ventricular systolic pressure is mildly elevated at estimated 45 mmHg. Procedure Details * A complete two-dimensional transthoracic echocardiogram was performed (2D, M-mode, Doppler and color flow Doppler). Left Ventricle * The left ventricle is normal in size. * There is mild concentric left ventricular hypertrophy. * Ejection Fraction = 55-60%. * Left ventricular systolic function is normal. * Septal motion is consistent with conduction abnormality. * No regional wall motion abnormalities noted. Right Ventricle * The right ventricle is normal in size and function. Atria * The left atrial size is normal. * Right atrial size is normal. * No ASD detected; PFO is not assessed. Mitral Valve * The mitral valve is normal. * There is no mitral valve stenosis. * There is mild mitral regurgitation. Tricuspid Valve * The tricuspid valve anatomy is normal. * There is no tricuspid stenosis. * There is trace tricuspid regurgitation. * Right ventricular systolic pressure is elevated at 40-50mmHg. Aortic Valve * The aortic valve is trileaflet. * Aortic valve sclerosis mild, without significant aortic valvular stenosis. * No aortic regurgitation is present. Pulmonic Valve * The pulmonic valve is not well visualized. Great Vessels * The aortic root is normal size. Pericardium/Pleural * There is no pericardial effusion. Great Vessels * The inferior vena cava is mildly dilated. Left Ventricular Diastolic Function * Diastolic dysfunction, Grade II (pseudonormalization pattern). MMode 2D Measurements and Calculations IVSd 0.93 cm LVIDd 4.2 cm LVIDs 2.8 cm LVPWd 1.1 cm IVS/LVPW 0.86 FS 34.0 % EDV(Teich) 77.5 ml ESV(Teich) 28.5 ml EF(Teich) 63.3 % EDV(cubed) 72.8 ml ESV(cubed) 21.0 ml EF(cubed) 71.2 % LV mass(C)d 136.4 grams LV mass(C)dI 73.7 grams/m\S\2 SV(Teich) 49.1 ml SI(Teich) 26.5 ml/m\S\2 SV(cubed) 51.9 ml SI(cubed) 28.0 ml/m\S\2 Ao root diam 2.8 cm Ao root area 6.4 cm\S\2 ACS 1.7 cm LA dimension 3.0 cm asc Aorta Diam 3.1 cm LA/Ao 1.0 LVOT diam 1.9 cm LVOT area 2.9 cm\S\2 LVAd ap4 28.4 cm\S\2 LVLd ap4 8.5 cm EDV(MOD-sp4) 77.2 ml EDV(sp4-el) 80.5 ml LVAs ap4 17.6 cm\S\2 LVLs ap4 6.9 cm ESV(MOD-sp4) 36.8 ml ESV(sp4-el) 38.2 ml EF(MOD-sp4) 52.4 % EF(sp4-el) 52.5 % LVAd ap2 32.1 cm\S\2 LVLd ap2 8.9 cm EDV(MOD-sp2) 93.7 ml EDV(sp2-el) 98.5 ml LVAs ap2 18.7 cm\S\2 LVLs ap2 7.5 cm ESV(MOD-sp2) 38.5 ml ESV(sp2-el) 39.7 ml EF(MOD-sp2) 58.9 % EF(sp2-el) 59.7 % LVLd %diff 4.2 % EDV(MOD-bp) 87.6 ml LVLs %diff 8.3 % ESV(MOD-bp) 38.4 ml EF(MOD-bp) 56.1 % SV(MOD-sp4) 40.4 ml SI(MOD-sp4) 21.9 ml/m\S\2 SV(MOD-sp2) 55.2 ml SI(MOD-sp2) 29.8 ml/m\S\2 SV(MOD-bp) 49.2 ml SI(MOD-bp) 26.6 ml/m\S\2 SV(sp4-el) 42.3 ml SI(sp4-el) 22.9 ml/m\S\2 SV(sp2-el) 58.8 ml SI(sp2-el) 31.8 ml/m\S\2 Doppler Measurements and Calculations MV E max octavia 112.0 cm/sec MV A max octavia 102.2 cm/sec MV E/A 1.1 MV dec time 0.20 sec Ao V2 max 226.3 cm/sec Ao max PG 20.6 mmHg Ao max PG (full) 12.4 mmHg Ao V2 mean 153.4 cm/sec Ao mean PG 10.4 mmHg Ao V2 VTI 42.7 cm ADRIAN(V,A) 1.8 cm\S\2 ADRIAN(V,D) 1.8 cm\S\2 LV V1 max PG 8.2 mmHg LV V1 max 143.1 cm/sec SV(Ao) 271.2 ml SI(Ao) 146.7 ml/m\S\2 PA V2 max 78.7 cm/sec PA max PG 2.5 mmHg PA acc slope 581.3 cm/sec\S\2 PA acc time 0.12 sec TR max [place] 283.5 cm/sec PA pr(Accel) 25.1 mmHg
[2016-10-13] MEDS: BUDESONIDE/FORMOTEROL FUMARATE 160/4.5 60 PUFFS/INHALER INH SCH ×2 (08:17→21:33)
[2016-10-13] MEDS: FLUTICASONE PROPIONATE NA SPR 16 GM BTL SCH ×2 (08:18→21:32)
[2016-10-13] MEDS: HEPARIN SOD 5000 UNIT/0.5 ML CARP SQ SCH ×2 (08:20→21:37)
[2016-10-13] MEDS: LEVOFLOXACIN 750 MG TAB PO SCH (08:26)
[2016-10-13] MEDS: CITALOPRAM 40 MG TAB PO SCH (08:26)
[2016-10-13] MEDS: PHENYTOIN SODIUM ER 100 MG CAP PO SCH ×2 (08:27→21:33)
[2016-10-13] MEDS: ASPIRIN 81 MG ECTAB PO SCH (08:29)
[2016-10-13] MEDS: PANTOprazole SOD 40 MG TAB PO SCH (08:29)
--- NOTE | 2016-10-13 08:58 | Progress Note ---
Subjective Date of Service: Oct 13, 2016. Subjective Pt evaluation today including: conversation w/ patient, physical exam, lab review, review of studies, review of inpatient medication list Saw/examined the patient in room 112 She is seated in a chair No respiratory distress noted Receiving nebulizers q2-3 hours; chest percussor is helping as per patient Currently, no chest pain or shortness of breath - presented with these symptoms and they worsen when she does not receive neb treatments Problem List Medical Problems: (1) Acute bronchitis Status: Acute (2) Asthma with exacerbation Status: Acute (3) Dependent edema Status: Acute (4) Hypoxia Status: Acute (5) Pneumonia Status: Acute (6) Shortness of breath Status: Acute (7) Shortness of breath Status: Acute (8) SOB (shortness of breath) Status: Acute (9) Tachycardia Status: Acute Review of Systems Constitutional: No fever, No chills, No weakness Respiratory: + cough, + sputum, + wheezing, + shortness of breath, No hemoptysis Cardiac: + chest pain (improved), No edema, No palpitations Abdomen: No pain, No nausea, No vomiting, No diarrhea Heme: No abnormal bleeding/bruising Medications Current Inpatient Medications Medications (Trade) Dose Ordered Sig/Matt Route Start Time Stop Time Status Last Admin Dose Admin Ioversol (Optiray 320) 100 ml UD PRN IV 10/12/16 00:45 10/16/16 00:44 Albuterol (Ventolin Hfa Inhaler) 2 puffs Q4H PRN INH 10/12/16 05:30 11/11/16 05:29 Aspirin (Ecotrin Tab) 81 mg DAILY PO 10/12/16 08:00 11/11/16 07:59 10/12/16 07:35 81 MG Budesonide/ Formoterol Fumarate (Symbicort 160/ 4.5 Inh) 2 puffs BID INH 10/12/16 08:00 11/11/16 07:59 10/13/16 08:17 2 PUFFS Citalopram Hydrobromide (celeXA TAB) 40 mg QAM PO 10/12/16 08:00 11/11/16 07:59 10/13/16 08:26 40 MG Fluticasone Propionate (Flonase Nasal [place]) 1 sprays BID NA 10/12/16 08:00 11/11/16 07:59 10/13/16 08:18 1 SPRAYS Folic Acid (Folvite Tab) 1 mg QAM PO 10/12/16 08:00 11/11/16 07:59 10/13/16 08:29 1 MG Furosemide (Lasix Tab) 20 mg DAILY PRN PO 10/12/16 05:30 11/11/16 05:29 Levofloxacin (Levaquin Tab) 750 mg QD@08 PO 10/12/16 08:00 10/19/16 07:59 10/13/16 08:26 750 MG Levothyroxine Sodium (Synthroid Tab) 100 mcg DAILYBB PO 10/12/16 06:30 11/11/16 06:29 10/12/16 06:33 100 MCG Montelukast Sodium (Singulair Tab) 10 mg QPM PO 10/12/16 21:00 11/11/16 20:59 10/12/16 20:04 10 MG Pantoprazole Sodium (Protonix Tab) 40 mg QAM PO 10/12/16 08:00 11/11/16 07:59 10/13/16 08:29 40 MG Phenytoin Sodium (Dilantin Er Cap) 200 mg BID PO 10/12/16 08:00 11/11/16 07:59 10/13/16 08:27 200 MG Albuterol/ Ipratropium (Duoneb) 3 ml QIDR INH 10/12/16 08:00 11/11/16 07:59 10/13/16 07:22 3 ML Methylprednisolone Sodium Succinate 40 mg/Syringe 0.64 ml @ 1.5 mls/min Q8 IV 10/12/16 06:00 11/11/16 05:59 10/13/16 05:35 1.5 MLS/MIN Acetaminophen (Tylenol Tab) 650 mg Q4H PRN PO 10/12/16 05:30 11/11/16 05:29 Al Hydrox/Mg Hydrox/Simethicone (Maalox Max Susp) 15 ml Q4H PRN PO 10/12/16 05:30 11/11/16 05:29 Magnesium Hydroxide (Milk Of Magnesia Susp) 30 ml Q6H PRN PO 10/12/16 05:30 11/11/16 05:29 Polyethylene (Miralax Powder Packet) 17 gm DAILY PRN PO 10/12/16 05:30 11/11/16 05:29 Zolpidem Tartrate (Ambien Tab) 5 mg HSZ PRN PO 10/12/16 05:30 11/11/16 05:29 Ondansetron HCl (Zofran Inj) 4 mg Q6H PRN IV 10/12/16 05:30 11/11/16 05:29 Heparin Sodium (Porcine) (Heparin Sq 5000 Unit/0.5ml) 5,000 unit Q12H SQ 10/12/16 09:00 11/11/16 08:59 10/12/16 20:10 5,000 UNIT Codeine Phosphate/ Guaifenesin (Robitussin-AC Sugar Free Syrup) 5 ml Q6H PRN PO 10/12/16 05:30 11/11/16 05:29 10/12/16 20:56 5 ML Dornase Jonah (Pulmozyme Inhalation Soln 2.5ml Amp) 2.5 ml BIDR INH 10/12/16 20:00 11/11/16 19:59 10/13/16 07:22 2.5 ML Objective Vital Signs Date Time Temp Pulse Resp B/P (MAP) Pulse Ox O2 Delivery O2 Flow Rate FiO2 10/13/16 07:22 89 22 97 Room Air 10/13/16 04:00 Room Air 10/13/16 04:00 37.0 85 19 112/65 (81) 95 Room Air 10/12/16 23:59 Room Air 10/12/16 23:59 36.9 87 18 111/54 (73) 94 Room Air 10/12/16 20:00 Room Air 10/12/16 20:00 37.0 88 20 128/58 (81) 97 Room Air 10/12/16 19:54 81 22 97 Room Air 10/12/16 16:00 36.8 81 20 129/62 (84) 98 Room Air 10/12/16 16:00 Room Air 10/12/16 15:37 78 22 97 Room Air 10/12/16 12:00 Nasal Cannula 2.0 10/12/16 11:50 82 30 98 Nasal Cannula 2.0 10/12/16 11:20 36.6 77 20 133/50 (77) 99 Nasal Cannula 2.0 10/12/16 10:18 79 16 98 Nasal Cannula 3.0 10/12/16 08:30 Nasal Cannula 2.0 10/12/16 08:30 36.9 76 22 119/72 (88) 99 Nasal Cannula 2.0 Physical Exam General Appearance: no apparent distress Respiratory/Chest: no respiratory distress, no accessory muscle use, + wheezing (end expiratory wheezing worse on the L) Cardiovascular: regular rate, rhythm, + diastolic murmur (+2/6) Abdomen: normal bowel sounds, non tender, soft Extremities: + pertinent finding (trace pitting edema b/l LE) Neurologic/Psychiatric: no motor/sensory deficits, alert, normal mood/affect Laboratory Results Last 24 Hours Test 10/12/16 08:43 10/12/16 21:28 10/13/16 00:36 10/13/16 05:06 Phenytoin (Dilantin) Level 12.0 mcg/mL Total Creatine Kinase 238 U/L 207 U/L Creatine Kinase MB 7.7 ng/ml 7.1 ng/ml Creatine Kinase MB Ratio 3.2 3.4 Troponin I < 0.015 ng/ml < 0.015 ng/ml Sodium Level 140 mmol/L Potassium Level 3.9 mmol/L Chloride Level 108 mmol/L Carbon Dioxide Level 27 mmol/L Anion Gap 5.0 mmol/L Blood Urea Nitrogen 7 mg/dl Creatinine 0.55 mg/dl Est Creatinine Clear Calc Drug Dose 106.0 ml/min Estimated GFR () 115.7 Estimated GFR (Non- 99.8 BUN/Creatinine Ratio 12.5 Random Glucose 110 mg/dl Calcium Level 8.1 mg/dl Assessment and Plan This is a 61 year old female with a PMH of chronic bronchiectasis, chronic sinusitis, moderate persistent asthma, hx. of stress-induced cardiomyopathy, depression/anxiety, hypothyroidism, hx. of seizure disorder, presents with worsening shortness of breath, chest congestion and chest pain Acute Exacerbation of Chronic Bronchiectasis Moderate, Persistent Asthma plan for now is to continue steroids; solu-medrol for now continue Levaquin for possible underlying bacterial infection appreciate pulmonology input: continue chest percussor, Dornase, cough meds PRN and nebs PRN continue home medications including Symbicort, Singulair and Flonase for recurrent sinusitis New LBBB Hx. of Stress-Induced Cardiomyopathy now resolved patient has had issues with stress-induced cardiomyopathy last cardiac cath in summer in July 2016 with no issues continue aspirin for now echo pending cardiology consulted for clearance for possible bronch Depression/Anxiety as per patient, this is controlled will continue current medications Hx. of Seizures continue Dilantin Hypothyroidism continue Synthroid DVT ppx subq heparin FULL CODE
[2016-10-13] MEDS ORDERED: POTASSIUM CHLORIDE 10 MEQ TABCR PO STA (10:10)
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
--- NOTE | 2016-10-13 11:38 | Pulmonology Progress Note ---
Pulmonary Progress Note Date of Service Oct 13, 2016. Attending Subjective Patient seen and examined this morning. She still having episodes of coughing with some productive sputum. She was seen by cardiology this morning he feels that her changes in EKG is secondary to asthma. She was given by mouth potassiums supplementation about half an hour ago. Bronchoscopy will be rescheduled for 10:00 AM tomorrow. Objective Vital signs reviewed. MAXIMUM TEMPERATURE 37.0, blood pressure 112/65 to 124/57 , pulse 82-89, respiratory rate 19-22, 92-97% She is approximately 2.9 L negative balance since admission. Gen: Awake, alert oriented 3, in no acute distress CVS: S1-S2 regular rate and rhythm Lungs: Coarse breath sounds with bilaterally prolonged expiratory phase Abdomen: Soft, nontender, nondistended Extremities: Trace bilateral lower extremity edema, no cyanosis, no clubbing Current pulmonary medications include albuterol/ipratropium every 4 hours, Symbicort 2 puffs twice a day, dornase jonah every 4 hours fluticasone nasal spray 1 spray 3 times a day, Levaquin 750 mg daily, pantoprazole 40 mg daily, Singulair 10 mg daily and codeine phosphate/guaifenesin syrup. Assessment & Plan Chronic bronchiectasis with acute exacerbation Moderate persistent asthma Mucus plugging GERD Sinusitis Oral candidiasis Patient has chronic cough which is multifactorial in nature. Most likely secondary to chronic bronchiectasis. However patient does have history of chronic sinusitis as well as GERD which may be contributing to her symptoms. Her most recent PFTs do show moderate obstruction which can be seen in bronchiectasis but can also be seen with asthma (borderline bronchodilator response). Wheezing has improved compared to previous exam. Patient has eosinophils seen on previous labs. Differential includes eosinophilic asthma, aspirin exacerbated related disease and ABPA. Most recent CT scan does confirm mucus plugging which appears to be chronic. Patient has history of previous pseudomonas, fungal and staph aureus bacterial bronchial infections and active symptoms of increased mucus production, wheezing and chest pain. She has been seen by cardiology who feels that dynamic EKG changes are most likely secondary to asthma. I have scheduled bronchoscopy for tomorrow at 10 am. Please keep patient NPO past midnight Continue with bronchodilators, systemic corticosteroids, antibiotics, and aggressive pulmonary toilet. Oxygen supplementation via nasal cannula when necessary, if hypoxic. In the meantime I will add dornase alpha, flutter valve and chest vest. Continue with pantoprazole for GERD and fluticasone for chronic sinusitis. I would suggest swish and swallow for oral candidiasis. I have also added IgE, Aspergillus Ag. Will continue to follow with you. Data Medications: Current Inpatient Medications Medications (Trade) Dose Ordered Sig/Matt Route Start Time Stop Time Status Last Admin Dose Admin Ioversol (Optiray 320) 100 ml UD PRN IV 10/12/16 00:45 10/16/16 00:44 Albuterol (Ventolin Hfa Inhaler) 2 puffs Q4H PRN INH 10/12/16 05:30 11/11/16 05:29 Aspirin (Ecotrin Tab) 81 mg DAILY PO 10/12/16 08:00 11/11/16 07:59 10/12/16 07:35 81 MG Budesonide/ Formoterol Fumarate (Symbicort 160/ 4.5 Inh) 2 puffs BID INH 10/12/16 08:00 11/11/16 07:59 10/13/16 08:17 2 PUFFS Citalopram Hydrobromide (celeXA TAB) 40 mg QAM PO 10/12/16 08:00 11/11/16 07:59 10/13/16 08:26 40 MG Fluticasone Propionate (Flonase Nasal [place]) 1 sprays BID NA 10/12/16 08:00 11/11/16 07:59 10/13/16 08:18 1 SPRAYS Folic Acid (Folvite Tab) 1 mg QAM PO 10/12/16 08:00 11/11/16 07:59 10/13/16 08:29 1 MG Furosemide (Lasix Tab) 20 mg DAILY PRN PO 10/12/16 05:30 11/11/16 05:29 Levofloxacin (Levaquin Tab) 750 mg QD@08 PO 10/12/16 08:00 10/19/16 07:59 10/13/16 08:26 750 MG Levothyroxine Sodium (Synthroid Tab) 100 mcg DAILYBB PO 10/12/16 06:30 11/11/16 06:29 10/12/16 06:33 100 MCG Montelukast Sodium (Singulair Tab) 10 mg QPM PO 10/12/16 21:00 11/11/16 20:59 10/12/16 20:04 10 MG Pantoprazole Sodium (Protonix Tab) 40 mg QAM PO 10/12/16 08:00 11/11/16 07:59 10/13/16 08:29 40 MG Phenytoin Sodium (Dilantin Er Cap) 200 mg BID PO 10/12/16 08:00 11/11/16 07:59 10/13/16 08:27 200 MG Albuterol/ Ipratropium (Duoneb) 3 ml QIDR INH 10/12/16 08:00 11/11/16 07:59 10/13/16 07:22 3 ML Methylprednisolone Sodium Succinate 40 mg/Syringe 0.64 ml @ 1.5 mls/min Q8 IV 10/12/16 06:00 11/11/16 05:59 10/13/16 05:35 1.5 MLS/MIN Acetaminophen (Tylenol Tab) 650 mg Q4H PRN PO 10/12/16 05:30 11/11/16 05:29 Al Hydrox/Mg Hydrox/Simethicone (Maalox Max Susp) 15 ml Q4H PRN PO 10/12/16 05:30 11/11/16 05:29 Magnesium Hydroxide (Milk Of Magnesia Susp) 30 ml Q6H PRN PO 10/12/16 05:30 11/11/16 05:29 Polyethylene (Miralax Powder Packet) 17 gm DAILY PRN PO 10/12/16 05:30 11/11/16 05:29 Zolpidem Tartrate (Ambien Tab) 5 mg HSZ PRN PO 10/12/16 05:30 11/11/16 05:29 Ondansetron HCl (Zofran Inj) 4 mg Q6H PRN IV 10/12/16 05:30 11/11/16 05:29 Heparin Sodium (Porcine) (Heparin Sq 5000 Unit/0.5ml) 5,000 unit Q12H SQ 10/12/16 09:00 11/11/16 08:59 10/12/16 20:10 5,000 UNIT Codeine Phosphate/ Guaifenesin (Robitussin-AC Sugar Free Syrup) 5 ml Q6H PRN PO 10/12/16 05:30 11/11/16 05:29 10/12/16 20:56 5 ML Dornase Jonah (Pulmozyme Inhalation Soln 2.5ml Amp) 2.5 ml BIDR INH 10/12/16 20:00 11/11/16 19:59 10/13/16 07:22 2.5 ML Magnesium Oxide (Mag-Ox Tab) 400 mg QAM PO 10/14/16 09:00 11/13/16 08:59 Vital Signs: Date Time Temp Pulse Resp B/P (MAP) Pulse Ox O2 Delivery O2 Flow Rate FiO2 10/13/16 09:40 85 96 10/13/16 08:00 36.9 82 20 124/57 (79) 92 Room Air 10/13/16 08:00 Room Air 92 10/13/16 07:22 89 22 97 Room Air 10/13/16 04:00 Room Air 10/13/16 04:00 37.0 85 19 112/65 (81) 95 Room Air 10/12/16 23:59 Room Air 10/12/16 23:59 36.9 87 18 111/54 (73) 94 Room Air 10/12/16 20:00 Room Air 10/12/16 20:00 37.0 88 20 128/58 (81) 97 Room Air 10/12/16 19:54 81 22 97 Room Air 10/12/16 16:00 36.8 81 20 129/62 (84) 98 Room Air 10/12/16 16:00 Room Air 10/12/16 15:37 78 22 97 Room Air 10/12/16 12:00 Nasal Cannula 2.0 10/12/16 11:50 82 30 98 Nasal Cannula 2.0 10/12/16 11:20 36.6 77 20 133/50 (77) 99 Nasal Cannula 2.0 Laboratory Results: Last 24 Hours Test 10/12/16 21:28 10/13/16 00:36 10/13/16 05:06 Total Creatine Kinase 238 U/L 207 U/L Creatine Kinase MB 7.7 ng/ml 7.1 ng/ml Creatine Kinase MB Ratio 3.2 3.4 Troponin I < 0.015 ng/ml < 0.015 ng/ml Sodium Level 140 mmol/L Potassium Level 3.9 mmol/L Chloride Level 108 mmol/L Carbon Dioxide Level 27 mmol/L Anion Gap 5.0 mmol/L Blood Urea Nitrogen 7 mg/dl Creatinine 0.55 mg/dl Est Creatinine Clear Calc Drug Dose 106.0 ml/min Estimated GFR () 115.7 Estimated GFR (Non- 99.8 BUN/Creatinine Ratio 12.5 Random Glucose 110 mg/dl Calcium Level 8.1 mg/dl
[2016-10-13] MEDS: MONTELUKAST SOD 10 MG TAB PO SCH (21:33)
[2016-10-13] MEDS: GUAIFENESIN/CODEINE 100MG/10MG 5ML UDC PO PRN (21:33)
[2016-10-14] VITALS (22 sets, daily range): BP systolic 96–159; BP diastolic 48–113; PULSE 68–113; TEMP 36.5–37; O2SAT 90–100
[2016-10-14] MEDS: METHYLPREDNISOLONE IV 40 MG in SYRINGE 0 ML IV SCH ×3 (05:18→21:01)
[2016-10-14] MEDS: LEVOTHYROXINE 100 MCG TAB PO SCH (05:18)
[2016-10-14] MEDS: DORNASE ALFA (2500U) 2.5MG/2.5ML INH SCH ×2 (07:18→19:54)
[2016-10-14] MEDS: ALBUT/IPRATROP 3MG/0.5MG NEB 3 ML VIAL INH SCH ×5 (07:18→19:54)
[2016-10-14] MEDS: LEVOFLOXACIN 750 MG TAB PO SCH (08:00)
--- NOTE | 2016-10-14 08:26 | Pulmonology Progress Note ---
Pulmonary Progress Note Date of Service Oct 14, 2016. Attending Dr. Urbina Subjective Patient seen and examined this morning. She is feeling better. She is still having a dry nonproductive cough. No wheezing today. No shortness of breath. NPO for bronchoscopy this morning. Objective Vital signs reviewed. Gen: Awake, alert oriented 3, in no acute distress CVS: S1-S2 regular rate and rhythm Lungs: CTA bilaterally, no wheezes, no crackles. Abdomen: Soft, nontender, nondistended Extremities: Trace bilateral lower extremity edema, no cyanosis, no clubbing Medications reviewed. No new labs No new imaging today. Assessment & Plan Chronic bronchiectasis with acute exacerbation Moderate persistent asthma Mucus plugging GERD Sinusitis Oral candidiasis Patient is clinically improving. No wheezing today. Still having dry cough this morning. Currently not requiring any oxygen supplementation. Differential includes eosinophilic asthma, aspirin exacerbated related disease and ABPA. Will proceed with bronchoscopy at 10 am. Continue with bronchodilators, systemic corticosteroids, antibiotics, and aggressive pulmonary toilet. Oxygen supplementation via nasal cannula when necessary, if hypoxic. In the meantime I will add dornase alpha, flutter valve and chest vest. IgE, ANCA Aspergillus Ag pending Possible discharge today after bronchoscopy. Data Medications: Current Inpatient Medications Medications (Trade) Dose Ordered Sig/Matt Route Start Time Stop Time Status Last Admin Dose Admin Ioversol (Optiray 320) 100 ml UD PRN IV 10/12/16 00:45 10/16/16 00:44 Albuterol (Ventolin Hfa Inhaler) 2 puffs Q4H PRN INH 10/12/16 05:30 11/11/16 05:29 Aspirin (Ecotrin Tab) 81 mg DAILY PO 10/12/16 08:00 11/11/16 07:59 10/12/16 07:35 81 MG Budesonide/ Formoterol Fumarate (Symbicort 160/ 4.5 Inh) 2 puffs BID INH 10/12/16 08:00 11/11/16 07:59 10/13/16 21:33 2 PUFFS Citalopram Hydrobromide (celeXA TAB) 40 mg QAM PO 10/12/16 08:00 11/11/16 07:59 10/13/16 08:26 40 MG Fluticasone Propionate (Flonase Nasal [place]) 1 sprays BID NA 10/12/16 08:00 11/11/16 07:59 10/13/16 21:32 1 SPRAYS Folic Acid (Folvite Tab) 1 mg QAM PO 10/12/16 08:00 11/11/16 07:59 10/13/16 08:29 1 MG Furosemide (Lasix Tab) 20 mg DAILY PRN PO 10/12/16 05:30 11/11/16 05:29 Levofloxacin (Levaquin Tab) 750 mg QD@08 PO 10/12/16 08:00 10/19/16 07:59 10/13/16 08:26 750 MG Levothyroxine Sodium (Synthroid Tab) 100 mcg DAILYBB PO 10/12/16 06:30 11/11/16 06:29 10/12/16 06:33 100 MCG Montelukast Sodium (Singulair Tab) 10 mg QPM PO 10/12/16 21:00 11/11/16 20:59 10/13/16 21:33 10 MG Pantoprazole Sodium (Protonix Tab) 40 mg QAM PO 10/12/16 08:00 11/11/16 07:59 10/13/16 08:29 40 MG Phenytoin Sodium (Dilantin Er Cap) 200 mg BID PO 10/12/16 08:00 11/11/16 07:59 10/13/16 21:33 200 MG Albuterol/ Ipratropium (Duoneb) 3 ml QIDR INH 10/12/16 08:00 11/11/16 07:59 10/14/16 07:18 3 ML Methylprednisolone Sodium Succinate 40 mg/Syringe 0.64 ml @ 1.5 mls/min Q8 IV 10/12/16 06:00 11/11/16 05:59 10/14/16 05:18 1.5 MLS/MIN Acetaminophen (Tylenol Tab) 650 mg Q4H PRN PO 10/12/16 05:30 11/11/16 05:29 Al Hydrox/Mg Hydrox/Simethicone (Maalox Max Susp) 15 ml Q4H PRN PO 10/12/16 05:30 11/11/16 05:29 Magnesium Hydroxide (Milk Of Magnesia Susp) 30 ml Q6H PRN PO 10/12/16 05:30 11/11/16 05:29 Polyethylene (Miralax Powder Packet) 17 gm DAILY PRN PO 10/12/16 05:30 11/11/16 05:29 Zolpidem Tartrate (Ambien Tab) 5 mg HSZ PRN PO 10/12/16 05:30 11/11/16 05:29 Ondansetron HCl (Zofran Inj) 4 mg Q6H PRN IV 10/12/16 05:30 11/11/16 05:29 Heparin Sodium (Porcine) (Heparin Sq 5000 Unit/0.5ml) 5,000 unit Q12H SQ 10/12/16 09:00 11/11/16 08:59 10/13/16 21:37 5,000 UNIT Codeine Phosphate/ Guaifenesin (Robitussin-AC Sugar Free Syrup) 5 ml Q6H PRN PO 10/12/16 05:30 11/11/16 05:29 10/13/16 21:33 5 ML Dornase Jonah (Pulmozyme Inhalation Soln 2.5ml Amp) 2.5 ml BIDR INH 10/12/16 20:00 11/11/16 19:59 10/14/16 07:18 2.5 ML Magnesium Oxide (Mag-Ox Tab) 400 mg QAM PO 10/14/16 09:00 11/13/16 08:59 Vital Signs: Date Time Temp Pulse Resp B/P (MAP) Pulse Ox O2 Delivery O2 Flow Rate FiO2 10/14/16 08:18 37.0 72 18 123/65 (84) 95 Room Air 10/14/16 07:18 80 22 96 Room Air 10/14/16 00:18 36.8 83 18 97/54 (68) 94 Room Air 10/14/16 00:00 Room Air 10/13/16 20:00 Room Air 10/13/16 19:27 84 22 98 Room Air 10/13/16 16:00 Room Air 10/13/16 15:35 36.5 82 18 137/71 (93) 95 Room Air 10/13/16 15:19 88 22 98 Room Air 10/13/16 15:11 36.8 85 22 98 2.0 10/13/16 12:04 85 22 98 Room Air 10/13/16 12:00 36.8 74 18 124/61 (82) 97 Room Air 10/13/16 12:00 Room Air 97 10/13/16 09:40 85 96 Laboratory Results: Last 24 Hours Test 10/13/16 12:03 10/14/16 07:30 Erythrocyte Sedimentation Rate 18 mm/hr
--- NOTE | 2016-10-14 08:28 | Procedure Note ---
Pre-Mod Sedation Assessment General Date of Moderate Sedation: Oct 14, 2016. Vital Signs: Vital Signs Past 12 Hours Date Time Temp Pulse Resp B/P (MAP) Pulse Ox O2 Delivery O2 Flow Rate FiO2 10/14/16 08:18 37.0 72 18 123/65 (84) 95 Room Air 10/14/16 07:18 80 22 96 Room Air 10/14/16 00:18 36.8 83 18 97/54 (68) 94 Room Air 10/14/16 00:00 Room Air Review Cardiovascular: regular rate, rhythm, normal peripheral pulses Abdomen: normal bowel sounds, non tender, soft Lungs: lungs clear, normal breath sounds, no respiratory distress, no accessory muscle use Airway Class: II Pre-Sedation Airway Assessment Oral Cavity: Chipped Teeth Able to Visualize Vocal Cords: Yes Short Thick Neck: No Hx of Sleep Apnea: No Smoking Status: Never Smoker Mallampati Classification: Class II ASA Classification: Class III Procedure Planning Contraindications-for Mod Sed: None Yes Notes The planned sedation has been discussed with the patient and consent obtained. I have identified the patient, determined the appropriateness of sedation and have assessed the patient immediately prior to the procedure. All medicine(s) and interventions are by my order.
[2016-10-14] MEDS: PANTOprazole SOD 40 MG TAB PO SCH (08:34)
[2016-10-14] MEDS: PHENYTOIN SODIUM ER 100 MG CAP PO SCH ×2 (08:34→20:52)
[2016-10-14] MEDS: MAGNESIUM OXIDE 400 MG TAB PO SCH (08:34)
[2016-10-14] MEDS: CITALOPRAM 40 MG TAB PO SCH (08:34)
[2016-10-14] MEDS: ASPIRIN 81 MG ECTAB PO SCH (08:34)
[2016-10-14 08:40] LABS: BUN/CREATININE RATIO 12.5 (10-20); CALCIUM 8.8 mg/dl (8.5-10.1); CREATININE 0.63 mg/dl (0.60-1.20); POTASSIUM 4.1 mmol/L (3.5-5.1)
[2016-10-14] MEDS: BUDESONIDE/FORMOTEROL FUMARATE 160/4.5 60 PUFFS/INHALER INH SCH ×2 (08:57→20:47)
[2016-10-14] MEDS: HEPARIN SOD 5000 UNIT/0.5 ML CARP SQ SCH ×2 (08:57→21:00)
[2016-10-14] MEDS: FLUTICASONE PROPIONATE NA SPR 16 GM BTL SCH ×2 (08:58→20:47)
--- NOTE | 2016-10-14 10:11 | PROGRESS NOTE ---
DATE: 10/14/2016 The patient seen and examined. Chart, medications, laboratory studies reviewed. SUBJECTIVE: The patient this morning continues to have significant cough. Bronchoscopy later this morning. Notes no cardiac complaints. Notes no edema. Notes no dizziness or lightheadedness. OBJECTIVE: VITAL SIGNS: Heart rate is 72, blood pressure is 123/65, telemetry prior day demonstrated intermittent left bundle branch block. NECK: Thin. There is no jugular venous distention. LUNGS: Reveal coarse rhonchorous sounds at bases, worse with cough. CARDIOVASCULAR: Regular. There is no S3 gallop. There is no audible murmur, gallop or rub. PMI is nondisplaced. ABDOMEN: Soft, nontender. EXTREMITIES: Without cyanosis or clubbing. There is no peripheral edema. LABORATORY DATA: Electrolytes this morning reveal sodium of 140, potassium 4.1, chloride 106, bicarbonate 30, BUN 8, creatinine 0.63. IMPRESSION: A 61-year-old female seen in the preoperative setting for planned bronchoscopy. She carries a history of underlying conduction system disease with intermittent left bundle branch block, with rate related exacerbations. No contraindications to proceeding with bronchoscopy. Would expect to see conduction system changes if heart rate is increased during procedure. Overall, LV function is normal. Stress testing in the past has been negative for ischemia as has been diagnostic cardiac catheterization done in July of 2016, revealing normal coronaries. No other further recommendations. [facility]
--- NOTE | 2016-10-14 10:54 | Procedure Note ---
Post-Moderate Sedation Plan General Date of Moderate Sedation Oct 14, 2016. Vital Signs: Vital Signs Past 12 Hours Date Time Temp Pulse Resp B/P (MAP) Pulse Ox O2 Delivery O2 Flow Rate FiO2 10/14/16 08:18 37.0 72 18 123/65 (84) 95 Room Air 10/14/16 08:00 Room Air 10/14/16 07:18 80 22 96 Room Air 10/14/16 00:18 36.8 83 18 97/54 (68) 94 Room Air 10/14/16 00:00 Room Air Review - Discharge Plan Post Moderate Sedation Plan: On clinical assessment, the patient appears to have tolerated the conscious sedation without complications. Patient is recovering as anticipated. Patient will continue to be monitored by nursing and may be transferred back to floor when conscious sedation transfer criteria are met.
--- NOTE | 2016-10-14 10:59 | Bronchoscopy Procedure Note ---
Bronchoscopy Procedure Note Procedure: Bronchoscopy with BAL Procedure note: After informed consent and timeout, the patient the Olympus fiberoptic flexible bronchoscope was inserted in the right nostril. The nasal and oropharynx were within normal limits, with covered with white plaques. The vocal cords were visualized and trachea inserted. There was white thick secretions coming from bilateral mainstem bronchi in the trachea. The right main bronchus was inserted and consisted of thick whitish secretions were suctioned until clear. The right upper lobe was inserted and inspected to the subsegmental level and no endobronchial lesions were seen. The bronchoscope was withdrawn and inserted into the right middle lobe which was also inspected to the subsegmental level no endobronchial lesions seen. The right lower lobe was inspected to the subsegmental level with thick secretions that were suctioned until clear. No endobronchial lesions were visualized. The bronchoscope was then inserted into the right middle lobe and BAL was taken. The BAL was sent for bacterial, fungal, AFB, viral cultures as well as cytology. The left mainstem bronchus was inserted there was again thick whitish secretions in the airway were suctioned until clear. The upper lobe and lingula were inspected to the subsegmental level no endobronchial lesions were seen. The left lower lobe was inserted and inspected and no endobronchial lesions were seen. The bronchial mucosa was friable and mild hemoptysis was present. Patient tolerated the procedure well. She did have some bronchospasm and xopenex nebulizer was given. A postprocedure x-ray was ordered. For moderate sedation patient received 5 of Versed and 50 of fentanyl. Impression: Mucus plugging Hemoptysis Oral candidiasis
[2016-10-14] MEDS ORDERED: NURSING VERBAL MED ORDER ONE (11:00)
[2016-10-14] MEDS ORDERED: FENTANYL CITRATE INJ 50 MCG/1 ML 2 ML VIAL IV ONE (11:00)
[2016-10-14] MEDS ORDERED: MIDAZOLAM HCL 5 MG/ML 1 ML VIAL IV ONE ×2 (11:00→14:57)
--- NOTE | 2016-10-14 11:22 | DIAGNOSTIC IMAGING REPORT ---
CHEST 1 VW FRONT-NOT PORTABLE HISTORY: 61 years-old Female status post bronchoscopy. COMPARISON: Chest CT 10/12/2016, chest radiographs 10/12/2016 TECHNIQUE: Portable upright AP view of the chest FINDINGS: Cardiac silhouette is upper limits of normal. No pneumothorax or pleural effusion. Unchanged patchy alveolar opacities of the lung bases are noted. No new focal consolidations are identified. The bones are grossly intact. IMPRESSION: Stable exam with persistent subsegmental alveolar opacities of the lung bases suggesting atelectasis or pneumonitis. No pneumothorax. The above report was generated using voice recognition software. It may contain grammatical, syntax or spelling errors. Electronically signed by: Chad Blanton M.D. 10/14/2016 11:21 AM Dictated Date/Time: 10/14/2016 11:19 AM
[2016-10-14] MEDS ORDERED: HYDROCODONE/HOMATROPINE SYRUP 5MG/1.5MG 5ML UDP PO STA (12:15)
--- NOTE | 2016-10-14 13:03 | Progress Note ---
Subjective Date of Service: Oct 14, 2016. Subjective Pt evaluation today including: conversation w/ patient, physical exam, lab review, review of studies, review of inpatient medication list Saw/examined the patient in room 252 she is seen after her bronchoscopy due to bronchospasms, she is having difficulty breathing secondary to a productive cough Denies chest pain/fevers/chills Problem List Medical Problems: (1) Acute bronchitis Status: Acute (2) Asthma with exacerbation Status: Acute (3) Dependent edema Status: Acute (4) Hypoxia Status: Acute (5) Pneumonia Status: Acute (6) Shortness of breath Status: Acute (7) Shortness of breath Status: Acute (8) SOB (shortness of breath) Status: Acute (9) Tachycardia Status: Acute Review of Systems Constitutional: No fever, No chills, No weakness Respiratory: + cough, + sputum, + wheezing, + shortness of breath Cardiac: No chest pain Abdomen: No pain, No nausea, No vomiting, No diarrhea Heme: No abnormal bleeding/bruising Medications Current Inpatient Medications Medications (Trade) Dose Ordered Sig/Matt Route Start Time Stop Time Status Last Admin Dose Admin Ioversol (Optiray 320) 100 ml UD PRN IV 10/12/16 00:45 10/16/16 00:44 Albuterol (Ventolin Hfa Inhaler) 2 puffs Q4H PRN INH 10/12/16 05:30 11/11/16 05:29 Aspirin (Ecotrin Tab) 81 mg DAILY PO 10/12/16 08:00 11/11/16 07:59 10/12/16 07:35 81 MG Budesonide/ Formoterol Fumarate (Symbicort 160/ 4.5 Inh) 2 puffs BID INH 10/12/16 08:00 11/11/16 07:59 10/14/16 08:57 2 PUFFS Citalopram Hydrobromide (celeXA TAB) 40 mg QAM PO 10/12/16 08:00 11/11/16 07:59 10/13/16 08:26 40 MG Fluticasone Propionate (Flonase Nasal [place]) 1 sprays BID NA 10/12/16 08:00 11/11/16 07:59 10/14/16 08:58 1 SPRAYS Folic Acid (Folvite Tab) 1 mg QAM PO 10/12/16 08:00 11/11/16 07:59 10/13/16 08:29 1 MG Furosemide (Lasix Tab) 20 mg DAILY PRN PO 10/12/16 05:30 11/11/16 05:29 Levofloxacin (Levaquin Tab) 750 mg QD@08 PO 10/12/16 08:00 10/19/16 07:59 10/13/16 08:26 750 MG Levothyroxine Sodium (Synthroid Tab) 100 mcg DAILYBB PO 10/12/16 06:30 11/11/16 06:29 10/12/16 06:33 100 MCG Montelukast Sodium (Singulair Tab) 10 mg QPM PO 10/12/16 21:00 11/11/16 20:59 10/13/16 21:33 10 MG Pantoprazole Sodium (Protonix Tab) 40 mg QAM PO 10/12/16 08:00 11/11/16 07:59 10/13/16 08:29 40 MG Phenytoin Sodium (Dilantin Er Cap) 200 mg BID PO 10/12/16 08:00 11/11/16 07:59 10/13/16 21:33 200 MG Albuterol/ Ipratropium (Duoneb) 3 ml QIDR INH 10/12/16 08:00 11/11/16 07:59 10/14/16 12:15 3 ML Methylprednisolone Sodium Succinate 40 mg/Syringe 0.64 ml @ 1.5 mls/min Q8 IV 10/12/16 06:00 11/11/16 05:59 10/14/16 12:05 1.5 MLS/MIN Acetaminophen (Tylenol Tab) 650 mg Q4H PRN PO 10/12/16 05:30 11/11/16 05:29 Al Hydrox/Mg Hydrox/Simethicone (Maalox Max Susp) 15 ml Q4H PRN PO 10/12/16 05:30 11/11/16 05:29 Magnesium Hydroxide (Milk Of Magnesia Susp) 30 ml Q6H PRN PO 10/12/16 05:30 11/11/16 05:29 Polyethylene (Miralax Powder Packet) 17 gm DAILY PRN PO 10/12/16 05:30 11/11/16 05:29 Zolpidem Tartrate (Ambien Tab) 5 mg HSZ PRN PO 10/12/16 05:30 11/11/16 05:29 Ondansetron HCl (Zofran Inj) 4 mg Q6H PRN IV 10/12/16 05:30 11/11/16 05:29 Heparin Sodium (Porcine) (Heparin Sq 5000 Unit/0.5ml) 5,000 unit Q12H SQ 10/12/16 09:00 11/11/16 08:59 10/13/16 21:37 5,000 UNIT Codeine Phosphate/ Guaifenesin (Robitussin-AC Sugar Free Syrup) 5 ml Q6H PRN PO 10/12/16 05:30 11/11/16 05:29 10/13/16 21:33 5 ML Dornase Jonah (Pulmozyme Inhalation Soln 2.5ml Amp) 2.5 ml BIDR INH 10/12/16 20:00 11/11/16 19:59 10/14/16 07:18 2.5 ML Magnesium Oxide (Mag-Ox Tab) 400 mg QAM PO 10/14/16 09:00 11/13/16 08:59 Objective Vital Signs Date Time Temp Pulse Resp B/P (MAP) Pulse Ox O2 Delivery O2 Flow Rate FiO2 10/14/16 12:20 37.0 101 22 101/57 (72) 90 Room Air 10/14/16 12:15 84 22 98 Nasal Cannula 3.0 10/14/16 11:56 36.6 88 22 100/55 (70) 94 Nasal Cannula 2.0 10/14/16 11:26 36.7 94 22 96/60 (72) 96 Nasal Cannula 2.0 10/14/16 11:02 110 20 129/63 96 Nasal Cannula 4.0 10/14/16 10:57 107 20 105/72 96 Nasal Cannula 4.0 10/14/16 10:52 97 20 124/97 99 Mask 8.0 10/14/16 10:47 97 21 112/48 99 Mask 8.0 10/14/16 10:42 102 22 147/73 97 Mask 8.0 10/14/16 10:37 113 18 159/82 95 Mask 8.0 10/14/16 10:32 98 18 125/113 98 Mask 8.0 10/14/16 10:27 97 24 138/78 100 Mask 8.0 10/14/16 10:02 80 23 130/77 100 Mask 8.0 10/14/16 08:18 37.0 72 18 123/65 (84) 95 Room Air 10/14/16 08:00 Room Air 10/14/16 07:18 80 22 96 Room Air 10/14/16 00:18 36.8 83 18 97/54 (68) 94 Room Air 10/14/16 00:00 Room Air 10/13/16 20:00 Room Air 10/13/16 19:27 84 22 98 Room Air 10/13/16 17:13 36.7 68 18 124/62 96 Room Air 10/13/16 16:00 Room Air 10/13/16 15:35 36.5 82 18 137/71 (93) 95 Room Air 10/13/16 15:19 88 22 98 Room Air 10/13/16 15:11 36.8 85 22 98 2.0 Physical Exam General Appearance: no apparent distress Respiratory/Chest: no respiratory distress, no accessory muscle use, + rhonchi , + wheezing (sonorous expiratory wheezing) Cardiovascular: regular rate, rhythm, no edema, no murmur Extremities: normal inspection, no pedal edema Laboratory Results Last 24 Hours Test 10/14/16 07:30 10/14/16 10:35 Sodium Level 140 mmol/L Potassium Level 4.1 mmol/L Chloride Level 106 mmol/L Carbon Dioxide Level 30 mmol/L Anion Gap 4.0 mmol/L Blood Urea Nitrogen 8 mg/dl Creatinine 0.63 mg/dl Est Creatinine Clear Calc Drug Dose 67.4 ml/min Estimated GFR () 110.6 Estimated GFR (Non- 95.5 BUN/Creatinine Ratio 12.5 Random Glucose 93 mg/dl Calcium Level 8.8 mg/dl Assessment and Plan This is a 61 year old female with a PMH of chronic bronchiectasis, chronic sinusitis, moderate persistent asthma, hx. of stress-induced cardiomyopathy, depression/anxiety, hypothyroidism, hx. of seizure disorder, presents with worsening shortness of breath, chest congestion and chest pain Acute Exacerbation of Chronic Bronchiectasis Moderate, Persistent Asthma 10/14 s/p bronchoscopy IV solu-medrol x one now due to bronchospasm will give one dose of cough syrup now due to worsening cough with sputum further management as per pulm 10/13 plan for now is to continue steroids; solu-medrol for now continue Levaquin for possible underlying bacterial infection appreciate pulmonology input: continue chest percussor, Dornase, cough meds PRN and nebs PRN continue home medications including Symbicort, Singulair and Flonase for recurrent sinusitis New LBBB Hx. of Stress-Induced Cardiomyopathy now resolved patient has had issues with stress-induced cardiomyopathy last cardiac cath in summer in July 2016 with no issues continue aspirin for now echo pending cardiology consulted for clearance for possible bronch Depression/Anxiety as per patient, this is controlled will continue current medications Hx. of Seizures continue Dilantin Hypothyroidism continue Synthroid DVT ppx subq heparin FULL CODE
[2016-10-14] MEDS ORDERED: FENTANYL CITRATE 100 MCG 2 ML CARP IV ONE (14:57)
[2016-10-14] MEDS: MONTELUKAST SOD 10 MG TAB PO SCH (20:47)
[2016-10-15] VITALS (13 sets, daily range): BP systolic 99–170; BP diastolic 56–98; PULSE 67–95; TEMP 36.3–37.1; O2SAT 92–100
[2016-10-15] MEDS: LEVOTHYROXINE 100 MCG TAB PO SCH (05:46)
[2016-10-15] MEDS: METHYLPREDNISOLONE IV 40 MG in SYRINGE 0 ML IV SCH ×2 (05:46→21:03)
[2016-10-15] MEDS: ALBUT/IPRATROP 3MG/0.5MG NEB 3 ML VIAL INH SCH ×4 (06:53→19:58)
[2016-10-15] MEDS: DORNASE ALFA (2500U) 2.5MG/2.5ML INH SCH ×2 (06:53→20:04)
[2016-10-15] MEDS: BUDESONIDE/FORMOTEROL FUMARATE 160/4.5 60 PUFFS/INHALER INH SCH ×2 (08:04→21:03)
[2016-10-15] MEDS: FLUTICASONE PROPIONATE NA SPR 16 GM BTL SCH ×2 (08:04→21:03)
[2016-10-15] MEDS: MAGNESIUM OXIDE 400 MG TAB PO SCH (08:04)
[2016-10-15] MEDS: PHENYTOIN SODIUM ER 100 MG CAP PO SCH ×2 (08:05→21:05)
[2016-10-15] MEDS: ASPIRIN 81 MG ECTAB PO SCH (08:06)
[2016-10-15] MEDS: LEVOFLOXACIN 750 MG TAB PO SCH (08:06)
[2016-10-15] MEDS: CITALOPRAM 40 MG TAB PO SCH (08:06)
[2016-10-15] MEDS: PANTOprazole SOD 40 MG TAB PO SCH (08:06)
[2016-10-15] MEDS: HEPARIN SOD 5000 UNIT/0.5 ML CARP SQ SCH ×2 (08:09→21:06)
[2016-10-15 08:25] LABS: BUN/CREATININE RATIO 14.1 (10-20); CALCIUM 8.6 mg/dl (8.5-10.1); CREATININE 0.66 mg/dl (0.60-1.20); POTASSIUM 3.6 mmol/L (3.5-5.1)
[2016-10-15] MEDS ORDERED: POTASSIUM CHLORIDE 20 MEQ TABCR PO ONE (11:34)
[2016-10-15 12:19] LABS: HEMATOCRIT 42.5 % (37-47); MEAN CELL VOLUME 93.2 fL (80-100); MEAN CORPUSCULAR HEMOGLOBIN 30.7 pg (25-34); MEAN PLATELET VOLUME 9.2 fL (7.4-10.4); PLATELET COUNT 301 K/uL (130-400); RED BLOOD COUNT 4.56 M/uL (4.2-5.4); WHITE BLOOD COUNT 7.37 K/uL (4.8-10.8)
[2016-10-15 12:25] LABS: MEAN CORPUSCULAR HGB CONC 32.9 g/dl (32-36)
--- NOTE | 2016-10-15 12:26 | DIAGNOSTIC IMAGING REPORT ---
CT HEAD WITHOUT CONTRAST (CT) CLINICAL HISTORY: seizure COMPARISON STUDY: 10/12/2016 TECHNIQUE: Axial CT of the brain is performed from the vertex to the skull base. IV contrast was not administered for this examination. A dose lowering technique was utilized adhering to the principles of ALARA. CT DOSE: 537.48 mGy.cm FINDINGS: No intra or extra-axial mass lesions are visualized. There is no CT evidence of acute cortical infarction. There is no evidence of midline shift. There is no acute hemorrhage. No calvarial fractures are visualized. There are patchy minimal matter hypodensities likely on a small vessel basis. There is no evidence of pathologic ventricular dilatation. There are postsurgical changes present within the paranasal sinuses. There is bilateral maxillary sinus mucosal thickening. There is mild sphenoid mucosal thickening. There is mild frontal sinus mucosal thickening. There are postsurgical changes of a right mastoidectomy. IMPRESSION: No acute intracranial findings Electronically signed by: Ady Whitman M.D. 10/15/2016 12:25 PM Dictated Date/Time: 10/15/2016 12:23 PM
[2016-10-15] MEDS: ONDANSETRON INJ 2 MG/ML 2 ML VIAL IV PRN ×2 (12:28→21:08)
[2016-10-15 12:51] LABS: BUN/CREATININE RATIO 15.2 (10-20); CREATININE 0.64 mg/dl (0.60-1.20); POTASSIUM 3.7 mmol/L (3.5-5.1)
[2016-10-15] MEDS ORDERED: PHENYTOIN SODIUM ER 100 MG CAP PO STA (13:10)
--- NOTE | 2016-10-15 13:31 | Progress Note ---
Subjective Date of Service: Oct 15, 2016. Subjective Pt evaluation today including: conversation w/ patient, physical exam, lab review, review of studies, review of inpatient medication list Saw/examined the patient in room 286 Code alex was called on the patient today due to an active seizure that lasted one minute Brother was in the room with her when it occurred, she had a nebulizer treatment prior to this event She has a history of seizures and was tearful because she has not had one in a long time (as per brother >30 years) She did not hit anything as she was brought down to the chair by her brother No shortness of breath, and states her cough was improving last evening No chest pain. Problem List Medical Problems: (1) Acute bronchitis Status: Acute (2) Asthma with exacerbation Status: Acute (3) Dependent edema Status: Acute (4) Hypoxia Status: Acute (5) Pneumonia Status: Acute (6) Shortness of breath Status: Acute (7) Shortness of breath Status: Acute (8) SOB (shortness of breath) Status: Acute (9) Tachycardia Status: Acute Review of Systems Constitutional: No fever, No chills Respiratory: + cough, + sputum, No shortness of breath Cardiac: No chest pain Abdomen: No pain, No nausea, No vomiting, No diarrhea Medications Current Inpatient Medications Medications (Trade) Dose Ordered Sig/Matt Route Start Time Stop Time Status Last Admin Dose Admin Ioversol (Optiray 320) 100 ml UD PRN IV 10/12/16 00:45 10/16/16 00:44 Albuterol (Ventolin Hfa Inhaler) 2 puffs Q4H PRN INH 10/12/16 05:30 11/11/16 05:29 Aspirin (Ecotrin Tab) 81 mg DAILY PO 10/12/16 08:00 11/11/16 07:59 10/15/16 08:06 81 MG Budesonide/ Formoterol Fumarate (Symbicort 160/ 4.5 Inh) 2 puffs BID INH 10/12/16 08:00 11/11/16 07:59 10/15/16 08:04 2 PUFFS Citalopram Hydrobromide (celeXA TAB) 40 mg QAM PO 10/12/16 08:00 11/11/16 07:59 10/15/16 08:06 40 MG Fluticasone Propionate (Flonase Nasal [place]) 1 sprays BID NA 10/12/16 08:00 11/11/16 07:59 10/15/16 08:04 1 SPRAYS Folic Acid (Folvite Tab) 1 mg QAM PO 10/12/16 08:00 11/11/16 07:59 10/15/16 08:05 1 MG Furosemide (Lasix Tab) 20 mg DAILY PRN PO 10/12/16 05:30 11/11/16 05:29 Levofloxacin (Levaquin Tab) 750 mg QD@08 PO 10/12/16 08:00 10/19/16 07:59 10/15/16 08:06 750 MG Levothyroxine Sodium (Synthroid Tab) 100 mcg DAILYBB PO 10/12/16 06:30 11/11/16 06:29 10/15/16 05:46 100 MCG Montelukast Sodium (Singulair Tab) 10 mg QPM PO 10/12/16 21:00 11/11/16 20:59 10/14/16 20:47 10 MG Pantoprazole Sodium (Protonix Tab) 40 mg QAM PO 10/12/16 08:00 11/11/16 07:59 10/15/16 08:06 40 MG Phenytoin Sodium (Dilantin Er Cap) 200 mg BID PO 10/12/16 08:00 11/11/16 07:59 10/15/16 08:05 200 MG Albuterol/ Ipratropium (Duoneb) 3 ml QIDR INH 10/12/16 08:00 11/11/16 07:59 10/15/16 11:24 3 ML Acetaminophen (Tylenol Tab) 650 mg Q4H PRN PO 10/12/16 05:30 11/11/16 05:29 Al Hydrox/Mg Hydrox/Simethicone (Maalox Max Susp) 15 ml Q4H PRN PO 10/12/16 05:30 11/11/16 05:29 Magnesium Hydroxide (Milk Of Magnesia Susp) 30 ml Q6H PRN PO 10/12/16 05:30 11/11/16 05:29 Polyethylene (Miralax Powder Packet) 17 gm DAILY PRN PO 10/12/16 05:30 11/11/16 05:29 Zolpidem Tartrate (Ambien Tab) 5 mg HSZ PRN PO 10/12/16 05:30 11/11/16 05:29 Ondansetron HCl (Zofran Inj) 4 mg Q6H PRN IV 10/12/16 05:30 11/11/16 05:29 10/15/16 12:28 4 MG Heparin Sodium (Porcine) (Heparin Sq 5000 Unit/0.5ml) 5,000 unit Q12H SQ 10/12/16 09:00 11/11/16 08:59 10/15/16 08:09 5,000 UNIT Codeine Phosphate/ Guaifenesin (Robitussin-AC Sugar Free Syrup) 5 ml Q6H PRN PO 10/12/16 05:30 11/11/16 05:29 10/13/16 21:33 5 ML Dornase Jonah (Pulmozyme Inhalation Soln 2.5ml Amp) 2.5 ml BIDR INH 10/12/16 20:00 11/11/16 19:59 10/15/16 06:53 2.5 ML Magnesium Oxide (Mag-Ox Tab) 400 mg QAM PO 10/14/16 09:00 11/13/16 08:59 10/15/16 08:04 400 MG Potassium Chloride (Klor-Con Tab) 20 meq QAM PO 10/16/16 09:00 11/15/16 08:59 Methylprednisolone Sodium Succinate 40 mg/Syringe 0.64 ml @ 1.5 mls/min Q12 IV 10/15/16 21:00 11/11/16 05:59 Objective Vital Signs Date Time Temp Pulse Resp B/P (MAP) Pulse Ox O2 Delivery O2 Flow Rate FiO2 10/15/16 12:32 36.6 82 16 138/73 (94) 98 4.0 10/15/16 12:01 87 170/98 (122) 94 2.0 10/15/16 11:26 68 16 96 Room Air 10/15/16 11:02 70 122/71 (88) 124/71 (88) 10/15/16 08:04 36.3 69 18 118/71 (87) 92 Room Air 10/15/16 08:00 Room Air 10/15/16 06:55 71 20 96 Room Air 10/15/16 03:58 36.7 67 18 114/68 (83) 98 Room Air 10/15/16 00:00 Room Air 10/14/16 22:30 36.7 68 18 114/68 (83) 95 Room Air 10/14/16 20:17 36.6 18 116/66 (83) 95 Room Air 10/14/16 19:54 83 20 96 Room Air 10/14/16 16:26 80 20 96 Room Air 3.0 10/14/16 16:00 Room Air 10/14/16 15:48 36.5 85 16 107/61 (76) 92 Room Air Physical Exam General Appearance: no apparent distress Respiratory/Chest: chest non-tender, lungs clear, normal breath sounds, no respiratory distress, no accessory muscle use Cardiovascular: regular rate, rhythm, no edema, no murmur Abdomen: normal bowel sounds, non tender, soft Neurologic/Psychiatric: no motor/sensory deficits, alert, + pertinent finding ( does not recall the seizure) Laboratory Results Last 24 Hours Test 10/15/16 07:30 10/15/16 11:40 10/15/16 11:57 10/15/16 11:58 Sodium Level 140 mmol/L 137 mmol/L Potassium Level 3.6 mmol/L 3.7 mmol/L Chloride Level 105 mmol/L 103 mmol/L Carbon Dioxide Level 28 mmol/L 25 mmol/L Anion Gap 7.0 mmol/L 9.0 mmol/L Blood Urea Nitrogen 9 mg/dl 10 mg/dl Creatinine 0.66 mg/dl 0.64 mg/dl Est Creatinine Clear Calc Drug Dose 64.3 ml/min 66.3 ml/min Estimated GFR () 109.0 110.1 Estimated GFR (Non- 94.0 95.0 BUN/Creatinine Ratio 14.1 15.2 Random Glucose 93 mg/dl 85 mg/dl Calcium Level 8.6 mg/dl 9.0 mg/dl Bedside Glucose 86 mg/dl White Blood Count 7.37 K/uL Red Blood Count 4.56 M/uL Hemoglobin 14.0 g/dL Hematocrit 42.5 % Mean Corpuscular Volume 93.2 fL Mean Corpuscular Hemoglobin 30.7 pg Mean Corpuscular Hemoglobin Concent 32.9 g/dl RDW Standard Deviation 48.1 fL RDW Coefficient of Variation 14.1 % Platelet Count 301 K/uL Mean Platelet Volume 9.2 fL Phenytoin (Dilantin) Level 9.7 mcg/mL Assessment and Plan This is a 61 year old female with a PMH of chronic bronchiectasis, chronic sinusitis, moderate persistent asthma, hx. of stress-induced cardiomyopathy, depression/anxiety, hypothyroidism, hx. of seizure disorder, presents with worsening shortness of breath, chest congestion and chest pain Seizure patient has a history of seizures had a one minute seizure, no loss of bowel/bladder function, no tongue biting noted, no fall does not recall event; it was witnessed by nursing and brother Dilantin level returned slightly low at 9.7; was given an extra 100mg of it, she takes 200mg BID routinely Head CT negative Lab work does not show any signs of infections; blood cultures pending Solu-medrol tapered down EEG ordered neurology consulted for further input Acute Exacerbation of Chronic Bronchiectasis Moderate, Persistent Asthma 10/15 solu-medrol tapered, change to prednisone if okay with pulmonology cough is better, breathing improved 10/14 s/p bronchoscopy IV solu-medrol x one now due to bronchospasm will give one dose of cough syrup now due to worsening cough with sputum further management as per pulm 10/13 plan for now is to continue steroids; solu-medrol for now continue Levaquin for possible underlying bacterial infection appreciate pulmonology input: continue chest percussor, Dornase, cough meds PRN and nebs PRN continue home medications including Symbicort, Singulair and Flonase for recurrent sinusitis New LBBB Hx. of Stress-Induced Cardiomyopathy now resolved patient has had issues with stress-induced cardiomyopathy last cardiac cath in summer in July 2016 with no issues continue aspirin for now Depression/Anxiety as per patient, this is controlled will continue current medications Hypothyroidism continue Synthroid DVT ppx subq heparin FULL CODE
[2016-10-15] MEDS ORDERED: LORAZEPAM 2 MG/ML 1 ML VIAL ONE (14:40)
--- NOTE | 2016-10-15 15:04 | Pulmonology Progress Note ---
Pulmonary Progress Note Date of Service Oct 15, 2016. Attending Subjective Patient seen and examined this afternoon. She states that she is starting to have more productive sputum since bronchoscopy. She feels that her breathing is a little better. While her brother was visiting , she had witness seizure. There was no tongue biting, urinary or bowel incontinence. She has been transferred to a telemetry bed. Objective Vital signs reviewed. Tm 36.7, P 114/68-170/98, P67-87. RR 16-20, SaO2 92-98 on 2-4L NC. Cumulative output since 1746 ml negative balance Gen: Awake, alert oriented 3, in no acute distress CVS: S1-S2 regular rate and rhythm Lungs: bilateral expiratory wheezing, no use of accessory muscles Abdomen: Soft, nontender, nondistended Extremities: Trace bilateral lower extremity edema, no cyanosis, no clubbing Medications reviewed. From a pulmonary standpoint--Solu-Medrol 40 mg q 12 IV, Singulair 10 mg PO, Dornase alpha BID inh, Symbicort 2 puffs BID, Flonase 1 spray BID, Levaquin 750 mg IV daily, Robitussin- AC cough syrup q6h prn Labs reviewed Blood cx 10/15/2016-peinding Blood cx 10/12/2016--NGTD Aspergillus Ab-pending IgE-pending Bronch BAL 10/14/2016 - prelim--moderate normal ben, no fungal culture , mycobacteria--pending No new imaging today. Assessment & Plan Chronic bronchiectasis with acute exacerbation Moderate persistent asthma Mucus plugging GERD Sinusitis Oral candidiasis Seizure Patient is s/p bronchoscopy. Having a more productive cough this morning. Currently not requiring any oxygen supplementation. Differential includes eosinophilic asthma, aspirin exacerbated related disease and ABPA. Continue with bronchodilators, systemic corticosteroids, antibiotics, and aggressive pulmonary toilet. Oxygen supplementation via nasal cannula when necessary, if hypoxic. Continue with flutter valve and chest vest. IgE, ANCA, Aspergillus Ab pending as well cytology Her course is now complicated by seizure--continue current management per primary team Data Medications: Current Inpatient Medications Medications (Trade) Dose Ordered Sig/Matt Route Start Time Stop Time Status Last Admin Dose Admin Ioversol (Optiray 320) 100 ml UD PRN IV 10/12/16 00:45 10/16/16 00:44 Albuterol (Ventolin Hfa Inhaler) 2 puffs Q4H PRN INH 10/12/16 05:30 11/11/16 05:29 Aspirin (Ecotrin Tab) 81 mg DAILY PO 10/12/16 08:00 11/11/16 07:59 10/15/16 08:06 81 MG Budesonide/ Formoterol Fumarate (Symbicort 160/ 4.5 Inh) 2 puffs BID INH 10/12/16 08:00 11/11/16 07:59 10/15/16 08:04 2 PUFFS Citalopram Hydrobromide (celeXA TAB) 40 mg QAM PO 10/12/16 08:00 11/11/16 07:59 10/15/16 08:06 40 MG Fluticasone Propionate (Flonase Nasal [place]) 1 sprays BID NA 10/12/16 08:00 11/11/16 07:59 10/15/16 08:04 1 SPRAYS Folic Acid (Folvite Tab) 1 mg QAM PO 10/12/16 08:00 11/11/16 07:59 10/15/16 08:05 1 MG Furosemide (Lasix Tab) 20 mg DAILY PRN PO 10/12/16 05:30 11/11/16 05:29 Levofloxacin (Levaquin Tab) 750 mg QD@08 PO 10/12/16 08:00 10/19/16 07:59 10/15/16 08:06 750 MG Levothyroxine Sodium (Synthroid Tab) 100 mcg DAILYBB PO 10/12/16 06:30 11/11/16 06:29 10/15/16 05:46 100 MCG Montelukast Sodium (Singulair Tab) 10 mg QPM PO 10/12/16 21:00 11/11/16 20:59 10/14/16 20:47 10 MG Pantoprazole Sodium (Protonix Tab) 40 mg QAM PO 10/12/16 08:00 11/11/16 07:59 10/15/16 08:06 40 MG Phenytoin Sodium (Dilantin Er Cap) 200 mg BID PO 10/12/16 08:00 11/11/16 07:59 10/15/16 08:05 200 MG Albuterol/ Ipratropium (Duoneb) 3 ml QIDR INH 10/12/16 08:00 11/11/16 07:59 10/15/16 11:24 3 ML Acetaminophen (Tylenol Tab) 650 mg Q4H PRN PO 10/12/16 05:30 11/11/16 05:29 Al Hydrox/Mg Hydrox/Simethicone (Maalox Max Susp) 15 ml Q4H PRN PO 10/12/16 05:30 11/11/16 05:29 Magnesium Hydroxide (Milk Of Magnesia Susp) 30 ml Q6H PRN PO 10/12/16 05:30 11/11/16 05:29 Polyethylene (Miralax Powder Packet) 17 gm DAILY PRN PO 10/12/16 05:30 11/11/16 05:29 Zolpidem Tartrate (Ambien Tab) 5 mg HSZ PRN PO 10/12/16 05:30 11/11/16 05:29 Ondansetron HCl (Zofran Inj) 4 mg Q6H PRN IV 10/12/16 05:30 11/11/16 05:29 10/15/16 12:28 4 MG Heparin Sodium (Porcine) (Heparin Sq 5000 Unit/0.5ml) 5,000 unit Q12H SQ 10/12/16 09:00 11/11/16 08:59 10/15/16 08:09 5,000 UNIT Codeine Phosphate/ Guaifenesin (Robitussin-AC Sugar Free Syrup) 5 ml Q6H PRN PO 10/12/16 05:30 11/11/16 05:29 10/13/16 21:33 5 ML Dornase Jonah (Pulmozyme Inhalation Soln 2.5ml Amp) 2.5 ml BIDR INH 10/12/16 20:00 11/11/16 19:59 10/15/16 06:53 2.5 ML Magnesium Oxide (Mag-Ox Tab) 400 mg QAM PO 10/14/16 09:00 11/13/16 08:59 10/15/16 08:04 400 MG Potassium Chloride (Klor-Con Tab) 20 meq QAM PO 10/16/16 09:00 11/15/16 08:59 Methylprednisolone Sodium Succinate 40 mg/Syringe 0.64 ml @ 1.5 mls/min Q12 IV 10/15/16 21:00 11/11/16 05:59 Non-Formulary Medication (Phenobarbital ) 97.2 mg HS PO 10/15/16 21:00 11/14/16 20:59 UNV Vital Signs: Date Time Temp Pulse Resp B/P (MAP) Pulse Ox O2 Delivery O2 Flow Rate FiO2 10/15/16 12:32 36.6 82 16 138/73 (94) 98 4.0 10/15/16 12:01 87 170/98 (122) 94 2.0 10/15/16 11:26 68 16 96 Room Air 10/15/16 11:02 70 122/71 (88) 124/71 (88) 10/15/16 08:04 36.3 69 18 118/71 (87) 92 Room Air 10/15/16 08:00 Room Air 10/15/16 06:55 71 20 96 Room Air 10/15/16 03:58 36.7 67 18 114/68 (83) 98 Room Air 10/15/16 00:00 Room Air 10/14/16 22:30 36.7 68 18 114/68 (83) 95 Room Air 10/14/16 20:17 36.6 18 116/66 (83) 95 Room Air 10/14/16 19:54 83 20 96 Room Air 10/14/16 16:26 80 20 96 Room Air 3.0 10/14/16 16:00 Room Air 10/14/16 15:48 36.5 85 16 107/61 (76) 92 Room Air Laboratory Results: Last 24 Hours Test 10/15/16 07:30 10/15/16 11:40 10/15/16 11:57 10/15/16 11:58 Sodium Level 140 mmol/L 137 mmol/L Potassium Level 3.6 mmol/L 3.7 mmol/L Chloride Level 105 mmol/L 103 mmol/L Carbon Dioxide Level 28 mmol/L 25 mmol/L Anion Gap 7.0 mmol/L 9.0 mmol/L Blood Urea Nitrogen 9 mg/dl 10 mg/dl Creatinine 0.66 mg/dl 0.64 mg/dl Est Creatinine Clear Calc Drug Dose 64.3 ml/min 66.3 ml/min Estimated GFR () 109.0 110.1 Estimated GFR (Non- 94.0 95.0 BUN/Creatinine Ratio 14.1 15.2 Random Glucose 93 mg/dl 85 mg/dl Calcium Level 8.6 mg/dl 9.0 mg/dl Bedside Glucose 86 mg/dl White Blood Count 7.37 K/uL Red Blood Count 4.56 M/uL Hemoglobin 14.0 g/dL Hematocrit 42.5 % Mean Corpuscular Volume 93.2 fL Mean Corpuscular Hemoglobin 30.7 pg Mean Corpuscular Hemoglobin Concent 32.9 g/dl RDW Standard Deviation 48.1 fL RDW Coefficient of Variation 14.1 % Platelet Count 301 K/uL Mean Platelet Volume 9.2 fL Phenytoin (Dilantin) Level 9.7 mcg/mL
[2016-10-15] MEDS ORDERED: PHENOBARBITAL SOD IV ONE (15:30)
[2016-10-15] MEDS ORDERED: PHENOBARBITAL 32.4 MG TAB PO SCH (21:00)
[2016-10-15] MEDS: MONTELUKAST SOD 10 MG TAB PO SCH (21:05)
--- NOTE | 2016-10-15 21:41 | NEUROLOGY CONSULTATION ---
DATE OF CONSULTATION: 10/15/2016 REASON FOR CONSULTATION: Seizure. HISTORY OF PRESENT ILLNESS: Mrs. Rosado is a 61-year-old female who is an outpatient of Dr. Shine who sees her for a longstanding history of seizure disorder for which she is on Dilantin and phenobarbital. Apparently, she has not had a seizure for many years. She was admitted early in the morning on 10/12/2016, she was admitted for generalized weakness, she had been diagnosed with pneumonia several days prior and had been placed on antibiotics. On the day of admission, she felt globally weak with numbness in her extremity, she could not get out of a chair, increasingly short of breath, cough, sore throat, headache, neck pain and photophobia. The patient was seen in the Emergency Room was hypoxic in the Emergency Room, subsequently oxygen supplementation was increased and she was admitted. It was thought that she was on Levaquin and was thought she was having acute exacerbation of her asthma, COPD and was admitted on this basis. Dilantin which she is taking chronically was continued at 200 b.i.d. but a phenobarbital which she was taking at 97.2 at bedtime was accidentally left off her medication list. Earlier today around lunchtime, she had an episode in the presence of her brother where she had felt somewhat dizzy. While the nurse was in another room, the nurse overheard the brother asking her if she was okay. The patient was noted to have a seizure in a chair lasting 1 minute, eyes were deviated to the right, blood sugar was 86, vitals are stable, oxygen was placed at 2 liters, the patient had just had a breathing treatment. She was given 100 mg of Dilantin. The patient subsequently had another seizure at approximately 2:45 in the afternoon witnessed by Dr. Rivera and he gave her intravenous phenobarbital 97.6 and 2 mg of Ativan and the seizure resolved. He subsequently written an order for phenobarbital. PAST MEDICAL HISTORY: Notable for osteoporosis, asthma, depression, seizure, anxiety, reflux, irritable bowel, stress-induced cardiomyopathy. PAST SURGICAL HISTORY: She has had sinus surgery, hysterectomy and ear surgery, breast biopsy. SOCIAL HISTORY: Nonsmoker, unemployed. FAMILY HISTORY: Diabetes, lung cancer, hypertension. ALLERGIES: CLEMASTINE, SULFA AND WALNUT. HOME MEDICATIONS: Aspirin, azithromycin, Symbicort, Celexa, Flonase, folic acid, levofloxacin, levothyroxine, Singulair, Protonix, phenobarbital 97.2 at bedtime, Dilantin 200 b.i.d., prednisone, p.r.n. albuterol, and furosemide. PHYSICAL EXAMINATION: GENERAL: The patient is sleepy but arousable with a nasal trumpet in place, a nonrebreather mask. She is wearing supplemental oxygen via mask. On exam she is sleepy but arousable, oriented to person and place, and says she feels unwell. VITAL SIGNS: Her most recent vitals 36.3, 95, 20, 109/63, 100% on 5 liters. HEENT: Her head is normocephalic, atraumatic. There is evidence of a small laceration on the right side of her tongue. NECK: Supple. There are no carotid bruits. HEART: No heart murmurs. Heart has regular rate and rhythm. EXTREMITIES: No calf swelling is noted. NEUROLOGIC: Pupils are equal, the optic nerves are grossly normal. There is normal motility, facial sensation and symmetry. Speech and language are normal, although mildly slow related to her sedation. Motor 5/5. No drift. Normal rapid alternating movements. She had mild difficulty with [id number] related to concentration, but they appear grossly intact. Reflexes symmetric. Toes are downgoing. Sensation intact to light touch. LABORATORY DATA: Her basic metabolic profile from today is unremarkable. Hematology - normal white count, H&H and platelet count. IMPRESSION AND PLAN: Breakthrough seizure related to phenobarbital being held for 3 days. Agree with intravenous Dilantin as was done, the patient has received Ativan. If she were to have another generalized seizure, I would give her another intravenous dose of phenobarbital. One could also give a partial loading dose of Dilantin, if she were to have a potentially 500 mg. If she were to have another seizure, I would move her to an ICU bed for further monitoring. Would recommend checking a Dilantin and phenobarbital level in the morning. I do not think she needs any additional testing other than CT, which was performed earlier. Dr. Shine will take over her care tomorrow. PIERO
[2016-10-16] VITALS (12 sets, daily range): BP systolic 101–109; BP diastolic 50–65; PULSE 71–98; TEMP 36.8–37.1; O2SAT 93–99
[2016-10-16] MEDS: LEVOTHYROXINE 100 MCG TAB PO SCH (06:22)
[2016-10-16] MEDS: ALBUT/IPRATROP 3MG/0.5MG NEB 3 ML VIAL INH SCH ×3 (07:04→19:00)
[2016-10-16 07:59] LABS: HEMATOCRIT 38.8 % (37-47); MEAN CELL VOLUME 94.6 fL (80-100); MEAN CORPUSCULAR HEMOGLOBIN 31.5 pg (25-34); MEAN CORPUSCULAR HGB CONC 33.2 g/dl (32-36); PLATELET COUNT 258 K/uL (130-400); WHITE BLOOD COUNT 9.34 K/uL (4.8-10.8)
[2016-10-16] MEDS: ASPIRIN 81 MG ECTAB PO SCH (07:59)
[2016-10-16] MEDS: PHENYTOIN SODIUM ER 100 MG CAP PO SCH ×2 (07:59→20:37)
[2016-10-16] MEDS: CITALOPRAM 40 MG TAB PO SCH (07:59)
[2016-10-16] MEDS: FLUTICASONE PROPIONATE NA SPR 16 GM BTL SCH ×2 (07:59→20:39)
[2016-10-16] MEDS: POTASSIUM CHLORIDE 20 MEQ TABCR PO SCH (08:00)
[2016-10-16] MEDS: MAGNESIUM OXIDE 400 MG TAB PO SCH (08:00)
[2016-10-16] MEDS: BUDESONIDE/FORMOTEROL FUMARATE 160/4.5 60 PUFFS/INHALER INH SCH ×2 (08:00→20:39)
[2016-10-16] MEDS: PANTOprazole SOD 40 MG TAB PO SCH (08:01)
[2016-10-16] MEDS: LEVOFLOXACIN 750 MG TAB PO SCH (08:01)
[2016-10-16] MEDS: METHYLPREDNISOLONE IV 40 MG in SYRINGE 0 ML IV SCH (08:01)
[2016-10-16] MEDS: HEPARIN SOD 5000 UNIT/0.5 ML CARP SQ SCH ×2 (08:08→20:42)
[2016-10-16 08:21] LABS: PHENOBARBITAL 8.1 mcg/mL (15.0-40.0)
[2016-10-16 08:28] LABS: BUN/CREATININE RATIO 14.8 (10-20); CALCIUM 8.8 mg/dl (8.5-10.1); CREATININE 0.63 mg/dl (0.60-1.20); POTASSIUM 3.8 mmol/L (3.5-5.1)
[2016-10-16] MEDS: DORNASE ALFA (2500U) 2.5MG/2.5ML INH SCH ×2 (09:39→19:10)
[2016-10-16] MEDS ORDERED: PHENOBARBITAL SOD IV SCH (11:15)
[2016-10-16] MEDS ORDERED: PHENYTOIN IV 100 MG in SYRINGE 0 ML IV SCH (11:15)
[2016-10-16] MEDS ORDERED: PHENYTOIN IV ONE (11:15)
--- NOTE | 2016-10-16 11:36 | Progress Note ---
Subjective Date of Service: Oct 16, 2016. Subjective Pt evaluation today including: conversation w/ patient, physical exam, lab review, review of studies, conversation w/ erp consultant, review of inpatient medication list Saw/examined the patient in room 286 She's doing okay, seems to be worrying about her breathing and worried about going home and having this happen again Improved breathing and less sputum, but states she still feels slightly congested Does not recall much of her day yesterday because of two seizures. Currently awake/alert/oriented x3 Problem List Medical Problems: (1) Acute bronchitis Status: Acute (2) Asthma with exacerbation Status: Acute (3) Dependent edema Status: Acute (4) Hypoxia Status: Acute (5) Pneumonia Status: Acute (6) Shortness of breath Status: Acute (7) Shortness of breath Status: Acute (8) SOB (shortness of breath) Status: Acute (9) Tachycardia Status: Acute Review of Systems Constitutional: + weakness, No fever, No chills Respiratory: + cough, + sputum, + shortness of breath, No wheezing, No dyspnea on exertion, No dyspnea at rest, No hemoptysis Cardiac: No chest pain, No edema, No palpitations Abdomen: No pain, No nausea, No vomiting, No diarrhea Heme: No abnormal bleeding/bruising Medications Current Inpatient Medications Medications (Trade) Dose Ordered Sig/Matt Route Start Time Stop Time Status Last Admin Dose Admin Albuterol (Ventolin Hfa Inhaler) 2 puffs Q4H PRN INH 10/12/16 05:30 11/11/16 05:29 Aspirin (Ecotrin Tab) 81 mg DAILY PO 10/12/16 08:00 11/11/16 07:59 10/16/16 07:59 81 MG Budesonide/ Formoterol Fumarate (Symbicort 160/ 4.5 Inh) 2 puffs BID INH 10/12/16 08:00 11/11/16 07:59 10/16/16 08:00 2 PUFFS Citalopram Hydrobromide (celeXA TAB) 40 mg QAM PO 10/12/16 08:00 11/11/16 07:59 10/16/16 07:59 40 MG Fluticasone Propionate (Flonase Nasal [place]) 1 sprays BID NA 10/12/16 08:00 11/11/16 07:59 10/16/16 07:59 1 SPRAYS Folic Acid (Folvite Tab) 1 mg QAM PO 10/12/16 08:00 11/11/16 07:59 10/16/16 07:59 1 MG Furosemide (Lasix Tab) 20 mg DAILY PRN PO 10/12/16 05:30 11/11/16 05:29 Levothyroxine Sodium (Synthroid Tab) 100 mcg DAILYBB PO 10/12/16 06:30 11/11/16 06:29 10/16/16 06:22 100 MCG Montelukast Sodium (Singulair Tab) 10 mg QPM PO 10/12/16 21:00 11/11/16 20:59 10/15/16 21:05 10 MG Pantoprazole Sodium (Protonix Tab) 40 mg QAM PO 10/12/16 08:00 11/11/16 07:59 10/16/16 08:01 40 MG Phenytoin Sodium (Dilantin Er Cap) 200 mg BID PO 10/12/16 08:00 11/11/16 07:59 10/16/16 07:59 200 MG Albuterol/ Ipratropium (Duoneb) 3 ml QIDR INH 10/12/16 08:00 11/11/16 07:59 10/16/16 07:04 3 ML Acetaminophen (Tylenol Tab) 650 mg Q4H PRN PO 10/12/16 05:30 11/11/16 05:29 Al Hydrox/Mg Hydrox/Simethicone (Maalox Max Susp) 15 ml Q4H PRN PO 10/12/16 05:30 11/11/16 05:29 Magnesium Hydroxide (Milk Of Magnesia Susp) 30 ml Q6H PRN PO 10/12/16 05:30 11/11/16 05:29 Polyethylene (Miralax Powder Packet) 17 gm DAILY PRN PO 10/12/16 05:30 11/11/16 05:29 Zolpidem Tartrate (Ambien Tab) 5 mg HSZ PRN PO 10/12/16 05:30 11/11/16 05:29 Ondansetron HCl (Zofran Inj) 4 mg Q6H PRN IV 10/12/16 05:30 11/11/16 05:29 10/15/16 21:08 4 MG Heparin Sodium (Porcine) (Heparin Sq 5000 Unit/0.5ml) 5,000 unit Q12H SQ 10/12/16 09:00 11/11/16 08:59 10/16/16 08:08 5,000 UNIT Codeine Phosphate/ Guaifenesin (Robitussin-AC Sugar Free Syrup) 5 ml Q6H PRN PO 10/12/16 05:30 11/11/16 05:29 10/13/16 21:33 5 ML Dornase Jonah (Pulmozyme Inhalation Soln 2.5ml Amp) 2.5 ml BIDR INH 10/12/16 20:00 11/11/16 19:59 10/16/16 09:39 2.5 ML Magnesium Oxide (Mag-Ox Tab) 400 mg QAM PO 10/14/16 09:00 11/13/16 08:59 10/16/16 08:00 400 MG Potassium Chloride (Klor-Con Tab) 20 meq QAM PO 10/16/16 09:00 11/15/16 08:59 10/16/16 08:00 20 MEQ Phenobarbital (Phenobarbital Tab) 97.2 mg HS PO 10/15/16 21:00 11/14/16 20:59 Future Hold Phenobarbital Sodium 92.7 mg/ Syringe 1.4262 ml @ 1 mls/min TODAY@1115 IV 10/16/16 11:15 10/16/16 14:00 10/16/16 11:19 1 MLS/MIN Phenytoin Sodium 500 mg/Syringe 10 ml @ 1 mls/min NOW ONCE IV 10/16/16 11:15 10/16/16 11:24 UNV Prednisone (PredniSONE TAB) 40 mg DAILY PO 10/17/16 09:00 11/16/16 08:59 UNV Objective Vital Signs Date Time Temp Pulse Resp B/P (MAP) Pulse Ox O2 Delivery O2 Flow Rate FiO2 10/16/16 09:39 86 16 96 Room Air 10/16/16 07:39 36.8 71 18 106/64 (78) 99 Room Air 10/16/16 07:03 86 16 96 Room Air 10/16/16 04:52 37.0 79 16 105/65 (78) 93 Room Air 10/16/16 04:00 96 Room Air 10/16/16 00:00 96 Room Air 10/15/16 23:39 37.1 87 16 107/60 (76) 92 Room Air 10/15/16 20:00 100 Room Air 10/15/16 19:58 85 16 96 Room Air 10/15/16 19:27 36.7 90 16 99/56 (70) 97 Room Air 10/15/16 16:00 Oxymask 2.0 10/15/16 15:45 36.3 95 20 109/63 (78) 100 5.0 10/15/16 15:24 86 20 100 Mask 10.0 10/15/16 12:32 36.6 82 16 138/73 (94) 98 4.0 10/15/16 12:01 87 170/98 (122) 94 2.0 10/15/16 11:26 68 16 96 Room Air Physical Exam General Appearance: no apparent distress Respiratory/Chest: no respiratory distress, no accessory muscle use, + rhonchi Cardiovascular: regular rate, rhythm, no edema, no murmur Abdomen: normal bowel sounds, non tender, soft Extremities: normal inspection, no pedal edema 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, no motor/sensory deficits, alert, normal mood/affect, oriented x 3 Laboratory Results Last 24 Hours Test 10/15/16 11:40 10/15/16 11:57 10/15/16 11:58 10/15/16 14:42 Bedside Glucose 86 mg/dl 110 mg/dl Sodium Level 137 mmol/L Potassium Level 3.7 mmol/L Chloride Level 103 mmol/L Carbon Dioxide Level 25 mmol/L Anion Gap 9.0 mmol/L Blood Urea Nitrogen 10 mg/dl Creatinine 0.64 mg/dl Est Creatinine Clear Calc Drug Dose 66.3 ml/min Estimated GFR () 110.1 Estimated GFR (Non- 95.0 BUN/Creatinine Ratio 15.2 Random Glucose 85 mg/dl Calcium Level 9.0 mg/dl White Blood Count 7.37 K/uL Red Blood Count 4.56 M/uL Hemoglobin 14.0 g/dL Hematocrit 42.5 % Mean Corpuscular Volume 93.2 fL Mean Corpuscular Hemoglobin 30.7 pg Mean Corpuscular Hemoglobin Concent 32.9 g/dl RDW Standard Deviation 48.1 fL RDW Coefficient of Variation 14.1 % Platelet Count 301 K/uL Mean Platelet Volume 9.2 fL Phenytoin (Dilantin) Level 9.7 mcg/mL Test 10/16/16 07:21 White Blood Count 9.34 K/uL Red Blood Count 4.10 M/uL Hemoglobin 12.9 g/dL Hematocrit 38.8 % Mean Corpuscular Volume 94.6 fL Mean Corpuscular Hemoglobin 31.5 pg Mean Corpuscular Hemoglobin Concent 33.2 g/dl RDW Standard Deviation 49.3 fL RDW Coefficient of Variation 14.2 % Platelet Count 258 K/uL Mean Platelet Volume 9.0 fL Sodium Level 140 mmol/L Potassium Level 3.8 mmol/L Chloride Level 103 mmol/L Carbon Dioxide Level 29 mmol/L Anion Gap 8.0 mmol/L Blood Urea Nitrogen 9 mg/dl Creatinine 0.63 mg/dl Est Creatinine Clear Calc Drug Dose 67.7 ml/min Estimated GFR () 110.6 Estimated GFR (Non- 95.5 BUN/Creatinine Ratio 14.8 Random Glucose 83 mg/dl Calcium Level 8.8 mg/dl Phenytoin (Dilantin) Level 8.9 mcg/mL Phenobarbital Level 8.1 mcg/mL Assessment and Plan This is a 61 year old female with a PMH of chronic bronchiectasis, chronic sinusitis, moderate persistent asthma, hx. of stress-induced cardiomyopathy, depression/anxiety, hypothyroidism, hx. of seizure disorder, presents with worsening shortness of breath, chest congestion and chest pain Tonic-Clonic Seizure 10/16 both Dilantin and phenobarbital levels are low today will give one dose of phenobarbital through the IV will give 500mg IV Dilantin recheck levels in AM stopped Levaquin EEG ordered and results pending 10/15 patient has a history of seizures had a one minute seizure, no loss of bowel/bladder function, no tongue biting noted, no fall does not recall event; it was witnessed by nursing and brother Dilantin level returned slightly low at 9.7; was given an extra 100mg of it, she takes 200mg BID routinely Head CT negative Lab work does not show any signs of infections; blood cultures pending Solu-medrol tapered down EEG ordered neurology consulted for further input Acute Exacerbation of Chronic Bronchiectasis Moderate, Persistent Asthma 10/16 stop solu-medrol start prednisone 40mg daily stop antibiotics nocturnal pulse ox speech therapy to r/o aspiration vibration vest, nebulizers, O2 PRN appreciate pulm input 10/15 solu-medrol tapered, change to prednisone if okay with pulmonology cough is better, breathing improved 10/14 s/p bronchoscopy IV solu-medrol x one now due to bronchospasm will give one dose of cough syrup now due to worsening cough with sputum further management as per pulm 10/13 plan for now is to continue steroids; solu-medrol for now continue Levaquin for possible underlying bacterial infection appreciate pulmonology input: continue chest percussor, Dornase, cough meds PRN and nebs PRN continue home medications including Symbicort, Singulair and Flonase for recurrent sinusitis New LBBB Hx. of Stress-Induced Cardiomyopathy now resolved patient has had issues with stress-induced cardiomyopathy last cardiac cath in summer in July 2016 with no issues continue aspirin for now Depression/Anxiety as per patient, this is controlled will continue current medications Hypothyroidism continue Synthroid DVT ppx subq heparin FULL CODE
[2016-10-16] MEDS ORDERED: SODIUM CHLORIDE 0.9% IV SCH (12:00)
[2016-10-16] MEDS ORDERED: PHENYTOIN INFUSION IV SCH (12:00)
--- NOTE | 2016-10-16 12:24 | ELECTROENCEPHALOGRAPH REPORT ---
REQUESTING: Dr. Pierce. CLINICAL DIAGNOSIS: Observed seizures in a patient with known seizure disorder transiently withdrawn from phenobarbital. ELECTROENCEPHALOGRAM DIAGNOSIS: Essentially normal during wakefulness. DESCRIPTION OF TRACING: This EEG was done as a bedside recording and is of reasonable technical quality. There are a number of muscle movement artifacts captured by simultaneous video analysis of patient movement and behavior. Photic stimulation was performed. Hyperventilation was not. Drowsiness and light sleep were not seen. During wakefulness, there is evidence for normal appearing background rhythm in the alpha range of about 9 Hz to 10 Hz of maximum frequency and 30 microvolts of maximum amplitude. This is maximum posterior head regions bilaterally symmetrical. Polymorphic mid frequency theta activity is seen over all head regions without clear focal or regional predominance. Anterior head region maximum bilaterally symmetrical low voltage fast activity in the beta range is present. Photic stimulation provokes a minimal driving response without a photomyogenic or photoparoxysmal component. At one occasion during the retracing there is short duration burst of what appears to be monorhythmic delta activity occurring bifrontally. No clinical accompaniments are noted and there are no associated sharp waves, spikes or other clearcut potentially epileptogenic features. In summary then this is an essentially normal study without evidence for focal or generalized encephalopathy and without evidence for potentially epileptogenic activity. The significance of the single short duration burst of symmetrical frontal central delta activity is uncertain as these types of discharge is often seen in otherwise normal in individuals and are of uncertain clinical significance. Otherwise, the tracing reveals no clear evidence for ongoing potentially epileptogenic activity. MTDD
--- NOTE | 2016-10-16 13:34 | PROGRESS NOTE ---
DATE: 10/16/2016 DATE: 10/16/2016 PROBLEM LIST: Includes: 1. Chronic bronchiectasis with acute exacerbation. 2. Moderate persistent asthma. 3. Mucus plugging. 4. Gastroesophageal reflux disease. 5. Sinusitis. 6. Oral candidiasis. 7. Seizure. SUBJECTIVE: The patient reports that breathing [place] she is a little bit better. She is very frustrated with her breathing and trying to figure out why this keeps happening to her. Dr. Rivear was with the patient while I interviewed the patient as well. The patient states that her cough is improving. She is not as short of breath. She is not as tight in her chest. She states that she did have a bronchoscopy done. Unfortunately, felt that she was awake for most of it. She denies any other difficulty with her breathing. No chest pain. No chest congestion or tightness. She just continues to cough and have some mucus production which is normal for her use. She does report that when she is at home she tends to sleep in her chair. She states that her mother lives with her and sleeps on the couch. She states that her mother will wake her up several times through the night and tell her that she had stopped breathing. She states that she has never had a sleep study before, also she has never had a video swallow done. Problem also is that the patient has had multiple seizures over the past 24-48 hours. Apparently the patient did have a history of seizure and had been on phenobarbital and Dilantin for several years. She had been without a seizure for approximately 30-35 years and unfortunately then she has had seizures recently in the hospital. Neurology did see her and it was felt that her seizures were secondary to being off the medication for 3 days. No other concerns or problems. No difficulty swallowing although she states that she does cough and choke sometimes when she eats. She does have problems with indigestion or heartburn. She states that sometimes heartburn will wake her up at night, she will have a choking sensation. She is not having any difficulty with her bowels. No difficulty voiding. No swelling in her extremities. OBJECTIVE: GENERAL: The patient is a 61-year-old female in no acute distress. She is alert and oriented x3. Mood is good. Affect is good. VITAL SIGNS: Temp 36.8, pulse 71, respirations 18, blood pressure is 106/64, pulse ox 99% on room air. HEAD, EYES, EARS, NOSE, AND THROAT: Normocephalic, atraumatic. Pupils equal, round and reactive to light and accommodation. Extraocular movements are intact. [place] moist gingival and buccal mucosa. NECK: Supple, short. No mass. No adenopathy. No bruit. CHEST: The patient has expiratory wheezing bilaterally. No rale or rhonchi noted. She is able to complete sentences without difficulty. No shortness of breath. ABDOMEN: Bowel sounds present. Abdomen soft, nontender. No guarding, rigidity or organomegaly. EXTREMITIES: No erythema or edema. No cyanosis or clubbing noted. LABORATORY DATA: Shows a white count of 9,000, H&H 12.9 and 38.8, platelet count 258,000. His IgE, KRISSY and ANCA are still pending. CMV, HSV, Aspergillus cultures are still pending. The bronch washings at this point are negative. Preliminary AFB is negative. No new imaging data. IMPRESSION: The patient is a 61-year-old female who has well known documented history of chronic bronchiectasis with acute exacerbation. The patient recently underwent bronchoscopy with Dr. Urbina. The bronch washings were reviewed at this time. She is doing better. We are still waiting for some of specified labs so will do a video swallow as patient reports a possible coughing with eating and drinking, also questionable aspiration based on imaging. The patient also reported possible apneic episodes at night. Will do an overnight as well. With the patient's washings coming up negative at this point, will go ahead and discontinue Levaquin in addition. Otherwise continue pulmonary toilet, change to oral prednisone. Continue to follow through hospitalization.
--- NOTE | 2016-10-16 15:43 | PROGRESS NOTE ---
DATE: 10/16/2016 DATE: 10/16/2016 Olivia was seen today. She is back to nearly normal. She feels a little fuzzy in her thinking, which would not be unusual after having 2 seizures yesterday. Otherwise, her exam to me looks to be baseline. She continues to have a cough which was the reason that brought her in in but no further seizure activity has been noted and her doses of her Dilantin and phenobarbital are now back to her old baseline, i.e. 200 b.i.d. of Dilantin and 97.5 of the phenobarb nightly. The levels are going to be checked. She is still on Levaquin for her antibiotic treatment, but at this point I feel secure that we probably are not going to see any more seizure activity and I would not put her in the unit, unless we do see more clinically. Her EEG shows nothing other than a short burst of high amplitude slow wave activity of a generalized type which is highly nonspecific and was not clearly potentially epileptogenic in nature. For now we will treat this as recurrent seizures due to inadvertent withholding of anticonvulsants in the form of phenobarbital. What role Levaquin might be playing in this is conjectural and certainly if this is necessary as an antibiotic I would continue it for now. She was actually probably off the anticonvulsants for a total of 4 days as she admits that on Wednesday when she presented for admission she did not take her phenobarbital. I will check with her tomorrow.
[2016-10-16] MEDS: GUAIFENESIN/CODEINE 100MG/10MG 5ML UDC PO PRN (19:32)
[2016-10-16] MEDS: MONTELUKAST SOD 10 MG TAB PO SCH (20:37)
[2016-10-17] VITALS (9 sets, daily range): BP systolic 100–120; BP diastolic 58–68; PULSE 70–86; TEMP 36.7–36.9; O2SAT 90–94
[2016-10-17] MEDS: LEVOTHYROXINE 100 MCG TAB PO SCH (05:56)
[2016-10-17 06:07] LABS: HEMATOCRIT 37.8 % (37-47); MEAN CELL VOLUME 93.6 fL (80-100); MEAN CORPUSCULAR HEMOGLOBIN 31.2 pg (25-34); MEAN CORPUSCULAR HGB CONC 33.3 g/dl (32-36); PLATELET COUNT 255 K/uL (130-400); RED BLOOD COUNT 4.04 M/uL (4.2-5.4); WHITE BLOOD COUNT 7.53 K/uL (4.8-10.8)
[2016-10-17 06:31] LABS: BUN/CREATININE RATIO 15.8 (10-20); CALCIUM 8.2 mg/dl (8.5-10.1); CREATININE 0.76 mg/dl (0.60-1.20); MAGNESIUM 2.3 mg/dl (1.8-2.4)
[2016-10-17 06:44] LABS: PHENOBARBITAL 7.1 mcg/mL (15.0-40.0)
[2016-10-17] MEDS: ALBUT/IPRATROP 3MG/0.5MG NEB 3 ML VIAL INH SCH ×4 (07:08→19:28)
[2016-10-17] MEDS: DORNASE ALFA (2500U) 2.5MG/2.5ML INH SCH (07:14)
[2016-10-17] MEDS: BUDESONIDE/FORMOTEROL FUMARATE 160/4.5 60 PUFFS/INHALER INH SCH ×2 (08:01→20:58)
[2016-10-17] MEDS: FLUTICASONE PROPIONATE NA SPR 16 GM BTL SCH ×2 (08:01→20:58)
[2016-10-17] MEDS: PANTOprazole SOD 40 MG TAB PO SCH (08:01)
[2016-10-17] MEDS: POTASSIUM CHLORIDE 20 MEQ TABCR PO SCH (08:02)
[2016-10-17] MEDS: MAGNESIUM OXIDE 400 MG TAB PO SCH (08:03)
[2016-10-17] MEDS: ASPIRIN 81 MG ECTAB PO SCH (08:03)
[2016-10-17] MEDS: PHENYTOIN SODIUM ER 100 MG CAP PO SCH ×2 (08:03→20:58)
[2016-10-17] MEDS: CITALOPRAM 40 MG TAB PO SCH (08:03)
[2016-10-17] MEDS: HEPARIN SOD 5000 UNIT/0.5 ML CARP SQ SCH ×2 (08:47→21:00)
[2016-10-17] MEDS ORDERED: PHENOBARBITAL SOD IV ONE (13:00)
--- NOTE | 2016-10-17 14:34 | Progress Note ---
Subjective Date of Service: Oct 17, 2016. Subjective Pt evaluation today including: conversation w/ patient, physical exam, lab review, review of studies, review of inpatient medication list Saw/examined the patient in room 286-1 she is doing better; SOB improved, +cough/+sputum continues Problem List Medical Problems: (1) Acute bronchitis Status: Acute (2) Asthma with exacerbation Status: Acute (3) Dependent edema Status: Acute (4) Hypoxia Status: Acute (5) Pneumonia Status: Acute (6) Shortness of breath Status: Acute (7) Shortness of breath Status: Acute (8) SOB (shortness of breath) Status: Acute (9) Tachycardia Status: Acute Review of Systems Constitutional: No fever, No chills Respiratory: + cough, + sputum, + shortness of breath Cardiac: No chest pain Medications Current Inpatient Medications Medications (Trade) Dose Ordered Sig/Matt Route Start Time Stop Time Status Last Admin Dose Admin Albuterol (Ventolin Hfa Inhaler) 2 puffs Q4H PRN INH 10/12/16 05:30 11/11/16 05:29 Aspirin (Ecotrin Tab) 81 mg DAILY PO 10/12/16 08:00 11/11/16 07:59 10/17/16 08:03 81 MG Budesonide/ Formoterol Fumarate (Symbicort 160/ 4.5 Inh) 2 puffs BID INH 10/12/16 08:00 11/11/16 07:59 10/17/16 08:01 2 PUFFS Citalopram Hydrobromide (celeXA TAB) 40 mg QAM PO 10/12/16 08:00 11/11/16 07:59 10/17/16 08:03 40 MG Fluticasone Propionate (Flonase Nasal [place]) 1 sprays BID NA 10/12/16 08:00 11/11/16 07:59 10/17/16 08:01 1 SPRAYS Folic Acid (Folvite Tab) 1 mg QAM PO 10/12/16 08:00 11/11/16 07:59 10/17/16 08:03 1 MG Furosemide (Lasix Tab) 20 mg DAILY PRN PO 10/12/16 05:30 11/11/16 05:29 Levothyroxine Sodium (Synthroid Tab) 100 mcg DAILYBB PO 10/12/16 06:30 11/11/16 06:29 10/17/16 05:56 100 MCG Montelukast Sodium (Singulair Tab) 10 mg QPM PO 10/12/16 21:00 11/11/16 20:59 10/16/16 20:37 10 MG Pantoprazole Sodium (Protonix Tab) 40 mg QAM PO 10/12/16 08:00 11/11/16 07:59 10/17/16 08:01 40 MG Phenytoin Sodium (Dilantin Er Cap) 200 mg BID PO 10/12/16 08:00 11/11/16 07:59 10/17/16 08:03 200 MG Albuterol/ Ipratropium (Duoneb) 3 ml QIDR INH 10/12/16 08:00 11/11/16 07:59 10/17/16 11:20 3 ML Acetaminophen (Tylenol Tab) 650 mg Q4H PRN PO 10/12/16 05:30 11/11/16 05:29 Al Hydrox/Mg Hydrox/Simethicone (Maalox Max Susp) 15 ml Q4H PRN PO 10/12/16 05:30 11/11/16 05:29 Magnesium Hydroxide (Milk Of Magnesia Susp) 30 ml Q6H PRN PO 10/12/16 05:30 11/11/16 05:29 Polyethylene (Miralax Powder Packet) 17 gm DAILY PRN PO 10/12/16 05:30 11/11/16 05:29 10/16/16 16:15 17 GM Zolpidem Tartrate (Ambien Tab) 5 mg HSZ PRN PO 10/12/16 05:30 11/11/16 05:29 Ondansetron HCl (Zofran Inj) 4 mg Q6H PRN IV 10/12/16 05:30 11/11/16 05:29 10/15/16 21:08 4 MG Heparin Sodium (Porcine) (Heparin Sq 5000 Unit/0.5ml) 5,000 unit Q12H SQ 10/12/16 09:00 11/11/16 08:59 10/17/16 08:47 5,000 UNIT Codeine Phosphate/ Guaifenesin (Robitussin-AC Sugar Free Syrup) 5 ml Q6H PRN PO 10/12/16 05:30 11/11/16 05:29 10/16/16 19:32 5 ML Magnesium Oxide (Mag-Ox Tab) 400 mg QAM PO 10/14/16 09:00 11/13/16 08:59 10/17/16 08:03 400 MG Potassium Chloride (Klor-Con Tab) 20 meq QAM PO 10/16/16 09:00 11/15/16 08:59 10/17/16 08:02 20 MEQ Phenobarbital (Phenobarbital Tab) 97.2 mg HS PO 10/15/16 21:00 11/14/16 20:59 Future hold Prednisone (PredniSONE TAB) 40 mg DAILY PO 10/17/16 09:00 11/16/16 08:59 10/17/16 08:02 40 MG Phenobarbital (Phenobarbital Tab) 97.2 mg HS PO 10/17/16 21:00 11/16/16 20:59 Objective Vital Signs Date Time Temp Pulse Resp B/P (MAP) Pulse Ox O2 Delivery O2 Flow Rate FiO2 10/17/16 11:22 72 16 91 Room Air 10/17/16 11:15 36.8 77 16 106/63 (77) 90 Room Air 10/17/16 07:30 36.9 74 16 120/68 (85) 92 Room Air 10/17/16 07:15 74 16 92 Room Air 10/17/16 04:17 Room Air 10/17/16 04:00 36.7 70 18 100/58 (72) 92 Room Air 10/17/16 00:06 Room Air 10/16/16 23:00 37.0 84 18 105/50 (68) 93 Room Air 10/16/16 20:03 Room Air 10/16/16 19:31 37.1 80 18 106/58 (74) 94 Room Air 10/16/16 19:10 83 16 97 Room Air 10/16/16 16:00 Room Air 10/16/16 15:56 98 16 96 Room Air 10/16/16 15:31 36.8 85 20 101/60 (74) 93 Room Air Physical Exam General Appearance: no apparent distress Respiratory/Chest: no respiratory distress, no accessory muscle use, + rhonchi Cardiovascular: regular rate, rhythm, no edema, no murmur Laboratory Results Last 24 Hours Test 10/17/16 05:19 White Blood Count 7.53 K/uL Red Blood Count 4.04 M/uL Hemoglobin 12.6 g/dL Hematocrit 37.8 % Mean Corpuscular Volume 93.6 fL Mean Corpuscular Hemoglobin 31.2 pg Mean Corpuscular Hemoglobin Concent 33.3 g/dl RDW Standard Deviation 48.6 fL RDW Coefficient of Variation 14.1 % Platelet Count 255 K/uL Mean Platelet Volume 9.0 fL Sodium Level 140 mmol/L Potassium Level 4.0 mmol/L Chloride Level 104 mmol/L Carbon Dioxide Level 32 mmol/L Anion Gap 4.0 mmol/L Blood Urea Nitrogen 12 mg/dl Creatinine 0.76 mg/dl Est Creatinine Clear Calc Drug Dose 56.1 ml/min Estimated GFR () 96.8 Estimated GFR (Non- 83.5 BUN/Creatinine Ratio 15.8 Random Glucose 85 mg/dl Calcium Level 8.2 mg/dl Magnesium Level 2.3 mg/dl Phenytoin (Dilantin) Level 15.5 mcg/mL Phenobarbital Level 7.1 mcg/mL Assessment and Plan This is a 61 year old female with a PMH of chronic bronchiectasis, chronic sinusitis, moderate persistent asthma, hx. of stress-induced cardiomyopathy, depression/anxiety, hypothyroidism, hx. of seizure disorder, presents with worsening shortness of breath, chest congestion and chest pain Tonic-Clonic Seizure 10/17 continue Dilantin one dose of IV Phenobarbital and then continue PO appreciate neurology input 10/16 both Dilantin and phenobarbital levels are low today will give one dose of phenobarbital through the IV will give 500mg IV Dilantin recheck levels in AM stopped Levaquin EEG ordered and results pending 10/15 patient has a history of seizures had a one minute seizure, no loss of bowel/bladder function, no tongue biting noted, no fall does not recall event; it was witnessed by nursing and brother Dilantin level returned slightly low at 9.7; was given an extra 100mg of it, she takes 200mg BID routinely Head CT negative Lab work does not show any signs of infections; blood cultures pending Solu-medrol tapered down EEG ordered neurology consulted for further input Acute Exacerbation of Chronic Bronchiectasis Moderate, Persistent Asthma 10/17 continue prednisone with a taper and d/c home in 1-2 days 10/16 stop solu-medrol start prednisone 40mg daily stop antibiotics nocturnal pulse ox speech therapy to r/o aspiration vibration vest, nebulizers, O2 PRN appreciate pulm input 10/15 solu-medrol tapered, change to prednisone if okay with pulmonology cough is better, breathing improved 10/14 s/p bronchoscopy IV solu-medrol x one now due to bronchospasm will give one dose of cough syrup now due to worsening cough with sputum further management as per pulm 10/13 plan for now is to continue steroids; solu-medrol for now continue Levaquin for possible underlying bacterial infection appreciate pulmonology input: continue chest percussor, Dornase, cough meds PRN and nebs PRN continue home medications including Symbicort, Singulair and Flonase for recurrent sinusitis New LBBB Hx. of Stress-Induced Cardiomyopathy now resolved patient has had issues with stress-induced cardiomyopathy last cardiac cath in summer in July 2016 with no issues continue aspirin for now Depression/Anxiety as per patient, this is controlled will continue current medications Hypothyroidism continue Synthroid DVT ppx subq heparin FULL CODE
--- NOTE | 2016-10-17 14:36 | Pulmonology Progress Note ---
Pulmonary Progress Note Date of Service Oct 17, 2016. Attending Dr. Urbina Subjective Patient seen and examined this morning. She states that she is feeling better. She is still having intermittent cough, more productive now. Less wheezing and shortness of breath. Objective Vital signs reviewed. Gen: Awake, alert oriented 3, in no acute distress CVS: S1-S2 regular rate and rhythm Lungs: Lungs, CTA b/l no use of accessory muscles Abdomen: Soft, nontender, nondistended Extremities: Trace bilateral lower extremity edema, no cyanosis, no clubbing Medications reviewed. From a pulmonary standpoint--Prednisone 40 mg daily Singulair 10 mg PO, Dornase alpha BID inh, Symbicort 2 puffs BID, Flonase 1 spray BID, Robitussin- AC cough syrup q6h prn Labs reviewed Blood cx 10/15/2016-NGTD Blood cx 10/12/2016--NGTD Aspergillus Ab-pending IgE-pending Bronch BAL 10/14/2016 - prelim--moderate normal ben, no fungal culture , mycobacteria--stain--no AFB, culture pending, cytology negative for malignancy. No new imaging today. Assessment & Plan Chronic bronchiectasis with acute exacerbation Moderate persistent asthma Mucus plugging GERD Sinusitis Oral candidiasis Seizure Nocturnal hypoxemia Patient is s/p bronchoscopy. Having a more productive cough. Currently not requiring any oxygen supplementation. Overnight oximetry shows that she does about 60 events where she desaturates below 89% for longer than 10s. She be on nocturnal oxygen. She should also have a polysomnography done as an outpatient. Continue with bronchodilators, continue with steroid taper, antibiotics, and aggressive pulmonary toilet. I have discontinued dornase alpha. Will add Spiriva upon discharge. Oxygen supplementation via nasal cannula when necessary, if hypoxic. Continue with flutter valve and chest vest. IgE, ANCA, Aspergillus Ab pending as well cytology She is stable from a pulmonary perspective. I will sign off case today. She should follow up with Dr. Zapata as an outpatient in 1-2 weeks after discharge. Data Medications: Current Inpatient Medications Medications (Trade) Dose Ordered Sig/Matt Route Start Time Stop Time Status Last Admin Dose Admin Albuterol (Ventolin Hfa Inhaler) 2 puffs Q4H PRN INH 10/12/16 05:30 11/11/16 05:29 Aspirin (Ecotrin Tab) 81 mg DAILY PO 10/12/16 08:00 11/11/16 07:59 10/17/16 08:03 81 MG Budesonide/ Formoterol Fumarate (Symbicort 160/ 4.5 Inh) 2 puffs BID INH 10/12/16 08:00 11/11/16 07:59 10/17/16 08:01 2 PUFFS Citalopram Hydrobromide (celeXA TAB) 40 mg QAM PO 10/12/16 08:00 11/11/16 07:59 10/17/16 08:03 40 MG Fluticasone Propionate (Flonase Nasal [place]) 1 sprays BID NA 10/12/16 08:00 11/11/16 07:59 10/17/16 08:01 1 SPRAYS Folic Acid (Folvite Tab) 1 mg QAM PO 10/12/16 08:00 11/11/16 07:59 10/17/16 08:03 1 MG Furosemide (Lasix Tab) 20 mg DAILY PRN PO 10/12/16 05:30 11/11/16 05:29 Levothyroxine Sodium (Synthroid Tab) 100 mcg DAILYBB PO 10/12/16 06:30 11/11/16 06:29 10/17/16 05:56 100 MCG Montelukast Sodium (Singulair Tab) 10 mg QPM PO 10/12/16 21:00 11/11/16 20:59 10/16/16 20:37 10 MG Pantoprazole Sodium (Protonix Tab) 40 mg QAM PO 10/12/16 08:00 11/11/16 07:59 10/17/16 08:01 40 MG Phenytoin Sodium (Dilantin Er Cap) 200 mg BID PO 10/12/16 08:00 11/11/16 07:59 10/17/16 08:03 200 MG Albuterol/ Ipratropium (Duoneb) 3 ml QIDR INH 10/12/16 08:00 11/11/16 07:59 10/17/16 11:20 3 ML Acetaminophen (Tylenol Tab) 650 mg Q4H PRN PO 10/12/16 05:30 11/11/16 05:29 Al Hydrox/Mg Hydrox/Simethicone (Maalox Max Susp) 15 ml Q4H PRN PO 10/12/16 05:30 11/11/16 05:29 Magnesium Hydroxide (Milk Of Magnesia Susp) 30 ml Q6H PRN PO 10/12/16 05:30 11/11/16 05:29 Polyethylene (Miralax Powder Packet) 17 gm DAILY PRN PO 10/12/16 05:30 11/11/16 05:29 10/16/16 16:15 17 GM Zolpidem Tartrate (Ambien Tab) 5 mg HSZ PRN PO 10/12/16 05:30 11/11/16 05:29 Ondansetron HCl (Zofran Inj) 4 mg Q6H PRN IV 10/12/16 05:30 11/11/16 05:29 10/15/16 21:08 4 MG Heparin Sodium (Porcine) (Heparin Sq 5000 Unit/0.5ml) 5,000 unit Q12H SQ 10/12/16 09:00 11/11/16 08:59 10/17/16 08:47 5,000 UNIT Codeine Phosphate/ Guaifenesin (Robitussin-AC Sugar Free Syrup) 5 ml Q6H PRN PO 10/12/16 05:30 11/11/16 05:29 10/16/16 19:32 5 ML Dornase [place] (Pulmozyme Inhalation Soln 2.5ml Amp) 2.5 ml BIDR INH 10/12/16 20:00 11/11/16 19:59 10/17/16 07:14 2.5 ML Magnesium Oxide (Mag-Ox Tab) 400 mg QAM PO 10/14/16 09:00 11/13/16 08:59 10/17/16 08:03 400 MG Potassium Chloride (Klor-Con Tab) 20 meq QAM PO 10/16/16 09:00 11/15/16 08:59 10/17/16 08:02 20 MEQ Phenobarbital (Phenobarbital Tab) 97.2 mg HS PO 10/15/16 21:00 11/14/16 20:59 Future hold Prednisone (PredniSONE TAB) 40 mg DAILY PO 10/17/16 09:00 11/16/16 08:59 10/17/16 08:02 40 MG Phenobarbital (Phenobarbital Tab) 97.2 mg HS PO 10/17/16 21:00 11/16/16 20:59 Vital Signs: Date Time Temp Pulse Resp B/P (MAP) Pulse Ox O2 Delivery O2 Flow Rate FiO2 10/17/16 11:22 72 16 91 Room Air 10/17/16 11:15 36.8 77 16 106/63 (77) 90 Room Air 10/17/16 07:30 36.9 74 16 120/68 (85) 92 Room Air 10/17/16 07:15 74 16 92 Room Air 10/17/16 04:17 Room Air 10/17/16 04:00 36.7 70 18 100/58 (72) 92 Room Air 10/17/16 00:06 Room Air 10/16/16 23:00 37.0 84 18 105/50 (68) 93 Room Air 10/16/16 20:03 Room Air 10/16/16 19:31 37.1 80 18 106/58 (74) 94 Room Air 10/16/16 19:10 83 16 97 Room Air 10/16/16 16:00 Room Air 10/16/16 15:56 98 16 96 Room Air 10/16/16 15:31 36.8 85 20 101/60 (74) 93 Room Air Laboratory Results: Last 24 Hours Test 10/17/16 05:19 White Blood Count 7.53 K/uL Red Blood Count 4.04 M/uL Hemoglobin 12.6 g/dL Hematocrit 37.8 % Mean Corpuscular Volume 93.6 fL Mean Corpuscular Hemoglobin 31.2 pg Mean Corpuscular Hemoglobin Concent 33.3 g/dl RDW Standard Deviation 48.6 fL RDW Coefficient of Variation 14.1 % Platelet Count 255 K/uL Mean Platelet Volume 9.0 fL Sodium Level 140 mmol/L Potassium Level 4.0 mmol/L Chloride Level 104 mmol/L Carbon Dioxide Level 32 mmol/L Anion Gap 4.0 mmol/L Blood Urea Nitrogen 12 mg/dl Creatinine 0.76 mg/dl Est Creatinine Clear Calc Drug Dose 56.1 ml/min Estimated GFR () 96.8 Estimated GFR (Non- 83.5 BUN/Creatinine Ratio 15.8 Random Glucose 85 mg/dl Calcium Level 8.2 mg/dl Magnesium Level 2.3 mg/dl Phenytoin (Dilantin) Level 15.5 mcg/mL Phenobarbital Level 7.1 mcg/mL
--- NOTE | 2016-10-17 16:41 | PROGRESS NOTE ---
DATE: 10/17/2016 SUBJECTIVE: Olivia looks good today. There has been no seizure activity. She still has a cough and discharge plan is up in the air. Unfortunately it appears that the phenobarbital orally is still on hold, so I tried to undo this and rewrote the order for her 97.2 mg tablets to be given at bedtime tonight and every night thereafter. Dilantin is up to 200 twice today, which is standard and her Dilantin level today is in the therapeutic range where the phenobarbital was low, which is surprising as she has missed a few doses and probably only received 1 IV dose. At this point, then I think neurology is going back out of the case. I will check her tomorrow afternoon late when I get back in the hospital just be sure that things are stable and make sure her medications are online, but after that point I can just see her on a routine basis as I usually do twice a year and I would not make any changes in her phenobarbital or Dilantin dosing at this time. MTDD
[2016-10-17] MEDS: GUAIFENESIN/CODEINE 100MG/10MG 5ML UDC PO PRN (18:16)
[2016-10-17] MEDS: MONTELUKAST SOD 10 MG TAB PO SCH (20:58)
[2016-10-17] MEDS ORDERED: PHENOBARBITAL 32.4 MG TAB PO SCH (21:00)
[2016-10-18] VITALS: BP 107/61; PULSE 72; TEMP 36.6; O2SAT 91
[2016-10-18 04:00] VITALS: BP 100/62; PULSE 75; TEMP 36.7; O2SAT 92
[2016-10-18 06:10] LABS: HEMATOCRIT 36.8 % (37-47); MEAN CELL VOLUME 93.6 fL (80-100); MEAN CORPUSCULAR HEMOGLOBIN 32.1 pg (25-34); MEAN CORPUSCULAR HGB CONC 34.2 g/dl (32-36); PLATELET COUNT 236 K/uL (130-400); RED BLOOD COUNT 3.93 M/uL (4.2-5.4); WHITE BLOOD COUNT 8.12 K/uL (4.8-10.8)
[2016-10-18] MEDS: LEVOTHYROXINE 100 MCG TAB PO SCH (06:12)
[2016-10-18 07:01] LABS: BUN/CREATININE RATIO 17.3 (10-20); CALCIUM 8.3 mg/dl (8.5-10.1); CREATININE 0.6 mg/dl (0.60-1.20); POTASSIUM 3.8 mmol/L (3.5-5.1)
[2016-10-18] MEDS: ALBUT/IPRATROP 3MG/0.5MG NEB 3 ML VIAL INH SCH ×2 (07:12→11:15)
[2016-10-18 07:13] VITALS: PULSE 79; O2SAT 93
[2016-10-18 07:41] VITALS: BP 134/70; PULSE 69; TEMP 36.7; O2SAT 93
[2016-10-18] MEDS: BUDESONIDE/FORMOTEROL FUMARATE 160/4.5 60 PUFFS/INHALER INH SCH (08:08)
[2016-10-18] MEDS: ASPIRIN 81 MG ECTAB PO SCH (08:09)
[2016-10-18] MEDS: PHENYTOIN SODIUM ER 100 MG CAP PO SCH (08:09)
[2016-10-18] MEDS: CITALOPRAM 40 MG TAB PO SCH (08:09)
[2016-10-18] MEDS: FLUTICASONE PROPIONATE NA SPR 16 GM BTL SCH (08:09)
[2016-10-18] MEDS: PANTOprazole SOD 40 MG TAB PO SCH (08:09)
[2016-10-18] MEDS: MAGNESIUM OXIDE 400 MG TAB PO SCH (08:10)
[2016-10-18] MEDS: POTASSIUM CHLORIDE 20 MEQ TABCR PO SCH (08:10)
[2016-10-18] MEDS: HEPARIN SOD 5000 UNIT/0.5 ML CARP SQ SCH (08:15)
--- NOTE | 2016-10-18 11:02 | Progress Note ---
Subjective Date of Service: Oct 18, 2016. Subjective Pt evaluation today including: conversation w/ patient, physical exam, lab review, review of studies, review of inpatient medication list Saw/examined the patient in room 286-1 She's doing well, +dry cough persists no shortness of breath no fevers/chills Problem List Medical Problems: (1) Acute bronchitis Status: Acute (2) Asthma with exacerbation Status: Acute (3) Dependent edema Status: Acute (4) Hypoxia Status: Acute (5) Pneumonia Status: Acute (6) Shortness of breath Status: Acute (7) Shortness of breath Status: Acute (8) SOB (shortness of breath) Status: Acute (9) Tachycardia Status: Acute Review of Systems Constitutional: No fever, No chills Respiratory: + cough, + sputum (intermittent sputum production), No shortness of breath Abdomen: + problem reported (reflux), No pain, No nausea, No vomiting, No diarrhea Female : No dysuria, No urinary frequency Heme: No abnormal bleeding/bruising Medications Current Inpatient Medications Medications (Trade) Dose Ordered Sig/Matt Route Start Time Stop Time Status Last Admin Dose Admin Albuterol (Ventolin Hfa Inhaler) 2 puffs Q4H PRN INH 10/12/16 05:30 11/11/16 05:29 Aspirin (Ecotrin Tab) 81 mg DAILY PO 10/12/16 08:00 11/11/16 07:59 10/18/16 08:09 81 MG Budesonide/ Formoterol Fumarate (Symbicort 160/ 4.5 Inh) 2 puffs BID INH 10/12/16 08:00 11/11/16 07:59 10/18/16 08:08 2 PUFFS Citalopram Hydrobromide (celeXA TAB) 40 mg QAM PO 10/12/16 08:00 11/11/16 07:59 10/18/16 08:09 40 MG Fluticasone Propionate (Flonase Nasal [place]) 1 sprays BID NA 10/12/16 08:00 11/11/16 07:59 10/18/16 08:09 1 SPRAYS Folic Acid (Folvite Tab) 1 mg QAM PO 10/12/16 08:00 11/11/16 07:59 10/18/16 08:10 1 MG Furosemide (Lasix Tab) 20 mg DAILY PRN PO 10/12/16 05:30 11/11/16 05:29 Levothyroxine Sodium (Synthroid Tab) 100 mcg DAILYBB PO 10/12/16 06:30 11/11/16 06:29 10/18/16 06:12 100 MCG Montelukast Sodium (Singulair Tab) 10 mg QPM PO 10/12/16 21:00 11/11/16 20:59 10/17/16 20:58 10 MG Pantoprazole Sodium (Protonix Tab) 40 mg QAM PO 10/12/16 08:00 11/11/16 07:59 10/18/16 08:09 40 MG Phenytoin Sodium (Dilantin Er Cap) 200 mg BID PO 10/12/16 08:00 11/11/16 07:59 10/18/16 08:09 200 MG Albuterol/ Ipratropium (Duoneb) 3 ml QIDR INH 10/12/16 08:00 11/11/16 07:59 10/18/16 07:12 3 ML Acetaminophen (Tylenol Tab) 650 mg Q4H PRN PO 10/12/16 05:30 11/11/16 05:29 Al Hydrox/Mg Hydrox/Simethicone (Maalox Max Susp) 15 ml Q4H PRN PO 10/12/16 05:30 11/11/16 05:29 Magnesium Hydroxide (Milk Of Magnesia Susp) 30 ml Q6H PRN PO 10/12/16 05:30 11/11/16 05:29 Polyethylene (Miralax Powder Packet) 17 gm DAILY PRN PO 10/12/16 05:30 11/11/16 05:29 10/16/16 16:15 17 GM Zolpidem Tartrate (Ambien Tab) 5 mg HSZ PRN PO 10/12/16 05:30 11/11/16 05:29 Ondansetron HCl (Zofran Inj) 4 mg Q6H PRN IV 10/12/16 05:30 11/11/16 05:29 10/15/16 21:08 4 MG Heparin Sodium (Porcine) (Heparin Sq 5000 Unit/0.5ml) 5,000 unit Q12H SQ 10/12/16 09:00 11/11/16 08:59 10/18/16 08:15 5,000 UNIT Codeine Phosphate/ Guaifenesin (Robitussin-AC Sugar Free Syrup) 5 ml Q6H PRN PO 10/12/16 05:30 11/11/16 05:29 10/17/16 18:16 5 ML Magnesium Oxide (Mag-Ox Tab) 400 mg QAM PO 10/14/16 09:00 11/13/16 08:59 10/18/16 08:10 400 MG Potassium Chloride (Klor-Con Tab) 20 meq QAM PO 10/16/16 09:00 11/15/16 08:59 10/18/16 08:10 20 MEQ Prednisone (PredniSONE TAB) 40 mg DAILY PO 10/17/16 09:00 11/16/16 08:59 10/18/16 08:09 40 MG Phenobarbital (Phenobarbital Tab) 97.2 mg HS PO 10/17/16 21:00 11/16/16 20:59 10/17/16 20:57 97.2 MG Objective Vital Signs Date Time Temp Pulse Resp B/P (MAP) Pulse Ox O2 Delivery O2 Flow Rate FiO2 10/18/16 07:41 36.7 69 16 134/70 (91) 93 Room Air 10/18/16 07:13 79 16 93 Room Air 10/18/16 04:16 Room Air 10/18/16 04:00 36.7 75 20 100/62 (75) 92 Room Air 10/18/16 00:00 36.6 72 18 107/61 (76) 91 Room Air 10/18/16 00:00 Room Air 10/17/16 20:00 Room Air 10/17/16 19:56 36.8 74 18 104/61 (75) 90 Room Air 10/17/16 19:28 84 16 94 Room Air 10/17/16 16:00 Room Air 10/17/16 15:24 36.8 86 20 106/65 (79) 91 Room Air 10/17/16 14:26 77 16 92 Room Air 10/17/16 12:00 Room Air 10/17/16 11:22 72 16 91 Room Air 10/17/16 11:15 36.8 77 16 106/63 (77) 90 Room Air Physical Exam General Appearance: no apparent distress Respiratory/Chest: lungs clear, normal breath sounds, no respiratory distress, no accessory muscle use Cardiovascular: regular rate, rhythm, no edema, no murmur Extremities: normal inspection, no pedal edema Neurologic/Psychiatric: no motor/sensory deficits, alert, normal mood/affect Laboratory Results Last 24 Hours Test 10/18/16 05:46 White Blood Count 8.12 K/uL Red Blood Count 3.93 M/uL Hemoglobin 12.6 g/dL Hematocrit 36.8 % Mean Corpuscular Volume 93.6 fL Mean Corpuscular Hemoglobin 32.1 pg Mean Corpuscular Hemoglobin Concent 34.2 g/dl RDW Standard Deviation 49.0 fL RDW Coefficient of Variation 14.2 % Platelet Count 236 K/uL Mean Platelet Volume 9.0 fL Sodium Level 139 mmol/L Potassium Level 3.8 mmol/L Chloride Level 103 mmol/L Carbon Dioxide Level 31 mmol/L Anion Gap 5.0 mmol/L Blood Urea Nitrogen 10 mg/dl Creatinine 0.60 mg/dl Est Creatinine Clear Calc Drug Dose 71.1 ml/min Estimated GFR () 112.4 Estimated GFR (Non- 97.0 BUN/Creatinine Ratio 17.3 Random Glucose 82 mg/dl Calcium Level 8.3 mg/dl Phenobarbital Level 10.0 mcg/mL Assessment and Plan This is a 61 year old female with a PMH of chronic bronchiectasis, chronic sinusitis, moderate persistent asthma, hx. of stress-induced cardiomyopathy, depression/anxiety, hypothyroidism, hx. of seizure disorder, presents with worsening shortness of breath, chest congestion and chest pain Tonic-Clonic Seizure 10/18 appreciate neurology input continue Phenobarbital and Dilantin outpatient neurology follow-up for November 04 at 10:35AM no driving [id number] or when okay with neurology 10/17 continue Dilantin one dose of IV Phenobarbital and then continue PO appreciate neurology input 10/16 both Dilantin and phenobarbital levels are low today will give one dose of phenobarbital through the IV will give 500mg IV Dilantin recheck levels in AM stopped Levaquin EEG ordered and results pending 10/15 patient has a history of seizures had a one minute seizure, no loss of bowel/bladder function, no tongue biting noted, no fall does not recall event; it was witnessed by nursing and brother Dilantin level returned slightly low at 9.7; was given an extra 100mg of it, she takes 200mg BID routinely Head CT negative Lab work does not show any signs of infections; blood cultures pending Solu-medrol tapered down EEG ordered neurology consulted for further input Acute Exacerbation of Chronic Bronchiectasis Moderate, Persistent Asthma 10/18 d/c on prednisone taper as well as Zantac twice a day, and PPI 10/17 continue prednisone with a taper and d/c home in 1-2 days 10/16 stop solu-medrol start prednisone 40mg daily stop antibiotics nocturnal pulse ox speech therapy to r/o aspiration vibration vest, nebulizers, O2 PRN appreciate pulm input 10/15 solu-medrol tapered, change to prednisone if okay with pulmonology cough is better, breathing improved 10/14 s/p bronchoscopy IV solu-medrol x one now due to bronchospasm will give one dose of cough syrup now due to worsening cough with sputum further management as per pulm 10/13 plan for now is to continue steroids; solu-medrol for now continue Levaquin for possible underlying bacterial infection appreciate pulmonology input: continue chest percussor, Dornase, cough meds PRN and nebs PRN continue home medications including Symbicort, Singulair and Flonase for recurrent sinusitis New LBBB Hx. of Stress-Induced Cardiomyopathy now resolved patient has had issues with stress-induced cardiomyopathy last cardiac cath in summer in July 2016 with no issues continue aspirin for now Depression/Anxiety as per patient, this is controlled will continue current medications Hypothyroidism continue Synthroid DVT ppx subq heparin FULL CODE
[2016-10-18 11:12] VITALS: BP 134/70; PULSE 69; TEMP 36.7; O2SAT 93
[2016-10-18 11:16] VITALS: PULSE 80; O2SAT 94
[2016-10-18] MEDS ORDERED: OXGN (11:17)
[2016-10-18] MEDS ORDERED: SPRIN INH (11:17)
[2016-10-18] MEDS ORDERED: PRED10TA PO (11:17)
[2016-10-18] MEDS ORDERED: GUAISYP4 PO (11:17)
[2016-10-18] MEDS ORDERED: RANITAB6 PO (11:24)
--- NOTE | 2016-10-18 11:28 | Discharge Instructions ---
Discharge Instructions Date of Service Oct 18, 2016. Admission Reason for Admission: Copd Exacerbation Discharge Discharge Diagnosis / Problem: Chronic Bronchiectasis with Exacerbation and Mucous Plugging; Seizures Discharge Goals Goal(s): Decrease discomfort, Improve function, Diagnostic testing, Therapeutic intervention Activity Recommendations Activity Limitations: resume your previous activity (no driving) Driving or Machine Use: no driving . Instructions / Follow-Up Instructions / Follow-Up Please follow-up with Dr. Villavicencio on October 23 at 2:45PM * Increase your Zantac to twice a day * Please take prednisone as follows: take four tablets on 10/18 and 10/19, take three tablets on 10/20 and 10/21, take two tablets on 10/22 and 10/23, take one tablet on 10/24 and 10/25 * You will be started on Spiriva, use this once daily * You will be prescribed oxygen for use at night * follow-up with Dr. Shine on November 04 at 10:35AM * No driving until you see neurology Current Hospital Diet Patient's current hospital diet: AHA Diet (Heart Healthy) Discharge Diet Recommended Diet: AHA Diet (Heart Healthy) Pending Studies Studies pending at discharge: no Laboratory Results Hemoglobin A1c Test 08/10/16 06:08 Range/Units Estimated Average Glucose 105 mg/dl Hemoglobin A1c 5.3 4.5-5.6 % Lipid Panel Test 08/11/16 05:55 Range/Units Triglycerides Level 43 0-150 mg/dl Cholesterol Level 227 H 0-200 mg/dl HDL Cholesterol 137 mg/dl Cholesterol/HDL Ratio 1.7 LDL Cholesterol, Calculated 81 mg/dl Medical Emergencies . Who to Call and When: Medical Emergencies: If at any time you feel your situation is an emergency, please call 911 immediately. . Non-Emergent Contact Non-Emergency issues call your: Primary Care Provider, Neurologist, Textile Conversion Manager . . "Provider Documentation" section prepared by Vera Rivera. . VTE Core Measure Inpt VTE Proph given/why not?: Unfractionated heparin SQ
--- NOTE | 2016-10-18 11:31 | Discharge Summary ---
Discharge Summary Date of Service Oct 18, 2016. Discharge Summary Admission Date: Oct 12, 2016 at 03:10 Discharge Date: Oct 18, 2016 Discharge Disposition: Home Principal Diagnosis: Chronic Bronchiectasis Mucous Plugging GERD Tonic-Clonic Seizure Consultations: Liane Boles Medication Reconciliation New Medications: Home O2 Therapy (Oxygen) Gas 2 LITERS NA PRN PRN for Shortness of Breath for 30 Days, #1 for nocturnal use while sleeping Prednisone Tab (Prednisone) 10 Mg Tab 10 MG PO UD for 8 Days, #20 TAB Ranitidine Hcl (Zantac 150 Maximum Streng) 150 Mg Tab 1 TAB PO BID for 30 Days, #60 TAB Tiotropium [place] (Spiriva Handihaler) 5 Puff/90 Mcg Aerp 2 PUFFS INH DAILY for 30 Days, #1 INHALER Guaifenesin/Codeine (Robitussin-Ac Syrup) Syrp 5 ML PO Q6H PRN for Cough for 14 Days, #1 BTL Continued Medications: Albuterol Hfa (Ventolin Hfa) 200 Puffs/53558 Mcg Aers 2 PUFFS INH Q4H PRN for SOB/Wheezing Aspirin (Aspirin EC Low Dose) 81 Mg Ectab 81 MG PO DAILY Budesonide/Formoterol Fumarate (Symbicort 160/4.5 Inhaler ) Aero 2 PUFFS INH BID Citalopram (Citalopram Hydrobromide) 40 Mg Tab 40 MG PO QAM, TAB Fluticasone Propionate (Nasal) (Flonase Allergy Relief) 50 Mcg/Act Spr 1 SPRAY NA BID Folic Acid (Folvite) 1 Mg Tab 1 MG PO QAM, TAB Furosemide (Lasix) 20 Mg Tab 20 MG PO DAILY PRN for edema Ipratropium-Albuterol (Duoneb) 3 Ml Nebu 1 TREATMENT INH Q4H PRN for SOB/Wheezing, INHA Levothyroxine Sodium (Levothyroxine Sodium) 100 Mcg Tab 100 MCG PO DAILY Montelukast Sodium (Singulair) 10 Mg Tab 10 MG PO QPM, TAB Pantoprazole (Protonix) 40 Mg Tab 40 MG PO QAM, TAB Phenobarbital (Phenobarbital) 100 Mg Tab 97.2 MG PO HS Phenytoin Sodium (Dilantin) 100 Mg Cap 200 MG PO BID Discontinued Medications: Azithromycin (Zithromax) 250 Mg Tab 250 MG PO DAILY Z-MATT Levofloxacin (Levaquin) 750 Mg Tab 750 MG PO QD@08, #9 TAB Prednisone (Prednisone) 20 Mg Tab 20 MG PO UD for 10 Days, #12 TAB 2 po daily for 1 day,1 and a 1/2 po daily for 3 days,1 po daily for 3 days and then 1/2 po daily for 3 days Admission Information HPI (per Admitting provider): this is a 61 Yo f with past medical hx of advanced COPD , HTN , presented to ED with COPD exacerbation . Has been coughing with productive cough for 2 weeks, had persisted wheeze , chills was seen in ED few days back was discharged home with Prednisone and Levaquin pt's symptom did not improve-unable to take deep breath , had severe weakness , fatigue , feels like her legs will give away while attempt to stand did not sustain any fall has chest tightness for persisted SOB Physical Exam (per Admitting): General Appearance: + pertinent finding (chronically ill appearing ) Head: normocephalic, atraumatic Eyes: normal inspection Neck: no JVD Respiratory/Chest: + respiratory distress, + decreased breath sounds, + wheezing Cardiovascular: regular rate, rhythm Abdomen/GI: normal bowel sounds, non tender, soft Extremities/Musculoskelatal: normal inspection, no calf tenderness, normal capillary refill, no pedal edema Neurologic/Psych: no motor/sensory deficits, alert, normal mood/affect, oriented x 3 Hospital Course This is a 61 year old female with a PMH of chronic bronchiectasis, chronic sinusitis, moderate persistent asthma, hx. of stress-induced cardiomyopathy, depression/anxiety, hypothyroidism, hx. of seizure disorder, presents with worsening shortness of breath, chest congestion and chest pain Tonic-Clonic Seizure 10/18 appreciate neurology input continue Phenobarbital and Dilantin outpatient neurology follow-up for November 04 at 10:35AM no driving [id number] or when okay with neurology 10/17 continue Dilantin one dose of IV Phenobarbital and then continue PO appreciate neurology input 10/16 both Dilantin and phenobarbital levels are low today will give one dose of phenobarbital through the IV will give 500mg IV Dilantin recheck levels in AM stopped Levaquin EEG ordered and results pending 10/15 patient has a history of seizures had a one minute seizure, no loss of bowel/bladder function, no tongue biting noted, no fall does not recall event; it was witnessed by nursing and brother Dilantin level returned slightly low at 9.7; was given an extra 100mg of it, she takes 200mg BID routinely Head CT negative Lab work does not show any signs of infections; blood cultures pending Solu-medrol tapered down EEG ordered neurology consulted for further input Acute Exacerbation of Chronic Bronchiectasis Moderate, Persistent Asthma 10/18 d/c on prednisone taper as well as Zantac twice a day, and PPI 10/17 continue prednisone with a taper and d/c home in 1-2 days 10/16 stop solu-medrol start prednisone 40mg daily stop antibiotics nocturnal pulse ox speech therapy to r/o aspiration vibration vest, nebulizers, O2 PRN appreciate pulm input 10/15 solu-medrol tapered, change to prednisone if okay with pulmonology cough is better, breathing improved 10/14 s/p bronchoscopy IV solu-medrol x one now due to bronchospasm will give one dose of cough syrup now due to worsening cough with sputum further management as per pulm 10/13 plan for now is to continue steroids; solu-medrol for now continue Levaquin for possible underlying bacterial infection appreciate pulmonology input: continue chest percussor, Dornase, cough meds PRN and nebs PRN continue home medications including Symbicort, Singulair and Flonase for recurrent sinusitis New LBBB Hx. of Stress-Induced Cardiomyopathy now resolved patient has had issues with stress-induced cardiomyopathy last cardiac cath in summer in July 2016 with no issues continue aspirin for now Depression/Anxiety as per patient, this is controlled will continue current medications Hypothyroidism continue Synthroid DVT ppx subq heparin FULL CODE Total time spent on discharge = 45 minutes This includes examination of the patient, discharge planning, medication reconciliation, and communication with other providers. Discharge Instructions Please follow-up with Dr. Villavicencio on October 23 at 2:45PM * Increase your Zantac to twice a day * Please take prednisone as follows: take four tablets on 10/18 and 10/19, take three tablets on 10/20 and 10/21, take two tablets on 10/22 and 10/23, take one tablet on 10/24 and 10/25 * You will be started on Spiriva, use this once daily * You will be prescribed oxygen for use at night * follow-up with Dr. Shine on November 04 at 10:35AM * No driving until you see neurology
[2016-10-19 21:37] LABS: ASPERGILLUS FLAVUS Negative (Negative); ASPERGILLUS FUMIGATUS Negative (Negative); ASPERGILLUS NIGER Negative (Negative); IMMUNOGLOBULIN E TC 24620E 17 KU/L (<115)
[2016-11-07 16:06] LABS: HERPES SIMPLEX CULT SOURCE RESPIRATORY-RML BAL; HERPES SIMPLEX VIRUS CULT NOT ISOLATED (NOT ISOLATED)
== END 2016-10-18 12:18 | disposition home or self-care (01) | DRG 167 ==
LOC: EDBD 23:56 → C.EDB 23:58 → C.MS4W 10-12 03:10 → ENRESERV 10-12 03:17 → C.MSICU 10-12 08:24 → ENRESERV 10-13 14:52 → C.MS2W 10-13 15:42 → C.MED 10-15 12:14
PROVIDERS: ADMIT Hospitalist; ATTEND Family Medicine
PROC: 0B9D8ZX Drainage of Right Middle Lung Lobe, Via Natural or Artificial Opening Endoscopic, Diagnostic (ICD-10-PCS; principal; 2016-10-14)
DX: J44.1 Chronic obstructive pulmonary disease with (acute) exacerbation (principal); B37.0 Candidal stomatitis; T17.990A Other foreign object in respiratory tract, part unspecified in causing asphyxiation, initial encounter; G40.409 Other generalized epilepsy and epileptic syndromes, not intractable, without status epilepticus; I44.7 Left bundle-branch block, unspecified; J45.40 Moderate persistent asthma, uncomplicated; J32.9 Chronic sinusitis, unspecified; K21.9 Gastro-esophageal reflux disease without esophagitis; I10 Essential (primary) hypertension; F32.9 Major depressive disorder, single episode, unspecified; E03.9 Hypothyroidism, unspecified; Z51.81 Encounter for therapeutic drug level monitoring; Z79.899 Other long term (current) drug therapy; Z79.82 Long term (current) use of aspirin; Z87.01 Personal history of pneumonia (recurrent); Z83.3 Family history of diabetes mellitus; Z80.1 Family history of malignant neoplasm of trachea, bronchus and lung; Z82.49 Family history of ischemic heart disease and other diseases of the circulatory system; Z83.49 Family history of other endocrine, nutritional and metabolic diseases

== ENCOUNTER 2016-11-14 23:17 | Emergency (ER) | payer OTHER ==
[~2016-11-14] VITALS: Ht 162.6 cm; Wt 89.9 kg
[~2016-11-14 23:17] MED LIST changes: -AZIT250T PO; +GUAISYP4 PO; -LEVO1TAB35 PO; +OXGN; -PRD20 PO; -PRED50TA PO; +RANITAB6 PO; +SPRIN INH
[2016-11-14 23:20] VITALS: TEMP 36.5; Ht 162.6 cm; Wt 89.9 kg
[2016-11-14] MEDS ORDERED: ALBUT/IPRATROP 3MG/0.5MG NEB 3 ML VIAL INH ONE (23:30)
[2016-11-14 23:39] VITALS: PULSE 84; O2SAT 97
[2016-11-14 23:58] LABS: BASO ABS # 0.06 K/uL (0-0.2); COMPLETE YES; HEMATOCRIT 39.5 % (37-47); IG% 0.3 %; LYMPH % 39.4 %; LYMPH ABS # 2.47 K/uL (1.2-3.4); MEAN CELL VOLUME 92.1 fL (80-100); MEAN CORPUSCULAR HEMOGLOBIN 30.1 pg (25-34); MEAN CORPUSCULAR HGB CONC 32.7 g/dl (32-36); MEAN PLATELET VOLUME 8.9 fL (7.4-10.4); MONO % 9.4 %; NEUT % 34.9 %; PLATELET COUNT 284 K/uL (130-400); RED BLOOD COUNT 4.29 M/uL (4.2-5.4); WHITE BLOOD COUNT 6.27 K/uL (4.8-10.8)
--- NOTE | 2016-11-15 00:05 | EMERGENCY ROOM VISIT NOTE ---
History Report prepared by Litzy: Igor Dunlap Under the Supervision of: Dr. Eleonora Villaseñor D.O. First contact with patient: 23:17 Chief Complaint: RESPIRATORY PROBLEMS Stated Complaint: SOB History of Present Illness The patient is a 61 year old female who presents to the Emergency Room with complaints of worsening shortness of breath beginning three to four days ago. Nursing staff states the patient received 3 duoneb treatments in the past 6 hours, 125mg of Solu-Medrol, and a saline bolus in route. The patient states she is feeling better after receiving the steroids and breathing treatments. She reports she has a history of COPD and does not know how she was diagnosis. The patient notes she is supposed to have another heart catheterization, in addition to the two she already had. She states she got up today and felt terrible. The patient reports she has been coughing up yellow mucus. She notes she was in ED for similar symptoms about a month ago. The patient denies abdominal pain, being on antibiotics, and being on prednisone. She states she has several different inhalers and a nebulizer at home. Source of History: patient, nursing staff Onset: three to four days Position: other (global) Quality: other (SOB) Timing: worsening Associated Symptoms: + cough (yellow mucus), No abdominal pain Review of Systems See HPI for pertinent positives & negatives. A total of 10 systems reviewed and were otherwise negative. Past Medical & Surgical Medical Problems: (1) Age related osteoporosis (2) Asthma (3) COPD exacerbation (4) Depression (5) Epilepsy (6) EDWIN (generalized anxiety disorder) (7) GERD (gastroesophageal reflux disease) (8) IBS (irritable bowel syndrome) (9) Stress-induced cardiomyopathy Surgical Problems: (1) H/O sinus surgery (2) H/O: hysterectomy (3) History of ear surgery (4) Hx of breast biopsy Family History Diabetes mellitus MOTHER FH: lung cancer AUNT Hypertension FATHER Social History Smoking Status: Never Smoker Alcohol Use: none Housing Status: lives alone Occupation Status: unemployed Current/Historical Medications Scheduled Aspirin (Aspirin EC Low Dose), 81 MG PO DAILY Azithromycin (Zithromax), 500 MG PO DAILY Budesonide/Formoterol Fumarate (Symbicort 160/4.5 Inhaler ), 2 PUFFS INH BID Citalopram (Citalopram Hydrobromide), 40 MG PO QAM Fluticasone Propionate (Nasal) (Flonase Allergy Relief), 1 SPRAY NA BID Folic Acid (Folvite), 1 MG PO QAM Levothyroxine Sodium (Levothyroxine Sodium), 100 MCG PO DAILY Montelukast Sodium (Singulair), 10 MG PO QPM Pantoprazole (Protonix), 40 MG PO QAM Phenobarbital (Phenobarbital), 97.2 MG PO HS Phenytoin Sodium (Dilantin), 200 MG PO BID Prednisone (Prednisone), 50 MG PO DAILY Ranitidine (Zantac), 150 MG PO BID Tiotropium [place] (Spiriva Handihaler), 2 PUFFS INH DAILY Scheduled PRN Albuterol Hfa (Ventolin Hfa), 2 PUFFS INH Q4H PRN for SOB/Wheezing Furosemide (Lasix), 20 MG PO DAILY PRN for edema Guaifenesin/Codeine (Robitussin-Ac Syrup), 5 ML PO Q6H PRN for Cough Home O2 Therapy (Oxygen), 2 LITERS NA PRN PRN for Shortness of Breath Ipratropium-Albuterol (Duoneb), 1 TREATMENT INH Q4H PRN for SOB/Wheezing Allergies Coded Allergies: Clemastine (Verified Allergy, Unknown, ITCHING, 10/12/16) Sulfa Antibiotics (Verified Allergy, Unknown, RASH AND ITCHY, 10/12/16) [place] (Verified Allergy, Unknown, HUNGARIAN WALNUT ALLERGY, + ALLERGY TEST , 10/12/16) Physical Exam Vital Signs Date Time Temp Pulse Resp B/P (MAP) Pulse Ox O2 Delivery O2 Flow Rate FiO2 11/15/16 02:05 92 17 124/66 95 11/15/16 01:01 89 21 124/68 96 Room Air 11/15/16 00:31 96 12 124/58 96 Room Air 11/15/16 00:17 93 22 124/59 100 Nebulizer 11/14/16 23:39 84 16 97 Room Air 11/14/16 23:20 Room Air 11/14/16 23:20 36.5 86 18 126/70 98 Room Air 11/14/16 23:20 Room Air Physical Exam HEENT: Head - normocephalic and atraumatic Pupils are equal, round, and reactive to light. Extraocular eye muscles are intact, and sclera are anicteric. Nose - moist nasal mucosa without discharge. Mouth - moist buccal mucosa. Oropharynx is erythematous and there is thrush. Neck: Supple; no JVD, nuchal rigidity, cervical lymphadenopathy, or auscultated bruits. Heart: Regular rate and rhythm. There is a normal S1 and S2 with no murmurs, clicks, or gallops appreciated. Lungs: Expiatory wheezing in all lung nicolas. No rales, or rhonchi. Abdomen: Soft, completely nontender, nondistended, with good bowel sounds. There are no palpable pulsatile masses or hepatosplenomegaly. There is no guarding, rigidity, or rebound noted. Extremities: No evidence of cyanosis or clubbing. Lower extremity pedal edema. There are easily palpable peripheral pulses. Skin: warm and dry with good turgor and no rashes. Medical Decision & Procedures ER Provider Diagnostic Interpretation: X-ray results as stated below per interpretation by me: Two view chest: no pulmonary infiltrate, no pleural effusions Laboratory Results 11/14/16 22:47 Red Blood Count 4.29, Mean Corpuscular Volume 92.1, Mean Corpuscular Hemoglobin 30.1, Mean Corpuscular Hemoglobin Concent 32.7, Mean Platelet Volume 8.9, Neutrophils (%) (Auto) 34.9, Lymphocytes (%) (Auto) 39.4, Monocytes (%) (Auto) 9.4, Eosinophils (%) (Auto) 15.0, Basophils (%) (Auto) 1.0, Neutrophils # (Auto ) 2.19, Lymphocytes # (Auto) 2.47, Monocytes # (Auto) 0.59, Eosinophils # (Auto ) 0.94, Basophils # (Auto) 0.06 11/14/16 22:47 Test 11/14/16 22:47 White Blood Count 6.27 K/uL (4.8-10.8) Red Blood Count 4.29 M/uL (4.2-5.4) Hemoglobin 12.9 g/dL (12.0-16.0) Hematocrit 39.5 % (37-47) Mean Corpuscular Volume 92.1 fL (80-100) Mean Corpuscular Hemoglobin 30.1 pg (25-34) Mean Corpuscular Hemoglobin Concent 32.7 g/dl (32-36) Platelet Count 284 K/uL (130-400) Mean Platelet Volume 8.9 fL (7.4-10.4) Neutrophils (%) (Auto) 34.9 % Lymphocytes (%) (Auto) 39.4 % Monocytes (%) (Auto) 9.4 % Eosinophils (%) (Auto) 15.0 % Basophils (%) (Auto) 1.0 % Neutrophils # (Auto) 2.19 K/uL (1.4-6.5) Lymphocytes # (Auto) 2.47 K/uL (1.2-3.4) Monocytes # (Auto) 0.59 K/uL (0.11-0.59) Eosinophils # (Auto) 0.94 K/uL (0-0.5) Basophils # (Auto) 0.06 K/uL (0-0.2) RDW Standard Deviation 46.7 fL (36.4-46.3) RDW Coefficient of Variation 13.9 % (11.5-14.5) Immature Granulocyte % (Auto) 0.3 % Immature Granulocyte # (Auto) 0.02 K/uL (0.00-0.02) Anion Gap 8.0 mmol/L (3-11) Est Creatinine Clear Calc Drug Dose 81.2 ml/min Estimated GFR () 95.2 Estimated GFR (Non- 82.2 BUN/Creatinine Ratio 12.7 (10-20) Calcium Level 8.4 mg/dl (8.5-10.1) Troponin I < 0.015 ng/ml (0-0.045) Pro-B-Type Natriuretic Peptide 62 pg/ml (0-900) Laboratory results per my review. Medications Administered Medications (Trade) Dose Ordered Sig/Matt Route Start Time Stop Time Status Last Admin Dose Admin Albuterol/ Ipratropium (Duoneb) 12 ml ONE ONCE INH 11/14/16 23:30 11/14/16 23:33 DC 11/14/16 23:39 12 ML Azithromycin (Zithromax Tab) 500 mg NOW ONCE PO 11/15/16 01:15 11/15/16 01:16 DC 11/15/16 01:24 500 MG Phenobarbital (Phenobarbital Tab) 97.2 mg NOW STAT PO 11/15/16 01:17 11/15/16 01:18 DC 11/15/16 01:24 97.2 MG Procedure 2330: Ordered Duoneb 12ml INH 0115: Ordered Azithromycin 500mg PO 0117: Ordered Phenobarbital 97.2mg PO ED Course 2324: Past medical records reviewed. The patient was evaluated in room C03. A complete history and physical exam was performed. Labs drawn as above The patient had a chest x-ray as described above. 2330: Ordered Duoneb 12ml INH 0041: I reevaluated the patient. She is feeling much better. She just finished her nebulizer and is drinking fluids. 0108: Upon reevaluation, she is experiencing extreme shakiness form the nebulizer. I discussed findings and results with her. She verbalized agreement of the treatment plan. The patient is waiting for her brother to get here from [place]. 0115: Ordered Azithromycin 500mg PO 0117: Ordered Phenobarbital 97.2mg PO Medical Decision The patient is a 61 year old female who presents to the ED with shortness of breath. Differential diagnosis includes COPD exacerbation, pneumonia, CHF, bronchitis. Lab results show: no leukocytosis, stable H&H, normal renal function, normal glucose, normal troponin, BNP of 62. This is a 61-year-old female patient with history of COPD who presents emergency Department with worsening shortness of breath over the past couple of days. The patient has been using her nebulizer at home but her symptoms worsened tonight. She describes a very difficult past 9 months with frequent episodes of COPD exacerbations. She received an hour-long DuoNeb treatment here in the emergency department which significantly helped her symptoms. She had received IV steroids from EMS. Because the patient had a productive cough, she will be started on oral antibiotics and oral prednisone. I've asked patient to follow-up with her PCP on Wednesday. If her symptoms worsen, she should return here to the ER. Impression Primary Impression: COPD exacerbation Additional Impression: Bronchitis Scribe Attestation The scribe's documentation has been prepared under my direction and personally reviewed by me in its entirety. I confirm that the note above accurately reflects all work, treatment, procedures, and medical decision making performed by me. Departure Information Dispostion Home / Self-Care Prescriptions Azithromycin (Zithromax) 500 Mg Tab 500 MG PO DAILY, #6 TAB Prov: Eleonora Villaseñor D.Bhavna 11/15/16 Prednisone (PREDNISONE) 50 Mg Tab 50 MG PO DAILY, #5 TAB Prov: Eleonora Villaseñor D.O. 11/15/16 Referrals Asa Villavicencio D.O. (PCP) Forms HOME CARE DOCUMENTATION FORM, IMPORTANT VISIT INFORMATION, WORK / SCHOOL INSTRUCTIONS Patient Instructions Bronchitis Acute, ED COPD Flare, [facility] Additional Instructions rest Use nebulizer every 4 hours Take prednisone every day for next 5 days Take zithromax every day for next 6 days Follow up on Wednesday with PCP for a recheck Return to the ER if you have worsening shortness of breath Problem Qualifiers
[2016-11-15 00:24] LABS: BLOOD UREA NITROGEN 10 mg/dl (7-18); BUN/CREATININE RATIO 12.7 (10-20); CALCIUM 8.4 mg/dl (8.5-10.1); CARBON DIOXIDE 26 mmol/L (21-32); CHLORIDE 105 mmol/L (98-107); CREATININE 0.77 mg/dl (0.60-1.20); GLUCOSE 97 mg/dl (70-99); POTASSIUM 3.4 mmol/L (3.5-5.1); SODIUM 139 mmol/L (136-145)
[2016-11-15] MEDS ORDERED: PHENOBARBITAL 32.4 MG TAB PO STA ×2 (01:14→01:17)
[2016-11-15] MEDS ORDERED: AZITHROMYCIN 250 MG TAB PO ONE (01:15)
[2016-11-15] MEDS ORDERED: AZIT500T26 PO (01:57)
[2016-11-15] MEDS ORDERED: PRED50TA PO (01:57)
[2016-11-15] MEDS ORDERED: ZNTT/150 PO (02:04)
[2016-11-15 02:05] VITALS: BP 124/66; PULSE 92; O2SAT 95
[2016-11-15] MEDS ORDERED: SPRIN INH (02:06)
--- NOTE | 2016-11-15 06:53 | DIAGNOSTIC IMAGING REPORT ---
CHEST 2 VIEWS ROUTINE HISTORY: 61 years-old Female sob; productive cough acute shortness of breath with productive cough. COMPARISON: Chest radiographs 10/14/2016 TECHNIQUE: Frontal and lateral views of the chest FINDINGS: Cardiomediastinal and hilar silhouettes are within normal limits. No pneumothorax, pleural effusion or focal airspace consolidation. There is improved aeration of the bilateral lung bases from comparison. Minimal linear subsegmental bibasilar opacities suggest atelectasis. Upper abdominal structures are unremarkable. Multilevel endplate spurring is seen throughout the spine. IMPRESSION: No acute cardiopulmonary process. There is improved aeration of the bilateral lung bases. The above report was generated using voice recognition software. It may contain grammatical, syntax or spelling errors. Electronically signed by: Chad Blanton M.D. 11/15/2016 6:52 AM Dictated Date/Time: 11/15/2016 6:48 AM
== END 2016-11-15 02:06 | disposition home or self-care (01) ==
LOC: EDBD 23:17 → C.EDC 23:18
DX: J44.1 Chronic obstructive pulmonary disease with (acute) exacerbation (principal); J40 Bronchitis, not specified as acute or chronic; M81.0 Age-related osteoporosis without current pathological fracture; G40.909 Epilepsy, unspecified, not intractable, without status epilepticus; K58.9 Irritable bowel syndrome, unspecified; F32.9 Major depressive disorder, single episode, unspecified; K21.9 Gastro-esophageal reflux disease without esophagitis; Z79.82 Long term (current) use of aspirin; Z79.899 Other long term (current) drug therapy; Z86.79 Personal history of other diseases of the circulatory system; Z80.1 Family history of malignant neoplasm of trachea, bronchus and lung; Z82.49 Family history of ischemic heart disease and other diseases of the circulatory system; Z83.3 Family history of diabetes mellitus

== ENCOUNTER → 2016-11-25 | Outpatient (CLI) | payer OTHER ==
[~2016-11-25] MED LIST changes: +AZIT500T26 PO; +PRED50TA PO; -RANITAB6 PO; +ZNTT/150 PO
[2016-11-25 17:18] LABS: HEMATOCRIT 39.7 % (37-47); MEAN CELL VOLUME 91.3 fL (80-100); MEAN CORPUSCULAR HEMOGLOBIN 31.3 pg (25-34); MEAN CORPUSCULAR HGB CONC 34.3 g/dl (32-36); PLATELET COUNT 277 K/uL (130-400); RED BLOOD COUNT 4.35 M/uL (4.2-5.4); WHITE BLOOD COUNT 7.56 K/uL (4.8-10.8)
[2016-11-25 17:31] LABS: INR 1.1 (0.9-1.1); PROTHROMBIN TIME (PATIENT) 11.3 SECONDS (9.0-12.0)
[2016-11-25 17:46] LABS: BLOOD UREA NITROGEN 8 mg/dl (7-18); BUN/CREATININE RATIO 12.9 (10-20); CALCIUM 8.8 mg/dl (8.5-10.1); CARBON DIOXIDE 30 mmol/L (21-32); CHLORIDE 105 mmol/L (98-107); CREATININE 0.61 mg/dl (0.60-1.20); GLUCOSE 101 mg/dl (70-99); POTASSIUM 3.7 mmol/L (3.5-5.1); SODIUM 140 mmol/L (136-145)
== END | disposition home or self-care (01) ==
LOC: C.LAB1850 16:33
PROVIDERS: ATTEND Internal Medicine Interventional Cardiology
DX: Z01.818 Encounter for other preprocedural examination (principal)

== ENCOUNTER → 2016-11-30 | Day surgery (SDC) | payer OTHER ==
[~2016-11-30] VITALS: Ht 160 cm; Wt 80.4 kg
[~2016-11-30] MED LIST changes: +ALBUT/IPRATROP 3MG/0.5MG NEB 3 ML VIAL INH SCH; +CYAN100020 PO; +FENTANYL CITRATE INJ 50 MCG/1 ML 2 ML VIAL ONE; +FLUT0.15 NAE; +LEVO-17 PO; +MIDAZOLAM HCL 1 MG/ML 2ML VIAL ONE; +NURSING VERBAL MED ORDER ONE; +POTA20TA16 PO; -PRED50TA PO; +nasal saline
[2016-11-30 08:44] VITALS: Ht 160 cm; Wt 80.4 kg
[2016-11-30 08:45] VITALS: BP 130/58; PULSE 75; TEMP 36.6; O2SAT 97
[2016-11-30 10:21] VITALS: BP 132/67; O2SAT 97
[2016-11-30 10:43] LABS: ISTAT ARTERIAL BLOOD GAS HCO3 26 meq/L (19-24); ISTAT ARTERIAL BLOOD GAS PCO2 42 mmHg (35-46); ISTAT ARTERIAL BLOOD GAS PO2 39 mmHg (80-95); ISTAT CARBON DIOXIDE 28 mEq/l (24-31)
--- NOTE | 2016-11-30 10:53 | Procedure Note ---
Pre-Mod Sedation Assessment General Date of Moderate Sedation: Nov 30, 2016. Vital Signs: Vital Signs Past 12 Hours Date Time Temp Pulse Resp B/P (MAP) Pulse Ox O2 Delivery O2 Flow Rate FiO2 11/30/16 08:45 36.6 75 16 130/58 97 Room Air Review Cardiovascular: regular rate, rhythm, no edema Abdomen: normal bowel sounds, non tender Lungs: chest non-tender, lungs clear Airway Class: III Pre-Sedation Airway Assessment Oral Cavity: WNL Able to Visualize Vocal Cords: No Short Thick Neck: No Hx of Sleep Apnea: No Smoking Status: Never Smoker Mallampati Classification: Class III ASA Classification: Class III Procedure Planning Contraindications-for Mod Sed: None Yes Notes The planned sedation has been discussed with the patient and consent obtained. I have identified the patient, determined the appropriateness of sedation and have assessed the patient immediately prior to the procedure. All medicine(s) and interventions are by my order.
--- NOTE | 2016-11-30 10:53 | Procedure Note ---
Post-Mod Sedation Assessment General Date of Moderate Sedation Nov 30, 2016. Vital Signs: Vital Signs Past 12 Hours Date Time Temp Pulse Resp B/P (MAP) Pulse Ox O2 Delivery O2 Flow Rate FiO2 11/30/16 08:45 36.6 75 16 130/58 97 Room Air Review - Discharge Criteria Vital Signs Stable: Yes Alert/Oriented/Conversant: Yes Returned to Baseline Mental St: Yes Nausea Absent/Minimal: Yes Pain/Discomfort/Absent/Minimal: Yes Normal/Baseline Respirations: Yes Active Bleeding?: No Pt Received D/C Instructions: Yes Prescriptions Given: None Specific Proced. D/C Criteria Distal Pulses Present (Cardiac: N/A Groin site assessed-Card Cath: N/A Voided Prior To Discharge: N/A Discharged Patients Adult Escort/Transportation: Yes
--- NOTE | 2016-11-30 11:01 | Cardiac Catheterization ---
Procedure Note Procedure Date Nov 30, 2016. Pre-Procedure Diagnosis Cardiothoracic Symptom AUC Score 7 Post-Procedure Diagnosis Normal Intracardiac Pressures Procedure(s) Performed Right Heart Cath [employer] Technician(s) Volodymyr Estimated Blood Loss 5 Medication(s) Lidocaine 1% Summary of Findings Indications: Dyspnea/Bronchiectasis/lower extremity edema Access: 6Fr slender right antecubital vein. Catheters: 6Fr [place] RA 5 RV 35/12 PA 34/7 (22) PCW 10 PaSat 73% AoSat 95% Nehal CO/CI 5.7/3.1 TPG 12 PVR 2.1 Summary: 1. Normal intracardiac filling pressures 2. Preserved cardiac output 3. No pulmonary hypertension. Recommendations: No changes to current therapy. Follow-up with Dr. Zapata. Hemodynamics Rest Ao: -- Final Ao: -- LV: -- Recommendations Medical therapy and/or Counseling Specimens None Radiation Exposure (mGy) 11 Contrast (mls) -- Fluids (cc crystalloids) 10 Drains none Anesthesia local Procedural Complication(s) None Disposition Waitstaff Holding/Recovery ACC Data Cardiac Status Clinical evaluation leading to the procedure CAD Presntation: Sx unlikely to be ischemic Anginal Classification: CCS III Heart Failure: No, NYHA Class: CCS I Closure Device Percutaneous Entry Location: right antecubital vein Closure Device: none - manual hold Recommendations: Medical therapy and/or Counseling Intraprocedure Events Significant Dissection: No Perforation: No
--- NOTE | 2016-11-30 11:05 | Discharge Instructions ---
Discharge Instructions Procedure Procedure Date: Nov 30, 2016. Reason for Visit: Evaluate for Pulmonary Hypertension *Dr Allen To Do*. Discharge Discharge Date: Nov 30, 2016. Discharge Diagnosis: Normal cardiac output Last Recorded Wt (Kilograms): 80.4 Anesthesia Post Anesthesia Instructions: If you have had General Anesthesia or IV Sedation: * Do not drive today. * Resume driving when surgeon permits. * Do not make important decisions or sign legal documents today. * Call surgeon for: 1. Temperature elevations greater than 101 degrees F. 2. Uncontrollable pain. 3. Excessive bleeding. 4. Persistent nausea and vomiting. 5. Medication intolerance (nausea, vomiting or rash). * For nausea and vomiting use only clear liquids such as: tea, soda, bouillon until nausea subsides, then gradually increase diet as tolerated. * If you have any concerns or questions, call your surgeon's office. If physician is unavailable and it is an emergency, call 911 or go to the nearest emergency room. Instructions Activity Recommendations: limitations as noted below, lifting limitation ( nothing heavier than 10lb for 3 days), shower/bathe limit (no soaking bathes for 3 days) Recommended Home Diet: resume previous diet Allergies: Coded Allergies: Clemastine (Verified Allergy, Unknown, ITCHING, 10/12/16) Sulfa Antibiotics (Verified Allergy, Unknown, RASH AND ITCHY, 10/12/16) [place] (Verified Allergy, Unknown, GREENLANDIC WALNUT ALLERGY, + ALLERGY TEST , 10/12/16) Follow Up Follow-up with: As scheduled with Dr. Zapata [facility] Recommendations: Call your doctor if: * Temperature above 101 degrees * Pain not relieved by pain medicine ordered * There is increased drainage or redness from any incision * You have any unanswered questions or concerns. Your Doctors Instructions noted above were prepared by provider Quan Allen. Patient Signature Section: Patient Instructions Signature Page Olivia Rosado Patient (or Guardian) Signature/Date: I have read and understand the instructions given to me by my caregivers. Caregiver/RN/Doctor Signature/Date: The above-named patient and/or guardian has received patient instructions on this date. + Original Patient Signature Page (only) stays with chart. Please make copy for patient.
[2016-11-30 12:47] VITALS: PULSE 72; O2SAT 97
== END | disposition home or self-care (01) ==
LOC: C.CATH 08:25
PROVIDERS: ATTEND Internal Medicine Interventional Cardiology
DX: I27.29 Other secondary pulmonary hypertension (principal); R06.00 Dyspnea, unspecified; I50.32 Chronic diastolic (congestive) heart failure; I51.7 Cardiomegaly; J47.9 Bronchiectasis, uncomplicated; I51.81 Takotsubo syndrome; R60.0 Localized edema; J45.909 Unspecified asthma, uncomplicated; E03.9 Hypothyroidism, unspecified; F32.9 Major depressive disorder, single episode, unspecified; Z98.890 Other specified postprocedural states; Z90.710 Acquired absence of both cervix and uterus; Z79.82 Long term (current) use of aspirin; Z79.52 Long term (current) use of systemic steroids; Z88.2 Allergy status to sulfonamides; Z91.010 Allergy to peanuts; Z83.49 Family history of other endocrine, nutritional and metabolic diseases

== ENCOUNTER → 2016-12-24 | Outpatient (CLI) | payer OTHER ==
[~2016-12-24] MED LIST changes: -ALBUT/IPRATROP 3MG/0.5MG NEB 3 ML VIAL INH SCH; +AMOX875T PO; -AZIT500T26 PO; -FENTANYL CITRATE INJ 50 MCG/1 ML 2 ML VIAL ONE; -FLUT0.15 NAE; -LEVO-17 PO; -MIDAZOLAM HCL 1 MG/ML 2ML VIAL ONE; -NURSING VERBAL MED ORDER ONE; -ZNTT/150 PO; -nasal saline
[2016-12-29 16:48] LABS: DIPTHERIA ANTITOXID 1.71 IU/mL; PNEUMOCOCCAL IGG TYPE 1 <0.3; PNEUMOCOCCAL IGG TYPE 12(12F <0.3; PNEUMOCOCCAL IGG TYPE 14 <0.3; PNEUMOCOCCAL IGG TYPE 19(19F 0.6; PNEUMOCOCCAL IGG TYPE 23(23F <0.3; PNEUMOCOCCAL IGG TYPE 26 (6B 0.3; PNEUMOCOCCAL IGG TYPE 3 <0.3; PNEUMOCOCCAL IGG TYPE 4 <0.3; PNEUMOCOCCAL IGG TYPE 5 0.8; PNEUMOCOCCAL IGG TYPE 51 (7F 1.1; PNEUMOCOCCAL IGG TYPE 56(18C 0.5; PNEUMOCOCCAL IGG TYPE 68 (9V 0.3; PNEUMOCOCCAL IGG TYPE 8 0.5; PNEUMOCOCCAL IGG TYPE 9 (9N) <0.3; TETANUS ANTIBODY TC 50922P 1.21 IU/mL (>0.15)
== END | disposition home or self-care (01) ==
LOC: C.LAB 17:28
PROVIDERS: ATTEND Internal Medicine Pulmonary Disease
DX: A49.01 Methicillin susceptible Staphylococcus aureus infection, unspecified site (principal); G56.00 Carpal tunnel syndrome, unspecified upper limb; J15.1 Pneumonia due to Pseudomonas; R05 Cough